=== PATIENT | male | born 1955 | race Two or more races ===

== ENCOUNTER → 2020-08-04 08:26 | Outpatient (BNVA) | payer MEDICARE, SELFPAY | PROVIDERS: PCP Internal Medicine; Referring Provider Internal Medicine; Visit Provider Internal Medicine Endocrinology, Diabetes & Metabolism | DX: E11.42 Type 2 diabetes mellitus with diabetic polyneuropathy (principal); E11.21 Type 2 diabetes mellitus with diabetic nephropathy; Z79.4 Long term (current) use of insulin; I10 Essential (primary) hypertension; E78.5 Hyperlipidemia, unspecified; E66.9 Obesity, unspecified | CPT/HCPCS: 82947; 99212 ==

== ENCOUNTER 2020-09-10 08:38 | Outpatient (REF) | payer MEDICARE, SELFPAY ==
[2020-09-10 08:59] LABS: MANUAL DIFF FLAG NO
[2020-09-10 09:00] LABS: Basophils Absolute Auto 0.1 X10*3/uL (0.0-0.2); Basophils Percent Auto 0.7 % (0-2); Eosinophils Absolute Auto 0.3 X10*3/uL (0.0-0.4); Eosinophils Percent Auto 2.8 % (0-4); Hematocrit 44.7 % (42-52); Hemoglobin 15.1 g/dl (14.0-18.0); Imm Gran Abs Auto 0.01 X10*3/uL (0.00-0.03); Imm Gran Pct Auto 0.1 % (0.0-0.4); Lymphocytes Absolute Auto 3.6 X10*3/uL (1.2-4.9); Lymphocytes Percent Auto 39.4 % (20-40); Mean Corpuscular HGB Conc 33.8 g/dl (31.0-36.0); Mean Corpuscular Hemoglobin 29.8 pg (27.0-33.0); Mean Corpuscular Volume 88.2 fL (80-98); Mean Platelet Volume 9.9 fL (9.4-12.4); Monocytes Absolute Auto 0.8 X10*3/uL (0.1-1.2); Monocytes Percent Auto 8.2 % (2-11); Neutrophils Absolute Auto 4.5 X10*3/uL (2.0-8.3); Neutrophils Percent Auto 48.8 % (45-73); Platelet Count 227 X10*3/uL (160-400); Red Blood Count 5.07 X10*6/uL (4.60-5.80); Red Cell Distribution Width 13.5 % (11.0-16.0); White Blood Count 9.2 X10*3/uL (4.8-10.8)
[2020-09-10 09:24] LABS: Estimated Average Glucose 192 mg/dL; Hemoglobin A1c % 8.3 %
[2020-09-10 09:30] LABS: Alanine Aminotransferase 23 U/L (0-40); Albumin Level 4.1 g/dL (3.5-5.0); Alkaline Phosphatase 65 U/L (39-117); Anion Gap 14 (12-20); Aspartate Amino Transferase 13 U/L (5-37); Bilirubin Total 0.7 mg/dL (0.0-1.0); Blood Urea Nitrogen 18 mg/dL (9-16); Calcium 9.1 mg/dL (8.4-10.2); Carbon Dioxide 26 mmol/L (22-29); Chloride 104 mmol/L (96-108); Cholesterol 113 mg/dL; Estimated Glomerular Filt Rate > 60; Glucose Fasting 170 mg/dL (60-99); HDL Cholesterol 33 mg/dL; LDL Cholesterol Calculated 62 mg/dl; Potassium 4.6 mmol/l (3.3-5.1); Sodium 139 mmol/L (135-145); Total Protein 6.4 g/dL (6.5-8.0); Triglycerides 94 mg/dL
[2020-09-10 09:38] LABS: Creatinine Urine 120.66 mg/dL; Microalbum/Creatinine Ratio Ur 31.4 ug/mg cr
== END 2020-09-10 08:39 | disposition home or self-care (01) ==
LOC: HO.LAB 08:38
PROVIDERS: PCP Internal Medicine; Visit Provider Internal Medicine
DX: E11.9 Type 2 diabetes mellitus without complications (principal)
CPT/HCPCS: 36415; 80053; 80061; 82043; 83036; 85025

== ENCOUNTER → 2021-02-16 08:22 | Outpatient (BNVA) | payer MEDICARE, SELFPAY | PROVIDERS: PCP Internal Medicine; Visit Provider Internal Medicine Endocrinology, Diabetes & Metabolism | DX: E11.65 Type 2 diabetes mellitus with hyperglycemia (principal); E11.42 Type 2 diabetes mellitus with diabetic polyneuropathy; E11.21 Type 2 diabetes mellitus with diabetic nephropathy; E78.5 Hyperlipidemia, unspecified; E66.9 Obesity, unspecified; I10 Essential (primary) hypertension; Z79.4 Long term (current) use of insulin | CPT/HCPCS: 82947; 99212 ==

== ENCOUNTER 2021-03-07 06:07 | Outpatient (REF) | payer MEDICARE, SELFPAY ==
[2021-03-07 07:33] LABS: Cholesterol 109 mg/dL; HDL Cholesterol 34 mg/dL; LDL Cholesterol Calculated 54 mg/dl; Triglycerides 105 mg/dL
[2021-03-07 07:41] LABS: Estimated Average Glucose 206 mg/dL; Hemoglobin A1c % 8.8 %
== END 2021-03-07 06:08 | disposition home or self-care (01) ==
LOC: HO.LAB 06:07
PROVIDERS: Visit Provider Internal Medicine
DX: E11.9 Type 2 diabetes mellitus without complications (principal)
CPT/HCPCS: 36415; 80061; 83036

== ENCOUNTER → 2021-05-18 07:30 | Outpatient (BNVA) | payer MEDICARE, SELFPAY | PROVIDERS: PCP Internal Medicine; Visit Provider Nurse Practitioner Gerontology | DX: E11.65 Type 2 diabetes mellitus with hyperglycemia (principal); E11.42 Type 2 diabetes mellitus with diabetic polyneuropathy; E11.21 Type 2 diabetes mellitus with diabetic nephropathy; E78.5 Hyperlipidemia, unspecified; E66.9 Obesity, unspecified; I10 Essential (primary) hypertension; Z79.4 Long term (current) use of insulin | CPT/HCPCS: 82947; 99212 ==

== ENCOUNTER → 2021-06-01 07:24 | Outpatient (BNVA) | payer MEDICARE, SELFPAY | PROVIDERS: PCP Internal Medicine; Visit Provider Nurse Practitioner Gerontology | DX: E11.65 Type 2 diabetes mellitus with hyperglycemia (principal); E11.42 Type 2 diabetes mellitus with diabetic polyneuropathy; E11.21 Type 2 diabetes mellitus with diabetic nephropathy; E78.5 Hyperlipidemia, unspecified; E66.9 Obesity, unspecified; I10 Essential (primary) hypertension; Z79.4 Long term (current) use of insulin | CPT/HCPCS: 82947; Q3014 ==

== ENCOUNTER 2021-06-05 07:18 | Outpatient (REF) | payer MEDICARE, SELFPAY ==
[2021-06-05 07:54] LABS: Estimated Average Glucose 189 mg/dL; Hemoglobin A1c % 8.2 %
[2021-06-05 08:05] LABS: Cholesterol 172 mg/dL; HDL Cholesterol 34 mg/dL; LDL Cholesterol Calculated 108 mg/dl; Triglycerides 153 mg/dL
== END 2021-06-05 07:19 | disposition home or self-care (01) ==
LOC: HO.LAB 07:18
PROVIDERS: PCP Internal Medicine; Visit Provider Internal Medicine
DX: E11.9 Type 2 diabetes mellitus without complications (principal)
CPT/HCPCS: 36415; 80061; 83036

== ENCOUNTER 2021-11-20 16:16 | Outpatient (REF) | payer MEDICARE, SELFPAY ==
[2021-11-20 17:04] LABS: Blood Urea Nitrogen 21 mg/dL (9-16); Estimated Glomerular Filt Rate > 60
== END 2021-11-20 16:17 | disposition home or self-care (01) ==
LOC: HO.LAB 16:16
PROVIDERS: PCP Internal Medicine; Visit Provider Surgery Vascular Surgery
DX: I73.89 Other specified peripheral vascular diseases (principal)
CPT/HCPCS: 36415; 82565; 84520

== ENCOUNTER 2022-03-10 08:35 | Outpatient (REF) | payer MEDICARE, SELFPAY ==
[2022-03-10 08:42] LABS: MANUAL DIFF FLAG NO
[2022-03-10 10:32] LABS: Basophils Absolute Auto 0.1 X10*3/uL (0.0-0.2); Basophils Percent Auto 0.6 % (0-2); Eosinophils Absolute Auto 0.2 X10*3/uL (0.0-0.4); Eosinophils Percent Auto 2.9 % (0-4); Hematocrit 44.4 % (42.0-52.0); Hemoglobin 14.9 g/dl (14.0-18.0); Imm Gran Abs Auto 0.02 X10*3/uL (0.00-0.03); Imm Gran Pct Auto 0.3 % (0.0-0.4); Lymphocytes Absolute Auto 3.4 X10*3/uL (1.2-4.9); Lymphocytes Percent Auto 42.9 % (20-40); Mean Corpuscular HGB Conc 33.6 g/dl (31.0-36.0); Mean Corpuscular Volume 89.3 fL (80.0-98.0); Monocytes Absolute Auto 0.7 X10*3/uL (0.1-1.2); Monocytes Percent Auto 8.3 % (2-11); Neutrophils Absolute Auto 3.6 x10*3/uL (2.0-8.3); Platelet Count 262 X10*3/uL (160-400); Red Blood Count 4.97 X10*6/uL (4.60-5.80); Red Cell Distribution Width 13.5 % (11.0-16.0)
[2022-03-10 10:41] LABS: Estimated Average Glucose 209 mg/dL; Hemoglobin A1c % 8.9 %
[2022-03-10 10:54] LABS: Alanine Aminotransferase 22 U/L (0-40); Albumin Level 4.3 g/dL (3.5-5.0); Alkaline Phosphatase 67 U/L (39-117); Anion Gap 12 (12-20); Aspartate Amino Transferase 17 U/L (5-37); Bilirubin Total 0.9 mg/dL (0.0-1.0); Blood Urea Nitrogen 16 mg/dL (9-16); Calcium 9.2 mg/dL (8.4-10.2); Carbon Dioxide 29 mmol/L (22-29); Chloride 103 mmol/L (96-108); Cholesterol 137 mg/dL; Estimated Glomerular Filt Rate > 60; Glucose Fasting 208 mg/dL (60-99); HDL Cholesterol 40 mg/dL; LDL Cholesterol Calculated 71 mg/dl; Potassium 5.1 mmol/L (3.3-5.1); Sodium 139 mmol/L (135-145); Total Protein 6.7 g/dL (6.5-8.0); Triglycerides 134 mg/dL
== END 2022-03-10 08:36 | disposition home or self-care (01) ==
LOC: HO.LAB 08:35
PROVIDERS: Absent Provider Internal Medicine; PCP Internal Medicine; Visit Provider Nurse Practitioner Gerontology
DX: Z00.00 Encounter for general adult medical examination without abnormal findings (principal); E11.9 Type 2 diabetes mellitus without complications
CPT/HCPCS: 36415; 80053; 80061; 83036; 85025

== ENCOUNTER → 2022-07-11 07:47 | Outpatient (BNVA) | payer MEDICARE, SELFPAY | PROVIDERS: PCP Internal Medicine; Visit Provider Internal Medicine Endocrinology, Diabetes & Metabolism | DX: E11.65 Type 2 diabetes mellitus with hyperglycemia (principal) | CPT/HCPCS: 82947; 83036; 99212 ==

== ENCOUNTER 2022-07-18 06:17 | Outpatient (REF) | payer MEDICARE, SELFPAY ==
--- NOTE | ~2022-07-18 | XR_ITS ---
EXAMINATION: XR SHOULDER, LEFT CLINICAL INFORMATION: Pain. COMPARISON: None TECHNIQUE: AP external rotation, Grashey, scapular Y, and axillary views of the left shoulder. FINDINGS: There is elevation of the distal clavicle relative to the acromion. This would be consistent with an element of AC joint separation. This could be chronic. There is degeneration and bony densities in the area. There is calcification in the region of the insertion of the superior rotator cuff consistent with calcific tendinosis. There is no convincing evidence for an acute fracture or dislocation here. XR/XR shoulder LT min 2V IMPRESSION: Degenerative changes and findings which may suggest chronic AC joint disruption/separation. If further evaluation is warranted recommend MR.
== END 2022-07-18 06:18 | disposition home or self-care (01) ==
LOC: HO.HOSX 06:17
PROVIDERS: Visit Provider Physician Assistant
DX: M19.012 Primary osteoarthritis, left shoulder (principal); M75.82 Other shoulder lesions, left shoulder
CPT/HCPCS: 20610; 73030; 99202; J1020

== ENCOUNTER 2022-07-18 08:05 | Outpatient (REF) | payer MEDICARE, SELFPAY ==
[2022-07-18 11:11] LABS: Cholesterol 122 mg/dL; HDL Cholesterol 34 mg/dL; LDL Cholesterol Calculated 63 mg/dl; Triglycerides 129 mg/dL
[2022-07-18 11:20] LABS: Creatinine Urine 123.79 mg/dL; Microalbum/Creatinine Ratio Ur 48.4 ug/mg cr
== END 2022-07-18 08:06 | disposition home or self-care (01) ==
LOC: HO.10HDL 08:05
PROVIDERS: Visit Provider Internal Medicine Endocrinology, Diabetes & Metabolism
DX: E11.9 Type 2 diabetes mellitus without complications (principal)
CPT/HCPCS: 36415; 80061; 82043

== ENCOUNTER → 2022-08-08 07:55 | Outpatient (BNVA) | payer MEDICARE, SELFPAY | PROVIDERS: PCP Internal Medicine; Visit Provider Registered Nurse Diabetes Educator | DX: E11.65 Type 2 diabetes mellitus with hyperglycemia (principal) | CPT/HCPCS: 99211 ==

== ENCOUNTER → 2022-08-31 10:16 | Outpatient (BNVA) | payer MEDICARE, SELFPAY | PROVIDERS: PCP Internal Medicine; Visit Provider Registered Nurse Diabetes Educator | DX: E11.65 Type 2 diabetes mellitus with hyperglycemia (principal); Z79.84 Long term (current) use of oral hypoglycemic drugs; Z79.4 Long term (current) use of insulin | CPT/HCPCS: 99211 ==

== ENCOUNTER 2022-10-08 13:35 | Outpatient (REF) | payer MEDICARE, SELFPAY ==
[2022-10-08 14:08] LABS: Estimated Average Glucose 169 mg/dL; Hemoglobin A1c % 7.5 %
== END 2022-10-08 13:36 | disposition home or self-care (01) ==
LOC: HO.LAB 13:35
PROVIDERS: PCP Internal Medicine; Visit Provider Internal Medicine
DX: R73.9 Hyperglycemia, unspecified (principal)
CPT/HCPCS: 36415; 83036

== ENCOUNTER → 2022-10-11 08:12 | Outpatient (BNVA) | payer MEDICARE, SELFPAY | PROVIDERS: PCP Internal Medicine; Visit Provider Internal Medicine Endocrinology, Diabetes & Metabolism | DX: E11.65 Type 2 diabetes mellitus with hyperglycemia (principal); Z79.84 Long term (current) use of oral hypoglycemic drugs | CPT/HCPCS: 82947; 99212 ==

== ENCOUNTER 2023-02-23 09:31 | Outpatient (REF) | payer MEDICARE, SELFPAY ==
[2023-02-23 10:51] LABS: Alanine Aminotransferase 18 U/L (0-40); Alkaline Phosphatase 63 U/L (39-117); Anion Gap 15 (12-20); Aspartate Amino Transferase 16 U/L (5-37); Bilirubin Total 1.3 mg/dL (0.0-1.0); Blood Urea Nitrogen 15 mg/dL (9-16); Calcium 9.6 mg/dL (8.4-10.2); Carbon Dioxide 25 mmol/L (22-29); Chloride 106 mmol/L (96-108); Cholesterol 114 mg/dL; Estimated Glomerular Filt Rate > 60; Glucose Fasting 114 mg/dL (60-99); HDL Cholesterol 35 mg/dL; LDL Cholesterol Calculated 57 mg/dl; Potassium 4.4 mmol/L (3.3-5.1); Sodium 142 mmol/L (135-145); Total Protein 6.6 g/dL (6.5-8.0); Triglycerides 113 mg/dL
[2023-02-23 11:00] LABS: Thyroid Stimulating Hormone 1.61 uIU/mL (0.32-4.0)
== END 2023-02-23 09:32 | disposition home or self-care (01) ==
LOC: HO.LAB 09:31
PROVIDERS: PCP Internal Medicine; Visit Provider Internal Medicine
DX: Z00.00 Encounter for general adult medical examination without abnormal findings (principal); E03.9 Hypothyroidism, unspecified; N28.9 Disorder of kidney and ureter, unspecified; D64.9 Anemia, unspecified; E78.5 Hyperlipidemia, unspecified; E11.9 Type 2 diabetes mellitus without complications; Z12.5 Encounter for screening for malignant neoplasm of prostate
CPT/HCPCS: 36415; 80053; 80061; 83036; 84153; 84443; 85025

== ENCOUNTER 2023-03-05 12:36 | Outpatient (REF) | payer MEDICARE, SELFPAY ==
[2023-03-05 15:15] LABS: Creatinine Urine 64.18 mg/dL; Microalbum/Creatinine Ratio Ur 98.1 ug/mg cr
== END 2023-03-05 12:37 | disposition home or self-care (01) ==
LOC: HO.LAB 12:36
PROVIDERS: PCP Internal Medicine; Visit Provider Internal Medicine
DX: E11.69 Type 2 diabetes mellitus with other specified complication (principal); E11.65 Type 2 diabetes mellitus with hyperglycemia; E66.01 Morbid (severe) obesity due to excess calories; E78.5 Hyperlipidemia, unspecified
CPT/HCPCS: 82043

== ENCOUNTER 2023-04-11 07:50 | Outpatient (AMB) | payer MEDICARE, SELFPAY ==
[2023-04-11 07:56] VITALS: BP 122/68; PULSE 51; BMI 35.0
--- NOTE | 2023-04-11 07:56 | MHC.OFFVIS ---
Intake Vital Signs 04/11/23 07:56 Height 5 ft 7 in Weight 223 lb 5.252 oz BMI 35.0 BP 122/68 Position Sitting Pulse 51 Pulse Source Pulse Oximeter Intake Visit Reasons: DM2 Intake Note: Patient present today to follow up on Type 2 Diabetes Mellitus. Patient receives DME supplies through: [facility] Last Diabetic Eye exam: 05/2022 Last Podiatry Visit: 01/2023 Random Glucose: 151 mg/dl HgA1C: 6.8% 02/23/2023 Vice President Industrial Relations Required: No Vice President Industrial Relations Name: Information Interpreted: non-clinical & clinical Accompanied by: Spouse Allergies lisinopril Allergy (Unknown, Verified 04/11/23 08:01) cough Medication List - Last Reconciled 04/11/23 by Jean Hidalgo MD amlodipine 10 mg PO DAILY 90 days aspirin 81 mg PO DAILY atorvastatin 20 mg PO DAILY blood sugar diagnostic (FreeStyle Lite Strips) 1 strip miscellaneous TID 30 days clopidogrel 75 mg PO DAILY colestipol 2 grams (2 x 1 gram) PO DAILY dulaglutide (Trulicity) 1.5 mg (0.5 mL) subcut QWEEK hydrochlorothiazide 25 mg PO DAILY insulin NPH and regular human 100 unit/mL (70-30) (Humulin 70/30 U-100 Insulin) 17 units with breakfast and 9 units with dinner subcutaneously 2 times a day. 30 days insulin syringe-needle U-100 (BD Insulin Syringe Ultra-Fine) twice a day losartan 50 mg PO DAILY metformin 1,000 mg PO BID 90 days metoprolol succinate ER 50 mg PO DAILY nitroglycerin 0.4 mg sublingual Q5M PRN pen needle, diabetic (BD Araceli 2nd Gen Pen Needle) twice a day HPI HPI Comments History of Present Illness Details Patient is a 66-year-old male with type 2 diabetes diagnosed in 2002 . Presents with . Past medical history includes : DM2, HTN, HLD, PVD Micro and macrovascular complications: Diabetes medications: Humulin 70/30 17 units before breakfast and 9 units before dinner., metformin 1000 mg twice a day, Trulicity 1.5 mg Qwkly Hypoglycemia: denies Hyperglycemia: + pollyuria Unfortunately, patient did not bring glucometer or log book to follow-up visit saw optho in 05/2022 Laboratory Tests 09/10/20 09/10/20 03/07/21 08:46 08:46 06:20 Creatinine 0.99 Estimated GFR > 60 Triglycerides 105 Cholesterol 109 LDL Cholesterol, C alc 54 HDL Cholesterol 34 Microalb/Creat Rat io 31.4 PFSH Medical History CAD (coronary artery disease) Diabetes mellitus with coincident hypertension Diabetes type 2, controlled Diabetes type 2, uncontrolled Diabetic nephropathy associated with type 2 diabetes mellitus Diabetic polyneuropathy associated with type 2 diabetes mellitus Dyslipidemia Hypertension [facility] (current) use of insulin Obesity (BMI 30-39.9) PVD (peripheral vascular disease) Surgical History History of appendectomy History of left-sided carotid endarterectomy History of surgery Hx of angioplasty Family History Father Myocardial infarction Mother Diabetes Hypertension Sister No problems noted. Son No problems noted. Son No problems noted. Social History Housing: Apartment Alcohol intake: never Patient Tobacco Use Status: Never used Tobacco e-Cigarette/Vaping Use: Never Used Second Hand Smoke Exposure: No service: No Current occupational status: unemployed Cognitive needs: No Hearing needs: No Vision needs: No Physical Exam Vital Signs: BMI result Body Mass Index 35.0 Absence of Cushingoid features. Absence of acromegalic features. Neck exam reveals nl size thyroid about 15 gms. No thyroid nodules palpable. No carotid bruits present. Lungs CTA. Heart S1 S2, Reg R/R. No M/R/ G. Skin exam reveals absence of vitiligo or acanthosis nigricans. Abdominal exam reveals Soft NT/ND with NA BS. No organomegaly present. Neck Other: . Extrem Other: Visual exam of foot performed. No ulcerations or open lesions. No onchomycosis, no callouses.Pulses 2 + distally Sensation intact to monofilament exam. Vibratory sensation sensed is intact with 128 Hz tuning fork Assessment & Plan Assessment & Plan (1) Diabetes type 2, uncontrolled: Code(s): E11.65 - Type 2 diabetes mellitus with hyperglycemia Qualifiers: Glycemic state: with hyperglycemia Qualified Code(s): E11.65 - Type 2 diabetes mellitus with hyperglycemia Plan: This 66-year-old white male with a history of type 2 diabetes being treated with metformin, Trulicity and premixed insulin with improving excellent glycemic control and known microvascular and macrovascular complications namely neuropathy, CKD and coronary artery disease Plan is to continue the current regimen. We talked extensively about the use of personal sensor like Thomas but the patient cannot afford the co-pay for. . At this point, patient returned to the care of his primary care provider and return back to endocrinology if his HbA1c deteriorate Coding Level of Care Code Est Pt Level 4 (86637) Diagnoses Diabetes type 2, uncontrolled E11.65 Glycemic state: with hyperglycemia
[2023-04-11 08:13] LABS: Glucose, Whole Blood 151 mg/dL (60-115)
== END 2023-04-11 08:45 | disposition home or self-care (01) ==
PROVIDERS: PCP Internal Medicine; Visit Provider Internal Medicine Endocrinology, Diabetes & Metabolism
DX: E11.65 Type 2 diabetes mellitus with hyperglycemia (principal)
CPT/HCPCS: 99214

== ENCOUNTER → 2023-04-11 07:50 | Outpatient (BNVA) | payer MEDICARE, SELFPAY | PROVIDERS: Visit Provider Internal Medicine Endocrinology, Diabetes & Metabolism | DX: E11.65 Type 2 diabetes mellitus with hyperglycemia (principal) | CPT/HCPCS: 82947; 99212 ==

== ENCOUNTER 2023-07-08 08:29 | Outpatient (REF) | payer MEDICARE, SELFPAY ==
[2023-07-08 09:17] LABS: Estimated Average Glucose 151 mg/dL; Hemoglobin A1c % 6.9 % (<6.0)
[2023-07-08 09:52] LABS: Cholesterol 114 mg/dL (<200); Glucose Fasting 138 mg/dL (60-99); HDL Cholesterol 37 mg/dL (>40); LDL Cholesterol Calculated 60 mg/dL (<100); Triglycerides 89 mg/dL (<150)
== END 2023-07-08 08:30 | disposition home or self-care (01) ==
LOC: HO.LAB 08:29
PROVIDERS: PCP Internal Medicine; Visit Provider Internal Medicine
DX: R73.9 Hyperglycemia, unspecified (principal); E78.5 Hyperlipidemia, unspecified
CPT/HCPCS: 36415; 80061; 82947; 83036

== ENCOUNTER 2023-07-11 10:35 | Outpatient (AMB) | payer MEDICARE, SELFPAY ==
--- NOTE | 2023-07-11 10:38 | A.OFFPC_ITS ---
Vital Signs 07/11/23 10:39 Height 5 ft 7 in Weight 224 lb BMI 35.1 BP 130/50 L Blood Pressure Location Lt brachial Position Sitting Pulse 55 Pulse Source Pulse Oximeter Pulse Oximetry (%) 97 Oxygen Delivery Method Room Air Intake Visit Reasons: 6mth f/u Bulk Picker Required: No Tooth Cutter Contact Wheel: Not Required per policy Accompanied by: Self / Same As Patient Allergies lisinopril Allergy (Unknown, Verified 07/11/23 10:39) cough Medication List - Last Reconciled 07/11/23 by Chace Berg MD amlodipine 10 mg PO DAILY 90 days aspirin 81 mg PO DAILY atorvastatin 20 mg PO DAILY blood sugar diagnostic (FreeStyle Lite Strips) 1 strip miscellaneous TID 30 days clopidogrel 75 mg PO DAILY colestipol 2 grams (2 x 1 gram) PO DAILY dulaglutide (Trulicity) 1.5 mg (0.5 mL) subcut QWEEK hydrochlorothiazide 25 mg PO DAILY insulin NPH and regular human 100 unit/mL (70-30) (Humulin 70/30 U-100 Insulin) 17 units with breakfast and 9 units with dinner subcutaneously 2 times a day. 30 days insulin syringe-needle U-100 (BD Insulin Syringe Ultra-Fine) twice a day losartan 50 mg PO DAILY metformin 1,000 mg PO BID metoprolol succinate ER 50 mg PO DAILY nitroglycerin 0.4 mg sublingual Q5M PRN pen needle, diabetic (BD Araceli 2nd Gen Pen Needle) twice a day Tobacco use date assessed: 09/26/22 Fall risk assessment: No Falls in past year Last assessed Fall Risk: 07/11/23 Dental Screening Dental Screen Date: 07/11/23 Did you have a dental visit in the last 12 months?: No Did you have a dental problem in the last 6 months where you did not have access to dental care?: No Was dental information given to patient?: Patient has dentist HPI 6mth f/u HPI Details HTN hyperlipidemia and DM; doing well; compliant [facility] Medical History Diabetes mellitus with coincident hypertension Diabetes type 2, uncontrolled PVD (peripheral vascular disease) CAD (coronary artery disease) Obesity (BMI 30-39.9) Dyslipidemia Hypertension Diabetic nephropathy associated with type 2 diabetes mellitus Diabetic polyneuropathy associated with type 2 diabetes mellitus penitentiary (current) use of insulin Diabetes type 2, controlled Surgical History Hx of angioplasty History of surgery History of left-sided carotid endarterectomy History of appendectomy Family History Father Myocardial infarction Mother Diabetes Hypertension Sister No problems noted. Son No problems noted. Son No problems noted. Social History Housing: Apartment Alcohol intake: never Patient Tobacco Use Status: Never used Tobacco e-Cigarette/Vaping Use: Never Used Second Hand Smoke Exposure: No service: No Current occupational status: unemployed Cognitive needs: No Hearing needs: No Vision needs: Yes Questionnaire PHQ-9 Over the last 2 weeks, how often have you been bothered by any of the following problems? 1. Little interest or pleasure in doing things: not at all 2. Feeling down, depressed, or hopeless: not at all 3. Trouble falling or staying asleep, or sleeping too much: not at all 4. Feeling tired or having little energy: not at all 5. Poor appetite or overeating: not at all 6. Feeling bad about yourself - or that you are a failure or have let yourself or your family down: not at all 7. Trouble concentrating on things, such as reading the newspaper or watching television: not at all 8. Moving or speaking so slowly that other people could have noticed. Or the opposite - being so fidgety or restless that you have been moving around a lot more than usual: not at all 9. Thoughts that you would be better off or of hurting yourself in some way: not at all Total score: 0 Depression Screening Interpretation: Negative Depression Screening Done: Yes 90038 - PHQ-9 Billing: Yes Source: Developed by Drs. Jean Cordon, Carol Engel, Zac Navarro and colleagues, with an educational gerda from [employer]. Thrive Questionnaire Date Thrive assessed: 09/26/22 AUDIT C Alcohol Use Questionnaire (AUDIT-C) 1. How often do you have a drink containing alcohol?: Never Total Score: 0 Score Reviewed/Action Taken: Yes PATRICIO-7 AMB Questionnaire PATRICIO-7 Date PATRICIO - 7 assessed: 09/26/22 Source: Developed by Drs. Jean Cordon, Carol Engel, Zac Navarro and colleagues, with an educational gerda from [employer]. Review of Systems Const Denies chills, Denies headache(s) and Denies weight loss ENT Denies headache(s) Card Denies chest pain, Denies syncope, Denies irregular heart rhythm and Denies dyspnea Resp Denies chest congestion, Denies cough and Denies dyspnea GI Denies abdominal pain, Denies change in stool character, Denies nausea and Denies vomiting Musc Denies deformity and Denies joint swelling Neuro Denies syncope and Denies headache(s) Physical exam (Primary Care) Vital Signs: Last Vital Signs Pulse 55 07/11/23 10:39 BP 130/50 L 07/11/23 10:39 Pulse Ox 97 07/11/23 10:39 Oxygen Delivery Method Room Air 07/11/23 10:39 BMI result Body Mass Index 35.1 Tobacco/Smoking Status: Tobacco use Status Tobacco use date assessed 09/26/22 07/11/23 10:39 Patient Tobacco Use Status Never used Tobacco 07/11/23 10:39 e-Cigarette/Vaping Use Never Used 07/11/23 10:39 PHQ-9: PHQ-9 Score PHQ-9: Total score 0 07/11/23 10:39 Depression Screening Interpretation: Negative Thrive Assessment: Date of Thrive Assessment Date Thrive assessed 09/26/22 07/11/23 10:39 Const General: cooperative, comfortable, no acute distress and alert Neck Neck: Yes no lymphadenopathy Thyroid: Thyroid normal Resp Effort & Inspection: normal respiratory effort Auscultation: clear to auscultation bilaterally Percussion: percussion normal Cardio Jugular venous distension: no JVD Palpation: normal PMI Rate: regular rate Rhythm: regular rhythm Heart sounds: S1 normal heart sound present and S2 normal heart sound present GI Inspection: Yes normal to inspection Palpation (GI): No hepatosplenomegaly present Skin General skin exam: no rashes or lesions noted Extrem General: Yes no clubbing, cyanosis or edema Assessment and Plan Assessment & Plan (1) Diabetes mellitus with coincident hypertension: Code(s): E11.9 - Type 2 diabetes mellitus without complications; I10 - Essential (prima ry) hypertension Plan: stable; same rx (2) Hypertension: Code(s): I10 - Essential (primary) hypertension Qualifiers: Hypertension type: essential hypertension Qualified Code(s): I10 - Essential (primary) hypertension Plan: stable; same rx (3) Dyslipidemia: Code(s): E78.5 - Hyperlipidemia, unspecified Plan: stable; same rx Coding Level of Care Code Est Pt Level 4 (09133) Diagnoses Diabetes mellitus with coincident hypertension E11.9; I10 Essential hypertension I10 Hypertension type: essential hypertension Dyslipidemia E78.5
[2023-07-11 10:39] VITALS: BP 130/50; PULSE 55; O2SAT 97; BMI 35.1
== END 2023-07-11 11:02 | disposition home or self-care (01) ==
PROVIDERS: PCP Internal Medicine; Visit Provider Internal Medicine
DX: E11.69 Type 2 diabetes mellitus with other specified complication (principal); I10 Essential (primary) hypertension; E78.5 Hyperlipidemia, unspecified
CPT/HCPCS: 99214

== ENCOUNTER 2023-11-08 08:21 | Outpatient (REF) | payer MEDICARE, SELFPAY ==
[2023-11-08 10:05] LABS: Cholesterol 101 mg/dL (<200); Glucose Fasting 156 mg/dL (60-99); HDL Cholesterol 35 mg/dL (>40); LDL Cholesterol Calculated 47 mg/dL (<100); Triglycerides 97 mg/dL (<150)
== END 2023-11-08 08:22 | disposition home or self-care (01) ==
LOC: HO.LAB 08:21
PROVIDERS: PCP Internal Medicine; Visit Provider Internal Medicine
DX: R73.9 Hyperglycemia, unspecified (principal); R78.5 Finding of other psychotropic drug in blood
CPT/HCPCS: 36415; 80061; 82947

== ENCOUNTER 2023-11-11 08:18 | Outpatient (AMB) | payer MEDICARE, SELFPAY ==
[2023-11-11 08:33] VITALS: BP 140/60; PULSE 70; O2SAT 96; BMI 35.2
--- NOTE | 2023-11-11 08:33 | MHC.PC.OV ---
Vital Signs 11/11/23 08:33 Height 5 ft 7 in Weight 225 lb BMI 35.2 BP 140/60 H Blood Pressure Location Lt brachial Position Sitting Pulse 70 Pulse Source Pulse Oximeter Pulse Oximetry (%) 96 Oxygen Delivery Method Room Air Intake Visit Reasons: 4mth f/u Box Spring Maker Required: No Feller Hand: Present Accompanied by: Spouse Allergies lisinopril Allergy (Unknown, Verified 11/11/23 08:33) cough Medication List - Last Reconciled 11/11/23 by Chace Berg MD amlodipine 10 mg PO DAILY 90 days aspirin 81 mg PO DAILY atorvastatin 20 mg PO DAILY blood sugar diagnostic (FreeStyle Lite Strips) 1 strip miscellaneous TID 30 days clopidogrel 75 mg PO DAILY colestipol 2 grams (2 x 1 gram) PO DAILY dulaglutide (Trulicity) 1.5 mg (0.5 mL) subcut QWEEK hydrochlorothiazide 25 mg PO DAILY insulin lispro protamin-lispro 100 unit/mL (75-25) (Humalog Mix 75-25(U-100)Insuln) 17 units (0.17 mL) subcut DAILY insulin NPH and regular human 100 unit/mL (70-30) (Humulin 70/30 U-100 Insulin) 17 units with breakfast and 9 units with dinner subcutaneously 2 times a day. 30 days insulin syringe-needle U-100 (BD Insulin Syringe Ultra-Fine) twice a day losartan 50 mg PO DAILY metformin 1,000 mg PO BID metoprolol succinate ER 50 mg PO DAILY nitroglycerin 0.4 mg sublingual Q5M PRN pen needle, diabetic (BD Araceli 2nd Gen Pen Needle) twice a day Tobacco use date assessed: 11/11/23 Fall risk assessment: No Falls in past year Last assessed Fall Risk: 11/11/23 Dental Screening Dental Screen Date: 11/11/23 Did you have a dental visit in the last 12 months?: No Did you have a dental problem in the last 6 months where you did not have access to dental care?: No Was dental information given to patient?: Patient has dentist HPI 4mth f/u HPI Details DM HTN and hyperlip; doing well; compliant; dietary indiscretion PFSH Medical History Diabetes mellitus with coincident hypertension Diabetes type 2, uncontrolled PVD (peripheral vascular disease) CAD (coronary artery disease) Obesity (BMI 30-39.9) Dyslipidemia Hypertension Diabetic nephropathy associated with type 2 diabetes mellitus Diabetic polyneuropathy associated with type 2 diabetes mellitus longterm (current) use of insulin Diabetes type 2, controlled Surgical History Hx of angioplasty History of surgery History of left-sided carotid endarterectomy History of appendectomy Family History Father Myocardial infarction Mother Diabetes Hypertension Sister No problems noted. Son No problems noted. Son No problems noted. Social History Housing: Apartment Alcohol intake: never Patient Tobacco Use Status: Never used Tobacco e-Cigarette/Vaping Use: Never Used Second Hand Smoke Exposure: No service: No Current occupational status: unemployed Cognitive needs: No Hearing needs: No Vision needs: Yes (glasses) Questionnaire PHQ-9 Over the last 2 weeks, how often have you been bothered by any of the following problems? 1. Little interest or pleasure in doing things: not at all 2. Feeling down, depressed, or hopeless: not at all 3. Trouble falling or staying asleep, or sleeping too much: not at all 4. Feeling tired or having little energy: not at all 5. Poor appetite or overeating: not at all 6. Feeling bad about yourself - or that you are a failure or have let yourself or your family down: not at all 7. Trouble concentrating on things, such as reading the newspaper or watching television: not at all 8. Moving or speaking so slowly that other people could have noticed. Or the opposite - being so fidgety or restless that you have been moving around a lot more than usual: not at all 9. Thoughts that you would be better off or of hurting yourself in some way: not at all Total score: 0 Depression Screening Interpretation: Negative Depression Screening Done: Yes 07606 - PHQ-9 Billing: Yes Source: Developed by Drs. Jean Cordon, Carol Engel, Zac Navarro and colleagues, with an educational gerda from [employer]. Thrive Questionnaire Date Thrive assessed: 11/11/23 I am a: Patient What is your living situation today?: I have a steady place to live Within the past 12 months, did the food you bought not last and you didn't have the money to get more?: Never true Within the past 12 months, did you worry whether your food would run out before you got money to buy more?: Never true Do you have trouble paying for medicines?: No Do you have trouble getting transportation to medical appointments?: No Do you have trouble paying your heating and electricity bill?: No Do you have trouble taking care of your child, family member or friend?: No Do you have trouble with day-to-day activities such as bathing, preparing meals, shopping, managing finances, etc.?: No Are you currently unemployed and looking for a job?: No Are you interested in more education?: No Please select the resources that you would like help with: None THRIVE Score: 0 AUDIT C Alcohol Use Questionnaire (AUDIT-C) 1. How often do you have a drink containing alcohol?: Never Total Score: 0 Score Reviewed/Action Taken: Yes PATRICIO-7 AMB Questionnaire PATRICIO-7 Date PATRICIO - 7 assessed: 11/11/23 Feeling nervous, anxious, or on edge: 0 = Not at all Not being able to stop or control worryin = Not at all Worrying too much about different things: 0 = Not at all Trouble relaxin = Not at all Being so restless that it is hard to sit still: 0 = Not at all Becoming easily annoyed or irritable: 0 = Not at all Feeling afraid as if something awful might happen: 0 = Not at all Total PATRICIO-7 score (0-4 normal; 5-9 mild; 10-14 moderate; 15-21 severe): 0 Source: Developed by Drs. Jean Cordon, Carol Engel, Zac Navarro and colleagues, with an educational gerda from [employer]. PATRICIO-7 Assessment Billing PATRICIO-7 Assessment Tool: PATRICIO-7 Assessment 87488 Review of Systems Const Denies chills, Denies headache(s) and Denies weight loss ENT Denies headache(s) Card Denies chest pain, Denies syncope, Denies irregular heart rhythm and Denies dyspnea Resp Denies chest congestion, Denies cough and Denies dyspnea GI Denies abdominal pain, Denies change in stool character, Denies nausea and Denies vomiting Musc Denies deformity and Denies joint swelling Neuro Denies syncope and Denies headache(s) Physical exam (Primary Care) Vital Signs: Last Vital Signs Pulse 70 11/11/23 08:33 BP 140/60 H 11/11/23 08:33 Pulse Ox 96 11/11/23 08:33 Oxygen Delivery Method Room Air 11/11/23 08:33 BMI result Body Mass Index 35.2 Tobacco/Smoking Status: Tobacco use Status Tobacco use date assessed 11/11/23 11/11/23 08:35 Patient Tobacco Use Status Never used Tobacco 11/11/23 08:35 e-Cigarette/Vaping Use Never Used 11/11/23 08:35 PHQ-9: PHQ-9 Score PHQ-9: Total score 0 11/11/23 08:43 Depression Screening Interpretation: Negative Thrive Assessment: Date of Thrive Assessment Date Thrive assessed 11/11/23 11/11/23 08:35 Const General: cooperative, comfortable, no acute distress and alert Neck Neck: Yes no lymphadenopathy Thyroid: Thyroid normal Resp Effort & Inspection: normal respiratory effort Auscultation: clear to auscultation bilaterally Percussion: percussion normal Cardio Jugular venous distension: no JVD Palpation: normal PMI Rate: regular rate Rhythm: regular rhythm Heart sounds: S1 normal heart sound present and S2 normal heart sound present GI Inspection: Yes normal to inspection Palpation (GI): No hepatosplenomegaly present Skin General skin exam: no rashes or lesions noted Extrem General: Yes no clubbing, cyanosis or edema Results AMB Hemoglobin A1c AMB Hemoglobin A1c 7.6 % Last Edit by KRAIG Holbrook on 11/11/23 08:44 Results Reviewed Results Reviewed: Laboratory Last Values Hgb A1c (Clinic) 7.6 % (4.0-6.0) H 11/11/23 08:35 Assessment and Plan Assessment & Plan (1) Diabetes mellitus with coincident hypertension: Code(s): E11.9 - Type 2 diabetes mellitus without complications; I10 - Essential (primary) hypertension Plan: stable; improve diet (2) Dyslipidemia: Code(s): E78.5 - Hyperlipidemia, unspecified Plan: stable; same rx (3) Hypertension: Code(s): I10 - Essential (primary) hypertension Qualifiers: Hypertension type: essential hypertension Qualified Code(s): I10 - Essential (primary) hypertension Plan: stable Orders: Orders AMB Hemoglobin A1c Today E11.65 - Type 2 diabetes mellitus with hyperglycemia Comprehensive [place]. Panel Fast Today N28.9 - Disorder of kidney and ureter, unspecified Complete Blood Count Auto Diff Today D64.9 - Anemia, unspecified Hemoglobin A1c Today R73.9 - Hyperglycemia, unspecified Microalbumin, Random (w Creat) Today E11.69 - Type 2 diabetes mellitus with other specified complication, E66.01 - Morbid (severe) obesity due to excess calories Prostate Specific Antigen Scr Today Z00.00 - Encounter for general adult medical examination without abnormal findings Coding Level of Care Code Est Pt Level 4 (43770) Diagnoses Diabetes mellitus with coincident hypertension E11.9; I10 Dyslipidemia E78.5 Essential hypertension I10 Hypertension type: essential hypertension Additional Codes PATRICIO-7 Assessment Billing - PATRICIO-7 Assessment Tool: PATRICIO-7 Assessment 31241 ([id number])
== END 2023-11-11 08:58 | disposition home or self-care (01) ==
PROVIDERS: PCP Internal Medicine; Visit Provider Internal Medicine
DX: E11.9 Type 2 diabetes mellitus without complications (principal); I10 Essential (primary) hypertension; E78.5 Hyperlipidemia, unspecified; E11.65 Type 2 diabetes mellitus with hyperglycemia
CPT/HCPCS: 83036; 99214

== ENCOUNTER 2024-03-06 09:12 | Outpatient (REF) | payer MEDICARE, SELFPAY ==
[2024-03-06 09:24] LABS: MANUAL DIFF FLAG NO
[2024-03-06 09:53] LABS: Basophils Absolute Auto 0.1 X10*3/uL (0.0-0.2); Basophils Percent Auto 0.8 % (0-2); Eosinophils Absolute Auto 0.3 X10*3/uL (0.0-0.4); Eosinophils Percent Auto 3.3 % (0-4); Hematocrit 41.7 % (42.0-52.0); Hemoglobin 14.2 g/dl (14.0-18.0); Imm Gran Abs Auto 0.01 X10*3/uL (0.00-0.03); Imm Gran Pct Auto 0.1 % (0.0-0.4); Lymphocytes Percent Auto 39.3 % (20-40); Mean Corpuscular HGB Conc 34.1 g/dl (31.0-36.0); Mean Platelet Volume 9.3 fL (9.4-12.4); Monocytes Absolute Auto 0.7 X10*3/uL (0.1-1.2); Monocytes Percent Auto 9.7 % (2-11); Neutrophils Absolute Auto 3.5 x10*3/uL (2.0-8.3); Neutrophils Percent Auto 46.8 % (45-73); Platelet Count 228 X10*3/uL (160-400); Red Blood Count 4.74 X10*6/uL (4.60-5.80); Red Cell Distribution Width 13.5 % (11.0-16.0); White Blood Count 7.5 X10*3/uL (4.8-10.8)
[2024-03-06 10:00] LABS: Estimated Average Glucose 151 mg/dL; Hemoglobin A1c % 6.9 % (<6.0)
[2024-03-06 10:22] LABS: Alanine Aminotransferase 17 U/L (0-40); Alkaline Phosphatase 55 U/L (39-117); Anion Gap 13 (12-20); Aspartate Amino Transferase 13 U/L (5-37); Bilirubin Total 0.7 mg/dL (0.0-1.0); Blood Urea Nitrogen 18 mg/dL (9-16); Calcium 9.1 mg/dL (8.4-10.2); Carbon Dioxide 24 mmol/L (22-29); Chloride 105 mmol/L (96-108); Estimated Glomerular Filt Rate > 60; Glucose Fasting 138 mg/dL (60-99); Potassium 4.1 mmol/L (3.3-5.1); Sodium 138 mmol/L (135-145); Total Protein 6.4 g/dL (6.5-8.0)
[2024-03-06 10:45] LABS: Prostate Specific Antigen Scr 1.19 ng/mL (<0.05-4.0)
== END 2024-03-06 09:13 | disposition home or self-care (01) ==
LOC: HO.LAB 09:12
PROVIDERS: PCP Internal Medicine; Visit Provider Internal Medicine
DX: Z00.00 Encounter for general adult medical examination without abnormal findings (principal); D64.9 Anemia, unspecified; N28.9 Disorder of kidney and ureter, unspecified; E11.69 Type 2 diabetes mellitus with other specified complication; E11.65 Type 2 diabetes mellitus with hyperglycemia; E66.01 Morbid (severe) obesity due to excess calories; Z12.5 Encounter for screening for malignant neoplasm of prostate
CPT/HCPCS: 36415; 80053; 83036; 84153; 85025

== ENCOUNTER 2024-03-16 08:17 | Outpatient (AMB) | payer MEDICARE, SELFPAY ==
--- NOTE | 2024-03-16 08:21 | MHC.PC.OV ---
Vital Signs 03/16/24 08:23 Height 5 ft 7 in Weight 220 lb 4 oz BMI 34.5 BP 140/60 H Blood Pressure Location Lt brachial Position Sitting Pulse 54 Pulse Source Pulse Oximeter Pulse Oximetry (%) 95 Oxygen Delivery Method Room Air Intake Visit Reasons: 4mth f/u Intake Note: Patient is here to follow up on DM, CAD, HTN. Director Athletic Required: No Bond Writer: Not Required per policy Accompanied by: Self / Same As Patient Allergies lisinopril Allergy (Unknown, Verified 03/16/24 08:23) cough Medication List - Last Reconciled 03/16/24 by Chace Berg MD amlodipine 10 mg PO DAILY 90 days aspirin 81 mg PO DAILY atorvastatin 20 mg PO DAILY blood sugar diagnostic (FreeStyle Lite Strips) 1 strip miscellaneous TID 30 days clopidogrel 75 mg PO DAILY colestipol 2 grams (2 x 1 gram) PO DAILY dulaglutide (Trulicity) 1.5 mg (0.5 mL) subcut QWEEK hydrochlorothiazide 25 mg PO DAILY insulin lispro protamin-lispro 100 unit/mL (75-25) (Humalog Mix 75-25(U-100)Insuln) 17 units (0.17 mL) subcut DAILY insulin NPH and regular human 100 unit/mL (70-30) (Humulin 70/30 U-100 Insulin) 17 units with breakfast and 9 units with dinner subcutaneously 2 times a day. 30 days insulin syringe-needle U-100 (BD Insulin Syringe Ultra-Fine) twice a day losartan 50 mg PO DAILY metformin 1,000 mg PO BID metoprolol succinate ER 50 mg PO DAILY nitroglycerin 0.4 mg sublingual Q5M PRN pen needle, diabetic (BD Araceli 2nd Gen Pen Needle) twice a day Tobacco use date assessed: 03/16/24 Fall risk assessment: No Falls in past year Last assessed Fall Risk: 03/16/24 Dental Screening Dental Screen Date: 11/11/23 HPI 4mth f/u HPI Details stable; doing well DM with A1C 6.9 PFSH Medical History Diabetes mellitus with coincident hypertension Diabetes type 2, uncontrolled PVD (peripheral vascular disease) CAD (coronary artery disease) Obesity (BMI 30-39.9) Dyslipidemia Hypertension Diabetic nephropathy associated with type 2 diabetes mellitus Diabetic polyneuropathy associated with type 2 diabetes mellitus [facility] (current) use of insulin Diabetes type 2, controlled Surgical History Hx of angioplasty History of surgery History of left-sided carotid endarterectomy History of appendectomy Family History Father Myocardial infarction Mother Diabetes Hypertension Sister No problems noted. Son No problems noted. Son No problems noted. Social History Housing: Apartment Alcohol intake: never Patient Tobacco Use Status: Never used Tobacco e-Cigarette/Vaping Use: Never Used Second Hand Smoke Exposure: No service: No Current occupational status: unemployed Cognitive needs: No Hearing needs: No Vision needs: Yes (glasses) Questionnaire Thrive Questionnaire Date Thrive assessed: 11/11/23 PATRICIO-7 AMB Questionnaire PATRICIO-7 Date PATRICIO - 7 assessed: 11/11/23 Source: Developed by Drs. Jean Cordon, Carol Engel, Zac Navarro and colleagues, with an educational gerda from [employer]. Review of Systems Const Denies chills, Denies headache(s) and Denies weight loss ENT Denies headache(s) Card Denies chest pain, Denies syncope, Denies irregular heart rhythm and Denies dyspnea Resp Denies chest congestion, Denies cough and Denies dyspnea GI Denies abdominal pain, Denies change in stool character, Denies nausea and Denies vomiting Musc Denies deformity and Denies joint swelling Neuro Denies syncope and Denies headache(s) Physical exam (Primary Care) Vital Signs: Last Vital Signs Pulse 54 03/16/24 08:23 BP 140/60 H 03/16/24 08:23 Pulse Ox 95 03/16/24 08:23 Oxygen Delivery Method Room Air 03/16/24 08:23 BMI result Body Mass Index 34.5 Tobacco/Smoking Status: Tobacco use Status Tobacco use date assessed 03/16/24 03/16/24 08:27 Patient Tobacco Use Status Never used Tobacco 03/16/24 08:27 e-Cigarette/Vaping Use Never Used 03/16/24 08:27 Thrive Assessment: Date of Thrive Assessment Date Thrive assessed 11/11/23 03/16/24 08:27 Const General: cooperative, comfortable, no acute distress and alert Neck Neck: Yes no lymphadenopathy Thyroid: Thyroid normal Resp Effort & Inspection: normal respiratory effort Auscultation: clear to auscultation bilaterally Percussion: percussion normal Cardio Jugular venous distension: no JVD Palpation: normal PMI Rate: regular rate Rhythm: regular rhythm Heart sounds: S1 normal heart sound present and S2 normal heart sound present GI Inspection: Yes normal to inspection Palpation (GI): No hepatosplenomegaly present Skin General skin exam: no rashes or lesions noted Extrem General: Yes no clubbing, cyanosis or edema Assessment and Plan Assessment & Plan (1) Diabetes mellitus with coincident hypertension: Code(s): E11.9 - Type 2 diabetes mellitus without complications; I10 - Essential (primary) hypertension Plan: stable; same rx Orders: Orders Lipid Panel Today Z13.220 - Encounter for screening for lipoid disorders Hemoglobin A1c Today R73.9 - Hyperglycemia, unspecified Glucose Fasting Today R73.9 - Hyperglycemia, unspecified Coding Level of Care Code Est Pt Level 3 (68572) Diagnoses Diabetes mellitus with coincident hypertension E11.9; I10
[2024-03-16 08:23] VITALS: BP 140/60; PULSE 54; O2SAT 95; BMI 34.5
== END 2024-03-16 08:43 | disposition home or self-care (01) ==
PROVIDERS: PCP Internal Medicine; Visit Provider Internal Medicine
DX: E11.9 Type 2 diabetes mellitus without complications (principal); I10 Essential (primary) hypertension
CPT/HCPCS: 99213

== ENCOUNTER 2024-03-29 17:56 | Inpatient (IN) | payer MEDICARE, SELFPAY ==
[2024-03-29] VITALS (18 sets, daily range): BP systolic 153–222; BP diastolic 56–83; PULSE 84–109; RESP 18–40; TEMP 37–38.4; O2SAT 84–99; BMI 35.5
--- NOTE | ~2024-03-29 | CT_ITS ---
EXAMINATION: CT CHEST WITH CONTRAST CLINICAL INFORMATION: Empyema COMPARISON: 07/01/2019 TECHNIQUE: Multidetector volumetric CT imaging of the chest was obtained after the administration of 65 mL of Omnipaque 350 intravenous contrast without immediate adverse reactions. Axial MIP volume rendering provided. Sagittal and coronal reformatted images were obtained. This CT examination was performed using dose optimization techniques as appropriate, variously including the following: *Automated exposure control *Adjustment of mA and/or kV according to patient size (this includes techniques or standardized protocols for targeted exams where dose is matched to indication/reason for exam; i.e. extremities or head) *Use of iterative reconstruction technique DLP: 350 mGy-cm FINDINGS: LUNGS: Limited detailed evaluation in some regions due to respiratory motion artifact. There are multifocal regions of consolidation is most prominently in the right upper lobe and to a lesser extent in the right lower lobe and left upper lobe. Appearance is suspicious for multifocal pneumonia. Interlobular septal thickening is also noted, favored to reflect superimposed interstitial edema. MEDIASTINUM: The visualized thyroid gland is unremarkable. Enlarged prevascular, right paratracheal, and subcarinal lymph nodes are favored to be reactive in this setting. There is cardiomegaly without pericardial effusion. There is atherosclerotic calcification along the aorta. Coronary patient appears to be status post CABG. PLEURA: Small right pleural effusion is present, without definite surrounding pleural enhancement to specifically indicate empyema. Trace left pleural effusion with associated pleural thickening is favored to be chronic, as this was also present on 07/01/2019. No pneumothorax.. AXILLA: No axillary lymphadenopathy is present. UPPER ABDOMEN: There is a mildly hyperattenuating region measuring approximately 3.3 x 1.1 cm in the right hepatic lobe on image 54/66. OSSEOUS STRUCTURES: Status post sternotomy. Multilevel degenerative changes in the spine. CT/CT chest w IV con IMPRESSION: 1. Multifocal regions of consolidation, most prominently in the right upper lobe, suspicious for multifocal pneumonia. Follow-up imaging is recommended to assess for resolution and exclude underlying mass. 2. Small right pleural effusion without definite findings of empyema. 3. Trace left pleural effusion with associated pleural thickening, favored to be chronic. 4. Superimposed interstitial edema. 5. Mediastinal lymphadenopathy, favored to be reactive in this setting. 6. Cardiomegaly. 7. Mildly hyperattenuating region in the right hepatic lobe measuring approximately 3.3 x 1.1 cm, which could represent transient perfusion abnormality though an underlying lesion cannot be excluded. If not already performed, further workup with dynamic liver MRI is recommended.
--- NOTE | ~2024-03-29 | XR_ITS ---
EXAMINATION: PORTABLE CHEST 1 VIEW CLINICAL INFORMATION: Pneumonia. COMPARISON: 07/07/2013. TECHNIQUE: Portable frontal view of the chest was obtained. FINDINGS: Lungs well expanded. There is patchy bilateral airspace disease more so in the right upper lobe and to lesser extent left upper lobe lingular region. There is associated bronchial wall thickening in the right hilar region. Infectious etiology would be suspected in the acute setting. Asymmetric edema considered less likely. No pneumothorax. Cardiac silhouette is enlarged. Patient is status post sternotomy. Degenerative changes in the spine. XR/XR chest 1V IMPRESSION: Patchy bilateral airspace disease more so in the right upper lobe and lingula. Infectious etiology would be suspected in the acute setting. Asymmetric edema would be considered less likely.
--- NOTE | 2024-03-29 18:25 | ECG_ITS ---
Test Reason : SOB Blood Pressure : / mmHG Vent. Rate : 094 BPM Atrial Rate : 094 BPM P-R Int : 134 ms QRS Dur : 112 ms QT Int : 368 ms P-R-T Axes : 041 070 035 degrees QTc Int : 460 ms Normal sinus rhythm Possible Left atrial enlargement ST depression, consider subendocardial injury Abnormal ECG When compared with ECG of 20-OCT-2015 13:13, Vent. rate has increased BY 35 BPM Incomplete right bundle branch block is no longer Present Referred By: Roberto Fabian Electronically Signed By:LESLEY WILCOX MD
--- NOTE | 2024-03-29 18:26 | ED.GENADULT ---
HPI - General Adult General Chief complaint: General Medical Stated complaint: chills and stomach problem Time Seen by Provider: 03/29/24 18:50 Related Data Home Medications ?Medication ?Instructions ?Recorded ?Confirmed aspirin 81 mg tablet,delayed 81 mg PO DAILY 08/04/20 03/16/24 release atorvastatin 20 mg tablet 20 mg PO DAILY 08/04/20 03/16/24 clopidogrel 75 mg tablet 75 mg PO DAILY 08/04/20 03/16/24 losartan 25 mg tablet 50 mg PO DAILY 08/04/20 03/16/24 metoprolol succinate 50 mg 50 mg PO DAILY 08/04/20 03/16/24 tablet,extended release 24 hr Previous Rx's ?Medication ?Instructions ?Recorded insulin syringe-needle U-100 0.5 #100 ea 03/02/21 mL 31 gauge x 5/16 (BD Insulin Syringe Ultra-Fine) pen needle, diabetic 32 gauge x #100 ea 03/02/21 5/32 (BD Araceli 2nd Gen Pen Needle) nitroglycerin 0.4 mg sublingual 0.4 mg sublingual Q5M PRN chest 06/20/22 tablet pain #60 tabs hydrochlorothiazide 25 mg tablet 25 mg PO DAILY #90 tabs 04/12/23 colestipol 1 gram tablet 2 g (2 x 1 gram) PO DAILY #180 tabs 06/19/23 metformin 1,000 mg tablet 1,000 mg PO BID #180 tabs 09/13/23 insulin lispro protamine-lispro 17 unit (0.17 mL) subcut DAILY #10 10/18/23 100 unit/mL (75-25) subcutaneous mL susp (Humalog Mix 75-25(U-100)Insuln) dulaglutide 1.5 mg/0.5 mL 1.5 mg (0.5 mL) subcut QWEEK #2 mL 11/06/23 [facility] amlodipine 10 mg tablet 10 mg PO DAILY 90 days #90 tabs 12/07/23 blood sugar diagnostic (FreeStyle 1 strip miscellaneous TID for 12/07/23 Lite Strips) diabetes mellitus 30 days #100 strips insulin human U-100 NPH-regulr See Rx Instructions subcut BID 30 03/16/24 70-30 mix 100 unit/mL subcutaneous days #3 mL susp (Humulin 70/30 U-100 Insulin) Allergies Allergy/AdvReac Type Severity Reaction Status Date / Time lisinopril Allergy Unknown cough Verified 03/29/24 18:25 [facility] Past Medical History Medical History Diabetes mellitus with coincident hypertension Diabetes type 2, uncontrolled PVD (peripheral vascular disease) CAD (coronary artery disease) Obesity (BMI 30-39.9) Dyslipidemia Hypertension Diabetic nephropathy associated with type 2 diabetes mellitus Diabetic polyneuropathy associated with type 2 diabetes mellitus [employer] (current) use of insulin Diabetes type 2, controlled Surgical History Hx of angioplasty History of surgery History of left-sided carotid endarterectomy History of appendectomy Family History Family History Father Myocardial infarction Mother Diabetes Hypertension Sister No problems noted. Son No problems noted. Son No problems noted. Social History Social History Housing: Apartment Alcohol intake: never Patient Tobacco Use Status: Never used Tobacco Smoked in Last 30 Days: No e-Cigarette/Vaping Use: Never Used Second Hand Smoke Exposure: No Use of substances other than those prescribed or required for medical reasons: No Advance Directives: Yes Advance Directives Information Provided: No Advance Directives on File: No Do you have a plan to hurt others: No Plan Nutrition Risks: No Nutritional Risk service: No Current occupational status: unemployed Cognitive needs: No Hearing needs: No Vision needs: Yes (glasses) Physical Exam ED Vital Signs: Vital Signs - 24 hr 03/29/24 18:16 03/29/24 19:23 03/29/24 19:39 Temperature 98.6 F 101.1 F H Pulse Rate 84 107 H 107 H Respiratory Rate 18 18 40 H Blood Pressure 206/68 H 222/83 H Pulse Oximetry 84 L 96 Oxygen Delivery Method Room Air High Flow Nasal Cannula Oxygen Flow Rate 100 03/29/24 19:42 03/29/24 19:59 03/29/24 20:05 Temperature 99.7 F Pulse Rate 108 H 109 H Respiratory Rate 38 H 32 H 30 H Blood Pressure 195/79 H 166/67 H Pulse Oximetry 91 L 93 Oxygen Delivery Method High Flow Nasal Cannula High Flow Nasal Cannula Oxygen Flow Rate 03/29/24 20:45 03/29/24 20:49 03/29/24 20:50 Temperature 99.8 F 99.6 F Pulse Rate 102 H 103 H Respiratory Rate 28 H 24 H Blood Pressure 169/65 H 169/65 H 159/62 H Pulse Oximetry 93 Oxygen Delivery Method High Flow Nasal Cannula Venturi Mask Oxygen Flow Rate 03/29/24 20:51 03/29/24 21:06 03/29/24 21:21 Temperature 100.3 F Pulse Rate 102 H 103 H 95 Respiratory Rate 28 H 26 H Blood Pressure 159/62 H 172/61 H 153/56 H Pulse Oximetry 93 94 Oxygen Delivery Method High Flow Nasal Cannula High Flow Nasal Cannula Oxygen Flow Rate BMI result Body Mass Index 35.5 Course Course Course Narrative: RME: Done by ASHLEIGH White. Patient presents to ED for coughing, shortness of breath, and chills. Lower extremity negative for swelling, pitting edema, calf pain. Left lung positive for wheezing. O2 sat room air 80-84%. Patient is brought to the ED immediately. Medications Administered Generic Name Dose Route Start Last Admin Trade Name Freq PRN Reason Stop Dose Admin Enoxaparin Sodium 40 mg 03/29/24 22:00 03/29/24 22:20 Enoxaparin Sodium 40 Mg/0.4 Ml Syringe SUBCUT 40 mg Q24H WILMA Administration Piperacillin Sod/Tazobactam 100 mls @ 200 mls/hr 03/29/24 21:30 03/29/24 22:50 Sod 4.5 gm/ Sodium Chloride IV Infused Q6H WILMA Infusion Discontinued Medications Generic Name Dose Route Start Last Admin Trade Name Freq PRN Reason Stop Dose Admin Albuterol Sulfate 5 mg/ 7.5 mg 03/29/24 19:12 03/29/24 19:22 Albuterol Sulfate 2.5 mg INHALE 03/29/24 19:13 7.5 mg ONCE ONE Administration Albuterol/Ipratropium 3 ml 03/29/24 18:56 03/29/24 19:26 Albuterol/Iprat 2.5/0.5mg 3 Ml Ampul.Neb INHALE 03/29/24 18:57 3 ml ONCE ONE Administration Enoxaparin Sodium 40 mg 03/29/24 21:30 03/29/24 22:31 Enoxaparin Sodium 40 Mg/0.4 Ml Syringe SUBCUT Not Given Q12H WILMA Furosemide 40 mg 03/29/24 20:18 03/29/24 20:50 Furosemide 40 Mg/4 Ml Vial IVPUSH 03/29/24 20:19 40 mg ONCE ONE Administration Protocol Ceftriaxone Sodium 2 gm/ 50 mls @ 100 mls/hr 03/29/24 18:56 03/29/24 20:04 Sodium Chloride IV 03/29/24 19:25 Infused ONCE ONE Infusion Azithromycin 500 mg/ Sodium 250 mls @ 125 mls/hr 03/29/24 18:56 03/29/24 21:54 Chloride IV 03/29/24 20:55 Infused ONCE ONE Infusion Sodium Chloride 1,000 mls @ 999 mls/hr 03/29/24 19:00 03/29/24 20:22 Ns IV 03/29/24 20:00 Infused .Q1H1M WILMA Infusion Acetaminophen 1,000 mg in 100 mls @ 400 mls/hr 03/29/24 19:38 03/29/24 20:05 Ofirmev IV 03/29/24 19:52 Infused ONCE ONE Infusion Vancomycin HCl 2,000 mg in 500 mls @ 250 mls/hr 03/29/24 21:21 03/30/24 00:02 Vancomycin/Ns IV 03/29/24 23:20 Infused ONCE ONE Infusion Iohexol 100 ml 03/29/24 20:42 03/29/24 20:42 Iohexol 350 Mg/Ml 100 Ml Infus..Btl IV 03/29/24 20:43 65 ml ONCE ONE Administration Methylprednisolone Sodium Succinate 125 mg 03/29/24 19:12 03/29/24 19:20 Methylprednisolone Sod Succ 125 Mg/2 Ml Vial IVPUSH 03/29/24 19:13 125 mg ONCE ONE Administration Nitroglycerin 0.5 inch 03/29/24 20:29 03/29/24 20:51 Nitroglycerin 2 % Oint 1 Gm Packet TRANSDERMA 03/29/24 20:30 0.5 inch ONCE ONE Administration Medical Decision Making Lab Data 03/29/24 19:27 03/29/24 19:27 Labs: Lab Results 03/29/24 03/29/24 Range/Units 19:27 19:39 WBC 16.5 H (4.8-10.8) X10*3/uL RBC 5.12 (4.60-5.80) X10*6/uL Hgb 15.2 (14.0-18.0) g/dl Hct 44.6 (42.0-52.0) % MCV 87.1 (80.0-98.0) fL MCH 29.7 (27.0-33.0) pg MCHC 34.1 (31.0-36.0) g/dl RDW 13.9 (11.0-16.0) % Plt Count 221 (160-400) X10*3/uL MPV 9.4 (9.4-12.4) fL Immature Gran % (Auto) 0.6 H (0.0-0.4) % Neut % (Auto) 72.5 (45-73) % Lymph % (Auto) 19.1 L (20-40) % [place] % (Auto) 6.8 (2-11) % Eos % (Auto) 0.5 (0-4) % Baso % (Auto) 0.5 (0-2) % Lymph # (Auto) 3.2 (1.2-4.9) X10*3/uL [place] # (Auto) 1.1 (0.1-1.2) X10*3/uL Eos # (Auto) 0.1 (0.0-0.4) X10*3/uL Baso # (Auto) 0.1 (0.0-0.2) X10*3/uL Abs Immat Gran (auto) 0.10 H (0.00-0.03) X10*3/uL Absolute Neuts (auto) 11.9 H (2.0-8.3) x10*3/uL Absolute Nucleated RBC 0.000 (0.0-0.012) X10*3/uL Nucleated RBC % (auto) 0.0 (0.0-0.2) /100WBC PT 13.2 (11.1-13.3) SEC INR 1.1 (0.9-1.1) APTT 26.5 (26.0-36.8) SEC O2 Saturation 100.0 % ABG pH at Pt Temp 7.43 (7.35-7.45) ABG pCO2 at Pt Temp 32 (32-45) mmHg ABG pO2 at Pt Temp 176 H (83-108) mmHg ABG HCO3 21 L (22-26) mmol/L ABG Base Excess (Actual) -1.5 mmol/L Sodium 138 (135-145) mmol/L Potassium 4.0 (3.3-5.1) mmol/L Chloride 106 (96-108) mmol/L Carbon Dioxide 21 L (22-29) mmol/L Anion Gap 15 (12-20) BUN 15 (9-16) mg/dL Creatinine 0.94 (0.5-1.4) mg/dL Estim Creat Clear Calc 87.1 Estimated GFR > 60 Random Glucose 199 H (60-115) mg/dL Lactic Acid 2.0 (0.5-2.0) mmol/L Calcium 9.4 (8.4-10.2) mg/dL Total Bilirubin 1.4 H (0.0-1.0) mg/dL AST 13 (5-37) U/L ALT 19 (0-40) U/L Alkaline Phosphatase 69 (39-117) U/L Troponin I High Sens 27.6 (<3.5-35.0) ng/L B-Natriuretic Peptide 793 H (<100) pg/mL Total Protein 7.1 (6.5-8.0) g/dL Albumin 4.3 (3.5-5.0) g/dL Lipase 9 (8-78) U/L Influenza Type A (PCR) NEGATIVE (Negative) Influenza Type B (PCR) NEGATIVE (Negative) RSV RNA Qual (PCR) NEGATIVE (Negative) SARS-CoV-2 RNA (RT-PCR) NEGATIVE (Negative) Discharge Plan Discharge Clinical Impression: Respiratory failure, Pneumonia Patient Disposition: Admitted As Inpatient Interventions: Admission Worksheet (ED) Last Done: 03/29/24 23:18 Discharge Date/Time: 03/29/24 23:19
--- NOTE | 2024-03-29 18:59 | ED.GENADULT ---
HPI - General Adult General Chief complaint: General Medical Stated complaint: chills and stomach problem Time Seen by Provider: 03/29/24 18:50 History of Present Illness HPI narrative: Patient is a 68-year-old male presents today with having coughing upper respiratory symptoms generalized malaise fever up to 37.6. Symptoms ongoing for the last few days. Continued to have chills continued to have generalized malaise. Patient is from home. Related Data Home Medications ?Medication ?Instructions ?Recorded ?Confirmed aspirin 81 mg tablet,delayed 81 mg PO DAILY 08/04/20 03/16/24 release atorvastatin 20 mg tablet 20 mg PO DAILY 08/04/20 03/16/24 clopidogrel 75 mg tablet 75 mg PO DAILY 08/04/20 03/16/24 losartan 25 mg tablet 50 mg PO DAILY 08/04/20 03/16/24 metoprolol succinate 50 mg 50 mg PO DAILY 08/04/20 03/16/24 tablet,extended release 24 hr Previous Rx's ?Medication ?Instructions ?Recorded insulin syringe-needle U-100 0.5 #100 ea 03/02/21 mL 31 gauge x 5/16 (BD Insulin Syringe Ultra-Fine) pen needle, diabetic 32 gauge x #100 ea 03/02/21 5/32 (BD Araceli 2nd Gen Pen Needle) nitroglycerin 0.4 mg sublingual 0.4 mg sublingual Q5M PRN chest 06/20/22 tablet pain #60 tabs hydrochlorothiazide 25 mg tablet 25 mg PO DAILY #90 tabs 04/12/23 colestipol 1 gram tablet 2 g (2 x 1 gram) PO DAILY #180 tabs 06/19/23 metformin 1,000 mg tablet 1,000 mg PO BID #180 tabs 09/13/23 insulin lispro protamine-lispro 17 unit (0.17 mL) subcut DAILY #10 10/18/23 100 unit/mL (75-25) subcutaneous mL susp (Humalog Mix 75-25(U-100)Insuln) dulaglutide 1.5 mg/0.5 mL 1.5 mg (0.5 mL) subcut QWEEK #2 mL 11/06/23 subcutaneous pen injector (Trulicity) amlodipine 10 mg tablet 10 mg PO DAILY 90 days #90 tabs 12/07/23 blood sugar diagnostic (FreeStyle 1 strip miscellaneous TID for 12/07/23 Lite Strips) diabetes mellitus 30 days #100 strips insulin human U-100 NPH-regulr See Rx Instructions subcut BID 30 03/16/24 70-30 mix 100 unit/mL subcutaneous days #3 mL susp (Humulin 70/30 U-100 Insulin) Allergies Allergy/AdvReac Type Severity Reaction Status Date / Time lisinopril Allergy Unknown cough Verified 03/29/24 18:25 [facility]LY [facility] Past Medical History Medical History Diabetes mellitus with coincident hypertension Diabetes type 2, uncontrolled PVD (peripheral vascular disease) CAD (coronary artery disease) Obesity (BMI 30-39.9) Dyslipidemia Hypertension Diabetic nephropathy associated with type 2 diabetes mellitus Diabetic polyneuropathy associated with type 2 diabetes mellitus intermediate (current) use of insulin Diabetes type 2, controlled Surgical History Hx of angioplasty History of surgery History of left-sided carotid endarterectomy History of appendectomy Family History Family History Father Myocardial infarction Mother Diabetes Hypertension Sister No problems noted. Son No problems noted. Son No problems noted. Social History Social History Housing: Apartment Alcohol intake: never Patient Tobacco Use Status: Never used Tobacco Smoked in Last 30 Days: No e-Cigarette/Vaping Use: Never Used Second Hand Smoke Exposure: No Use of substances other than those prescribed or required for medical reasons: No Advance Directives: Yes Advance Directives Information Provided: No Advance Directives on File: No Do you have a plan to hurt others: No Plan service: No Current occupational status: unemployed Cognitive needs: No Hearing needs: No Vision needs: Yes (glasses) Physical Exam ED Vital Signs: Vital Signs - 24 hr 03/29/24 18:16 03/29/24 19:23 03/29/24 19:39 Temperature 98.6 F 101.1 F H Pulse Rate 84 107 H 107 H Respiratory Rate 18 18 40 H Blood Pressure 206/68 H 222/83 H Pulse Oximetry 84 L 96 Oxygen Delivery Method Room Air High Flow Nasal Cannula Oxygen Flow Rate 100 03/29/24 19:42 08/04/24 19:59 03/29/24 20:05 Temperature 99.7 F Pulse Rate 108 H 109 H Respiratory Rate 38 H 32 H 30 H Blood Pressure 195/79 H 166/67 H Pulse Oximetry 91 L 93 Oxygen Delivery Method High Flow Nasal Cannula High Flow Nasal Cannula Oxygen Flow Rate 03/29/24 20:45 03/29/24 20:49 03/29/24 20:50 Temperature 99.8 F 99.6 F Pulse Rate 102 H 103 H Respiratory Rate 28 H 24 H Blood Pressure 169/65 H 169/65 H 159/62 H Pulse Oximetry 93 Oxygen Delivery Method High Flow Nasal Cannula Venturi Mask Oxygen Flow Rate 03/29/24 20:51 03/29/24 21:06 Temperature 100.3 F Pulse Rate 102 H 103 H Respiratory Rate 28 H Blood Pressure 159/62 H 172/61 H Pulse Oximetry 93 Oxygen Delivery Method High Flow Nasal Cannula Oxygen Flow Rate BMI result Body Mass Index 35.5 Medications Administered Discontinued Medications Generic Name Dose Route Start Last Admin Trade Name Freq PRN Reason Stop Dose Admin Albuterol Sulfate 5 mg/ 7.5 mg 03/29/24 19:12 03/29/24 19:22 Albuterol Sulfate 2.5 mg INHALE 03/29/24 19:13 7.5 mg ONCE ONE Administration Albuterol/Ipratropium 3 ml 03/29/24 18:56 03/29/24 19:26 Albuterol/Iprat 2.5/0.5mg 3 Ml Ampul.Neb INHALE 03/29/24 18:57 3 ml ONCE ONE Administration Furosemide 40 mg 03/29/24 20:18 03/29/24 20:50 Furosemide 40 Mg/4 Ml Vial IVPUSH 03/29/24 20:19 40 mg ONCE ONE Administration Protocol Ceftriaxone Sodium 2 gm/ 50 mls @ 100 mls/hr 03/29/24 18:56 03/29/24 20:04 Sodium Chloride IV 03/29/24 19:25 Infused ONCE ONE Infusion Azithromycin 500 mg/ Sodium 250 mls @ 125 mls/hr 03/29/24 18:56 03/29/24 19:54 Chloride IV 03/29/24 20:55 125 mls/hr ONCE ONE Administration Sodium Chloride 1,000 mls @ 999 mls/hr 03/29/24 19:00 03/29/24 20:22 Ns IV 03/29/24 20:00 Infused .Q1H1M WILMA Infusion Acetaminophen 1,000 mg in 100 mls @ 400 mls/hr 03/29/24 19:38 03/29/24 20:05 Ofirmev IV 03/29/24 19:52 Infused ONCE ONE Infusion Iohexol 100 ml 03/29/24 20:42 03/29/24 20:42 Iohexol 350 Mg/Ml 100 Ml Infus..Btl IV 03/29/24 20:43 65 ml ONCE ONE Administration Methylprednisolone Sodium Succinate 125 mg 03/29/24 19:12 03/29/24 19:20 Methylprednisolone Sod Succ 125 Mg/2 Ml Vial IVPUSH 03/29/24 19:13 125 mg ONCE ONE Administration Nitroglycerin 0.5 inch 03/29/24 20:29 03/29/24 20:51 Nitroglycerin 2 % Oint 1 Gm Packet TRANSDERMA 03/29/24 20:30 0.5 inch ONCE ONE Administration Medical Decision Making Medical Decision Making [facility] Narrative: Patient is 68 years old presents today with having fever coughing upper respiratory symptoms shortness of breath. Has hypoxia has increased work of breathing. Chest x-ray showed bilateral infiltrate. Cultures obtained. Lactate was 2.0. Cefepime was started. Patient's ABG showed a pH of 7.42 with a pCO2 of 32 PaO2 of 176. This was on 100% of O2 on high-flow. No significant CO2 retention. PH is normal. Patient got a small dose of Lasix because he had an elevated BNP in the significantly elevated blood pressure. Will get a CT scan of the chest to further delineate the infiltrate. The intensive care unit was contacted for further management. Patient given a small dose of Lasix. Additional dose of nitro. Monitored in the emergency department. Re-evaluated by the ICU team. Patient to be admitted. Differential Diagnosis Differential Diagnoses: The differential diagnosis associated with the presentation includes Pneumonia, pneumothorax, congestive heart failure, sepsis Admission/Observation Consideration of admission/observation: Escalation of care including admission/observation considered Consult Healthcare Provider Management of the patient was discussed with: Hydrometeorology Teacher (Bleacher Sulfite Pulp) Lab Data [facility] Lab Attestation statement: I reviewed the patient's lab results. 03/29/24 19:27 03/29/24 19:27 Labs: Lab Results 03/29/24 03/29/24 Range/Units 19:27 19:39 WBC 16.5 H (4.8-10.8) X10*3/uL RBC 5.12 (4.60-5.80) X10*6/uL Hgb 15.2 (14.0-18.0) g/dl Hct 44.6 (42.0-52.0) % MCV 87.1 (80.0-98.0) fL MCH 29.7 (27.0-33.0) pg MCHC 34.1 (31.0-36.0) g/dl RDW 13.9 (11.0-16.0) % Plt Count 221 (160-400) X10*3/uL MPV 9.4 (9.4-12.4) fL Immature Gran % (Auto) 0.6 H (0.0-0.4) % Neut % (Auto) 72.5 (45-73) % Lymph % (Auto) 19.1 L (20-40) % [place] % (Auto) 6.8 (2-11) % Eos % (Auto) 0.5 (0-4) % Baso % (Auto) 0.5 (0-2) % Lymph # (Auto) 3.2 (1.2-4.9) X10*3/uL [place] # (Auto) 1.1 (0.1-1.2) X10*3/uL Eos # (Auto) 0.1 (0.0-0.4) X10*3/uL Baso # (Auto) 0.1 (0.0-0.2) X10*3/uL Abs Immat Gran (auto) 0.10 H (0.00-0.03) X10*3/uL Absolute Neuts (auto) 11.9 H (2.0-8.3) x10*3/uL Absolute Nucleated RBC 0.000 (0.0-0.012) X10*3/uL Nucleated RBC % (auto) 0.0 (0.0-0.2) /100WBC PT 13.2 (11.1-13.3) SEC INR 1.1 (0.9-1.1) APTT 26.5 (26.0-36.8) SEC O2 Saturation 100.0 % ABG pH at Pt Temp 7.43 (7.35-7.45) ABG pCO2 at Pt Temp 32 (32-45) mmHg ABG pO2 at Pt Temp 176 H (83-108) mmHg ABG HCO3 21 L (22-26) mmol/L ABG Base Excess (Actual) -1.5 mmol/L Sodium 138 (135-145) mmol/L Potassium 4.0 (3.3-5.1) mmol/L Chloride 106 (96-108) mmol/L Carbon Dioxide 21 L (22-29) mmol/L Anion Gap 15 (12-20) BUN 15 (9-16) mg/dL Creatinine 0.94 (0.5-1.4) mg/dL Estim Creat Clear Calc 87.1 Estimated GFR > 60 Random Glucose 199 H (60-115) mg/dL Lactic Acid 2.0 (0.5-2.0) mmol/L Calcium 9.4 (8.4-10.2) mg/dL Total Bilirubin 1.4 H (0.0-1.0) mg/dL AST 13 (5-37) U/L ALT 19 (0-40) U/L Alkaline Phosphatase 69 (39-117) U/L Troponin I High Sens 27.6 (<3.5-35.0) ng/L B-Natriuretic Peptide 793 H (<100) pg/mL Total Protein 7.1 (6.5-8.0) g/dL Albumin 4.3 (3.5-5.0) g/dL Lipase 9 (8-78) U/L Influenza Type A (PCR) NEGATIVE (Negative) Influenza Type B (PCR) NEGATIVE (Negative) RSV RNA Qual (PCR) NEGATIVE (Negative) SARS-CoV-2 RNA (RT-PCR) NEGATIVE (Negative) Independent Interpretation I performed an independent interpretation of an: EKG (Sinus heart rate is 90 VA QRS QTC within normal limits there is a right bundle branch block), Plain X-Ray (Bilateral infiltrate) and CT Scan (Significant infiltrates bilaterally worse on the right side) Radiology Impression Discussion of test interpretation with radiology: I have reviewed the radiologist's reading. Independent Historian Clinical information obtained from an independent historian. History obtained from or confirmed by: Spouse External Record Review External record reviewed: Office record Chronic Conditions Patient?s care impacted by: Diabetes and Hypertension Critical Care Time Critical Care Time Critical Care Time: Yes Total Critical Care Time: 40 Attestation: I have personally provided 40 minutes of critical care time exclusive of time spent on separately billable procedures. ?Time includes review of lab data, radiology results, discussion with consultants, and monitoring for potential decompensation. ?Interventions were performed as documented above Discharge Plan Discharge Clinical Impression: Respiratory failure, Pneumonia Patient Disposition: Admitted As Inpatient Prescriptions: No Action (DME) insulin syringe-needle U-100 [BD Insulin Syringe Ultra-Fine] 0.5 mL 31 gauge x 5/16 syringe See Rx Instructions .ROUTE .MEDSUPPLY Qty: 100 5RF Rx Instructions: twice a day (DME) pen needle, diabetic [BD Araceli 2nd Gen Pen Needle] 32 gauge x 5/32 needle See Rx Instructions .ROUTE .MEDSUPPLY Qty: 100 4RF Rx Instructions: twice a day hydrochlorothiazide 25 mg tablet 25 mg PO DAILY Qty: 90 2RF colestipol 1 gram tablet 2 g PO DAILY Qty: 180 3RF metformin 1,000 mg tablet 1,000 mg PO BID Qty: 180 1RF Humalog Mix 75-25(U-100)Insuln 100 unit/mL (75-25) suspension 17 unit subcut DAILY Qty: 10 3RF Trulicity 1.5 mg/0.5 mL pen injector 1.5 mg subcut QWEEK Qty: 2 5RF amlodipine 10 mg tablet 10 mg PO DAILY 90 Days Qty: 90 1RF FreeStyle Lite Strips Strip 1 strip miscellaneous TID 30 Days Qty: 100 11RF Humulin 70/30 U-100 Insulin 100 unit/mL (70-30) suspension See Rx Instructions subcut BID 30 Days Qty: 3 2RF Rx Instructions: 17 units with breakfast and 9 units with dinner subcutaneously 2 times a day. nitroglycerin 0.4 mg tablet, sublingual 0.4 mg sublingual Q5M PRN (Reason: chest pain) Qty: 60 4RF Rx Instructions: do not exceed 3 doses per episode aspirin 81 mg tablet,delayed release (DR/EC) 81 mg PO DAILY metoprolol succinate 50 mg tablet extended release 24 hr 50 mg PO DAILY clopidogrel 75 mg tablet 75 mg PO DAILY losartan 25 mg tablet 50 mg PO DAILY atorvastatin 20 mg tablet 20 mg PO DAILY Print Language: Ukrainian
[2024-03-29] MEDS: methylPREDNISolone Sod Succ 125 MG/2 ML VIAL IVPUSH (19:20)
[2024-03-29] MEDS: 0.9 % Sodium Chloride 1,000 ML 999 ML IV (19:20)
[2024-03-29] MEDS: Albuterol Sulfate 5 MG, Albuterol Sulfate (0.083%) 2.5 MG 7.5 MG INHALE (19:22)
[2024-03-29] MEDS: Albuterol/Iprat 2.5/0.5MG 3 ML AMPUL.NEB INHALE (19:26)
[2024-03-29 19:31] LABS: MANUAL DIFF FLAG NO
[2024-03-29] MEDS: cefTRIAXone sodium 2 GM in 0.9 % Sodium Chloride 50 ML IV (19:34)
--- NOTE | 2024-03-29 19:34 | MHC.EDTECH ---
This tech took over care of patient at this time,second set of blood cultures,labs,and sars/flu/rsv obtained and sent to lab.Vitals taken BP is high 222/83,temp of 101.1,resp.rate at 40 on a 100% high flow.RN is aware and at bedside.
[2024-03-29 19:46] LABS: Alanine Aminotransferase 19 U/L (0-40); Albumin Level 4.3 g/dL (3.5-5.0); Alkaline Phosphatase 69 U/L (39-117); Anion Gap 15 (12-20); Aspartate Amino Transferase 13 U/L (5-37); Basophils Absolute Auto 0.1 X10*3/uL (0.0-0.2); Basophils Percent Auto 0.5 % (0-2); Bilirubin Total 1.4 mg/dL (0.0-1.0); Blood Urea Nitrogen 15 mg/dL (9-16); Calcium 9.4 mg/dL (8.4-10.2); Carbon Dioxide 21 mmol/L (22-29); Chloride 106 mmol/L (96-108); Creatinine Clr Calc Pharmacy 87.1; Eosinophils Absolute Auto 0.1 X10*3/uL (0.0-0.4); Eosinophils Percent Auto 0.5 % (0-4); Estimated Glomerular Filt Rate > 60; Glucose Random 199 mg/dL (60-115); Hematocrit 44.6 % (42.0-52.0); Hemoglobin 15.2 g/dl (14.0-18.0); Imm Gran Pct Auto 0.6 % (0.0-0.4); Lipase 9 U/L (8-78); Lymphocytes Absolute Auto 3.2 X10*3/uL (1.2-4.9); Lymphocytes Percent Auto 19.1 % (20-40); Mean Corpuscular HGB Conc 34.1 g/dl (31.0-36.0); Mean Corpuscular Hemoglobin 29.7 pg (27.0-33.0); Mean Corpuscular Volume 87.1 fL (80.0-98.0); Mean Platelet Volume 9.4 fL (9.4-12.4); Monocytes Absolute Auto 1.1 X10*3/uL (0.1-1.2); Monocytes Percent Auto 6.8 % (2-11); Neutrophils Absolute Auto 11.9 x10*3/uL (2.0-8.3); Neutrophils Percent Auto 72.5 % (45-73); Platelet Count 221 X10*3/uL (160-400); Red Blood Count 5.12 X10*6/uL (4.60-5.80); Red Cell Distribution Width 13.9 % (11.0-16.0); Sodium 138 mmol/L (135-145); Total Protein 7.1 g/dL (6.5-8.0); White Blood Count 16.5 X10*3/uL (4.8-10.8)
[2024-03-29] MEDS: Acetaminophen 1,000 MG/100 ML PIGGYBACK 400 MG IV (19:46)
[2024-03-29 19:50] LABS: ABG Base Excess -1.5 mmol/L; ABG HCO3 21 mmol/L (22-26); ABG pCO2 32 mmHg (32-45); ABG pH 7.43 (7.35-7.45); ABG pO2 176 mmHg (83-108)
[2024-03-29 19:52] LABS: B Type Natriuretic Peptide 793 pg/mL (<100)
[2024-03-29 19:53] LABS: Troponin-I High Sensitivity 27.6 ng/L (<3.5-35.0)
[2024-03-29] MEDS: Azithromycin 500 MG in 0.9 % Sodium Chloride 250 ML 125 MG IV (19:54)
[2024-03-29 20:12] LABS: INTERNATIONAL NORM RATIO 1.1 (0.9-1.1); Prothrombin Time 13.2 SEC (11.1-13.3)
[2024-03-29 20:14] LABS: Partial Thromboplastin Time 26.5 SEC (26.0-36.8)
[2024-03-29 20:15] LABS: Influenza A PCR NEGATIVE (Negative); Influenza B PCR NEGATIVE (Negative); Resp Syncy Virus RNA Qual PCR NEGATIVE (Negative); SARS COV2 PCR INHOUSE NEGATIVE (Negative)
[2024-03-29] MEDS: iohexoL 350 MG/ML 100 ML INFUS..BTL IV (20:42)
[2024-03-29] MEDS: Furosemide 40 MG/4 ML VIAL IVPUSH (20:50)
[2024-03-29] MEDS: Nitroglycerin 2 % Oint 1 GM Packet 0.5 INCH TRANSDERMA (20:51)
--- NOTE | 2024-03-29 21:11 | PC.NURSE ---
20 G IV line established in L forearm. Patient medicated per OCT. Repeat oral temp 99.6. Patient on high flow NC, tolerating well. O2 Sat 92-96%. Patient taken CT with IV contrast.
--- NOTE | 2024-03-29 21:33 | MHC.EDTECH ---
Patient urinated 250MLS of yellow urine in urinal
--- NOTE | 2024-03-29 21:41 | MHC.EDTECH ---
Belongings list completed,copy placed in chart, took home all belongings and shoes.
--- NOTE | 2024-03-29 21:42 | PM.CCHP ---
History of Present Illness Date of Service: 03/29/24 Attending physician on admission: Iam Adams Chief Complaint: Cough, chills The patient is a 68-year-old Grenadian-speaking male? with a past medical history of diabetes mellitus, hypertension, peripheral vascular disease, coronary artery disease, dyslipidemia and neuropathy who presented to the emergency department with upper respiratory? symptoms.? Patient reported nonproductive cough,? chills,? generalized malaise,? shortness of breath for the last few days,? and today temperature of 37.6 degrees ( 99.7).?? On arrival to the emergency department, ? patient with increased work of breathing,? hypoxic to 84%? room air,? blood pressure 200/68,? tachycardic, tachypneic, and febrile to 101.1.? He was placed on high-flow 50L/ 100% ?Laboratory data was significant for WBC? 16.5,? serum bicarb 21, BNP 793 ??IMAGING: ?Chest x-ray:? concerning for right? lobe pneumonia? and pulmonary edema ?Chest CT:? confirming the right lobe pneumonia and pulmonary edema ? ED course:? ?Patient received 1 L bolus, ceftriaxone 2 g, azithromycin 500 mg, Solu-Medrol 125 mg IV push, albuterol 7.5, Tylenol IV 1000 mg,? Lasix 40 mg IV push and nitro paste 0.5 in ?Patient will be admitted for hemodynamic monitoring of acute hypoxic respiratory failure from pneumonia and pulmonary edema Review of Systems Review of Systems: Yes all other systems are reviewed and are negative [facility] Past Medical History Medical History Diabetes mellitus with coincident hypertension Diabetes type 2, uncontrolled PVD (peripheral vascular disease) CAD (coronary artery disease) Obesity (BMI 30-39.9) Dyslipidemia Hypertension Diabetic nephropathy associated with type 2 diabetes mellitus Diabetic polyneuropathy associated with type 2 diabetes mellitus correction (current) use of insulin Diabetes type 2, controlled Family History Family History Father Myocardial infarction Mother Diabetes Hypertension Sister No problems noted. Son No problems noted. Son No problems noted. Surgical History Surgical History Hx of angioplasty History of surgery History of left-sided carotid endarterectomy History of appendectomy Social History Social History Housing: Apartment Alcohol intake: never Patient Tobacco Use Status: Never used Tobacco e-Cigarette/Vaping Use: Never Used Second Hand Smoke Exposure: No service: No Current occupational status: unemployed Cognitive needs: No Hearing needs: No Vision needs: Yes (glasses) Meds Allergies Allergy/AdvReac Type Severity Reaction Status Date / Time lisinopril Allergy Unknown cough Verified 03/29/24 18:25 Active Medications: Current Medications Enoxaparin Sodium (Enoxaparin Sodium 40 Mg/0.4 Ml Syringe) 40 mg SUBCUT Q12H WILMA Vancomycin HCl (Vancomycin/Ns) 2,000 mg in 500 mls @ 250 mls/hr IV ONCE ONE Stop: 03/29/24 23:20 Piperacillin Sod/Tazobactam (Sod 4.5 gm/ Sodium Chloride) 100 mls @ 200 mls/hr IV Q6H [facility] Pharmacy Consult (Consult Rx Vancomycin Dosing) 1 each MISCELLANE DAILY PRN PRN Reason: Consult order Home Medications ?Medication ?Instructions ?Recorded ?Confirmed ?Last Taken ?Type aspirin 81 mg tablet,delayed 81 mg PO DAILY 08/04/20 03/30/24 03/29/24 History release atorvastatin 20 mg tablet 20 mg PO DAILY 08/04/20 03/30/24 03/29/24 History clopidogrel 75 mg tablet 75 mg PO DAILY 08/04/20 03/30/24 03/29/24 History losartan 25 mg tablet 50 mg PO DAILY 08/04/20 03/30/24 03/29/24 History dulaglutide 1.5 mg/0.5 mL 1.5 mg subcut CUELLO 03/30/24 03/30/24 03/29/24 History subcutaneous pen injector (Trulicity) metoprolol tartrate 50 mg tablet 50 mg PO BID 03/30/24 03/30/24 Unknown History Physical Exam Vital Signs: Vital Signs: Last Vital Signs Temp 98.6 F 03/29/24 21:36 Pulse 91 03/29/24 21:36 Resp 30 H 03/29/24 21:36 BP 164/60 H 03/29/24 21:36 Pulse Ox 93 03/29/24 21:36 O2 Del Method High Flow Nasal C annula 03/29/24 21:36 O2 Flow Rate 100 03/29/24 19:39 BMI result Body Mass Index 35.5 ?General:? Alert oriented x3 mild resp distress.? Following all commands. ?HEENT:? Head is normocephalic, atraumatic, pupils equal round reactive to light accommodation bilaterally.? Extraocular movements appear intact.? Buccal mucosa is dry, Neck is supple ?Cardiac:? Sinus Tach, Clear S1-S2, no murmurs rubs or gallops. ?Pulmonary:? Coarse crackles, no wheezes. On High flow 50L/ 100% ?Abdomen:? ?Abdomen soft, non-tender, non-distended. Normal bowel sounds. No pulsatile mass. No hepatosplenomegaly. ?Musculoskeletal:? Moving all 4 extremities upon request a major joints, there is no crepitus or tenderness.? The strength is 5/5 bilaterally and throughout all 4 extremities.? Gait not assessed at this point. ?Neurologic:? cranial nerves 2-12 are grossly intact.? No focal deficits noted.Motor strength as above.?? ?Skin:? BLE trace edema. Intact, no lesions, erythema, clubbing or cyanosis.? No ulcers. Vascular:? 2+ pulses upper and lower extremities distally.? Results Labs 03/31/24 05:30 03/31/24 05:30 Labs: Laboratory Results - last 24 hr 03/29/24 03/29/24 19:27 19:39 MCV 87.1 MCH 29.7 MCHC 34.1 RDW 13.9 Plt Count 221 MPV 9.4 Immature Gran % (Auto) 0.6 H Neut % (Auto) 72.5 Lymph % (Auto) 19.1 L [place] % (Auto) 6.8 Eos % (Auto) 0.5 Baso % (Auto) 0.5 Lymph # (Auto) 3.2 [place] # (Auto) 1.1 Eos # (Auto) 0.1 Baso # (Auto) 0.1 Abs Immat Gran (auto) 0.10 H Absolute Neuts (auto) 11.9 H Absolute Nucleated RBC 0.000 Nucleated RBC % (auto) 0.0 PT 13.2 INR 1.1 APTT 26.5 O2 Saturation 100.0 ABG pH at Pt Temp 7.43 ABG pCO2 at Pt Temp 32 ABG pO2 at Pt Temp 176 H ABG HCO3 21 L ABG Base Excess (Actual) -1.5 Anion Gap 15 Estim Creat Clear Calc 87.1 Estimated GFR > 60 Random Glucose 199 H Lactic Acid 2.0 Calcium 9.4 Total Bilirubin 1.4 H AST 13 ALT 19 Alkaline Phosphatase 69 Troponin I High Sens 27.6 B-Natriuretic Peptide 793 H Total Protein 7.1 Albumin 4.3 Lipase 9 Influenza Type A (PCR) NEGATIVE Influenza Type B (PCR) NEGATIVE RSV RNA Qual (PCR) NEGATIVE SARS-CoV-2 RNA (RT-PCR) NEGATIVE Imaging Radiologist's Impressions: Impressions Chest X-Ray 03/29/24 18:40 IMPRESSION: Patchy bilateral airspace disease more so in the right upper lobe and lingula. Infectious etiology would be suspected in the acute setting. Asymmetric edema would be considered less likely. Assessment and Plan (1) Acute hypoxic respiratory failure: Status: Acute (2) Pneumonia: Status: Acute (3) Pulmonary edema: Status: Acute (4) Sepsis: Status: Acute (5) NSTEMI (non-ST elevated myocardial infarction): Status: Acute Plan 68-year-old [place]-speaking male? with a past medical history of diabetes mellitus, hypertension, peripheral vascular disease, coronary artery disease, dyslipidemia and neuropathy admitted to ICU for? hemodynamic monitoring of acute hypoxic respiratory failure from pneumonia and pulmonary edema Neuro:? No acute issues Cardiac:?? ?Pulmonary edema: ? BNP elevated to 793, chest x-ray / chest CT? consistent with pulmonary edema.? Patient? does not have a history of congestive heart failure, ? but finding consistent with congestive heart failure exacerbation.? Received Lasix in the ED.? continue monitoring for diuresing.? Will place formal echo in the morning NSTEMI: On arrival to ICU, patient reported mild chest pain. Troponin was repeated with a slight increase to 200, 3 hour repeat 1900, Patient denies chest pain at the time of repeat trop. Ekg with no significant changes from previous one, no significant ST elevations. Will give aspirin and start heparin drip. Cards consult and Echo in the morning ?Sepsis:? from right ? lobe pneumonia, ? see pulmonary and ID for plan Pulmonary:? ?Acute hypoxic respiratory failure from right lobe pneumonia- Chest CT? consistent with right lobe pneumonia.? No evidence of septic shock. On ? Treated with ceftriaxone and? azithromycin. Will broaden coverage with Zosyn and Vanco. ? Wean off supplemental oxygenation as tolerated Renal:?? ?No acute issues Endo:?? ?Underlying history of diabetes:? continue subQ lispro GI:? ?No acute issues ??ID:?? ?Right lobe pneumonia-? continue Zosyn and vanco? until cultures resulted.? Heme/Onc:? No acute issues. Psych:? No acute issues. Misc: ? no acute issues Diet:Cardiac? Prophylaxis:? Lovenox Code? status:? FULL CODE ? Critical care time: x 60 min of critical care time? ?Case discussed with attending Dr Adams?
[2024-03-29] MEDS: vancomycin/NS 2,000 MG/500 ML PLAST..BAG 250 MG IV (21:50)
[2024-03-29] MEDS: Piperacillin Sodium/Tazobactam 4.5 GM in 0.9 % Sodium Chloride 100 ML IV (22:20)
[2024-03-29] MEDS: Enoxaparin Sodium 40 MG/0.4 ML SYRINGE SUBCUT (22:20)
--- NOTE | 2024-03-29 22:23 | MHC.EDTECH ---
Addendum entered by Elil Clark 03/29/24 22:36: patient was incont.of a large amount of urine melvina-care given and linen changed ,patient was repositioned in bed Original Note: [place] Cath came off ,it drained 725MLS of yellow urine,
--- NOTE | 2024-03-29 22:41 | ECG_ITS ---
Test Reason : CP Blood Pressure : / mmHG Vent. Rate : 089 BPM Atrial Rate : 089 BPM P-R Int : 150 ms QRS Dur : 118 ms QT Int : 426 ms P-R-T Axes : 059 073 071 degrees QTc Int : 518 ms Normal sinus rhythm Possible Left atrial enlargement Incomplete right bundle branch block Marked ST abnormality, possible lateral subendocardial injury Prolonged QT Abnormal ECG When compared with ECG of 29-MAR-2024 18:44, Nonspecific T wave abnormality has replaced inverted T waves in Inferior leads QT has lengthened Referred By: Tito Emanuel Electronically Signed By:LESLEY WILCOX MD
--- NOTE | 2024-03-29 22:42 | MHC.EDTECH ---
Emptied 325MLS from urinal
--- NOTE | 2024-03-29 22:51 | MHC.EDTECH ---
EKG completed per order
--- NOTE | 2024-03-29 22:58 | PHA.PROG ---
Addendum entered by Payal Phillips RPh 03/30/24 07:27: changed maintenance dose to 1000mg before dose was given per declined renal function. Original Note: Admission Date/Time: March 29, 2024 21:23 Indication: RESPIRATORY Weight in k kg Adjusted body weight in Kg: [place] body weight in Kg: Obesity Dosing Indication % IBW: Serum Creatinine - Last 168 Hours 03/29/24 19:27 Creatinine 0.94 Estimated CrCl and GFR - Last 168 Hours 03/29/24 19:27 Estim Creat Clear Calc 87.1 Estimated GFR > 60 Vancomycin Loading Dose: 2000 MG Current Vancomycin Dosing Regimen: 1250 MG Q12H Vancomycin Monitoring using AUC goal of 400 - 600 range with trough as surrogate marker: ZBZ=[id number] TROUGH=19.2 Date and Time for next Vancomycin Level to be drawn: 03/31/2024 @0800 Pharmacist Comments on Vancomycin Plan: Vancomycin dosing will take advantage of [employer] as a clinical decision support tool that uses Bayesian modeling to calculate individual patient's pharmacokinetic parameters and forecast the patient's drug concentration time course with the target goal AUC 24 range of 400 - 600 mg/L/hr.
[2024-03-29 23:06] LABS: ABG Refer to POC result
[2024-03-30] VITALS (33 sets, daily range): BP systolic 118–171; BP diastolic 42–72; PULSE 74–91; RESP 16–25; TEMP 36.7–37.7; O2SAT 92–96; BMI 35.2; BMI 35.4
--- NOTE | 2024-03-30 | ECG_ITS ---
Test Reason : trop elevation Blood Pressure : / mmHG Vent. Rate : 083 BPM Atrial Rate : 083 BPM P-R Int : 142 ms QRS Dur : 114 ms QT Int : 416 ms P-R-T Axes : 064 051 093 degrees QTc Int : 488 ms Normal sinus rhythm Possible Left atrial enlargement Incomplete right bundle branch block ST depression, consider subendocardial injury Prolonged QT Abnormal ECG When compared with ECG of 30-MAR-2024 08:02, Premature ventricular complexes are no longer Present Referred By: Everardo Ritter Electronically Signed By:LESLEY WILCOX MD
--- NOTE | 2024-03-30 | ECG_ITS ---
Test Reason : nstemi Blood Pressure : / mmHG Vent. Rate : 082 BPM Atrial Rate : 082 BPM P-R Int : 148 ms QRS Dur : 114 ms QT Int : 426 ms P-R-T Axes : 055 052 089 degrees QTc Int : 497 ms Sinus rhythm with occasional Premature ventricular complexes Possible Left atrial enlargement Incomplete right bundle branch block Minimal voltage criteria for LVH, may be normal variant ( [employer] product ) Nonspecific ST abnormality Prolonged QT Abnormal ECG When compared with ECG of 30-MAR-2024 02:47, Premature ventricular complexes are now Present Referred By: Jana Cano Electronically Signed By:Jluis Bryan
[2024-03-30 00:13] LABS: Magnesium 1.7 mg/dL (1.6-2.6); Phosphorus 3.2 mg/dL (2.7-4.5)
--- NOTE | 2024-03-30 02:39 | ECG_ITS ---
Test Reason : Elevated trop Blood Pressure : / mmHG Vent. Rate : 088 BPM Atrial Rate : 088 BPM P-R Int : 148 ms QRS Dur : 114 ms QT Int : 420 ms P-R-T Axes : 052 058 085 degrees QTc Int : 508 ms Normal sinus rhythm Possible Left atrial enlargement Lateral ST depressions- consider ischemia Prolonged QT Abnormal ECG When compared to the previous EKG of ST depression less pronounced. Referred By: Tito Emanuel Electronically Signed By:Jluis Bryan
[2024-03-30 02:40] LABS: Troponin-I High Sensitivity 1911.7 ng/L (<3.5-35.0)
[2024-03-30] MEDS: Aspirin 325 MG TABLET PO ×2 (02:51→19:48)
--- NOTE | 2024-03-30 02:56 | CA_ITS ---
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 Normal LV ejection fraction 55-60% with underlying regional wall motion abnormality consistent with coronary artery disease with grade 2 diastolic dysfunction 2. Mild mitral regurgitation 3. Normal measured RV systolic pressure 4. No gross pericardial effusion Findings Procedure Information Contrast agent, definity, is being given per protocol without apparent complications. Left Ventricle Normal left ventricular size, thickness, and systolic function. The visually estimated ejection fraction is between 55-60%. Spectral Doppler is indicative of a pseudonormal filling pattern. E/E prime ratio is >15, consistent with elevated filling pressures. Evidence suggests grade II (moderate) diastolic dysfunction. Wall Motion Rest Echo Findings The basal inferior, mid inferior, basal anterolateral, mid inferoseptal, and basal inferolateral segments are hypokinetic. The basal inferoseptal segment is akinetic. All other scored wall segments showed normal motion. Right Ventricle Normal right ventricular cavity size. There is normal right ventricular systolic function. Atria The left atrium is mildly dilated. There is no evidence of interatrial shunt. The right atrium is likely dilated. Aortic Valve Normal aortic valve structure and function. There is no aortic valve stenosis. There is no aortic valve regurgitation. Mitral Valve There is mild anterior and posterior mitral leaflet thickening. There is mild mitral annular calcification. There is mild mitral valve regurgitation. There is no mitral valve stenosis. Pulmonic Valve The pulmonic valve is likely normal. Tricuspid Valve Normal tricuspid valve structure. There is trace tricuspid valve regurgitation. The right ventricular systolic pressure is normal. The right ventricular systolic pressure is 34 mmHg. Normal right atrial pressure. There is no evidence of pulmonary hypertension. Great Vessels The pulmonary artery was not well visualized. There is no dilatation of the ascending aorta measuring 3.00 cm. Small plaque is seen in the sino tubular ridge. Venous The inferior vena cava is normal in size and collapses greater than 50% with inspiration. Pericardium/Pleural There is no evidence of pericardial effusion. Prior Study Comparison No prior study available for comparison. Measurements 2D Linear Measurements IVSd: 1.14 0.6-0.9/0.6-1.0 cm LVIDd: 6.46 3.9-5.3/4.2-5.9 cm LVIDd Index: 3.05 2.4-3.2/2.2-3.1 cm/m2 LVIDs: 5.33 2.0-3.6 cm LVPWd: 0.69 0.7-1.1 cm LA Diam: 5.50 2.7-3.8/3.0-4.0 cm LAIDs Index: 2.59 1.5-2.3 cm/m2 LV Mass: 313.00 67-162/88-224 g LV Mass Index: 147.64 43-95/49-115 g/m2 LVOT Diam: 2.30 3.0+(-)1.3 cm 2D Systolic Function EF 4C: 59.00 >55% EF 2C: 51.80 >55% EF BiP: 56.10 >55% Mitral Valve MV Pk E: 1.00 MV PK A: 0.85 MV Decel Time: 161.00 E/A: 1.20 E'Medial: 3.60 E/E' Med: 27.70 PHT: 47.00 MVA PHT: 4.68 Decel Coke: 6.18 Aortic Valve AoV Pk Sesar: 1.34 AoV Pk Grad: 7.00 ORALIA: 3.56 LVOT LVOT Pk Sesar: 1.18 LVOT Mn Sesar: 0.83 LVOT VTI: 0.23 LVOT Pk Grad: 6.00 LVOT Mn Grad: 3.00 LVOT Diam: 2.30 LVOT Area: 4.15 Diastolic Function MV Pk E: 1.00 MV Pk A: 0.85 E/A: 1.20 E'Medial: 3.60 E/E' Med: 27.70 Right Ventricle TAPSE (mm): 17.50 TVS' Sesar: 9.02 Tricuspid Valve TR Pk Sesar: 2.55 TR Pk Grad: 26.00 RA Press: 8.00 RVSP: 34.00 Great Vessels Aorta Sinus of Valsalva: 3.20 2.0-3.5 cm Ao Asc: 3.00 2.1-3.4 cm Pulmonary Veins Pulm Vein S/D 0.90 Pulmonary Valve PV Pk Sesar: 1.03 Peak PV Grad: 4.00 Updated in Other Vendor System with Status of Final Yogesh Marino MD electronically signed on 03/30/2024 10:57:32 AM with status of Final
[2024-03-30] MEDS: Piperacillin Sodium/Tazobactam 4.5 GM in 0.9 % Sodium Chloride 100 ML IV ×4 (02:59→21:22)
[2024-03-30] MEDS: Heparin Sodium,Porcine/1/2NS 25,000 UNIT/250 ML IV.SOLN 14.39 UNIT IVCONT ×2 (03:22→19:21)
--- NOTE | 2024-03-30 04:59 | PC.NURSE ---
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
[2024-03-30 05:20] LABS: VBG Base Excess 0.1 mmol/L; VBG HCO3 21 mmol/L (22-26); VBG pCO2 27 mmHg; VBG pH 7.51 (7.32-7.43); VBG pO2 72 mmHg
[2024-03-30 05:31] LABS: Venous Blood Gas Refer to POC result
[2024-03-30 05:35] LABS: Basophils Percent Auto 0.2 % (0-2); Hematocrit 37.4 % (42.0-52.0); Hemoglobin 12.9 g/dl (14.0-18.0); Imm Gran Abs Auto 0.06 X10*3/uL (0.00-0.03); Imm Gran Pct Auto 0.5 % (0.0-0.4); Lymphocytes Absolute Auto 0.7 X10*3/uL (1.2-4.9); Lymphocytes Percent Auto 5.5 % (20-40); MANUAL DIFF FLAG SCAN; Mean Corpuscular HGB Conc 34.5 g/dl (31.0-36.0); Mean Corpuscular Hemoglobin 29.8 pg (27.0-33.0); Mean Corpuscular Volume 86.4 fL (80.0-98.0); Mean Platelet Volume 10.1 fL (9.4-12.4); Monocytes Absolute Auto 0.3 X10*3/uL (0.1-1.2); Monocytes Percent Auto 2.2 % (2-11); Neutrophils Absolute Auto 12.1 x10*3/uL (2.0-8.3); Neutrophils Percent Auto 91.6 % (45-73); Platelet Count 205 X10*3/uL (160-400); Red Blood Count 4.33 X10*6/uL (4.60-5.80); Red Cell Distribution Width 13.9 % (11.0-16.0); SCAN SMEAR FLAG 1; White Blood Count 13.2 X10*3/uL (4.8-10.8)
[2024-03-30 05:55] LABS: Alanine Aminotransferase 20 U/L (0-40); Albumin Level 3.6 g/dL (3.5-5.0); Alkaline Phosphatase 51 U/L (39-117); Anion Gap 14 (12-20); Aspartate Amino Transferase 50 U/L (5-37); B Type Natriuretic Peptide 1032 pg/mL (<100); Bilirubin Total 1.4 mg/dL (0.0-1.0); Blood Urea Nitrogen 16 mg/dL (9-16); Calcium 8.4 mg/dL (8.4-10.2); Carbon Dioxide 22 mmol/L (22-29); Chloride 103 mmol/L (96-108); Creatinine Clr Calc Pharmacy 69.1; Estimated Glomerular Filt Rate > 60; Glucose Random 394 mg/dL (60-115); Magnesium 1.7 mg/dL (1.6-2.6); Phosphorus 2.7 mg/dL (2.7-4.5); Potassium 3.9 mmol/L (3.3-5.1); Sodium 135 mmol/L (135-145); Total Protein 5.9 g/dL (6.5-8.0)
[2024-03-30 06:00] LABS: SLIDE REVIEW VERIFIED
[2024-03-30] MEDS: Insulin Lispro 100 UNIT/ML 3 ML VIAL SUBCUT ×5 (06:17→21:36)
--- NOTE | 2024-03-30 07:30 | P.PNCC_ITS ---
Subjective Subjective Date of Service: 03/30/24 Critical Care Time (minutes): 60 Physical Exam 2 Vital Signs: Vital Signs: Last Vital Signs Temp 98.6 F 03/30/24 07:00 Pulse 78 03/30/24 07:00 Resp 18 03/30/24 07:17 BP 118/43 L 03/30/24 07:00 Pulse Ox 93 03/30/24 07:00 O2 Del Method High Flow Nasal C annula 03/30/24 07:00 O2 Flow Rate 50 03/30/24 07:00 FiO2 50 03/30/24 07:00 BMI result Body Mass Index 35.2 Const: General: cooperative, healthy appearing, comfortable, no acute distress, well developed, alert, awake and Physically active O rientation/consciousness: patient oriented x3 HEENT: Head: Yes normal to inspection, Yes normocephalic and Yes atraumatic Eyes: General: appearance normal, both eyes and all related structures Neck: Neck: Yes normal visual inspection, Yes full ROM, Yes no meningeal signs, Yes trachea midline and Yes supple Chest: Chest palpation & inspection: normal inspection of the chest Resp: Other: some appreciable rales, rhonchi; no appreciable wheezing Effort & Inspection: normal respiratory effort Cardio: Rate: regular rate Rhythm: regular rhythm GI: Other: rotund abdomen Inspection: Yes normal to inspection, No Abdominal wall edema and No distended Palpation (GI): Soft to palpation, not firm, nontender, no guarding and not rigid Skin: General skin exam: no rashes or lesions noted Neuro: General: patient oriented x3, tone normal, moves all extremities, no meningeal signs and no focal motor deficits Extrem: Other: appreciable trace pitting edema bilateral lower and upper extremities General: Yes normal to inspection, Yes full ROM and Yes capillary refill normal Psych: Appearance: grossly normal Objective Data Labs 03/30/24 05:08 03/30/24 05:08 Labs: Laboratory Results - last 24 hr 03/29/24 03/29/24 03/29/24 19:27 19:39 23:00 WBC 16.5 H RBC 5.12 Hgb 15.2 Hct 44.6 MCV 87.1 MCH 29.7 MCHC 34.1 RDW 13.9 Plt Count 221 MPV 9.4 Immature Gran % (Auto) 0.6 H Neut % (Auto) 72.5 Lymph % (Auto) 19.1 L [place] % (Auto) 6.8 Eos % (Auto) 0.5 Baso % (Auto) 0.5 Lymph # (Auto) 3.2 [place] # (Auto) 1.1 Eos # (Auto) 0.1 Baso # (Auto) 0.1 Abs Immat Gran (auto) 0.10 H Absolute Neuts (auto) 11.9 H Absolute Nucleated RBC 0.000 Nucleated RBC % (auto) 0.0 Smear Tech's Comments PT 13.2 INR 1.1 APTT 26.5 O2 Saturation 100.0 ABG pH at Pt Temp 7.43 ABG pCO2 at Pt Temp 32 ABG pO2 at Pt Temp 176 H ABG HCO3 21 L ABG Base Excess (Actual) -1.5 VBG pH VBG pCO2 VBG pO2 VBG HCO3 VBG O2 Saturation VBG Base Excess Sodium 138 Potassium 4.0 Chloride 106 Carbon Dioxide 21 L Anion Gap 15 BUN 15 Creatinine 0.94 Estim Creat Clear Calc 87.1 Estimated GFR > 60 Random Glucose 199 H Lactic Acid 2.0 Calcium 9.4 Phosphorus 3.2 Magnesium 1.7 Total Bilirubin 1.4 H AST 13 ALT 19 Alkaline Phosphatase 69 Troponin I High Sens 27.6 204.0 H* D B-Natriuretic Peptide 793 H Total Protein 7.1 Albumin 4.3 Lipase 9 Influenza Type A (PCR) NEGATIVE Influenza Type B (PCR) NEGATIVE RSV RNA Qual (PCR) NEGATIVE SARS-CoV-2 RNA (RT-PCR) NEGATIVE 03/30/24 03/30/24 03/30/24 02:05 05:08 05:11 WBC 13.2 H RBC 4.33 L Hgb 12.9 L Hct 37.4 L MCV 86.4 MCH 29.8 MCHC 34.5 RDW 13.9 Plt Count 205 MPV 10.1 Immature Gran % (Auto) 0.5 H Neut % (Auto) 91.6 H Lymph % (Auto) 5.5 L [place] % (Auto) 2.2 Eos % (Auto) 0.0 Baso % (Auto) 0.2 Lymph # (Auto) 0.7 L [place] # (Auto) 0.3 Eos # (Auto) 0.0 Baso # (Auto) 0.0 Abs Immat Gran (auto) 0.06 H Absolute Neuts (auto) 12.1 H Absolute Nucleated RBC 0.000 Nucleated RBC % (auto) 0.0 Smear Tech's Comments VERIFIED PT INR APTT O2 Saturation ABG pH at Pt Temp ABG pCO2 at Pt Temp ABG pO2 at Pt Temp ABG HCO3 ABG Base Excess (Actual) VBG pH 7.51 H VBG pCO2 27 VBG pO2 72 VBG HCO3 21 L VBG O2 Saturation 95.0 VBG Base Excess 0.1 Sodium 135 Potassium 3.9 Chloride 103 Carbon Dioxide 22 Anion Gap 14 BUN 16 Creatinine 1.18 Estim Creat Clear Calc 69.1 Estimated GFR > 60 Random Glucose 394 H* Lactic Acid Calcium 8.4 D Phosphorus 2.7 Magnesium 1.7 Total Bilirubin 1.4 H AST 50 H ALT 20 Alkaline Phosphatase 51 Troponin I High Sens 1911.7 H* D B-Natriuretic Peptide 1032 H Total Protein 5.9 L Albumin 3.6 Lipase Influenza Type A (PCR) Influenza Type B (PCR) RSV RNA Qual (PCR) SARS-CoV-2 RNA (RT-PCR) Progress Note: A&P Assessment and plan (1) Acute hypoxic respiratory failure: Status: Acute (2) Pneumonia: Status: Acute (3) Pulmonary edema: Status: Acute (4) NSTEMI (non-ST elevated myocardial infarction): Status: Acute (5) Hypertension: Status: Acute (6) Dyslipidemia: Status: Acute (7) Diabetes mellitus: Status: Acute (8) CAD (coronary artery disease): Status: Acute Plan Patient is a 68 Y M with metabolic syndrome, hypertension, hyperlipidemia, diabetes mellitus, c/b coronary artery disease, ?presenting initially to ED on 03/29 w/ cough, dyspnea, found to be hypoxic, and found to have CT chest suggestive of pneumonia, pulmonary edema, admitted to ICU on HFNC N: no acute issues CV: troponinemia, on heparin gtt; appreciate cardiology recommendations; hypertension R: acute hypoxic respiratory failure, likely multifactorial d/t pneumonia, pulmonary edema; antibiotics, diuresis GI: cardiac diet as tolerated : pulmonary edema, diuresis as tolerated H: no acute issues ID: c/f pneumonia, empiric vancomycin/zosyn; E: diabetes mellitus; to monitor hypo-/hyper-glycemia P: no acute issues Quality Stroke Does the patient have a stroke diagnosis?: No VTE Prior VTE?: No VTE Risk Level:: Medical - moderate - high VTE Device Contraindication: N/A - Device Ordered VTE Drug Contraindication: N/A - Med Ordered
[2024-03-30 07:58] LABS: Glucose, Whole Blood 357 mg/dL (60-115)
[2024-03-30] MEDS: Furosemide 20 MG/2 ML VIAL 10 MG IVPUSH ×2 (08:14→16:59)
[2024-03-30] MEDS: Magnesium Sulfate/D5W 1 GM/100 ML PIGGYBACK IV (08:21)
[2024-03-30 08:55] LABS: PTT Heparin Drip 65.8 SEC (53-77.9)
--- NOTE | 2024-03-30 10:03 | P.CONCA_ITS ---
History of Present Illness History of Present Illness Date of Service: 03/30/24 Requesting physician: Jana Cano Consult reason: myocardial infarction and other (Hypoxic respiratory failure) Chief complaint: acute hypoxic respiratory failure Narrative: I was consulted to see Kaleb in cardiology consultation today for acute hypoxemic respiratory failure and myocardial infarction. He is a 68-year-old male with diffuse and significant vascular disease with history of coronary artery bypass grafting 2008, details unknown, patient had myocardial infarction and at that time had chest pain and pressure radiating to left arm. He subsequently underwent a cardiac catheterization this showed significant coronary disease requiring coronary artery bypass grafting. He sees director of events at [facility] Dr. Chacon, sees him on a yearly basis. Has not had any recent ischemic cardiovascular evaluation as per him. He has had multiple vascular surgeries including bilateral carotid endarterectomy diffuse peripheral vascular disease surgery interventions. He said prior to this episode he has been active and can walk few miles. He will be limited by his claudication but the new rest and then symptoms subsided and you could keep on walking. However over the last few days he has been having increasing symptoms of shortness of breath with upper respiratory symptoms with nonproductive cough and chills and generalized malaise. Patient was having low-grade temperature at home. Patient came to the hospital was noted to be significantly hypoxemic at room air with elevated blood pressure. He was complaining of some chest tightness, EKG consistent with diffuse ST depression mild. No ST elevation. Patient's 1st troponin was slightly elevated BNP at 793. He was noted to be febrile with findings suggestive of sepsis with temperature of 101.1 degrees, tachycardia requiring high levels of oxygen with high WBC count. Patient had chest x-ray findings consistent with right lobe pneumonia along with pulmonary edema. He has been admitted to ICU for further management. Continues to have shortness of breath. He was having burning chest discomfort which is currently subsided on current therapy. His subsequent troponin was elevated further consistent with NSTEMI. He was started on IV heparin drip and is on nitrate paste. Blood pressure remains elevated. Heart rate is stable. Denies any palpitations lightheadedness, syncope. Review of Systems 2 Constitutional: Constitutional: Reports body ache(s), Reports chills, Reports fever(s), Reports lethargy and Reports malaise Eyes: Eyes: Reports no additional eye complaints ENT: Reports odynophagia Cardiovascular: Cardiovascular: Reports chest pain at rest, Denies leg edema, Denies Loss of Consciousness, Denies palpitations and Reports dyspnea on exertion Respiratory: Respiratory: Reports cough, Reports dyspnea on exertion and Reports wheezing Gastrointestinal: Gastrointestinal: Reports no additional gastrointestinal complaints and Reports odynophagia Genitourinary: Genitourinary: Reports no additional male genitourinary complaints Musculoskeletal: Musculoskeletal: Reports no additional musculoskeletal complaints Neurologic: Reports system reviewed and no additional complaints, except as documented Psychiatric: Psychiatric: Reports no additional psychiatric complaints Endocrine: Endocrine: Denies palpitations Allergic/Immunologic: Allergic/Immunologic: Reports wheezing [facility] Past Medical History Medical History Diabetes mellitus with coincident hypertension Diabetes type 2, uncontrolled PVD (peripheral vascular disease) CAD (coronary artery disease) Obesity (BMI 30-39.9) Dyslipidemia Hypertension Diabetic nephropathy associated with type 2 diabetes mellitus Diabetic polyneuropathy associated with type 2 diabetes mellitus retirement (current) use of insulin Diabetes type 2, controlled Family History Family History Father Myocardial infarction Mother Diabetes Hypertension Sister No problems noted. Son No problems noted. Son No problems noted. Surgical History Surgical History Hx of angioplasty History of surgery History of left-sided carotid endarterectomy History of appendectomy Social History Social History Housing: Apartment Alcohol intake: never Patient Tobacco Use Status: Never used Tobacco Smoked in Last 30 Days: No e-Cigarette/Vaping Use: Never Used Second Hand Smoke Exposure: No Use of substances other than those prescribed or required for medical reasons: No Advance Directives: Yes Advance Directives Information Provided: No Advance Directives on File: No Do you have a plan to hurt others: No Plan Nutrition Risks: No Nutritional Risk service: No Current occupational status: unemployed Cognitive needs: No Hearing needs: No Vision needs: Yes (glasses) Meds Allergies Allergy/AdvReac Type Severity Reaction Status Date / Time lisinopril Allergy Unknown cough Verified 03/29/24 18:25 Active Medications: Current Medications Albuterol/Ipratropium (Albuterol/Iprat 2.5/0.5mg 3 Ml Ampul.Neb) 3 ml INHALE Q4H PRN PRN Reason: Wheezing Heparin Sodium (Porcine) (Heparin Sodium,Porcine 5,000 Unit/Ml Vial) 4,100 unit 40 unit/kg (4100 unit) IVPUSH PROTOCOL BOLUS PRN; Protocol PRN Reason: 40 unit/kg - Heparin Protocol Heparin Sodium (Porcine) (Heparin Sodium,Porcine 5,000 Unit/Ml Vial) 8,200 unit 80 unit/kg (8200 unit) IVPUSH PROTOCOL BOLUS PRN; Protocol PRN Reason: 80 unit/kg - Heparin Protocol Piperacillin Sod/Tazobactam (Sod 4.5 gm/ Sodium Chloride) 100 mls @ 200 mls/hr IV Q6H WILMA Last Infusion: 03/30/24 03:36 Dose: Infused Heparin Sodium/Sodium Chloride (Heparin Sodium,Porcine/1/2ns) 25,000 unit in 250 mls @ 0 mls/hr IVCONT .Q0M WILMA; Protocol Last Titration: 03/30/24 09:45 Dose: 14 units/kg/hr, 14.39 mls/hr Vancomycin HCl 1,000 mg/ (Sodium Chloride) 270 mls @ 270 mls/hr IV Q12H WILMA Fentanyl (Sublimaze/Ns) 1,000 mcg in 100 mls @ 0 mls/hr IVCONT .Q0M WILMA; Protocol Insulin Human Lispro (Insulin Lispro 100 Unit/Ml 3 Ml Vial) 0 unit SUBCUT QIDACHS [facility]; Protocol Last Admin: 03/30/24 08:14 Dose: 10 unit Naloxone HCl (Naloxone Hcl 0.4 Mg/Ml Vial) 0.2 mg IVPUSH Q2M PRN PRN Reason: Excessive sedation or RR < 8 Pharmacy Consult (Consult Rx Vancomycin Dosing) 1 each MISCELLANE DAILY PRN PRN Reason: Consult order Home Medications ?Medication ?Instructions ?Recorded ?Confirmed ?Last Taken ?Type aspirin 81 mg tablet,delayed 81 mg PO DAILY 08/04/20 03/16/24 Unknown History release atorvastatin 20 mg tablet 20 mg PO DAILY 08/04/20 03/16/24 Unknown History clopidogrel 75 mg tablet 75 mg PO DAILY 08/04/20 03/16/24 Unknown History losartan 25 mg tablet 50 mg PO DAILY 08/04/20 03/16/24 Unknown History metoprolol succinate 50 mg 50 mg PO DAILY 08/04/20 03/16/24 Unknown History tablet,extended release 24 hr Physical Exam 2 Vital Signs: Vital Signs: Last Vital Signs Temp 98.1 F 03/30/24 09:00 Pulse 84 03/30/24 09:00 Resp 24 H 03/30/24 09:00 BP 159/66 H 03/30/24 09:00 Pulse Ox 96 03/30/24 09:00 O2 Del Method High Flow Nasal C annula 03/30/24 09:00 O2 Flow Rate 50 03/30/24 09:00 FiO2 50 03/30/24 09:00 BMI result Body Mass Index 35.2 Const: General: cooperative, comfortable, well developed, alert, awake and in distress mild and respiratory Nutritional Appearance: well nourished and obese Orientation/consciousness: patient oriented x3 Limitations: no limitations HEENT: Head: Yes normocephalic and Yes atraumatic Neck: Neck: Yes trachea midline, Yes supple and No no JVD Carotids: bruit Resp: Effort & Inspection: normal respiratory effort Auscultation: wheezes and bronchovesicular breath sounds Cardio: Jugular venous distension: no JVD Palpation: normal PMI Rate: r egular rate Rhythm: regular rhythm Heart sounds: S1 normal heart sound present, S2 normal heart sound present, no click, no gallops, no murmurs and no rubs GI: Auscultation: normal bowel sounds Skin: General skin exam: no rashes or lesions noted Neuro: General: patient oriented x3 and no focal motor deficits Extrem: General: Yes no clubbing, cyanosis or edema Psych: Appearance: grossly normal Objective Labs and Meds 03/30/24 05:08 03/30/24 05:08 Lab results: Laboratory Results - last 24 hr 03/29/24 03/29/24 03/29/24 19:27 19:39 23:00 WBC 16.5 H RBC 5.12 Hgb 15.2 Hct 44.6 MCV 87.1 MCH 29.7 MCHC 34.1 RDW 13.9 Plt Count 221 MPV 9.4 Immature Gran % (Auto) 0.6 H Neut % (Auto) 72.5 Lymph % (Auto) 19.1 L [place] % (Auto) 6.8 Eos % (Auto) 0.5 Baso % (Auto) 0.5 Lymph # (Auto) 3.2 [place] # (Auto) 1.1 Eos # (Auto) 0.1 Baso # (Auto) 0.1 Abs Immat Gran (auto) 0.10 H Absolute Neuts (auto) 11.9 H Absolute Nucleated RBC 0.000 Nucleated RBC % (auto) 0.0 Smear Tech's Comments PT 13.2 INR 1.1 APTT 26.5 aPTT Heparin Protocol O2 Saturation 100.0 ABG pH at Pt Temp 7.43 ABG pCO2 at Pt Temp 32 ABG pO2 at Pt Temp 176 H ABG HCO3 21 L ABG Base Excess (Actual) -1.5 VBG pH VBG pCO2 VBG pO2 VBG HCO3 VBG O2 Saturation VBG Base Excess Sodium 138 Potassium 4.0 Chloride 106 Carbon Dioxide 21 L Anion Gap 15 BUN 15 Creatinine 0.94 Estim Creat Clear Calc 87.1 Estimated GFR > 60 POC Glucose Random Glucose 199 H Lactic Acid 2.0 Calcium 9.4 Phosphorus 3.2 Magnesium 1.7 Total Bilirubin 1.4 H AST 13 ALT 19 Alkaline Phosphatase 69 Troponin I High Sens 27.6 204.0 H* D B-Natriuretic Peptide 793 H Total Protein 7.1 Albumin 4.3 Lipase 9 Influenza Type A (PCR) NEGATIVE Influenza Type B (PCR) NEGATIVE RSV RNA Qual (PCR) NEGATIVE SARS-CoV-2 RNA (RT-PCR) NEGATIVE 03/30/24 03/30/24 03/30/24 02:05 05:08 05:11 WBC 13.2 H RBC 4.33 L Hgb 12.9 L Hct 37.4 L MCV 86.4 MCH 29.8 MCHC 34.5 RDW 13.9 Plt Count 205 MPV 10.1 Immature Gran % (Auto) 0.5 H Neut % (Auto) 91.6 H Lymph % (Auto) 5.5 L [place] % (Auto) 2.2 Eos % (Auto) 0.0 Baso % (Auto) 0.2 Lymph # (Auto) 0.7 L [place] # (Auto) 0.3 Eos # (Auto) 0.0 Baso # (Auto) 0.0 Abs Immat Gran (auto) 0.06 H Absolute Neuts (auto) 12.1 H Absolute Nucleated RBC 0.000 Nucleated RBC % (auto) 0.0 Smear Tech's Comments VERIFIED PT INR APTT aPTT Heparin Protocol O2 Saturation ABG pH at Pt Temp ABG pCO2 at Pt Temp ABG pO2 at Pt Temp ABG HCO3 ABG Base Excess (Actual) VBG pH 7.51 H VBG pCO2 27 VBG pO2 72 VBG HCO3 21 L VBG O2 Saturation 95.0 VBG Base Excess 0.1 Sodium 135 Potassium 3.9 Chloride 103 Carbon Dioxide 22 Anion Gap 14 BUN 16 Creatinine 1.18 Estim Creat Clear Calc 69.1 Estimated GFR > 60 POC Glucose Random Glucose 394 H* Lactic Acid Calcium 8.4 D Phosphorus 2.7 Magnesium 1.7 Total Bilirubin 1.4 H AST 50 H ALT 20 Alkaline Phosphatase 51 Troponin I High Sens 1911.7 H* D B-Natriuretic Peptide 1032 H Total Protein 5.9 L Albumin 3.6 Lipase Influenza Type A (PCR) Influenza Type B (PCR) RSV RNA Qual (PCR) SARS-CoV-2 RNA (RT-PCR) 03/30/24 03/30/24 07:55 08:32 WBC RBC Hgb Hct MCV MCH MCHC RDW Plt Count MPV Immature Gran % (Auto) Neut % (Auto) Lymph % (Auto) [place] % (Auto) Eos % (Auto) Baso % (Auto) Lymph # (Auto) [place] # (Auto) Eos # (Auto) Baso # (Auto) Abs Immat Gran (auto) Absolute Neuts (auto) Absolute Nucleated RBC Nucleated RBC % (auto) Smear Tech's Comments PT INR APTT aPTT Heparin Protocol 65.8 O2 Saturation ABG pH at Pt Temp ABG pCO2 at Pt Temp ABG pO2 at Pt Temp ABG HCO3 ABG Base Excess (Actual) VBG pH VBG pCO2 VBG pO2 VBG HCO3 VBG O2 Saturation VBG Base Excess Sodium Potassium Chloride Carbon Dioxide Anion Gap BUN Creatinine Estim Creat Clear Calc Estimated GFR POC Glucose 357 H* Random Glucose Lactic Acid Calcium Phosphorus Magnesium Total Bilirubin AST ALT Alkaline Phosphatase Troponin I High Sens 43874.6 H* D B-Natriuretic Peptide Total Protein Albumin Lipase Influenza Type A (PCR) Influenza Type B (PCR) RSV RNA Qual (PCR) SARS-CoV-2 RNA (RT-PCR) EKG shows normal sinus rhythm with diffuse ST depression Imaging Radiologist's impression: Impressions Chest X-Ray 03/29/24 18:40 IMPRESSION: Patchy bilateral airspace disease more so in the right upper lobe and lingula. Infectious etiology would be suspected in the acute setting. Asymmetric edema would be considered less likely. Chest CT 03/29/24 20:59 IMPRESSION: 1. Multifocal regions of consolidation, most prominently in the right upper lobe, suspicious for multifocal pneumonia. Follow-up imaging is recommended to assess for resolution and exclude underlying mass. 2. Small right pleural effusion without definite findings of empyema. 3. Trace left pleural effusion with associated pleural thickening, favored to be chronic. 4. Superimposed interstitial edema. 5. Mediastinal lymphadenopathy, favored to be reactive in this setting. 6. Cardiomegaly. 7. Mildly hyperattenuating region in the right hepatic lobe measuring approximately 3.3 x 1.1 cm, which could represent transient perfusion abnormality though an underlying lesion cannot be excluded. If not already performed, further workup with dynamic liver MRI is recommended. Assessment and Plan (1) NSTEMI (non-ST elevated myocardial infarction): Status: Acute Acute myocardial infarction this elderly gentleman with diffuse and severe vascular disease with remote coronary artery bypass grafting presents with acute respiratory failure secondary to pneumonia and has pulmonary edema with diffuse ST T wave changes elevated troponins consistent with myocardial infarction. No ST elevation. Patient's pulmonary edema could be due to acute ischemia as well. However currently he is having noncardiac issues with severe pneumonia with fever and respiratory issues which need to be addressed. I will continue with aspirin, IV heparin, high-intensity statin therapy. Maximize nitrate therapy. Will require cardiac catheterization once his pulmonary issues have resolved. Continue trend troponins until they are downtrending every 6-8 hours. Continue supportive care. Management was discussed with him in details. Care discussed with critical care team as well. Will continue to follow with you. Overall prognosis is guarded. Will review the echocardiogram once available for review. (2) Acute hypoxic respiratory failure: Status: Acute Patient with acute hypoxemic respiratory failure secondary to pneumonia pulmonary edema. Since pulmonary edema could be secondary to myocardial ischemia. Will review the echocardiogram. Continue nitrates for preload reduction as well as for treating myocardial ischemia. Continue treatment for pneumonia. Continue oxygen therapy and supportive therapy. Bronchodilators therapy. Patient currently in ICU level of care. Continue diuresis. Strict intake and output chart needs to be pursued. Can also start on low-dose valsartan 40 mg b.i.d. for afterload reduction as well treatment of heart failure as well as blood pressure. Continue aggressively manage blood pressure. Will continue to follow with you. Greater than 45 minutes was spent in managing his complex care Procedures Date of Service Date of Service: 03/30/24
[2024-03-30] MEDS: vancomycin HCL 1,000 MG in 0.9 % Sodium Chloride 250 ML 270 MG IV ×2 (11:07→21:22)
[2024-03-30 11:13] LABS: Glucose, Whole Blood 282 mg/dL (60-115)
--- NOTE | 2024-03-30 11:21 | PHA.MEDREC ---
Addendum entered by Becky Rolle [facility] 03/30/24 11:49: reviewed Original Note: Pharmacy Consult ? Medication Reconciliation Pharmacy has completed the medication reconciliation. Confirmed medications with patient at bedside and patient. Patient was able to confirm her husbands medications. Patient was able to confirm his Insulin dosings; he is taking Trulicity 1.5mg/0.5ml once weekly and the patient himself states he takes it on Sundays and he took it this past Saturday. He also confirmed his Humalin 70-30 mix 17 units in the morning and 11 units at bedtime.
--- NOTE | 2024-03-30 13:41 | MHC.CM.PN ---
Met w/pt to review d/c planning needs: Pt on high flow O2: SOB w/exertion and speech: information somewhat limited. Pt lives w/spouse, is independent w/care needs and has no services. Anticipate pt will return to home at baseline level of functioning. Son to transport. HCP declined. CM to follow.
[2024-03-30 17:07] LABS: Glucose, Whole Blood 281 mg/dL (60-115)
[2024-03-30] MEDS: Atorvastatin Calcium 80 MG TABLET PO (19:48)
[2024-03-30] MEDS: Nitroglycerin 2 % Oint 1 GM Packet 0.5 INCH TRANSDERMA (20:24)
[2024-03-30] MEDS: Metoprolol Tartrate 12.5 MG HALFTAB PO ×2 (20:33→20:35)
[2024-03-30] MEDS: Metoprolol Tartrate 25 MG TABLET PO (21:17)
[2024-03-30] MEDS: Clopidogrel Bisulfate 75 MG TABLET PO (21:17)
[2024-03-30 21:35] LABS: Glucose, Whole Blood 224 mg/dL (60-115)
[2024-03-30 21:39] LABS: PTT Heparin Drip 57.6 SEC (53-77.9)
--- NOTE | 2024-03-30 22:44 | PC.NURSE ---
CARE ASSUMED 7PM...AWAKE..ALERT..ORIENTED X3...RESPIRATIONS EASY ON HI-FRANDY CANNULA 45 L/M AND FIO2 40%...NSR HR 80'S....TROPONIN DRAWN 18:16= 22,837...ICU PA PRESENT AND AWARE...PATIENT ASYMPTOMATIC....HEPARIN DRIP INFUSING 14 UNITS/KG/HR...REPEAT PTT-HD PER PA REMAINS THERAPEUTIC...12-LEAD EKG DONE....LIPITOR 80MG PO AND ASA 325MG PO GIVEN...NTG PASTE 0.5 TOPICAL GIVEN...LOPRESSOR AND PLAVIX PO PER OCT...PATIENT STAUS REVIEWED BY PA WITH ACLS SPECIALIST/CARDIOLOGY AND [facility] CARDIOLOGY...PATIENT ACCEPTED BY [facility] PER ICU PA BUT NO BED CURRENTLY AVAILABLE... PRESENT AT AND PATIENT/ AWARE OF PENDING TRANSFER TO [facility]...CONTINUES TO DENY DISCOMFORT
--- NOTE | 2024-03-30 22:59 | PM.DS ---
DS: Providers Provider Date of Service: 03/30/24 <ASHLEIGH Ahn - Last Filed: 03/31/24 23:55> Date of admission: 03/29/24 21:23 <ASHLEIGH Ahn - Last Filed: 03/31/24 23:55> Primary care physician: Chace Berg MD <ASHLEIGH Ahn - Last Filed: 03/31/24 23:55> Admitting clinician: Tito Emanuel <ASHLEIGH Ahn - Last Filed: 03/31/24 23:55> Attending physician on admission: Iam Adams <ASHLEIGH Ahn - Last Filed: 03/31/24 23:55> Consults: 03/30/24 04:01 Consult to Cardiology Routine Consulting Provider: [facility] Reason for consultation: NSTEMI/ Pulm edema Has provider been notified: No <ASHLEIGH Ahn - Last Filed: 03/31/24 23:55> Attending physician on discharge: Everardo Ritter <ASHLEIGH Ahn - Last Filed: 03/31/24 23:55> Discharging clinician: Jana Cano <ASHLEIGH Ahn - Last Filed: 03/31/24 23:55> DS: Transfer Hospital Acceptance Reason for Transfer: N STEMI PULMONARY EDEMA SUSPECTED TO BE ISCHEMIC RELATED <ASHLEIGH Ahn - Last Filed: 03/31/24 23:55> Name of Facility: [facility] <ASHLEIGH Ahn - Last Filed: 03/31/24 23:55> Accepting Provider: DR. OTTO JAY <ASHLEIGH Ahn - Last Filed: 03/31/24 23:55> DS: Diagnosis Discharge Diagnosis (1) NSTEMI (non-ST elevated myocardial infarction): Status: Acute <ASHLEIGH Ahn - Last Filed: 03/31/24 23:55> (2) Acute hypoxic respiratory failure: Status: Acute <ASHLEIGH Ahn - Last Filed: 03/31/24 23:55> (3) Pneumonia: Status: Acute <ASHLEIGH Ahn - Last Filed: 03/31/24 23:55> DS: Summary Hospital Course Hospital Course: ADMISSION/DISCHARGE DIAGNOSIS: NON-STEMI SIRS / EARLY SEPSIS WITHOUT SHOCK ACUTE HYPOXIC RESPIRATORY FAILURE BILATERAL COMMUNITY-ACQUIRED PNEUMONI PULMONARY EDEMA CORONARY DISEASE POST QUADRUPLE BYPASS 2008 DIABETES MELLITUS TYPE 2 PERIPHERAL VASCULAR DISEASE CLAUDICATION HYPERTENSION HYPERLIPIDEMIA OBSTRUCTIVE SLEEP APNEA 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 Has underlying history of coronary disease post quadruple bypass in 2008, patient sees Dr. Chacon at [facility] on a yearly basis. For the past 2-3 days the patient had developed generalized malaise, dry cough, chills, upon coming to the ER he was noted to be hypertensive with blood pressure of 206/68, hypoxic satting 84% on room air but otherwise not tachycardic, not tachypneic and not febrile, however he did develop a fever for now 1.1 few hours later, became tachypneic and tachycardic.? His white count on admission was 16.5, H and H of 15 and 44 respectively, initial chemistry was unremarkable for electrolytes and renal function.? His BNP was 793 and initial troponin of 204. ?ABG was unremarkable with the exception of bicarb of 21. Patient's chest x-ray showed bilateral airspace disease more so in the right upper lobe.? A follow-up CT angiogram of the chest was done: CHEST CTA IMPRESSION: 1. Multifocal regions of consolidation, most prominently in the right upper lobe, suspicious for multifocal pneumonia. Follow-up imaging is recommended to assess for resolution and exclude underlying mass. 2. Small right pleural effusion without definite findings of empyema. 3. Trace left pleural effusion with associated pleural thickening, favored to be chronic. 4. Superimposed interstitial edema. 5. Mediastinal lymphadenopathy, favored to be reactive in this setting. 6. Cardiomegaly. 7. Mildly hyperattenuating region in the right hepatic lobe measuring approximately 3.3 x 1.1 cm, which could represent transient perfusion abnormality though an underlying lesion cannot be excluded. If not already performed, further workup with dynamic liver MRI is recommended. Patient was placed on high-flow oxygen, in the ER the patient received 1 L of IV fluids, Rocephin and Zithromax, Solu-Medrol albuterol, subsequently he also received Lasix and nitro paste.? He was admitted to the ICU.? He was then switched to vancomycin and Zosyn. The ICU, patient's laboratories would trend including a troponin which slowly started to go up as high as 22,000 on the night of 03/30/2024.? Patient did not complain of any chest pain.? Who reviewed the patient's EKG in comparison to EKG from 2016, does reveal ST depressions in the lateral leads, but otherwise no ST elevations. Patient was placed on heparin drip, cardiology consulted Dr. Siddiqi who was in agreement with heparin, advised on continue with aspirin, nitroglycerin, Lipitor which were started tonight. Furthermore the patient did have a formal echocardiogram: TT ECHO Conclusions: - 1. Normal LV ejection fraction 55-60% with underlying regional wall motion abnormality consistent with coronary artery disease with grade 2 diastolic dysfunction 2. Mild mitral regurgitation 3. Normal measured RV systolic pressure 4. No gross pericardial effusion In light of the patient's significant comorbidities, previous coronary disease and ongoing elevation of his troponin despite of heparin, my concern was that this patient may be having pulmonary edema in the setting of myocardial ischemia, this prompted me to discussed the case with based did Cardiology Dr. Jay; who agrees that this patient would benefit with further evaluation at their facility, however they do not have a bed at this point. I have restarted the patient's aspirin, Plavix, place him on nitroglycerin paste, max dose Lipitor and also added back a beta-patience dose. ?Patient's troponin would be repeated tonight and 1st thing in the morning. At this point, the case was discussed with my attending Dr. Cano who is aware of the above-mentioned approached in the pending transfer soon as a bed becomes available [facility]. ? Critical care time used for critical evaluation of this patient, diagnosis, treatment and coordination of care, review her records and documentation TOTAL CRITICAL CARE TIME?90? MIN . discussion and coordination with consultants, in addition to the above operation of this discharge summary. Patient's care was discussed in detail with Dr. Cano.? He is aware of all the above as well as the plan of care for this patient. <ASHLEIGH Ahn - Last Filed: 03/31/24 23:55> Time Attestation Total time managing care of this patient today: 90 mintues. <ASHLEIGH Ahn - Last Filed: 03/31/24 23:55> Discharge Coordination Time (in mins): 30 <Jana Cano MD - Last Filed: 03/31/24 16:39> Quality: Safe Use of Opioids Does Pt have an Active Cancer Diagnosis on the Problem List?: No <ASHLEIGH Ahn - Last Filed: 03/31/24 23:55> Quality: Stroke Does the patient have a stroke diagnosis?: No <ASHLEIGH hAn - Last Filed: 03/31/24 23:55> Physical Exam Vital Signs: Vital Signs: Last Vital Signs Temp 99.7 F 03/30/24 18:00 Pulse 74 03/30/24 22:00 Resp 20 03/30/24 22:00 BP 138/54 L 03/30/24 22:00 Pulse Ox 93 03/30/24 22:00 O2 Del Method High Flow Nasal C annula 03/30/24 22:00 O2 Flow Rate 45 03/30/24 22:00 FiO2 40 03/30/24 22:00 BMI result Body Mass Index 35.4 <ASHLEIGH Ahn - Last Filed: 03/31/24 23:55> Const: General: cooperative, healthy appearing, comfortable, no acute distress, well developed, alert, awake and Physically active <Jana Cano MD - Last Filed: 03/31/24 16:39> Orientation/consciousness: patient oriented x3 <Jana Cano MD - Last Filed: 03/31/24 16:39> HEENT: Head: Yes normal to inspection, Yes normocephalic and Yes atraumatic <Jana Cano MD - Last Filed: 03/31/24 16:39> Eyes: General: appearance normal, both eyes and all related structures <MD Feliciano Em Last Filed: 03/31/24 16:39> Neck: Neck: Yes normal visual inspection, Yes trachea midline and Yes supple <MD Feliciano Em Last Filed: 03/31/24 16:39> Chest: Chest palpation & inspection: normal inspection of the chest <MD Feliciano Em Last Filed: 03/31/24 16:39> Resp: Other: some appreciable rales, rhonchi; no appreciable wheezing <Jana Cano MD - Last Filed: 03/31/24 16:39> Effort & Inspection: normal respiratory effort <MD Feliciano Em Last Filed: 03/31/24 16:39> Cardio: Rate: regular rate <Jana Cano MD - Last Filed: 03/31/24 16:39> Rhythm: regular rhythm <MD Feliciano Em Last Filed: 03/31/24 16:39> GI: Inspection: Yes normal to inspection, No Abdominal wall edema and No distended <MD Feliciano Em Last Filed: 03/31/24 16:39> Palpation (GI): Soft to palpation, not firm, nontender, no guarding and not rigid <Jana Cano MD - Last Filed: 03/31/24 16:39> Skin: General skin exam: no rashes or lesions noted <MD Feliciano Em Last Filed: 03/31/24 16:39> Neuro: General: patient oriented x3, tone normal, moves all extremities and no focal motor deficits <MD Feliciano Em Last Filed: 03/31/24 16:39> Extrem: General: Yes normal to inspection, Yes full ROM, Yes capillary refill normal and Yes no clubbing, cyanosis or edema <Jana Cano MD - Last Filed: 03/31/24 16:39> Psych: Appearance: grossly normal <Jana Cano MD - Last Filed: 03/31/24 16:39> DS: Data Data Completed and Pending Labs on day of discharge: Laboratory Results - last 24 hr 03/29/24 03/30/24 03/30/24 23:00 02:05 05:08 WBC 13.2 H RBC 4.33 L Hgb 12.9 L Hct 37.4 L MCV 86.4 MCH 29.8 MCHC 34.5 RDW 13.9 Plt Count 205 MPV 10.1 Immature Gran % (Auto) 0.5 H Neut % (Auto) 91.6 H Lymph % (Auto) 5.5 L [place] % (Auto) 2.2 Eos % (Auto) 0.0 Baso % (Auto) 0.2 Lymph # (Auto) 0.7 L [place] # (Auto) 0.3 Eos # (Auto) 0.0 Baso # (Auto) 0.0 Abs Immat Gran (auto) 0.06 H Absolute Neuts (auto) 12.1 H Absolute Nucleated RBC 0.000 Nucleated RBC % (auto) 0.0 Smear Tech's Comments VERIFIED aPTT Heparin Protocol VBG pH VBG pCO2 VBG pO2 VBG HCO3 VBG O2 Saturation VBG Base Excess Sodium 135 Potassium 3.9 Chloride 103 Carbon Dioxide 22 Anion Gap 14 BUN 16 Creatinine 1.18 Estim Creat Clear Calc 69.1 Estimated GFR > 60 POC Glucose Random Glucose 394 H* Calcium 8.4 D Phosphorus 3.2 2.7 Magnesium 1.7 1.7 Total Bilirubin 1.4 H AST 50 H ALT 20 Alkaline Phosphatase 51 Troponin I High Sens 204.0 H* D 1911.7 H* D B-Natriuretic Peptide 1032 H Total Protein 5.9 L Albumin 3.6 03/30/24 03/30/24 03/30/24 05:11 07:55 08:32 WBC RBC Hgb Hct MCV MCH MCHC RDW Plt Count MPV Immature Gran % (Auto) Neut % (Auto) Lymph % (Auto) [place] % (Auto) Eos % (Auto) Baso % (Auto) Lymph # (Auto) [place] # (Auto) Eos # (Auto) Baso # (Auto) Abs Immat Gran (auto) Absolute Neuts (auto) Absolute Nucleated RBC Nucleated RBC % (auto) Smear Tech's Comments aPTT Heparin Protocol 65.8 VBG pH 7.51 H VBG pCO2 27 VBG pO2 72 VBG HCO3 21 L VBG O2 Saturation 95.0 VBG Base Excess 0.1 Sodium Potassium Chloride Carbon Dioxide Anion Gap BUN Creatinine Estim Creat Clear Calc Estimated GFR POC Glucose 357 H* Random Glucose Calcium Phosphorus Magnesium Total Bilirubin AST ALT Alkaline Phosphatase Troponin I High Sens 15381.6 H* D B-Natriuretic Peptide Total Protein Albumin 03/30/24 03/30/24 03/30/24 10:23 11:07 15:52 WBC RBC Hgb Hct MCV MCH MCHC RDW Plt Count MPV Immature Gran % (Auto) Neut % (Auto) Lymph % (Auto) [place] % (Auto) Eos % (Auto) Baso % (Auto) Lymph # (Auto) [place] # (Auto) Eos # (Auto) Baso # (Auto) Abs Immat Gran (auto) Absolute Neuts (auto) Absolute Nucleated RBC Nucleated RBC % (auto) Smear Tech's Comments aPTT Heparin Protocol 61.0 VBG pH VBG pCO2 VBG pO2 VBG HCO3 VBG O2 Saturation VBG Base Excess Sodium Potassium Chloride Carbon Dioxide Anion Gap BUN Creatinine Estim Creat Clear Calc Estimated GFR POC Glucose 282 H Random Glucose Calcium Phosphorus Magnesium Total Bilirubin AST ALT Alkaline Phosphatase Troponin I High Sens 99430.8 H* B-Natriuretic Peptide Total Protein Albumin 03/30/24 03/30/24 03/30/24 16:59 18:16 19:58 WBC RBC Hgb Hct MCV MCH MCHC RDW Plt Count MPV Immature Gran % (Auto) Neut % (Auto) Lymph % (Auto) [place] % (Auto) Eos % (Auto) Baso % (Auto) Lymph # (Auto) [place] # (Auto) Eos # (Auto) Baso # (Auto) Abs Immat Gran (auto) Absolute Neuts (auto) Absolute Nucleated RBC Nucleated RBC % (auto) Smear Tech's Comments aPTT Heparin Protocol 57.6 VBG pH VBG pCO2 VBG pO2 VBG HCO3 VBG O2 Saturation VBG Base Excess Sodium Potassium Chloride Carbon Dioxide Anion Gap BUN Creatinine Estim Creat Clear Calc Estimated GFR POC Glucose 281 H Random Glucose Calcium Phosphorus Magnesium Total Bilirubin AST ALT Alkaline Phosphatase Troponin I High Sens 22318.9 H* B-Natriuretic Peptide Total Protein Albumin 03/30/24 21:32 WBC RBC Hgb Hct MCV MCH MCHC RDW Plt Count MPV Immature Gran % (Auto) Neut % (Auto) Lymph % (Auto) [place] % (Auto) Eos % (Auto) Baso % (Auto) Lymph # (Auto) [place] # (Auto) Eos # (Auto) Baso # (Auto) Abs Immat Gran (auto) Absolute Neuts (auto) Absolute Nucleated RBC Nucleated RBC % (auto) Smear Tech's Comments aPTT Heparin Protocol VBG pH VBG pCO2 VBG pO2 VBG HCO3 VBG O2 Saturation VBG Base Excess Sodium Potassium Chloride Carbon Dioxide Anion Gap BUN Creatinine Estim Creat Clear Calc Estimated GFR POC Glucose 224 H Random Glucose Calcium Phosphorus Magnesium Total Bilirubin AST ALT Alkaline Phosphatase Troponin I High Sens B-Natriuretic Peptide Total Protein Albumin Preliminary micro results at discharge 03/29/24 19:27 Blood Culture - Preliminary Blood - Venous No growth after 24 hours. 03/29/24 18:48 Blood Culture - Preliminary Blood - Venous No growth after 24 hours. <ASHLEIGH Ahn - Last Filed: 03/31/24 23:55> Imaging CT scan - chest: Attestation: I personally reviewed and interpreted this imaging study as follows: <ASHLEIGH Ahn - Last Filed: 03/31/24 23:55> Radiologist's impression: ITS Impressions Chest X-Ray 03/29/24 18:40 IMPRESSION: Patchy bilateral airspace disease more so in the right upper lobe and lingula. Infectious etiology would be suspected in the acute setting. Asymmetric edema would be considered less likely. Chest CT 03/29/24 20:59 IMPRESSION: 1. Multifocal regions of consolidation, most prominently in the right upper lobe, suspicious for multifocal pneumonia. Follow-up imaging is recommended to assess for resolution and exclude underlying mass. 2. Small right pleural effusion without definite findings of empyema. 3. Trace left pleural effusion with associated pleural thickening, favored to be chronic. 4. Superimposed interstitial edema. 5. Mediastinal lymphadenopathy, favored to be reactive in this setting. 6. Cardiomegaly. 7. Mildly hyperattenuating region in the right hepatic lobe measuring approximately 3.3 x 1.1 cm, which could represent transient perfusion abnormality though an underlying lesion cannot be excluded. If not already performed, further workup with dynamic liver MRI is recommended. <ASHLEIGH Ahn - Last Filed: 03/31/24 23:55> Discharge Plan Discharge Anticipated Discharge Date/Time: 03/31/24 16:36 <ASHLEIGH Ahn - Last Filed: 03/31/24 23:55> Patient Disposition: [facility] <ASHLEIGH Ahn - Last Filed: 03/31/24 23:55> Discharge Diagnosis: NON STEMI <ASHLEIGH Ahn - Last Filed: 03/31/24 23:55> NON STEMI <Jana Cano MD - Last Filed: 03/31/24 16:39> Referrals: Chace Berg MD [Primary Care Provider] - 1 Week <ASHLEIGH Ahn - Last Filed: 03/31/24 23:55> Discharge Medications: Continued (DME) insulin syringe-needle U-100 [BD Insulin Syringe Ultra-Fine] 0.5 mL 31 gauge x 5/16 syringe See Rx Instructions .ROUTE .MEDSUPPLY Qty: 100 5RF Rx Instructions: twice a day (DME) pen needle, diabetic [BD Araceli 2nd Gen Pen Needle] 32 gauge x 5/32 needle See Rx Instructions .ROUTE .MEDSUPPLY Qty: 100 4RF Rx Instructions: twice a day hydrochlorothiazide 25 mg tablet 25 mg PO DAILY Qty: 90 2RF colestipol 1 gram tablet 2 g PO DAILY Qty: 180 3RF metformin 1,000 mg tablet 1,000 mg PO BID Qty: 180 1RF amlodipine 10 mg tablet 10 mg PO DAILY 90 Days Qty: 90 1RF Humulin 70/30 U-100 Insulin 100 unit/mL (70-30) suspension See Rx Instructions subcut BID 30 Days Qty: 3 2RF Rx Instructions: 17 units with breakfast and 11 units with dinner subcutaneously 2 times a day. metoprolol tartrate 50 mg tablet 50 mg PO BID Trulicity 1.5 mg/0.5 mL pen injector 1.5 mg subcut CUELLO nitroglycerin 0.4 mg tablet, sublingual 0.4 mg sublingual Q5M PRN (Reason: chest pain) Qty: 60 4RF Rx Instructions: do not exceed 3 doses per episode aspirin 81 mg tablet,delayed release (DR/EC) 81 mg PO DAILY clopidogrel 75 mg tablet 75 mg PO DAILY losartan 25 mg tablet 50 mg PO DAILY atorvastatin 20 mg tablet 20 mg PO DAILY <ASHLEIGH Ahn - Last Filed: 03/31/24 23:55> Discharge Orders: Discharge Order (Routine); Ordered 03/31/24 Ordered By: Jana Cano <ASHLEIGH Ahn - Last Filed: 03/31/24 23:55> Activity on Discharge: As tolerated <ASHLEIGH Ahn - Last Filed: 03/31/24 23:55> As tolerated <Jana Cano MD - Last Filed: 03/31/24 16:39> Stand Alone Forms: Patient Portal Discharge page <ASHLEIGH Ahn - Last Filed: 03/31/24 23:55> Print Language: Montenegrin <ASHLEIGH Ahn - Last Filed: 03/31/24 23:55> Care Plan Goals: per [facility] <ASHLEIGH Ahn - Last Filed: 03/31/24 23:55> Health Concerns: CAD <ASHLEIGH Ahn - Last Filed: 03/31/24 23:55> Plan of Treatment: FURTHER EVALUATION AT [facility] <ASHLEIGH Ahn - Last Filed: 03/31/24 23:55> Assessment: PER [facility] <ASHLEIGH Ahn - Last Filed: 03/31/24 23:55> Patient Instructions: Coronary Artery Disease (GEN), Pneumonia (DC) <ASHLEIGH Ahn - Last Filed: 03/31/24 23:55> Discharge Date/Time: 03/31/24 18:15 <ASHLEIGH Ahn - Last Filed: 03/31/24 23:55>
[2024-03-31] VITALS (26 sets, daily range): BP systolic 110–195; BP diastolic 43–79; PULSE 65–85; RESP 15–25; TEMP 36.8–37.4; O2SAT 91–97; BMI 35.8; BMI 35.7
[2024-03-31] MEDS: Nitroglycerin 2 % Oint 1 GM Packet 0.5 INCH TRANSDERMA ×3 (03:29→15:51)
[2024-03-31] MEDS: Piperacillin Sodium/Tazobactam 4.5 GM in 0.9 % Sodium Chloride 100 ML IV ×3 (03:29→15:44)
--- NOTE | 2024-03-31 06:00 | ECG_ITS ---
Test Reason : Troponinemia Blood Pressure : / mmHG Vent. Rate : 069 BPM Atrial Rate : 069 BPM P-R Int : 146 ms QRS Dur : 114 ms QT Int : 468 ms P-R-T Axes : 060 050 093 degrees QTc Int : 501 ms Normal sinus rhythm Possible Left atrial enlargement Nonspecific ST abnormality Prolonged QT Abnormal ECG When compared with ECG of 30-MAR-2024 20:30, Incomplete right bundle branch block is no longer Present Referred By: Jana Cano Electronically Signed By:LESLEY WILCOX MD
[2024-03-31 06:11] LABS: MANUAL DIFF FLAG NO
[2024-03-31 06:15] LABS: Basophils Percent Auto 0.3 % (0-2); Eosinophils Absolute Auto 0.1 X10*3/uL (0.0-0.4); Eosinophils Percent Auto 0.4 % (0-4); Hemoglobin 12.1 g/dl (14.0-18.0); Imm Gran Abs Auto 0.06 X10*3/uL (0.00-0.03); Imm Gran Pct Auto 0.4 % (0.0-0.4); Lymphocytes Absolute Auto 1.3 X10*3/uL (1.2-4.9); Lymphocytes Percent Auto 9.2 % (20-40); Mean Corpuscular HGB Conc 33.6 g/dl (31.0-36.0); Mean Corpuscular Hemoglobin 29.7 pg (27.0-33.0); Mean Corpuscular Volume 88.5 fL (80.0-98.0); Mean Platelet Volume 10.1 fL (9.4-12.4); Monocytes Absolute Auto 0.9 X10*3/uL (0.1-1.2); Monocytes Percent Auto 6.1 % (2-11); Neutrophils Absolute Auto 11.7 x10*3/uL (2.0-8.3); Neutrophils Percent Auto 83.6 % (45-73); Platelet Count 207 X10*3/uL (160-400); Red Blood Count 4.07 X10*6/uL (4.60-5.80); Red Cell Distribution Width 14.4 % (11.0-16.0); White Blood Count 14.1 X10*3/uL (4.8-10.8)
[2024-03-31] MEDS: Furosemide 20 MG/2 ML VIAL 10 MG IVPUSH (06:24)
[2024-03-31 06:35] LABS: Anion Gap 12 (12-20); Blood Urea Nitrogen 22 mg/dL (9-16); Calcium 8.5 mg/dL (8.4-10.2); Carbon Dioxide 24 mmol/L (22-29); Chloride 105 mmol/L (96-108); Creatinine Clr Calc Pharmacy 84.7; Estimated Glomerular Filt Rate > 60; Glucose Random 172 mg/dL (60-115); Magnesium 2.1 mg/dL (1.6-2.6); Phosphorus 2.7 mg/dL (2.7-4.5); Potassium 3.9 mmol/L (3.3-5.1); Sodium 137 mmol/L (135-145)
[2024-03-31 06:39] LABS: PTT Heparin Drip 63.6 SEC (53-77.9)
[2024-03-31 07:22] LABS: VBG Base Excess 2.6 mmol/L; VBG HCO3 24 mmol/L (22-26); VBG pCO2 30 mmHg; VBG pH 7.52 (7.32-7.43); VBG pO2 76 mmHg
[2024-03-31 07:22] LABS: Glucose, Whole Blood 186 mg/dL (60-115)
--- NOTE | 2024-03-31 07:34 | PM.CCPN ---
Subjective Subjective Date of Service: 03/31/24 Interval History: no significant overnight events; case discussed with patient's order entry administrator, transfer pending Critical Care Time (minutes): 60 Physical Exam Vital Signs: Vital Signs: Last Vital Signs Temp 98.9 F 03/31/24 03:00 Pulse 80 03/31/24 06:52 Resp 22 H 03/31/24 07:23 BP 114/49 L 03/31/24 06:52 Pulse Ox 92 03/31/24 06:52 O2 Del Method High Flow Nasal C annula 03/31/24 06:52 O2 Flow Rate 50 03/31/24 06:52 FiO2 50 03/31/24 06:52 BMI result Body Mass Index 35.8 Const: General: cooperative, healthy appearing, comfortable, no acute distress, well developed, alert, awake and Physically active Orientation/consciousness: patient oriented x3 HEENT: Head: Yes normal to inspection, Yes normocephalic and Yes atraumatic Eyes: General: appearance normal, both eyes and all related structures Neck: Neck: Yes normal visual inspection, Yes full ROM, Yes no meningeal signs, Yes trachea midline and Yes supple Chest: Chest palpation & inspection: normal inspection of the chest Resp: Other: some appreciable rales, wheezing; no appreciable rhonchi Effort & Inspection: normal respiratory effort Cardio: Rate: regular rate Rhythm: regular rhythm GI: Other: rotund abdomen, though soft, compressible Inspection: Yes normal to inspection, No Abdominal wall edema and No distended Palpation (GI): Soft to palpation, not firm, nontender, no guarding and not rigid Skin: General skin exam: no rashes or lesions noted Neuro: General: patient oriented x3, tone normal, moves all extremities, no meningeal signs and no focal motor deficits Extrem: General: Yes normal to inspection, Yes full ROM, Yes capillary refill normal and Yes no clubbing, cyanosis or edema Psych: Appearance: grossly normal Objective Data Labs 03/31/24 05:30 03/31/24 05:30 Labs: Laboratory Results - last 24 hr 03/30/24 03/30/24 03/30/24 07:55 08:32 10:23 WBC RBC Hgb Hct MCV MCH MCHC RDW Plt Count MPV Immature Gran % (Auto) Neut % (Auto) Lymph % (Auto) [place] % (Auto) Eos % (Auto) Baso % (Auto) Lymph # (Auto) [place] # (Auto) Eos # (Auto) Baso # (Auto) Abs Immat Gran (auto) Absolute Neuts (auto) Absolute Nucleated RBC Nucleated RBC % (auto) aPTT Heparin Protocol 65.8 VBG pH VBG pCO2 VBG pO2 VBG HCO3 VBG O2 Saturation VBG Base Excess Sodium Potassium Chloride Carbon Dioxide Anion Gap BUN Creatinine Estim Creat Clear Calc Estimated GFR POC Glucose 357 H* Random Glucose Calcium Phosphorus Magnesium Troponin I High Sens 30325.6 H* D 29280.8 H* 03/30/24 03/30/24 03/30/24 11:07 15:52 16:59 WBC RBC Hgb Hct MCV MCH MCHC RDW Plt Count MPV Immature Gran % (Auto) Neut % (Auto) Lymph % (Auto) [place] % (Auto) Eos % (Auto) Baso % (Auto) Lymph # (Auto) [place] # (Auto) Eos # (Auto) Baso # (Auto) Abs Immat Gran (auto) Absolute Neuts (auto) Absolute Nucleated RBC Nucleated RBC % (auto) aPTT Heparin Protocol 61.0 VBG pH VBG pCO2 VBG pO2 VBG HCO3 VBG O2 Saturation VBG Base Excess Sodium Potassium Chloride Carbon Dioxide Anion Gap BUN Creatinine Estim Creat Clear Calc Estimated GFR POC Glucose 282 H 281 H Random Glucose Calcium Phosphorus Magnesium Troponin I High Sens 03/30/24 03/30/24 03/30/24 18:16 19:58 21:32 WBC RBC Hgb Hct MCV MCH MCHC RDW Plt Count MPV Immature Gran % (Auto) Neut % (Auto) Lymph % (Auto) [place] % (Auto) Eos % (Auto) Baso % (Auto) Lymph # (Auto) [place] # (Auto) Eos # (Auto) Baso # (Auto) Abs Immat Gran (auto) Absolute Neuts (auto) Absolute Nucleated RBC Nucleated RBC % (auto) aPTT Heparin Protocol 57.6 VBG pH VBG pCO2 VBG pO2 VBG HCO3 VBG O2 Saturation VBG Base Excess Sodium Potassium Chloride Carbon Dioxide Anion Gap BUN Creatinine Estim Creat Clear Calc Estimated GFR POC Glucose 224 H Random Glucose Calcium Phosphorus Magnesium Troponin I High Sens 82841.9 H* 03/30/24 03/31/24 03/31/24 23:40 05:30 07:13 WBC 14.1 H RBC 4.07 L Hgb 12.1 L Hct 36.0 L MCV 88.5 MCH 29.7 MCHC 33.6 RDW 14.4 Plt Count 207 MPV 10.1 Immature Gran % (Auto) 0.4 Neut % (Auto) 83.6 H Lymph % (Auto) 9.2 L [place] % (Auto) 6.1 Eos % (Auto) 0.4 Baso % (Auto) 0.3 Lymph # (Auto) 1.3 [place] # (Auto) 0.9 Eos # (Auto) 0.1 Baso # (Auto) 0.0 Abs Immat Gran (auto) 0.06 H Absolute Neuts (auto) 11.7 H Absolute Nucleated RBC 0.000 Nucleated RBC % (auto) 0.0 aPTT Heparin Protocol 63.6 VBG pH 7.52 H VBG pCO2 30 VBG pO2 76 VBG HCO3 24 VBG O2 Saturation 95.0 VBG Base Excess 2.6 Sodium 137 Potassium 3.9 Chloride 105 Carbon Dioxide 24 Anion Gap 12 BUN 22 H Creatinine 0.97 Estim Creat Clear Calc 84.7 Estimated GFR > 60 POC Glucose Random Glucose 172 H Calcium 8.5 Phosphorus 2.7 Magnesium 2.1 Troponin I High Sens 04294.5 H* 39613.5 H* 03/31/24 07:15 WBC RBC Hgb Hct MCV MCH MCHC RDW Plt Count MPV Immature Gran % (Auto) Neut % (Auto) Lymph % (Auto) [place] % (Auto) Eos % (Auto) Baso % (Auto) Lymph # (Auto) [place] # (Auto) Eos # (Auto) Baso # (Auto) Abs Immat Gran (auto) Absolute Neuts (auto) Absolute Nucleated RBC Nucleated RBC % (auto) aPTT Heparin Protocol VBG pH VBG pCO2 VBG pO2 VBG HCO3 VBG O2 Saturation VBG Base Excess Sodium Potassium Chloride Carbon Dioxide Anion Gap BUN Creatinine Estim Creat Clear Calc Estimated GFR POC Glucose 186 H Random Glucose Calcium Phosphorus Magnesium Troponin I High Sens Microbiology Microbiology Results: Microbiology 03/29/24 19:27 Blood - Venous Blood Culture - Preliminary No growth after 24 hours. 03/29/24 18:48 Blood - Venous Blood Culture - Preliminary No growth after 24 hours. Progress Note: A&P Assessment and plan (1) Acute hypoxic respiratory failure: Status: Acute (2) Pneumonia: Status: Acute (3) Pulmonary edema: Status: Acute (4) Elevated troponin: Status: Acute (5) CAD (coronary artery disease): Status: Acute (6) Hypertension: Status: Acute (7) Dyslipidemia: Status: Acute (8) Diabetes mellitus: Status: Acute Plan Patient is a 68 Y M with metabolic syndrome, hypertension, hyperlipidemia, diabetes mellitus, c/b coronary artery disease, ?presenting initially to ED on 03/29 w/ cough, dyspnea, found to be hypoxic, and found to have CT chest suggestive of pneumonia, pulmonary edema, admitted to ICU on HFNC N: no acute issues CV: troponinemia, plateaued, on heparin gtt; appreciate cardiology recommendations; hypertension R: acute hypoxic respiratory failure, likely multifactorial d/t pneumonia, pulmonary edema; antibiotics, diuresis GI: cardiac diet as tolerated : pulmonary edema, diuresis as tolerated H: no acute issues ID: c/f pneumonia, empiric vancomycin/zosyn E: diabetes mellitus; to monitor hypo-/hyper-glycemia P: no acute issues Quality Stroke Does the patient have a stroke diagnosis?: No VTE Prior VTE?: No VTE Risk Level:: Medical - moderate - high VTE Device Contraindication: N/A - Device Ordered VTE Drug Contraindication: N/A - Med Ordered
[2024-03-31] MEDS: Furosemide 20 MG/2 ML VIAL IVPUSH (08:13)
--- NOTE | 2024-03-31 08:37 | HE.PHANOTE ---
RE: vanco Trough on 03/31 came back at 11.0mg/L; increased dose to 1250mg Q12H with predicted AUC of 459 mg/L, trough of 14.2 mg/L. Renal function unstable, getting another level after two doses 04/01 @0800
--- NOTE | 2024-03-31 08:43 | MHC.CM.PN ---
Pt seen by cardiology: will transfer to [facility] for continued cardiac interventions/care.
[2024-03-31] MEDS: Insulin Lispro 100 UNIT/ML 3 ML VIAL SUBCUT ×2 (08:49→11:58)
[2024-03-31] MEDS: Metoprolol Tartrate 25 MG TABLET PO ×2 (08:49→15:43)
[2024-03-31] MEDS: Clopidogrel Bisulfate 75 MG TABLET PO (08:49)
[2024-03-31] MEDS: Aspirin 325 MG TABLET PO (08:49)
[2024-03-31 09:10] LABS: Venous Blood Gas Refer to POC result
--- NOTE | 2024-03-31 09:59 | P.PNCA_ITS ---
Subjective Subjective Date of Service: 03/31/24 Principal diagnosis: Acute DC, hypoxic respiratory failure. Interval history: Patient high flow oxygen. Overall overnight diuresis does not seem adequate with positive balance. Urine output seems to be adequate although it appears that he is having a lot of intake. Blood pressure is better but again is elevated today. His peak troponin elevated over 20,000 in his downtrending. He continues to have difficulty taking deep breath in his having shortness of breath. Denies any chest pain. Also says he has congested cough. Review of Systems Constitutional: Reports no additional constitutional complaints Cardiovascular: Denies chest pain, Denies lightheadedness, Denies Loss of Consciousness, Denies palpitations and Reports dyspnea Respiratory: Reports chest congestion, Reports cough and Reports dyspnea Gastrointestinal: Reports no additional gastrointestinal complaints Musculoskeletal: Reports no additional musculoskeletal complaints Skin/Breast: Reports system reviewed and no additional complaints, except as docu Reports system reviewed and no additional complaints, except as documented Endocrine: Reports no additional endocrine complaints and Denies palpitations Physical Exam Vital Signs: Last Vital Signs Temp 99.4 F 03/31/24 07:57 Pulse 85 03/31/24 08:51 Resp 20 03/31/24 08:51 BP 172/51 H 03/31/24 08:51 Pulse Ox 94 03/31/24 08:51 O2 Del Method High Flow Nasal Cannula 03/31/24 08:51 O2 Flow Rate 50 03/31/24 08:51 FiO2 50 03/31/24 08:51 BMI result Body Mass Index 35.7 Const General: cooperative, well developed, alert, awake and in distress mild and respiratory Nutritional Appearance: well nourished Orientation/consciousness: patient oriented x3 Neck Neck: Yes trachea midline, Yes supple and Yes no JVD Resp Effort & Inspection: normal respiratory effort Auscultation: crackles bilateral and wheezes Cardio Rate: regular rate Rhythm: regular rhythm Heart sounds: S1 normal heart sound present, S2 normal heart sound present, no click, no gallops and no murmurs GI Auscultation: normal bowel sounds Skin General skin exam: no rashes or lesions noted Neuro General: patient oriented x3 and no focal motor deficits Extrem General: No clubbing, No cyanosis and No edema Objective Labs and Meds 03/31/24 05:30 03/31/24 05:30 Lab results: Laboratory Results - last 24 hr 03/30/24 03/30/24 03/30/24 10:23 11:07 15:52 WBC RBC Hgb Hct MCV MCH MCHC RDW Plt Count MPV Immature Gran % (Auto) Neut % (Auto) Lymph % (Auto) [place] % (Auto) Eos % (Auto) Baso % (Auto) Lymph # (Auto) [place] # (Auto) Eos # (Auto) Baso # (Auto) Abs Immat Gran (auto) Absolute Neuts (auto) Absolute Nucleated RBC Nucleated RBC % (auto) aPTT Heparin Protocol 61.0 VBG pH VBG pCO2 VBG pO2 VBG HCO3 VBG O2 Saturation VBG Base Excess Sodium Potassium Chloride Carbon Dioxide Anion Gap BUN Creatinine Estim Creat Clear Calc Estimated GFR POC Glucose 282 H Random Glucose Calcium Phosphorus Magnesium Troponin I High Sens 28936.8 H* Random Vancomycin 03/30/24 03/30/24 03/30/24 16:59 18:16 19:58 WBC RBC Hgb Hct MCV MCH MCHC RDW Plt Count MPV Immature Gran % (Auto) Neut % (Auto) Lymph % (Auto) [place] % (Auto) Eos % (Auto) Baso % (Auto) Lymph # (Auto) [place] # (Auto) Eos # (Auto) Baso # (Auto) Abs Immat Gran (auto) Absolute Neuts (auto) Absolute Nucleated RBC Nucleated RBC % (auto) aPTT Heparin Protocol 57.6 VBG pH VBG pCO2 VBG pO2 VBG HCO3 VBG O2 Saturation VBG Base Excess Sodium Potassium Chloride Carbon Dioxide Anion Gap BUN Creatinine Estim Creat Clear Calc Estimated GFR POC Glucose 281 H Random Glucose Calcium Phosphorus Magnesium Troponin I High Sens 27423.9 H* Random Vancomycin 03/30/24 03/30/24 03/31/24 21:32 23:40 05:30 WBC 14.1 H RBC 4.07 L Hgb 12.1 L Hct 36.0 L MCV 88.5 MCH 29.7 MCHC 33.6 RDW 14.4 Plt Count 207 MPV 10.1 Immature Gran % (Auto) 0.4 Neut % (Auto) 83.6 H Lymph % (Auto) 9.2 L [place] % (Auto) 6.1 Eos % (Auto) 0.4 Baso % (Auto) 0.3 Lymph # (Auto) 1.3 [place] # (Auto) 0.9 Eos # (Auto) 0.1 Baso # (Auto) 0.0 Abs Immat Gran (auto) 0.06 H Absolute Neuts (auto) 11.7 H Absolute Nucleated RBC 0.000 Nucleated RBC % (auto) 0.0 aPTT Heparin Protocol 63.6 VBG pH VBG pCO2 VBG pO2 VBG HCO3 VBG O2 Saturation VBG Base Excess Sodium 137 Potassium 3.9 Chloride 105 Carbon Dioxide 24 Anion Gap 12 BUN 22 H Creatinine 0.97 Estim Creat Clear Calc 84.7 Estimated GFR > 60 POC Glucose 224 H Random Glucose 172 H Calcium 8.5 Phosphorus 2.7 Magnesium 2.1 Troponin I High Sens 22606.5 H* 25819.5 H* Random Vancomycin 03/31/24 03/31/24 07:13 07:15 WBC RBC Hgb Hct MCV MCH MCHC RDW Plt Count MPV Immature Gran % (Auto) Neut % (Auto) Lymph % (Auto) [place] % (Auto) Eos % (Auto) Baso % (Auto) Lymph # (Auto) [place] # (Auto) Eos # (Auto) Baso # (Auto) Abs Immat Gran (auto) Absolute Neuts (auto) Absolute Nucleated RBC Nucleated RBC % (auto) aPTT Heparin Protocol VBG pH 7.52 H VBG pCO2 30 VBG pO2 76 VBG HCO3 24 VBG O2 Saturation 95.0 VBG Base Excess 2.6 Sodium Potassium Chloride Carbon Dioxide Anion Gap BUN Creatinine Estim Creat Clear Calc Estimated GFR POC Glucose 186 H Random Glucose Calcium Phosphorus Magnesium Troponin I High Sens Random Vancomycin 11.0 L Progress Note: A&P Assessment and plan (1) NSTEMI (non-ST elevated myocardial infarction): Status: Acute Assessment and Plan: Patient with acute myocardial infarction with congestive heart failure, with wall motion abnormality on the echocardiogram 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 He will require cardiac catheterization once his pulmonary condition improves. His heart failure seems to be undertreated at this point time. Blood pressure is still elevated. Agree with aspirin and IV heparin. Continue high-intensity statin therapy. Agree with nitrates and metoprolol. Plan has been made for patient to be transferred to [facility]. (2) Acute hypoxic respiratory failure: Status: Acute Assessment and Plan: Acute hypoxemic respiratory related to pulmonary edema which could be ischemic in addition to underlying pneumonia. Continue treat aggressively, supportive care. In adequate diuresis. Would start on Lasix drip at 5 mg an hour. Continue nitrates. Continue bronchodilators and antibiotics. Will sign of the case. Time Spent With Patient Time: Total time managing care of this patient today ____ minutes. Progress Note: Quality Stroke Does the patient have a stroke diagnosis?: No Procedures Date of Service Date of Service: 03/31/24
[2024-03-31 11:39] LABS: Glucose, Whole Blood 230 mg/dL (60-115)
[2024-03-31] MEDS: Furosemide 200 MG in 0.9 % Sodium Chloride 80 ML IVCONT (11:49)
[2024-03-31] MEDS: Heparin Sodium,Porcine/1/2NS 25,000 UNIT/250 ML IV.SOLN 14.39 UNIT IVCONT (12:14)
[2024-03-31] MEDS: Benzonatate 100 MG CAPSULE PO (15:43)
--- NOTE | 2024-03-31 15:43 | P.CDIM_ITS ---
PROVIDER RESPONSE TEXT: To clarify, the appropriate diagnosis supported by the clinical indicators: Acute QUERY TEXT: PHYSICIAN'S DOCUMENTATION REQUEST Date of Query: 03/31/2024 12:26 PM EDT Patient Name: Kaleb Yeager Admit Date: 03/30/2024 Dear Jana Cano MD, A review of the medical record indicates additional documentation may be needed. Please review below and update the documentation accordingly. Clinical Indicators: as per Critical care progress note 03/31/24: Pulmonary edema, diuresis as tolerated Clarify which of the following accurately represents the acuity of the Pulmonary edema. Possible options might include: Acute Acute on chronic Compensated Chronic stable condition Remission Other (explain) Clinically unable to determine (explain) Thank you, Brook Meehan RN Use of terms such as suspected, likely, concern for, or probable (associated with a specific diagnosi s that is being evaluated, monitored, or treated as if it exists) are acceptable and can be coded in the inpatient se tting, when documented at the time of discharge. Please use your independent medical judgment in providing your response. THIS QUERY IS PART OF THE PERMANENT MEDICAL RECORD
[2024-03-31 17:06] LABS: Glucose, Whole Blood 245 mg/dL (60-115)
--- NOTE | 2024-03-31 18:20 | PC.NURSE ---
Patient A+Ox4, no complaint of paior chest pain, no acute distress, behavior appropriate, verbelized understanding of need to transfer to [facility]. Patient transferred via EMS. At time of discharge/transfer patient was on OXYMASK@6L, Heparin Drip 14u/kg/hr, and lasix at 2mg/hr.
== END 2024-03-31 18:15 | disposition short-term general hospital (02) | DRG 871 ==
LOC: HO.ED 19:18 → HO.EDOVER 21:34 → HO.ICU 22:07
PROVIDERS: Internal Medicine Critical Care Medicine; Physician Assistant; Physician Assistant Medical; Admitting Provider Registered Nurse Community Health; Emergency Provider Emergency Medicine Emergency Medical Services; PCP Internal Medicine; Visit Provider Internal Medicine Pulmonary Disease
DX: A41.9 Sepsis, unspecified organism (principal); I21.4 Non-ST elevation (NSTEMI) myocardial infarction; J18.9 Pneumonia, unspecified organism; J81.0 Acute pulmonary edema; J96.01 Acute respiratory failure with hypoxia; E11.42 Type 2 diabetes mellitus with diabetic polyneuropathy; I25.10 Atherosclerotic heart disease of native coronary artery without angina pectoris; I10 Essential (primary) hypertension; E11.51 Type 2 diabetes mellitus with diabetic peripheral angiopathy without gangrene; G47.33 Obstructive sleep apnea (adult) (pediatric); E66.01 Morbid (severe) obesity due to excess calories; Z68.35 Body mass index [BMI] 35.0-35.9, adult; I70.219 Atherosclerosis of native arteries of extremities with intermittent claudication, unspecified extremity; E78.5 Hyperlipidemia, unspecified; Z20.822 Contact with and (suspected) exposure to COVID-19; Z95.1 Presence of aortocoronary bypass graft; Z79.4 Long term (current) use of insulin; Z79.02 Long term (current) use of antithrombotics/antiplatelets; Z79.84 Long term (current) use of oral hypoglycemic drugs; Z79.899 Other long term (current) drug therapy
CPT/HCPCS: 0241U; 36415; 71045; 71260; 80048; 80053; 80202; 82803; 82947; 83605; 83690; 83735; 83880; 84100; 84484; 85025; 85610; 85730; 87040; 93005; 93306; 94640; 99285; C1758; J0131; J0456; J0696; J1644; J1650; J1940; J2543; J2919; J3370; J3475; Q9967

== ENCOUNTER 2024-03-29 21:23 | Outpatient (BNV) | payer MEDICARE, SELFPAY | END 2024-03-31 06:00 | PROVIDERS: Admitting Provider Registered Nurse Community Health; Emergency Provider Emergency Medicine Emergency Medical Services; PCP Internal Medicine; Visit Provider Internal Medicine Cardiovascular Disease | DX: R94.31 Abnormal electrocardiogram [ECG] [EKG] (principal) | CPT/HCPCS: 93010 ==

== ENCOUNTER 2024-03-29 21:23 | Outpatient (BNV) | payer MEDICARE, SELFPAY | END 2024-03-30 02:39 | PROVIDERS: Admitting Provider Registered Nurse Community Health; Emergency Provider Emergency Medicine Emergency Medical Services; PCP Internal Medicine; Visit Provider Internal Medicine Cardiovascular Disease | DX: I34.0 Nonrheumatic mitral (valve) insufficiency (principal); I51.89 Other ill-defined heart diseases; R94.31 Abnormal electrocardiogram [ECG] [EKG] | CPT/HCPCS: 93010; 93306 ==

== ENCOUNTER → 2024-03-29 21:23 | Outpatient (BNV) | payer MEDICARE, SELFPAY | PROVIDERS: Admitting Provider Registered Nurse Community Health; Emergency Provider Emergency Medicine Emergency Medical Services; PCP Internal Medicine; Visit Provider Internal Medicine Cardiovascular Disease | DX: I21.4 Non-ST elevation (NSTEMI) myocardial infarction (principal); J96.01 Acute respiratory failure with hypoxia | CPT/HCPCS: 93010; 99223; 99233 ==

== ENCOUNTER → 2024-03-29 21:23 | Outpatient (BNV) | payer MEDICARE, SELFPAY | PROVIDERS: Admitting Provider Registered Nurse Community Health; Emergency Provider Emergency Medicine Emergency Medical Services; PCP Internal Medicine; Visit Provider Internal Medicine Critical Care Medicine | DX: J96.01 Acute respiratory failure with hypoxia (principal); A41.9 Sepsis, unspecified organism; J18.9 Pneumonia, unspecified organism; J81.1 Chronic pulmonary edema; I21.4 Non-ST elevation (NSTEMI) myocardial infarction | CPT/HCPCS: 99239; 99291 ==

== ENCOUNTER 2024-04-17 08:14 | Outpatient (AMB) | payer MEDICARE, SELFPAY ==
[2024-04-17 08:20] VITALS: BP 142/58; PULSE 74; O2SAT 98; BMI 34.1
--- NOTE | 2024-04-17 08:20 | A.OFFPC_ITS ---
Vital Signs 04/17/24 08:20 Height 5 ft 7 in Weight 218 lb BMI 34.1 BP 142/58 H Blood Pressure Location Lt brachial Position Sitting Pulse 74 Pulse Source Pulse Oximeter Pulse Oximetry (%) 98 Oxygen Delivery Method Room Air Intake Visit Reasons: HDF [facility] 04/03 pneumonia Allergies lisinopril Allergy (Unknown, Verified 04/17/24 08:20) cough Tobacco use date assessed: 03/16/24 Fall risk assessment: No Falls in past year Last assessed Fall Risk: 04/17/24 Dental Screening Dental Screen Date: 11/11/23 HPI HPI Comments History of Present Illness Details 68 y/o male [place] patient who presents to the clinic for HDF. Pt was admitted at [facility] on 03/31/24 and Discharged home on 04/03/24. He was found to have NSTEMI and Pneumonia. He follows with his guide domestic tour ( Dr. Chacon) and has Upcoming appointment with him in Apr 2024. There are no changes to his medications. Today patient reports feeling much better. He is accompanied by his and helps with Translation. Patient c/o Insomnia and snoring at night. wondering if he should get Sleep study done to r/o ESTELA. 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 Son No problems noted. Son No problems noted. Social History Housing: Apartment Alcohol intake: never Patient Tobacco Use Status: Never used Tobacco Tobacco use type: Cigarette e-Cigarette/Vaping Use: Never Used Second Hand Smoke Exposure: No service: No Current occupational status: unemployed Cognitive needs: No Hearing needs: No Vision needs: Yes (glasses) Questionnaire Thrive Questionnaire Date Thrive assessed: 03/30/24 AUDIT C Alcohol Use Questionnaire (AUDIT-C) 1. How often do you have a drink containing alcohol?: Never Total Score: 0 Score Reviewed/Action Taken: Yes PATRICIO-7 AMB Questionnaire PATRICIO-7 Date PATRICIO - 7 assessed: 11/11/23 Source: Developed by Drs. Jean Cordon, Carol Engel, Zac Navarro and colleagues, with an educational gerda from [employer]. Review of Systems Const All systems reviewed & are unremarkable except as noted in HPI and below Physical exam (Primary Care) Vital Signs: Last Vital Signs Pulse 74 04/17/24 08:20 BP 142/58 H 04/17/24 08:20 Pulse Ox 98 04/17/24 08:20 Oxygen Delivery Method Room Air 04/17/24 08:20 BMI result Body Mass Index 34.1 Tobacco/Smoking Status: Tobacco use Status Tobacco use date assessed 03/16/24 04/17/24 08:25 Patient Tobacco Use Status Never used Tobacco 04/17/24 08:25 Tobacco use type Cigarette 04/17/24 08:25 e-Cigarette/Vaping Use Never Used 04/17/24 08:25 Thrive Assessment: Date of Thrive Assessment Date Thrive assessed 03/30/24 04/17/24 08:25 Const General: cooperative, comfortable and no acute distress Nutritional Appearance: obese Orientation/consciousness: patient oriented x3 Resp Effort & Inspection: normal respiratory effort, able to speak in complete sentences, no audible wheezes and no cough Auscultation: clear to auscultation bilaterally, no crackles, no rales, no rhonchi and no wheezes Cardio Rate: regular rate Rhythm: abnormal rhythm Neuro General: patient oriented x3, gait normal and moves all extremities Psych Speech and movement: Normal speech and movement present Vital Signs: Last Vital Signs Pulse 74 04/17/24 08:20 BP 142/58 H 04/17/24 08:20 Pulse Ox 98 04/17/24 08:20 Oxygen Delivery Method Room Air 04/17/24 08:20 BMI result Body Mass Index 34.1 Const General: cooperative, comfortable and no acute distress Nutritional Appearance: obese Orientation/consciousness: patient oriented x3 Resp Effort & Inspection: normal respiratory effort, able to speak in complete sentences, no audible wheezes and no cough Auscultation: clear to auscultation bilaterally, no crackles, no rales, no rhonchi and no wheezes Cardio Rate: regular rate Rhythm: abnormal rhythm Neuro General: patient oriented x3, gait normal and moves all extremities Psych Speech and movement: Normal speech and movement present Assessment and Plan Assessment & Plan (1) NSTEMI (non-ST elevated myocardial infarction): Code(s): I21.4 - Non-ST elevation (NSTEMI) myocardial infarction Plan: Continue on current regiment Continue f/u with Cardiology as scheduded. (2) Pneumonia: Code(s): J18.9 - Pneumonia, unspecified organism Qualifiers: Pneumonia type: due to unspecified organism Laterality: right Lung location: upper lobe of lung Qualified Code(s): J18.9 - Pneumonia, unspecified organism Plan: He completed his Abx Resolved at this time. Coding Level of Care Code Est Pt Level 4 (09418) Diagnoses NSTEMI (non-ST elevated myocardial infarction) I21.4 Pneumonia of right upper lobe due to infectious organism J18.9 Pneumonia type: due to unspecified organism Laterality: right Lung location: upper lobe of lung Time Spent (min) 20 Comment Spent on reviewing hospital notes and patient education.
== END 2024-04-17 08:40 | disposition home or self-care (01) ==
PROVIDERS: PCP Internal Medicine; Visit Provider Nurse Practitioner Family
DX: I25.2 Old myocardial infarction (principal); J18.9 Pneumonia, unspecified organism
CPT/HCPCS: 99214

== ENCOUNTER 2024-06-17 07:34 | Outpatient (REF) | payer MEDICARE, SELFPAY ==
[2024-06-17 08:46] LABS: Estimated Average Glucose 148 mg/dL; Hemoglobin A1C 174.3327 umol/L; Hemoglobin A1c % 6.8 % (<6.0); Total Hemoglobin (HGBA1C) 3397.4304 umol/L
[2024-06-17 09:01] LABS: Cholesterol 110 mg/dL (<200); Glucose Fasting 139 mg/dL (60-99); HDL Cholesterol 39 mg/dL (>40); LDL Cholesterol Calculated 55 mg/dL (<100); Triglycerides 81 mg/dL (<150)
[2024-06-17 09:47] LABS: Creatinine Urine 165.63 mg/dL; Microalbum/Creatinine Ratio Ur 287.9 ug/mg cr (<30)
== END 2024-06-17 07:35 | disposition home or self-care (01) ==
LOC: HO.LAB 07:34
PROVIDERS: PCP Internal Medicine; Visit Provider Internal Medicine
DX: Z13.220 Encounter for screening for lipoid disorders (principal); E11.69 Type 2 diabetes mellitus with other specified complication; E66.01 Morbid (severe) obesity due to excess calories; E11.65 Type 2 diabetes mellitus with hyperglycemia
CPT/HCPCS: 36415; 80061; 82043; 82570; 82947; 83036

== ENCOUNTER 2024-06-19 08:24 | Outpatient (AMB) | payer MEDICARE, SELFPAY ==
[2024-06-19 08:33] VITALS: BP 144/62; PULSE 51; O2SAT 90; BMI 34.8
--- NOTE | 2024-06-19 08:33 | A.OFFPC_ITS ---
Vital Signs 06/19/24 08:33 Height 5 ft 7 in Weight 222 lb BMI 34.8 BP 144/62 H Blood Pressure Location Lt brachial Position Sitting Pulse 51 Pulse Source Pulse Oximeter Pulse Oximetry (%) 90 L Oxygen Delivery Method Room Air Intake Visit Reasons: 3mth f/u College [employer] Assistant Required: No Accompanied by: Spouse Allergies lisinopril Allergy (Unknown, Verified 06/19/24 08:34) cough Medication List - Last Reconciled 06/19/24 by Chace Berg MD amlodipine 10 mg PO DAILY 90 days aspirin 81 mg PO DAILY atorvastatin 20 mg PO DAILY clopidogrel 75 mg PO DAILY colestipol 2 grams (2 x 1 gram) PO DAILY dulaglutide (Trulicity) 1.5 mg subcut CUELLO hydrochlorothiazide 25 mg PO DAILY insulin NPH and regular human 100 unit/mL (70-30) (Humulin 70/30 U-100 Insulin) 17 units with breakfast and 11 units with dinner subcutaneously 2 times a day. 30 days insulin syringe-needle U-100 (BD Insulin Syringe Ultra-Fine) twice a day losartan 50 mg PO DAILY metformin 1,000 mg PO BID metoprolol tartrate 50 mg PO BID nitroglycerin 0.4 mg sublingual Q5M PRN pen needle, diabetic (BD Araceli 2nd Gen Pen Needle) twice a day Tobacco use date assessed: 03/16/24 Fall risk assessment: No Falls in past year Last assessed Fall Risk: 06/19/24 Dental Screening Dental Screen Date: 11/11/23 HPI 3mth f/u HPI Details admitted with pneumonia and nonSTEMI. doing well and has seen cardiology; incidental hepatic abnormalities seen on chest CT at [facility] [place]; will order [facility] Medical History (Updated 04/17/24 @ 08:54 by Sharonda Cabrera NP) Pneumonia Diabetes mellitus with coincident hypertension Diabetes type 2, uncontrolled PVD (peripheral vascular disease) CAD (coronary artery disease) Obesity (BMI 30-39.9) Dyslipidemia Hypertension Diabetic nephropathy associated with type 2 diabetes mellitus Diabetic polyneuropathy associated with type 2 diabetes mellitus MCC (current) use of insulin Diabetes type 2, controlled Surgical History Hx of angioplasty History of surgery History of left-sided carotid endarterectomy History of appendectomy Family History Father Myocardial infarction Mother Diabetes Hypertension Sister No problems noted. Son No problems noted. Son No problems noted. Social History Housing: Apartment Alcohol intake: never Patient Tobacco Use Status: Never used Tobacco Tobacco use type: Cigarette e-Cigarette/Vaping Use: Never Used Second Hand Smoke Exposure: No service: No Current occupational status: unemployed Cognitive needs: No Hearing needs: No Vision needs: Yes (glasses) Questionnaire PHQ-9 Over the last 2 weeks, how often have you been bothered by any of the following problems? 1. Little interest or pleasure in doing things: not at all 2. Feeling down, depressed, or hopeless: not at all 3. Trouble falling or staying asleep, or sleeping too much: not at all 4. Feeling tired or having little energy: not at all 5. Poor appetite or overeating: not at all 6. Feeling bad about yourself - or that you are a failure or have let yourself or your family down: not at all 7. Trouble concentrating on things, such as reading the newspaper or watching television: not at all 8. Moving or speaking so slowly that other people could have noticed. Or the opposite - being so fidgety or restless that you have been moving around a lot more than usual: not at all 9. Thoughts that you would be better off or of hurting yourself in some way: not at all Total score: 0 Depression Screening Interpretation: Negative Depression Screening Done: Yes 29062 - PHQ-9 Billing: Yes Source: Developed by Drs. Jean Cordon, Zac Metzger and colleagues, with an educational gerda from [employer]. Thrive Questionnaire Date Thrive assessed: 03/30/24 AUDIT C Alcohol Use Questionnaire (AUDIT-C) 1. How often do you have a drink containing alcohol?: Never Total Score: 0 Score Reviewed/Action Taken: Yes PATRICIO-7 AMB Questionnaire PATRICIO-7 Date PATRICIO - 7 assessed: 11/11/23 Source: Developed by Drs. Jean Cordon, Zac Metzger and colleagues, with an educational gerda from [employer]. Review of Systems Const Denies chills, Denies headache(s) and Denies weight loss ENT Denies headache(s) Card Denies chest pain, Denies syncope, Denies irregular heart rhythm and Denies dyspnea Resp Denies chest congestion, Denies cough and Denies dyspnea GI Denies abdominal pain, Denies change in stool character, Denies nausea and Denies vomiting Musc Denies deformity and Denies joint swelling Neuro Denies syncope and Denies headache(s) Physical exam (Primary Care) Vital Signs: Last Vital Signs Pulse 51 06/19/24 08:33 BP 144/62 H 06/19/24 08:33 Pulse Ox 90 L 06/19/24 08:33 Oxygen Delivery Method Room Air 06/19/24 08:33 BMI result Body Mass Index 34.8 Tobacco/Smoking Status: Tobacco use Status Tobacco use date assessed 03/16/24 06/19/24 08:34 Patient Tobacco Use Status Never used Tobacco 06/19/24 08:34 Tobacco use type Cigarette 06/19/24 08:34 e-Cigarette/Vaping Use Never Used 06/19/24 08:34 PHQ-9: PHQ-9 Score PHQ-9: Total score 0 06/19/24 08:38 Depression Screening Interpretation: Negative Thrive Assessment: Date of Thrive Assessment Date Thrive assessed 03/30/24 06/19/24 08:34 Const General: cooperative, comfortable, no acute distress and alert Neck Neck: Yes no lymphadenopathy Thyroid: Thyroid normal Resp Effort & Inspection: normal respiratory effort Auscultation: clear to auscultation bilaterally Percussion: percussion normal Cardio Jugular venous distension: no JVD Palpation: normal PMI Rate: regular rate Rhythm: regular rhythm Heart sounds: S1 normal heart sound present and S2 normal heart sound present GI Inspection: Yes normal to inspection Palpation (GI): No hepatosplenomegaly present Skin General skin exam: no rashes or lesions noted Extrem General: Yes no clubbing, cyanosis or edema Coding Level of Care Code Est Pt Level 3 (51170) Diagnoses NSTEMI (non-ST elevated myocardial infarction) I21.4 Assessment & Plan Assessment & Plan (1) NSTEMI (non-ST elevated myocardial infarction): Code(s): I21.4 - Non-ST elevation (NSTEMI) myocardial infarction Category: Medical Plan: stable; as per cardiology Orders: Orders US abdomen complete Today R94.5 - Abnormal results of liver function studies Lipid Panel Today Z13.220 - Encounter for screening for lipoid disorders Glucose Fasting Today R73.9 - Hyperglycemia, unspecified Hemoglobin A1c Today R73.9 - Hyperglycemia, unspecified
== END 2024-06-19 09:04 | disposition home or self-care (01) ==
PROVIDERS: PCP Internal Medicine; Visit Provider Internal Medicine
DX: I21.4 Non-ST elevation (NSTEMI) myocardial infarction (principal)

== ENCOUNTER → 2024-06-19 08:24 | Outpatient (BNVA) | payer MEDICARE, SELFPAY | PROVIDERS: PCP Internal Medicine; Visit Provider Internal Medicine | DX: I21.4 Non-ST elevation (NSTEMI) myocardial infarction (principal) | CPT/HCPCS: 96127; 99212 ==

== ENCOUNTER 2024-06-25 07:55 | Outpatient (REF) | payer MEDICARE, SELFPAY ==
--- NOTE | ~2024-06-25 | US_ITS ---
EXAMINATION: US ABDOMEN COMPLETE CLINICAL INFORMATION: Abnormal liver function. COMPARISON: None available. TECHNIQUE: Real-time imaging of the abdominal viscera. FINDINGS: PANCREAS: Limited. The visualized pancreatic head and body are normal in appearance. The remainder of the pancreas is obscured from visualization by the overlying bowel gas. ABDOMINAL AORTA: The proximal, mid, and distal segments are normal in caliber. There are atherosclerotic calcifications. INFERIOR VENA CAVA: Visualized portions are normal. LIVER: Within the right hepatic lobe superiorly, a 1.3 x 1.9 x 1.4 cm heterogeneously hypoechoic, circumscribed mass is seen, possibly a benign hemangioma. The liver is normal in size. The liver contour is normal. Parenchymal echogenicity is coarse. No focal hepatic lesion. There is no intrahepatic biliary duct dilatation seen. GALLBLADDER: There is mild biliary sludge. The gallbladder is physiologically distended without evidence of stones, sludge, polyps, wall thickening or pericholecystic fluid. COMMON BILE DUCT: Normal in caliber measuring 0.3 cm in diameter. RIGHT KIDNEY: There are multiple benign, simple cysts, the largest at the lower pole measuring 2.1 cm these require no imaging follow-up. No hydronephrosis. No renal calculi or focal parenchymal lesions. The kidney measures 11.2 cm in maximum dimension. LEFT KIDNEY: Normal. No hydronephrosis. No renal calculi or focal parenchymal lesions. The kidney measures 11.0 cm in maximum dimension. SPLEEN: Normal. The spleen measures 10.8 cm in maximum dimension. FREE FLUID: None. US/US abdomen complete IMPRESSION: 1. There is coarse hepatic echotexture, consistent with fatty infiltration or hepatocellular disease. Please correlate clinically. No biliary dilatation is seen. 2. Within the right hepatic lobe superiorly, a 1.9 cm hypoechoic, circumscribed mass is seen, possibly a benign hemangioma. Given the abnormal liver function tests, consider further characterization with MRI (hemangioma protocol). 3. Technically limited ultrasound examination of the pancreas. Electronically signed by: Kiran Blevins MD 06/25/2024 05:12 PM EDT
== END 2024-06-25 07:56 | disposition home or self-care (01) ==
LOC: HO.US 07:55
PROVIDERS: PCP Internal Medicine; Visit Provider Internal Medicine
DX: R94.5 Abnormal results of liver function studies (principal)
CPT/HCPCS: 76700

== ENCOUNTER 2024-09-22 06:14 | Outpatient (REF) | payer MEDICARE, SELFPAY ==
--- OUTSIDE RECORDS SUMMARY | 2024-09-22 06:17 | XMS_ITS | Patient Health Record ---
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 42), Preulcerative Skin Lesion(s)(L85.1) Wear Daily for 365 days 11/27/2023 Active Fish Oil 1000 MG 1 capsule Orally Onc e a day Active Cyclobenzaprine HCl 10 MG 1 tablet Orall y Three times a day Active Lotrisone 1-0.05 % 1 application to affected area Externally Twice a day Active metFORMIN HCl 1000 MG 1 tablet with meal s Orally Twice a day Active HumuLIN N Active Metoprolol Tartrate 50 MG 1 tablet with food Orally Twice a day Active amLODIPine Besylate 10 MG 1 tablet Orall y Once a day Active Lantus 100 UNIT/ML Subcutaneous Not-Taking hydroCHLOROthiazide 25 MG 1 tablet Orall y Once a day Active Loratadine 10 MG 1 tablet on the tongue and allow to dissolve Orally Once a day Active LORazepam 1 MG 1 tablet at bedtime as needed Orally Once a day Active Losartan Potassium 50 MG 1 tablet Orally Once a day Active Atorvastatin Calcium 20 MG 1 tablet Oral ly Once a day Active Immunizations Vaccine Route Administration Date Status Comme nts Influenza Unknown 06/05/2016 Administered Influenza Unknown 10/03/2017 Refused Social History Tobacco Use: Social History Observation Description Date Details (start date - stop date) Former Smoker NA - NA Tobacco Use/Smoking Question Answer Notes Are you a: former smoker When did you stop smoking? 2015 Additional Findings: Tobacco Non-User Current no n-smoker Tobacco use other than smoking: Question Answer Notes Are you an other tobacco user? No Problems Problem Type SNOMED Code ICD Code Onset Dates Problem Status W/U Status Risk Notes Problem Acquired hammer toe of right foot (348011416498775 5) Other hammer toe(s) (acquired), right foot (M20.41) Active confirmed Problem Acquired hammer toe of left foot (941568555972509 3) Other hammer toe(s) (acquired), left foot (M20.42) Active confirmed Problem Peripheral circulatory disorder associated with type 1 diabetes mellitus (112358910) Type 1 diabetes mellitus with diabetic peripheral angiopathy without gangrene (E10.51) Active confirmed Vital Signs Height 5ft 7in in 11/27/2023 Weight 221 lbs 11/27/2023 BMI 34.61 kg/m2 11/27/2023 Procedures Procedure Date Ordered Date Performed Result Body Sit e 33300-JHSBPXG NAIL, 6 OR MORE 11/27/2023 N/A 72464-GAMS SKIN LESIONS, OVER 4 11/27/2023 N/A Encounters Encounter Location Date Provider Diagnosis [facility] [address] [address] 11/27/2023 Jv Garrett Type 1 diabetes mellitus with diabetic peripheral angiopathy without gangrene E10.51 ; Tinea unguium B35.1 ; Pain in right toe(s) M79.674 ; Pain in left toe(s) M79.675 ; Other hammer toe(s) (acquired), left foot M20.42 and Other hammer toe(s) (acquired), right foot M20.41 Assessments Encounter Date Diagnosis (ICD Code) Assessment Notes Treatment Notes Treatment Clinical Notes Section Notes 11/27/2023 Type 1 diabetes mellitus with diabetic peripheral angiopathy without gangrene (ICD-10 - E10.51) 11/27/2023 Tinea unguium (ICD-10 - B35.1) 11/27/2023 Pain in right toe(s) (ICD-10 - M79.674) 11/27/2023 Pain in left toe(s) (ICD-10 - M79.675) 11/27/2023 Other hammer toe(s) (acquired), left foot (ICD-10 - M20.42) 11/27/2023 Other hammer toe(s) (acquired), right foot (ICD-10 - M20.41) Patient Educated with: DIABETIC FOOT CARE INSTRUCTIONS.p df (DIABETIC FOOT CARE INSTRUCTIONS.p df) Plan Of Treatment Pending Test Test Name Order Date 03932-MFCLCSY NAIL, 6 OR MORE 02/24/2016 86066-JBSTMYO NAIL, 6 OR MORE 07/09/2016 86813-AUCZALA NAIL, 6 OR MORE 10/11/2016 80373-UXELDUB NAIL, 6 OR MORE 10/03/2017 72573-GKDLKKV NAIL, 6 OR MORE 10/09/2018 82620-XMVZULV NAIL, 6 OR MORE 05/12/2020 04850-BRJGBQL NAIL, 6 OR MORE 06/22/2021 39028-PPZZEWX NAIL, 6 OR MORE 06/27/2022 15419-IMQBCCS NAIL, 6 OR MORE 11/28/2022 39575-WLNJTPN NAIL, 6 OR MORE 11/27/2023 47085-PGDJ SKIN LESIONS, OVER 4 11/27/19 24 28831-NEMN SKIN LESIONS, OVER 4 11/29/19 23 11436-YJBL SKIN LESIONS, OVER 4 06/27/20 22 03596-VQJG SKIN LESIONS, OVER 4 06/22/20 21 23567-OMQD SKIN LESIONS, OVER 4 05/12/20 20 95021-EHIN SKIN LESIONS, OVER 4 10/09/19 19 06023-ZHEN SKIN LESIONS, 2 TO 4 10/11/19 17 97496-MJDD SKIN LESIONS, 2 TO 4 10/03/19 18 23398-UCBQ SKIN LESIONS, 2 TO 4 07/09/20 16 35435-FIMH SKIN LESIONS, 2 TO 4 02/24/20 16 Next Appt Details Provider Name:Jv Garrett , 11/25/2024 08:30:00 AM, [address], [address], [place], [address], Insurance Providers Payer Name Payer Address Payer Phone Subscriber Number Group Number Insured Name Patient Relationship to Insured Coverage Start Date Coverage End Date [employer] [address] [place] [address] [id number] Kaleb Sr Self - patient is the insured Medical (General) History Medical History History ICD Code Diabetes mellitus Hypertension hyperlipidemia Peripheral vascular disease Coronary artery disease Carotid artery stenosis Myocardial infarction Hypercholesterolemia Back,Hip,and Knee pain Cholesterol Headaches Poor circulation Vascular phlebitis (clots) Neuropathy Surgical History Surgery Date(Month/Year) appendectomy femoropopliteal bypass graft carotid endarterectomy with shunt Hospitalization History Reason Date(Month/Year) angioplasty 08/2015
--- OUTSIDE RECORDS SUMMARY | 2024-09-22 06:17 | XMS_ITS ---
[facility] Address [address] [place] [address] Care Team Providers Care Department Chairperson Name Role Phone Chace Berg MD Primary Care Provider Jv Ventura Unavailable [phone] Allergies No Known Allergies REASON FOR VISIT At Risk Footcare, Painful Nail(s) aggrevated by shoes and causing difficulty standing/walking, Toe Irritation Medications Medication SIG (Take, Route, Frequency, Duration) Notes Start Date End Date Status Trulicity 0.75 MG/0.5ML 0.5 ml Subcutaneous Not-Taking Extra Depth Orthopedic Shoes, (1) Pair With (3) Pair Custom Heat Molded Multidensity Innersoles Dx: NIDDM/PVD(E11.51), Hammertoe Foot Deformity(M20.41,M20. 42), Preulcerative Skin Lesion(s)(L85.1) Wear Daily for 365 days 11/27/2023 Active metFORMIN HCl 1000 MG 1 tablet with meal s Orally Twice a day Active Metoprolol Tartrate 50 MG 1 tablet with food Orally Twice a day Active Lantus 100 UNIT/ML Subcutaneous Not-Taking Lotrisone 1-0.05 % 1 application to affected area Externally Twice a day Active hydroCHLOROthiazide 25 MG 1 tablet Orall y Once a day Active Loratadine 10 MG 1 tablet on the tongue and allow to dissolve Orally Once a day Active LORazepam 1 MG 1 tablet at bedtime as needed Orally Once a day Active Losartan Potassium 50 MG 1 tablet Orally Once a day Active Fish Oil 1000 MG 1 capsule Orally Onc e a day Active Cyclobenzaprine HCl 10 MG 1 tablet Orall y Three times a day Active Atorvastatin Calcium 20 MG 1 tablet Oral ly Once a day Active HumuLIN N Active amLODIPine Besylate 10 MG 1 tablet Orall y Once a day Active Social History Tobacco Use: Social History Observation Description Date Details (start date - stop date) Former Smoker NA - NA Tobacco Use/Smoking Question Answer Notes Are you a: former smoker When did you stop smoking? 2015 Additional Findings: Tobacco Non-User Current no n-smoker Tobacco use other than smoking: Question Answer Notes Are you an other tobacco user? No Vital Signs Height 5ft 7in in 11/27/2023 Weight 221 lbs 11/27/2023 BMI 34.61 kg/m2 11/27/2023 Procedures Procedure Date Ordered Date Performed Result Body Sit e 61018-HLEFQYR NAIL, 6 OR MORE 11/27/2023 N/A 95259-FTLF SKIN LESIONS, OVER 4 11/27/2023 N/A Encounters Encounter Location Date Provider Diagnosis [facility] [address] [address] 11/27/2023 Jv Garrett Type 1 diabetes mellitus [...] FOOT CARE INSTRUCTIONS.p df) Plan Of Treatment Medication Medication Name Sig Start Date Stop Date Notes Extra Depth Orthopedic Shoes , (1) Pair With (3) Pair Custom Heat Molded Multidensity Innersoles Dx: NIDDM/PVD(E11.51), Hammertoe Foot Deformity(M20.41,M20.42), Preulcerative Skin Lesion(s)(L85.1) Wear Daily for 365 days 11/27/2023 Treatment Notes Assessment Notes Other hammer toe(s) (acquired), right fo ot Patient Educated with: DIABETIC FOOT CARE INSTRUCTIONS.pdf (DIABETIC FOOT CARE INSTRUCTIONS.pdf) Pending Test Test Name Order Date 03546-YBYYOIX NAIL, 6 OR MORE 11/27/2023 16310-TFUM SKIN LESIONS, OVER 4 11/27/19 24 Next Appt Details Follow Up: 1 Year, Reason: Provider Name:Jv Garrett , 11/25/2024 08:30:00 AM, [address] [facility], [address], [place], [address], Procedure Notes * Category Sub-Category Detail Notes Debride Nail 6-10 Nail debridement Nail debridem ent performed extensively to reduce/remove overall nail length, girth, thickness, subungual debris, and necrotic tissue, by manual and electrical means through the use of a nail nipper and/or dremel, to more viable healthy nail plate or bed tissue 1-5. Silver nitrate used for any petechial bleeding as necessary. Patient chooses, no pharmaceutical tx (17273) Keratoma Treatment Parring or Cutting o f Benign Hyperkeratotic Lesion(s) 25056 ( More than 4 Lesions ) - The Benign hyperkeratotic lesions, as described above were pared, and/or cut utilizing a sterile 15 blade, tissue nippers, and/or dremel , Q8 Progress Notes * Kaleb CABELLO RDOB: [birth year] (68 yo M)Acc No.[id number]:11/27/2023 Progress Note Patient:?Kaleb CABELLO Provider:?Jv Garrett DPM :1955???Age:68 Y???Sex:Male Doug e:11/27/2023 Address: [place], [place], [id number] Pcp:Chace Berg MD Subjective: * Chief Complaints: * ???At Risk FootcarePainful N ail(s) aggrevated by shoes and causing difficulty standing/walkingToe Irritation * HPI: ???At Risk footcare:?Pt States Last PCP Visit:?Date?10/31/2023 ???Toe pain:?Location:?B/L feet.?Duration:?several years.?Course:?worse.?Aggravated by:?shoes, any pressure.?Treatments:?change in shoes.? * ROS:?General/Constitutional:?Nausea?denies.?Vomiting?denies.?Hunger Thirst?denies.?Loss appetite?denies.?Chills?denies.?Fatigue?admits.?Fever?denies.?Night Sweats?denies.?Unexplained weight loss?denies.?Ophthalmologic:?Blurred vision?denies.?Red eye?denies.?HEENTM:?Dentures?denies.?Dizziness?denies.?Glasses/contacts?admits.?Retinopathy?den ies.?Blurred/double vision?denies.?TMJ?denies.?Discharge/drainage?denies.?Implants?denies.?Hard of hearing denies.?Difficulty chewing/swallowing/speaking?denies.?Nose bleeds?denies.?Sore mouth?denies.?Swollen glands?denies.?Respiratory:?On O xygen?denies.?Pneumonia/pleurisy?denies.?Bronchitis?denies.?Emphysema?denies.?Co ughing?admits.?Cough blood?denies.?Shortness of breath?denies.?Wheezing?denies.?Cardiovascular:?Pacemaker?denies.?MVP?denies.?WPW?denies.?CHF?denies.?Heart attack?denies.?Septal defect?denies.?Rapid beat?denies.?Chest pain ?denies.?Atrial Fib.?denies.?Murmur/Palpitations?denies.?Gastrointestinal:?Hemorrhoids?denies.?Stomach/Abdominal pain?denies.?Dark blood stool?denies.?Irritable bowel ?denies.?Constipation?denies.?Diarrhea?denies.?Vomiting?denies.?Hematology:?Swelling?admits.?Bruising?denies.?Bleeding problem?denies.?Genitourinary:?Blood urine?denies.?Frequent/Painfu/urination/bladder control?denies.?Kidney stones?denies.?Infection (UTI)?denies.?Nephropathy?denies.?Musculoskeletal:?Hammertoes?admits.?Bunions?denies.?Scoliosis/kyphosis?denies.?Muscle cramps / walking?denies.?Generalized aches and pains?denies.?Weakness?denies.?Integ.:?[place]?denies.?Scars?denies.?Corns/calluses?admits.?Ingrown nails?admits.?Painful nails?admits.?Rashes?denies.?Neurologic:?Difficulty sleeping?admits.?Bipolar?denies.?Brain disorder?denies.?Balance t rouble?denies.?Confusion?denies.?Fainting/blackouts?denies.?Headache?denies.?Jacob mors?denies.? * Medical History:? * Surgical History:?appendecto my femoropopliteal bypass graft carotid endarterectomy with shunt 05/2006 * Hospitalization/Major Diagno stic Procedure:?angioplasty 08/2015 * Family History:?Mother: kasie rocha, diagnosed with Unspecified essential hypertension.?Father: alive, diagnosed with Unspecified heart disease.?Spouse: alive.?1 sister(s) . 2 son(s) . .? * Social History:?Tobacco Use:?Tobacco Use/Smoking?Are you a:?former smoker ?When did you stop smoking??2016 ?Additional Findings: Tobacco Non-User?Current non-smoker ?Tobacco use other than smoking?Are you an other tobacco user??No ???Drugs/Alcohol:?Drugs?Have you used drugs other than those for medical reasons in the past 12 months??No ?Alcohol Screen?Did you have a drink containing alcohol in the past year?: No, Points: 0, Interpretation: Negative.?Miscellaneous:?Caffeine: yes, frequency:, 1-2 cups per day. ?Children: yes. ?Exercise: yes. ?Marital status: . ?Occupation: Disabled. * Medications:?TakingHumuLIN N amLODIPine Besylate 10 MG Tablet 1 tablet Orally Once a day Atorvastatin Calcium 20 MG Tablet 1 tablet Orally Once a day Fish Oil 1000 MG Capsule 1 capsule Orally Once a day Cyclobenzaprine HCl 10 MG Tablet 1 tablet Orally Three times a day hydroCHLOROthiazide 25 MG Tablet 1 tablet Orally Once a day Loratadine 10 MG Tablet Dispersible 1 tablet on the tongue and allow to dissolve Orally Once a day LORazepam 1 MG Tablet 1 tablet at bedtime as needed Orally Once a day Losartan Potassium 50 MG Tablet 1 tablet Orally Once a day Lotrisone 1-0.05 % Cream 1 application to affected area Externally Twice a day metFORMIN HCl 1000 MG Tablet 1 tablet with meals Orally Twice a day Metoprolol Tartrate 50 MG Tablet 1 tablet with food Orally Twice a day Taking HumuLIN N Taking amLODIPine Besylate 10 MG Tablet 1 tablet Orally Once a day Taking Atorvastatin Calcium 20 MG Tablet 1 tablet Orally Once a day Taking Fish Oil 1000 MG Capsule 1 capsule Orally Once a day Taking Cyclobenzaprine HCl 10 MG Tablet 1 tablet Orally Three times a day Taking hydroCHLOROthiazide 25 MG Tablet 1 tablet Orally Once a day Taking Loratadine 10 MG Tablet Dispersible 1 tablet on the tongue and allow to dissolve Orally Once a day Taking LORazepam 1 MG Tablet 1 tablet at bedtime as needed Orally Once a day Taking Losartan Potassium 50 MG Tablet 1 tablet Orally Once a day Taking Lotrisone 1- 0.05 % Cream 1 application to affected area Externally Twice a day Taking metFORMIN HCl 1000 MG Tablet 1 tablet with meals Orally Twice a day Taking Metoprolol Tartrate 50 MG Tablet 1 tablet with food Orally Twice a day Not-Taking/PRNLantus 100 UNIT/ML Solution Subcutaneous Trulicity 0.75 MG/0.5ML Solution Pen-injector 0.5 ml Subcutaneous Medication List reviewed and reconciled with the patientNot- Taking/PRN Lantus 100 UNIT/ML Solution Subcutaneous Not-Taking/PRN Trulicity 0.75 MG/0.5ML Solution Pen-injector 0.5 ml Subcutaneous Medication List reviewed and reconciled with the patient * Allergies:?N.K.D.A.yes[Aller gies Verified] Objective: * Vitals:?Ht: 5ft 7in, Wt:221, BMI:34.61, Shoe size: 9W, BS: 118, Ht-cm: 170.18 cm, Wt-k.24 kg. * Examination: ???Vascular: ?DP PULSES (B):? 0/4, B/L.?PT PULSES (B):? 0/4, B/L.?CAPILLARY FILL TIME:? delayed, all digits, B/L.?TROPHIC CONDITION-TEXTURE/ELASTICITY/TURGOR/HAIR GROWTH (B):? decreased, B/L.?TEMPERTURE GRADIENT (C):? decreased, cool to cool, proximal to distal, B/L.?PIGMENTATION:? mottled, B/L.?EDEMA (C):? 1/4, non-pitting, without aching pain, B/L, Leg(s).?CLAUDICATION (C):?denies, B/L.?REST PAIN:?denies, B/L.?Nails: ?NAILS are:?Elongated, overgrown, dystrophic, lytic, greater than 3mm thick, discolored and friable with crumbly malodorous subungual debris, with pain on palpation, 1-5 B/L.?Dermatologic: ?SKIN FINDINGS:?Skin exam reveals Keratotic lesion(s) located at,Medial,IPJ,TA,Medial,IPJ,T5, SUB MTH (s),1,B/L, SUB MTH (s), 5, B/L , Heel(s),B/L.?Orthopedic: ?MUSCLE STRENGTH:?5/5 all groups in a symmetrical fashion , B/L.?FOOT MORPHOLOGY:? No Charcot collapse/destruction noted at MTJ.?DIGITAL DEFORMITIES:?Digital contracture, PIPJ, 2-5 B/L, incompl-reducible to push-up test, no over, nor underlapping,?with evidence of shoe producing skin irritation.?FOOTWEAR:?worn, OT were inspected and noted to be severely worn , in poor condition not giving proper support at the present time , shoe gear properties exacerbate patient's foot/toe deformity.?Neurological: ?SENSORY:?Neurological exam reveals intact sensorium, pain sensation normal, vibration sensation intact, pinprick sensation is normal in the lower extremities, Right, Neurological exam demonstrates, reduced light touch sensation, reduced sharp/dull discrimination , 5.07 monofilament test performed at plantar aspects of 5 varied sites per foot shows sensation, reduced, Left, Pt relates, paresthesia, Left.?Ophthalmology Referral: ?DIABETES EYE EXAM?General Examination: ?GENERAL APPEARANCE:?Reveals a pleasant, alert, well nourished, well- developed, well hydrated individual, who demonstrates proper attention to hygiene/body habitus, and is in no acute distress, Pt serves as own historian for office visit today.?ORIENTED:?person, place, and time.?FOOT EXAM:?Footwear Evaluation? Assessment: * Assessment: 1.?Type 1 diabetes mellitus with diabetic peripheral angiopathy without gangrene - E10.51???2.?Tinea unguium - B35.1???3.?Pain in right toe(s) - M79.674???4.?Pain in left toe(s) - M79.675???5.?Other hammer toe(s) (acquired), left foot - M20.42???Specify :Chronic problem, Worse (4),Rx Management (4)???6.?Other hammer toe(s) (acquired), right foot - M20.41 (Primary)???Specify :Chronic problem, Worse (4),Rx Management (4)??? Plan: * Treatment: 2.?Type 1 diabetes mellitus with diabetic peripheral angiopathy without gangrene?Procedure: 10561-UTBU SKIN LESIONS, OVER 4 3.?Tinea unguium?Procedure: 34048-PVAIPPY NAIL, 6 OR MORE * Procedures:?Debride Nail 6-10:?Nail debridement?Nail debridement performed extensively to reduce/remove overall nail length, girth, thickness, subungual debris, and necrotic tissue, by manual and electrical means through the use of a nail nipper and/or dremel, to more viable healthy nail plate or bed tissue 1-5. Silver nitrate used for any petechial bleeding as necessary. Patient chooses, no pharmaceutical tx (68101).?Keratoma Treatment:?Parring or Cutting of Benign Hyperkeratotic Lesion(s)?65287 ( More than 4 Lesions ) - The Benign hyperkeratotic lesions, as described above were pared, and/or cut utilizing a sterile 15 blade, tissue nippers, and/or dremel , Q8.? * Procedure Codes:?58037 DEBRI DE NAIL, 6 OR MORE, Modifiers: XS 16529 TRIM SKIN LESIONS, OVER 4, Modifiers: XS , Q8 * Preventive Medicine:? ??Counseling:?Discussion:?-14: Office or other outpatient visit for the evaluation and management of an established patient, which required a medically appropriate history and/or examination and MODERATE level of DECISION MAKING for: 1 OR MORE CHRONIC PROBLEM(S) THATS WORSENING, 2 STABLE CHRONIC PROBLEMS, A NEWLY DIAGNOSED PROBLEM WITH UNCERTAIN PROGNOSIS, AN ACUTE COMPLICATED INJURY WITH MULTIPLE TREATMENT OPTIONS, OR AN ACUTE PROBLEM WITH ACCOMPANYING SYSTEMIC SYMPTOMS, THAT POSE(S) A MODERATE RISK OF MORBIDITY. THIS CONDITION MAY ALSO INCLUDE RX DRUG MANAGEMENT, OR A DECISON FOR MINOR SURGERY. The visit on the day of the encounter encompassed interpreting the data and educating the patient as to the nature of their condition, treatment options available according to their individual PMH, meds, allergies, and overall health/living conditions, as well as any potential risks or complications that may occur from a failure to adhere to, and participate in, the recommended course of therapy. The discussion included a complete verbal, and/or written explanation of the examination results, any x-rays taken, the proposed diagnosis, and outline of the treatment plan. A schedule for future care needs was also explained. The patient verbalized an understanding of the instructions at this time and agreed to be an active participant in their treatment. If the patient should think of any questions or concerns after the visit, I have encouraged the patient to call the office.?Digital Surgery:?Digital surgery was discussed with the patient, We elected to try conservative treatment at the present time, due to the patients medical history and increased asssociated post-operative risks.?Digital Treatment:?HT- I explained to the patient the possible etiologies of Hammertoes, including genetics/foot type/shoegear/activity level/exercise routine and the risks/benefits of all the different treatment options for their pain including: No treatment at all, Rest, Ice, New/supportive/wider/deeper Shoegear, Digital Padding/Strapping/Taping/Bracing/Gel protective sleeves, Foot/Ankle AFO Bracing, Stretching exercises, Deep Tissue Massage, Arch support/shoe inserts with splay metatarsal padding, and Custom orthoses. I insisted that any digital devices be removed daily and not worn overnight for safety. The patient is to carefully examine the toes daily for any skin irritation while using any splinting or padding device. The advantages and disadvantages of each option were discussed and the patients questions re: shoegear, padding, custom vs prefabricated inserts, activity level, and consistency in home treatment regimens for optimal success were answered to their verbally confirmed satisfaction.?Shoe Gear Counseling:?SHOE Rx - The patient was counseled in great detail on their muscoloskeletal foot and toe deformities which coincided with the dermatological presentations visualized on exam. We discussed how their deformities put the integrity of their feet at risk for potential pedal complications which makes the accomidative diabetic shoes and cutomizable inserts medically necessary. We discussed the different shoe and insert treatment types and options, as well as the important advantages for adhering to regularly wearing these accomidative devices daily. The patient was made aware of the fact that a failure to abide by these recommedations may be deleterious to their foot health as they are able to prevent many pedal complications such as skin irritation, skin ulceration, infection, and even loss of toe/foot/leg/or life. Time was also spent with the patient dispensing and discussing proper diabetic footcare techniques including daily skin moisturization, daily foot inspection for any interruption in skin integrity including open lesions, or sign of infection such as redness/malodor/drainage/swelling. Also discussed and recommended were procedures regarding daily shoe inspection for the presence of internal foreign bodies as well as any visualized irregular shoe or insert wear. Patient questions re: shoes, inserts, and self foot inspections were answered to their satisfaction as the patient verbally confirmed a full understanding of the above information. A Rx for Extra Depth Orthopedic Shoes with 3 pair of custom heat-molded inserts was dispensed.? ??Screening/Special Tests:?Fall Risk?Assessment:?Performed ?Plan of Care:?Documented ?Screening:?No falls in the past year ?FALLS: Screening for Future Fall Risk?Have you had any falls with injury in the past year??No * Follow Up:?1 Year * Images: * Sign off status: Completed true * Provider:?Jv Garrett DPM Date:?2023 Generated for Leda lindsay/Jaun/Karime on:?09/22/2024 06:17 AM EST History and Physical Notes * HPI (History of Present Illness) Category Sub-Category Detail Notes Category Not es Toe pain Location: B/L feet Duration: several years Course: worse Aggravated by: shoes, any pressure Treatments: change in shoes At Risk footcare Pt States Last PCP Visit: Date: 4 Examination Category Sub-Category Detail Notes Category Not es Neurological SENSORY: Neurological exa m reveals intact sensorium, pain sensation normal, vibration sensation intact, pinprick sensation is normal in the lower extremities, Right, Neurological exam demonstrates, reduced light touch sensation, reduced sharp/dull discrimination , 5.07 monofilament test performed at plantar aspects of 5 varied sites per foot shows sensation, reduced, Left, Pt relates, paresthesia, Left Dermatologic SKIN FINDINGS: Skin exam reveal s Keratotic lesion(s) located at,Medial,IPJ,TA,Medial,IPJ,T5, SUB MTH (s),1,B/L, SUB MTH (s), 5, B/L , Heel(s),B/L Orthopedic FOOT MORPHOLOGY: No Charcot aime apse/destruction noted at MTJ ANKLE PAIN LOCATED: FOOTWEAR: worn, OT were inspec evelyn and noted to be severely worn , in poor condition not giving proper support at the present time , shoe gear properties exacerbate patient's foot/toe deformity DIGITAL DEFORMITIES: Digital contracture , PIPJ, 2-5 B/L, incompl-reducible to push-up test, no over, nor underlapping, with evidence of shoe producing skin irritation MPJ PATHOLOGY: TENDONITIS: MUSCLE STRENGTH: 5/5 all groups in a symmetrical fashion , B/L General Examination GENERAL APPEARANCE: Reveals a pleasant, alert, well nourished, well-developed, well hydrated individual, who demonstrates proper attention to hygiene/body habitus, and is in no acute distress, Pt serves as own historian for office visit today FOOT EXAM: Lower Extremity Neurological Exa m performed:: Yes Visual exam of foot performed:: Yes Date: 11/27/2023 ORIENTED: person, place, and t dwayne Footwear Evaluation Footwear Evaluation performe d:: Yes Ophthalmology Referral DIABETES EYE EXAM Procedure Perform ed:: Yes ?Date of Exam Performed: 09/10/2023 Findings of Diabetic Eye Exam:: no retin opathy Vascular DP PULSES (B): 0/4, B/L PT PULSES (B): 0/4, B/L CAPILLARY FILL TIME: delayed, all digits , B/L TEMPERTURE GRADIENT (C): decreased, cool to cool, proximal to distal, B/L TROPHIC CONDITION-TEXTURE/ELASTICITY/TURGOR/HAIR GROWTH (B): decreased, B/L EDEMA (C): 1/4, non-pitting, wi thout aching pain, B/L, Leg(s) CLAUDICATION (C): denies, B/L REST PAIN: denies, B/L PIGMENTATION: mottled, B/L Nails NAILS are: Elongated, overg rown, dystrophic, lytic, greater than 3mm thick, discolored and friable with crumbly malodorous subungual debris, with pain on palpation, 1-5 B/L
[2024-09-22 07:45] LABS: Cholesterol 113 mg/dL (<200); Glucose Fasting 112 mg/dL (60-99); HDL Cholesterol 35 mg/dL (>40); LDL Cholesterol Calculated 54 mg/dL (<100); Triglycerides 122 mg/dL (<150)
[2024-09-22 07:53] LABS: Estimated Average Glucose 160 mg/dL; Hemoglobin A1c % 7.2 % (<6.0); Total Hemoglobin (HGBA1C) 3645.5969 umol/L
== END 2024-09-22 06:15 | disposition home or self-care (01) ==
LOC: HO.LAB 06:14
PROVIDERS: PCP Internal Medicine; Visit Provider Internal Medicine
DX: Z13.89 Encounter for screening for other disorder (principal)
CPT/HCPCS: 36415; 80061; 82947; 83036

== ENCOUNTER 2024-09-22 09:29 | Outpatient (AMB) | payer MEDICARE, SELFPAY ==
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
[2024-09-22 09:36] VITALS: BP 166/70; PULSE 64; TEMP 36.1; O2SAT 92; BMI 34.1
--- OUTSIDE RECORDS SUMMARY | 2024-09-22 10:00 | XMS_ITS ---
Author Organization [facility] Address [address] [facility] [place] [address] Care Team Providers Care Carnallite Plant Operator Name Role Phone Morena FLORES, Chace Primary Care Provider Unavaila Jv Enamorado Unavailable [phone] Encounters Encounter Location Date Provider Diagnosis [address] [address] 06/27/2023 Jv Garrett Plan Of Treatment Next Appt Details Provider Name:Jv Garrett , 11/25/2024 08:30:00 AM, [address] [place] [address], [phone], Progress Notes * Kaleb CABELLO RDOB: [birth year] (68 yo M)Acc No.[id number]:06/27/2023 Progress Note Patient:?EVETTEREAL Kaleb Robertson Provider:Alva Garrett DPM :1955???Age:67 Y???Sex:Male Doug e:06/27/2023 Address:[address], [place] Pcp:Chace Berg MD Subjective: * Chief Complaints: * ??? * Medical History:? Objective: * Vitals:? Assessment: Plan: * Treatment: * Images: * The named appointment provid er may or may not be the originator of this progress note, and it is not deemed complete until electronically signed by the appointment provider. Sign off status: Pending * Provider:?Jv Garrett DPM Date:?2022 Generated for Leda lindsay/Jaun/Karime on:?09/22/2024 10:00 AM EST
== END 2024-09-22 10:00 | disposition home or self-care (01) ==
PROVIDERS: PCP Internal Medicine; Visit Provider Internal Medicine
DX: E11.9 Type 2 diabetes mellitus without complications (principal)

== ENCOUNTER 2024-09-22 10:11 | Outpatient (REF) | payer MEDICARE, SELFPAY ==
--- NOTE | ~2024-09-22 | XR_ITS ---
CLINICAL HISTORY: M25.519 - Pain in unspecified shoulder 4 view right shoulder Comparison: None Findings: Normal congruency of the glenohumeral joint. AC joint arthrosis with mild undersurface spurs. No fractures or bony erosions. No greater tuberosity cysts. Normal bone mineralization and soft tissues. No radiopaque foreign body. Normal visualized right chest. Post median sternotomy. Impression: 1. No fracture, subluxations or dislocations right shoulder. AC joint arthrosis with undersurface spurring. This document has been electronically signed by: Jim Ibarra MD on 09/22/2024 12:09:29
--- NOTE | ~2024-09-22 | XR_ITS ---
CLINICAL HISTORY: M25.569 - Pain in unspecified knee AP and lateral views right knee Comparison: None Findings: No fractures, subluxations or dislocations. Multiple surgical clips medial thigh and posterior calf. Mild joint space narrowing medial knee compartment. No osteochondral lesions or loose bodies. Normal patellar alignment. No suprapatellar joint effusion.No prepatellar soft tissue swelling. Calcified atherosclerotic disease. No unusual radiopaque foreign body. Impression: 1. Mild joint space narrowing medial knee compartment. Extensive calcified atherosclerotic disease. Postsurgical clips in the thigh and calf. This document has been electronically signed by: Jim Ibarra MD on 09/22/2024 12:07:10
== END 2024-09-22 10:12 | disposition home or self-care (01) ==
LOC: HO.XRAY 10:11
PROVIDERS: PCP Internal Medicine; Visit Provider Internal Medicine
DX: E11.65 Type 2 diabetes mellitus with hyperglycemia (principal); M54.2 Cervicalgia; M25.511 Pain in right shoulder; M25.561 Pain in right knee
CPT/HCPCS: 36415; 73030; 73560; 80061; 82947; 83036; 96127; 99212

== ENCOUNTER → 2024-09-22 10:16 | Outpatient (BNV) | payer MEDICARE, SELFPAY | PROVIDERS: PCP Internal Medicine; Visit Provider Radiology Diagnostic Radiology | DX: M25.511 Pain in right shoulder (principal); I70.90 Unspecified atherosclerosis | CPT/HCPCS: 73030; 73560 ==

== ENCOUNTER 2024-12-25 08:49 | Outpatient (AMB) | payer MEDICARE, SELFPAY ==
[2024-12-25 08:52] VITALS: BP 126/54; PULSE 51; RESP 16; TEMP 37.2; O2SAT 96; BMI 33.2
--- NOTE | 2024-12-25 08:52 | MHC.PC.OV ---
Vital Signs 12/25/24 08:52 Height 5 ft 7 in Weight 211 lb 12.8 oz BMI 33.2 BP 126/54 L Blood Pressure Location Lt brachial Position Sitting Respiration 16 Pulse 51 Pulse Source Pulse Oximeter Temp 98.9 F Temp Source Oral Pulse Oximetry (%) 96 Oxygen Delivery Method Room Air Intake Visit Reasons: MELODY from [facility] 3 month f/u - see comments Cutter Head Sharpener Required: No Accompanied by: Spouse Allergies lisinopril Allergy (Unknown, Verified 12/25/24 09:23) cough Medication List - Last Reconciled 12/25/24 by SHAWN Anthony amlodipine 10 mg PO DAILY 90 days aspirin 81 mg PO DAILY atorvastatin 20 mg PO DAILY clopidogrel 75 mg PO DAILY colestipol 2 grams (2 x 1 gram) PO DAILY dulaglutide (Trulicity) 1.5 mg (0.5 mL) subcut QWEEK hydrochlorothiazide 25 mg PO DAILY insulin NPH and regular human 100 unit/mL (70-30) (Humulin 70/30 U-100 Insulin) 17 units with breakfast and 11 units with dinner subcutaneously 2 times a day. 30 days insulin syringe-needle U-100 (BD Insulin Syringe Ultra-Fine) twice a day losartan 50 mg PO DAILY metformin 1,000 mg PO BID metoprolol tartrate 50 mg PO BID nitroglycerin 0.4 mg sublingual Q5M PRN pen needle, diabetic (BD Araceli 2nd Gen Pen Needle) twice a day Tobacco use date assessed: 12/25/24 Fall risk assessment: No Falls in past year Last assessed Fall Risk: 12/25/24 Dental Screening Dental Screen Date: 12/25/24 Did you have a dental visit in the last 12 months?: Yes Did you have a dental problem in the last 6 months where you did not have access to dental care?: No Was dental information given to patient?: Patient has dentist HPI MELODY from [facility] 3 month f/u - see comments HPI Details The patient is a 69-year-old male presenting with concerns primarily associated with chronic disease management. He has type 2 diabetes with an A1c of 7.4%, which has been slightly elevated post-procedure for carotid artery stenosis treated with stenting (left transcarotid artery revascularization performed by Fred Garcia at [facility] on 12/18/24). His home blood glucose measurements have been around 120-145 mg/dL. Management of hyperlipidemia is ongoing, with an LDL level at 54 mg/dL, but with low HDL at 35 mg/dL. He also suffers from hypertension with low normal blood pressure and osteoarthritis of the right knee causing pain during stair use. An x-ray of the knee shows mild joint space narrowing. The patient successfully managed a previous shoulder issue with an injection. The patient wants to try physical therapy first before being sent to orthopedics; reports that he is not fond of the injections. The patient report that he would like to follow up in 6 months, will have him return in 3 months then decide after. [facility] Medical History Pneumonia Diabetes mellitus with coincident hypertension Diabetes type 2, uncontrolled PVD (peripheral vascular disease) CAD (coronary artery disease) Obesity (BMI 30-39.9) Dyslipidemia Hypertension Diabetic nephropathy associated with type 2 diabetes mellitus Diabetic polyneuropathy associated with type 2 diabetes mellitus skilled nursing (current) use of insulin Diabetes type 2, controlled Surgical History Hx of angioplasty History of surgery History of left-sided carotid endarterectomy History of appendectomy Family History Father Myocardial infarction Mother Diabetes Hypertension Sister No problems noted. Son No problems noted. Son No problems noted. Social History Housing: Apartment Alcohol intake: never Patient Tobacco Use Status: Never used Tobacco Tobacco use type: Cigarette e-Cigarette/Vaping Use: Never Used Second Hand Smoke Exposure: No service: No Current occupational status: unemployed Cognitive needs: No Hearing needs: No Vision needs: Yes (glasses) Questionnaire PHQ-9 Over the last 2 weeks, how often have you been bothered by any of the following problems? 1. Little interest or pleasure in doing things: nearly every day 2. Feeling down, depressed, or hopeless: not at all 3. Trouble falling or staying asleep, or sleeping too much: not at all 4. Feeling tired or having little energy: not at all 5. Poor appetite or overeating: not at all 6. Feeling bad about yourself - or that you are a failure or have let yourself or your family down: not at all 7. Trouble concentrating on things, such as reading the newspaper or watching television: not at all 8. Moving or speaking so slowly that other people could have noticed. Or the opposite - being so fidgety or restless that you have been moving around a lot more than usual: not at all 9. Thoughts that you would be better off or of hurting yourself in some way: not at all Total score: 3 Depression Screening Interpretation: Negative Depression Screening Done: Yes Source: Developed by Drs. Jean Cordon, Carol Engel, Zac Navarro and colleagues, with an educational gerda from [employer]. Thrive Questionnaire Date Thrive assessed: 12/25/24 I am a: Patient What is your living situation today?: I have a steady place to live Within the past 12 months, did the food you bought not last and you didn't have the money to get more?: Never true Within the past 12 months, did you worry whether your food would run out before you got money to buy more?: Often true Do you have trouble paying for medicines?: I choose not to answer this question Do you have trouble getting transportation to medical appointments?: No Do you have trouble paying your heating and electricity bill?: No Do you have trouble taking care of your child, family member or friend?: No Do you have trouble with day-to-day activities such as bathing, preparing meals, shopping, managing finances, etc.?: No Are you currently unemployed and looking for a job?: No Are you interested in more education?: No Please select the resources that you would like help with: None Currently or been in a relationship where the following occur: No concerns reported THRIVE Score: 1 AUDIT C Alcohol Use Questionnaire (AUDIT-C) 1. How often do you have a drink containing alcohol?: Never Total Score: 0 PATRICIO-7 AMB Questionnaire PATRICIO-7 Date PATRICIO - 7 assessed: 12/25/24 Feeling nervous, anxious, or on edge: 0 = Not at all Not being able to stop or control worryin = Not at all Worrying too much about different things: 0 = Not at all Trouble relaxin = Not at all Being so restless that it is hard to sit still: 0 = Not at all Becoming easily annoyed or irritable: 0 = Not at all Feeling afraid as if something awful might happen: 0 = Not at all Total PATRICIO-7 score (0-4 normal; 5-9 mild; 10-14 moderate; 15-21 severe): 0 Source: Developed by Drs. Jean Cordon, Carol Engel, Zac Navarro and colleagues, with an educational gerda from [employer]. Review of Systems Const Denies headache(s) Eyes Denies loss of vision ENT Denies vertigo, Denies dizziness, Denies headache(s) and Denies sore throat Card Denies chest pain, Denies leg edema and Denies lightheadedness Resp Denies cough, Denies hemoptysis and Denies wheezing GI Denies abdominal pain, Denies melena, Denies constipation, Denies diarrhea and Denies vomiting Denies dysuria, Denies urinary frequency and Denies urinary urgency Musc Reports arthralgias (right knee), Denies joint swelling, Denies numbness and Denies tingling Neuro Denies Abnormal speech present, Denies behavioral changes, Denies vertigo, Denies dizziness, Denies headache(s), Denies loss of vision, Denies memory loss, Denies numbness and Denies tingling Psych Denies anxiety, Denies behavioral changes, Denies depression, Denies memory loss and Denies panic attacks Almas/Lymph Denies easy bleeding and Denies easy bruising Aller/Immun Denies wheezing Physical exam (Primary Care) Vital Signs: Last Vital Signs Temp 98.9 F 12/25/24 08:52 Pulse 51 12/25/24 08:52 Resp 16 12/25/24 08:52 BP 126/54 L 12/25/24 08:52 Pulse Ox 96 12/25/24 08:52 Oxygen Delivery Method Room Air 12/25/24 08:52 BMI result Body Mass Index 33.2 Tobacco/Smoking Status: Tobacco use Status Tobacco use date assessed 12/25/24 12/25/24 09:04 Patient Tobacco Use Status Never used Tobacco 12/25/24 08:52 Tobacco use type Cigarette 12/25/24 08:52 e-Cigarette/Vaping Use Never Used 12/25/24 08:52 PHQ-9: PHQ-9 Score PHQ-9: Total score 3 05/04/25 22:02 Depression Screening Interpretation: Negative Thrive Assessment: Date of Thrive Assessment Date Thrive assessed 12/25/24 12/25/24 09:04 Currently or been in a relationship where the following occur: No concerns reported Const General: healthy appearing, no acute distress, alert and awake Nutritional Appearance: well nourished Orientation/consciousness: oriented to person, oriented to place and oriented to time HENMT Ears: TM's normal bilaterally General nose exam: Normal nasal mucous membranes and turbinates present Eyes Conjunctivae: conjunctivae normal Sclerae: sclerae normal Pupils: Equal, round and reactive pupils present Neck Neck: Yes no lymphadenopathy and Yes no JVD Thyroid: Thyroid normal Carotids: no bruits Resp Effort & Inspection: normal respiratory effort and not tachypneic Auscultation: no crackles, no rales, no rhonchi and no wheezes Cardio Rate: regular rate Rhythm: regular rhythm Heart sounds: no murmurs and normal S1 and S2 GI Palpation (GI): Soft to palpation, nontender, no hepatomegaly and no splenomegaly Auscultation: normal bowel sounds General: Yes no CVA tenderness Back/Spine/Pelvis Back: no CVA tenderness Skin General skin exam: no rashes or lesions noted and dry skin Neuro General: oriented to person, oriented to place and oriented to time Cranial nerves: Yes Equal, round and reactive pupils present Speech: No Abnormal speech present Gait exam (Neuro): Normal gait present Motor exam (neuro): no tremor noted Extrem Right upper extremity: full ROM Left upper extremity: full ROM Right lower extremity: full ROM and knee Details: tenderness Location: of the pre-patellar area; no edema Left lower extremity: full ROM; no edema Psych Mental Status: mental status grossly normal Speech and movement: Normal speech and movement present Affect: normal affect Attitude: cooperative Thought process: Normal thought process present Results AMB Hemoglobin A1c AMB Hemoglobin A1c 7.4 % Last Edit by Magalie Vinson CMA on 12/25/24 09:06 Results Reviewed Results Reviewed: Laboratory Last Values Hgb A1c (Clinic) 7.4 % (4.0-6.0) H 12/25/24 09:05 Coding Level of Care Code Est Pt Level 4 (25757) Diagnoses Type 2 diabetes mellitus with diabetic neuropathic arthropathy, with long-term current use of insulin E11.610; Z79.4 Diabetes mellitus type: type 2 Diabetes mellitus termite inspector insulin use: with mcc use Diabetes mellitus complication status: with diabetic arthropathy Diabetes mellitus complication detail: with neuropathic arthropathy termite exterminator helper (current) use of insulin Z79.4 Essential hypertension I10 Hypertension type: essential hypertension Obesity (BMI 30-39.9) E66.9 PVD (peripheral vascular disease) I73.9 Carotid stenosis, left I65.22 Time Spent (min) 39 Assessment & Plan Assessment & Plan (1) Diabetes mellitus: Code(s): E11.9 - Type 2 diabetes mellitus without complications Category: Medical Qualifiers: Diabetes mellitus type: type 2 Diabetes mellitus mcc insulin use: with mcc use Diabetes mellitus complication status: with diabetic arthropathy Diabetes mellitus complication detail: with neuropathic arthropathy Qualified Code(s): E11.610 - Type 2 diabetes mellitus with diabetic neuropathic arthropathy; Z79.4 - skilled nursing (current) use of insulin (2) skilled nursing (current) use of insulin: Code(s): Z79.4 - skilled nursing (current) use of insulin Category: Medical (3) Hypertension: Code(s): I10 - Essential (primary) hypertension Category: Medical Qualifiers: Hypertension type: essential hypertension Qualified Code(s): I10 - Essential (primary) hypertension (4) Obesity (BMI 30-39.9): Code(s): E66.9 - Obesity, unspecified Category: Medical (5) PVD (peripheral vascular disease): Code(s): I73.9 - Peripheral vascular disease, unspecified Category: Medical (6) Carotid stenosis, left: Code(s): I65.22 - Occlusion and stenosis of left carotid artery Category: Medical Plan I recommend maintaining current diabetes management while acknowledging temporary post-procedural glucose elevation. [place]-3 supplements are advised to improve HDL levels. No changes appear necessary in the antihypertensive regimen. Physical therapy is proposed for knee osteoarthritis, with a deferral of orthopedic referral contingent upon PT outcomes. Medication refills can be coordinated with the pharmacist, and a new blood glucose monitor will be ordered. Labs are to be completed before the next visit. s/p left carotid transcoratid artery revascularization done 12/18/24 at [facility] without complication. Reinforced low-salt/cholesterol/sugar/carbohydrate diet and activity as tolerated. Continue aspirin 81 mg, atorvastatin 20 mg, clopidogrel 75 mg. Continue current treatments for blood pressure and diabetes. Patient was informed and verbally consented to the use of an ambient scribe for clinic note documentation during this visit. Orders: Orders Lipid Panel 3 Months E11.9 - Type 2 diabetes mellitus without complications, I10 - Essential (primary) hypertension, I21.4 - Non-ST elevation (NSTEMI) myocardial infarction, I25.10 - Atherosclerotic heart disease of [place] coronary artery without angina pectoris, I73.9 - Peripheral vascular disease, unspecified, J81.1 - Chronic pulmonary edema UA CC w/rflx Micro + Cult 3 Months E11.9 - Type 2 diabetes mellitus without complications, I10 - Essential (primary) hypertension, I21.4 - Non-ST elevation (NSTEMI) myocardial infarction, I25.10 - Atherosclerotic heart disease of [place] coronary artery without angina pectoris, I73.9 - Peripheral vascular disease, unspecified, J81.1 - Chronic pulmonary edema Hemoglobin A1c 3 Months E11.9 - Type 2 diabetes mellitus without complications, I10 - Essential (primary) hypertension, I21.4 - Non-ST elevation (NSTEMI) myocardial infarction, I25.10 - Atherosclerotic heart disease of [place] coronary artery without angina pectoris, I73.9 - Peripheral vascular disease, unspecified, J81.1 - Chronic pulmonary edema Vitamin D 25-OH Total 3 Months E11.9 - Type 2 diabetes mellitus without complications, I10 - Essential (primary) hypertension, I21.4 - Non-ST elevation (NSTEMI) myocardial infarction, I25.10 - Atherosclerotic heart disease of [place] coronary artery without angina pectoris, I73.9 - Peripheral vascular disease, unspecified, J81.1 - Chronic pulmonary edema AMB Hemoglobin A1c 12/25/24 E11.9 - Type 2 diabetes mellitus without complications Complete Blood Count Auto Diff 3 Months E11.9 - Type 2 diabetes mellitus without complications, I10 - Essential (primary) hypertension, I21.4 - Non-ST elevation (NSTEMI) myocardial infarction, I25.10 - Atherosclerotic heart disease of [place] coronary artery without angina pectoris, I73.9 - Peripheral vascular disease, unspecified, J81.1 - Chronic pulmonary edema Comprehensive [place]. Panel Fast 3 Months E11.9 - Type 2 diabetes mellitus without complications, I10 - Essential (primary) hypertension, I21.4 - Non-ST elevation (NSTEMI) myocardial infarction, I25.10 - Atherosclerotic heart disease of [place] coronary artery without angina pectoris, I73.9 - Peripheral vascular disease, unspecified, J81.1 - Chronic pulmonary edema TSH reflex Free T4 3 Months E11.9 - Type 2 diabetes mellitus without complications, I10 - Essential (primary) hypertension, I21.4 - Non-ST elevation (NSTEMI) myocardial infarction, I25.10 - Atherosclerotic heart disease of [place] coronary artery without angina pectoris, I73.9 - Peripheral vascular disease, unspecified, J81.1 - Chronic pulmonary edema Glucose Fasting 3 Months E11.9 - Type 2 diabetes mellitus without complications, I10 - Essential (primary) hypertension, I21.4 - Non-ST elevation (NSTEMI) myocardial infarction, I25.10 - Atherosclerotic heart disease of [place] coronary artery without angina pectoris, I73.9 - Peripheral vascular disease, unspecified, J81.1 - Chronic pulmonary edema Medications: New lancets (FreeStyle Lancets) As directed Check blood sugar t.i.d. 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 100 ea 3RF E11.9 - Type 2 diabetes mellitus without complications, Z79.4 - termite exterminator helper (current) use of insulin blood-glucose meter (FreeStyle Lite Meter kit) As directed Check blood sugar t.i.d. 1 ea 0RF E11.9 - Type 2 diabetes mellitus without complications, Z79.4 - termite exterminator helper (current) use of insulin
--- OUTSIDE RECORDS SUMMARY | 2024-12-25 09:17 | XMS_ITS ---
Author Organization [facility] Address [address] [facility] [address] Care Team Providers Care Plant Maintenance Technician Name Role Phone Chace Berg MD Primary Care Provider Unavaila Jv Enamorado [phone] REASON FOR VISIT Reschedule Encounters Encounter Location Date Provider Diagnosis [facility] [address] [place] [address] 11/24/2024 Jv Garrett Plan Of Treatment Next Appt Details Provider Name:Jv Garrett , 12/13/2025 09:00:00 AM, [address], [phone], Progress Notes * Kaleb CABELLO RDOB: [birth year] (69 yo M)Acc No.[id number]:11/24/2024 Patient:?Kaleb CABELLO :1955???Age:69 Y???Sex:Male Address:[address] [place], [address] * true * Date:? Generated for Printi ng/Faxing/eTransmitting on:?12/25/2024 09:11 AM EDT
--- OUTSIDE RECORDS SUMMARY | 2024-12-25 09:17 | XMS_ITS | Clinical Summary ---
Author Organization [facility] Address [address] [place] [address] Care Team Providers Care Adolescent Psychiatrist Name Role Phone Unavailable Primary Care Provider Unavailabl e Social History Tobacco Use Types Packs/Day Years Used Date Smoking Tobacco: Never Assessed Sex and Gender Information Value Date Recorded Sex Assigned at Not on file Legal Sex Male 6:15 PM EDT Gender Identity Not on file Sexual Orientation Not on file Plan of Treatment Health Maintenance Due Date Last Done Comments Hepatitis C Screening 1955 DTaP/Tdap/Td (1 - Tdap) 1974 Pneumococcal 50+ years (1 of 1 - PCV) 2006 Zoster (Shingrix) (1 of 2) 2006 COVID-19 Vaccine ( - 2023-2 5 season) 2024 Influenza (Season Ended) 2025 RSV (1 - 1-dose 75+ series) 2031 Abdominal Aorta Imaging Discontinued HPV Vaccine Aged Out No longer eligi ble based on patient's age to complete this topic Hep A Aged Out No longer eligi ble based on patient's age to complete this topic Hep B Aged Out No longer eligi ble based on patient's age to complete this topic Hib Aged Out No longer eligi ble based on patient's age to complete this topic Meningococcal ACWY Aged Out No longer eligible based on patient's age to complete this topic Zoster (Zostavax) Discontinued
--- OUTSIDE RECORDS SUMMARY | 2024-12-25 09:17 | XMS_ITS ---
Author Organization [facility] Address [address] [facility] [place] [address] Care Team Providers Care Detective Captain Name Role Phone Morena FLORES, Chace Primary Care Provider Unavaila Jv Enamorado Unavailable [phone] Encounters Encounter Location Date Provider Diagnosis [address] [address] 11/25/2024 Jv Garrett Plan Of Treatment Next Appt Details Provider Name:Jv Garrett , 12/13/2025 09:00:00 AM, [address] [place] [address], [phone], Progress Notes * Kaleb CABELLO RDOB: [birth year] (69 yo M)Acc No.[id number]:11/25/2024 Progress Note Patient:?EVETTEKaleb NOBLE Provider:Alva Garrett DPM :1955???Age:69 Y???Sex:Male Doug e:11/25/2024 Address:[address], [place] Pcp:Chace Berg [...] off status: Pending * Provider:?Jv Garrett DPM Date:?2024 Generated for Leda lindsay/Jaun/Karime on:?12/25/2024 09:11 AM EDT
--- OUTSIDE RECORDS SUMMARY | 2024-12-25 09:17 | XMS_ITS | Patient Health Record ---
Author Organization [facility] Address [address] [facility] [place] [address] Care Team Providers Care Admission Liaison Name Role Phone Chace Berg MD Primary Care Provider Jv Vetnura Unavailable [phone] Allergies No Known Allergies Results Component Value Reference Range Notes HEMOGLOBIN A1C (GLYCOHEMOGLO BIN) Reviewed date:10/09/2024 09:24:37 AM Interpretation: Performing Lab: Notes/Report: HEMOGLOBIN A1C % (HH) 7.2 HEMOGLOBIN A1C (GLYCOHEMOGLO BIN) Reviewed date:12/14/2024 11:18:15 AM Interpretation: Performing Lab: Notes/Report: HEMOGLOBIN A1C % (HH) 7.2 Reason For Referral No Information Medications Medication SIG (Take, Route, Frequency, Duration) Notes Start Date End Date Status Extra Depth Orthopedic Shoes, (1) Pair With (3) Pair Custom Heat Molded Multidensity Innersoles Dx: NIDDM/PVD(E11.51), Hammertoe Foot Deformity(M20.41,M20. 42), Preulcerative Skin Lesion(s)(L85.1) Wear Daily for 365 days Active Metoprolol Tartrate 50 MG 1 tablet with food Orally Twice a day Active amLODIPine Besylate 10 MG 1 tablet Orall y Once a day Active LORazepam 1 MG 1 tablet at bedtime as needed Orally Once a day Not-Taking HumuLIN N Active Loratadine 10 MG 1 tablet on the tongue and allow to dissolve Orally Once a day Not-Taking Cyclobenzaprine HCl 10 MG 1 tablet Orall y Three times a day Not-Taking Fish Oil 1000 MG 1 capsule Orally Onc e a day Not-Taking metFORMIN HCl 1000 MG 1 tablet with meal s Orally Twice a day Active Losartan Potassium 50 MG 1 tablet Orally Once a day Active Trulicity 0.75 MG/0.5ML 0.5 ml Subcutaneous Not-Taking hydroCHLOROthiazide 25 MG 1 tablet Orall y Once a day Active Lantus 100 UNIT/ML Subcutaneous Not-Taking Atorvastatin Calcium 20 MG 1 tablet Oral ly Once a day Active Lotrisone 1-0.05 % 1 application to affected area Externally Twice a day Not-Taking Cephalexin 500 MG 1 capsule Orally Three times a day for 10 days Not-Taking Immunizations Vaccine Route Administration Date Status Comme nts Influenza Unknown 06/05/2016 Administered Influenza Unknown 10/03/2017 Refused Social History Tobacco Use: Social History Observation Description Date Details (start date - stop date) Never Smoker NA - NA Tobacco use other than smoking: Question Answer Notes Are you an other tobacco user? No Tobacco Control (Standard) Question Answer Notes Tobacco use: Nonsmoker Additional Findings: Tobacco non-user Current no nsmoker Problems Problem Type SNOMED Code ICD Code Onset Dates Problem Status W/U Status Risk Notes Problem Acquired hammer toe of right foot (788275227944329 5) Other hammer toe(s) (acquired), right foot (M20.41) Active confirmed Problem Acquired hammer toe of left foot (121128933364944 3) Other hammer toe(s) (acquired), left foot (M20.42) Active confirmed Problem Peripheral circulatory disorder associated with type 1 diabetes mellitus (328677400) Type 1 diabetes mellitus with diabetic peripheral angiopathy without gangrene (E10.51) Active confirmed Vital Signs Blood pressure diastolic 70 mm Hg 10/09/2024 Height 5ft 7in in 12/14/2024 Blood pressure systolic 130 mm Hg 10/09/2024 Weight 216 lbs 12/14/2024 BMI 33.83 kg/m2 12/14/2024 Procedures Procedure Date Ordered Date Performed Result Body Sit e 78930-Farawoan Plate 10/09/2024 N/A 25480-XBPHVHD NAIL, 6 OR MORE 12/14/2024 N/A 01095-CAIG SKIN LESIONS, OVER 4 12/14/2024 N/A Encounters Encounter Location Date Provider Diagnosis [facility] [address] [place] [address] 10/09/2024 vJ Garrett Ingrown nail L60.0 ; Cellulitis of toe of left foot L03.032 and Type 1 diabetes mellitus with diabetic peripheral angiopathy without gangrene E10.51 [facility] [address] [address] 12/14/2024 Jv Garrett Type 1 diabetes mellitus with diabetic peripheral angiopathy without gangrene E10.51 ; Tinea unguium B35.1 ; Pain in right toe(s) M79.674 ; Pain in left toe(s) M79.675 ; Other hammer toe(s) (acquired), left foot M20.42 and Other hammer toe(s) (acquired), right foot M20.41 [facility] [address] [place] [address] 11/24/2024 Jv Garrett Assessments Encounter Date Diagnosis (ICD Code) Assessment Notes Treatment Notes Treatment Clinical Notes Section Notes 10/09/2024 Ingrown nail (ICD-10 - L60.0) 10/09/2024 Cellulitis of toe of left foot (ICD-10 - L03.032) 12/14/2024 Type 1 diabetes mellitus with diabetic peripheral angiopathy without gangrene (ICD-10 - E10.51) 12/14/2024 Tinea unguium (ICD-10 - B35.1) 10/09/2024 Type 1 diabetes mellitus with diabetic peripheral angiopathy without gangrene (ICD-10 - E10.51) 12/14/2024 Pain in right toe(s) (ICD-10 - M79.674) 12/14/2024 Pain in left toe(s) (ICD-10 - M79.675) 12/14/2024 Other hammer toe(s) (acquired), left foot (ICD-10 - M20.42) 12/14/2024 Other hammer toe(s) (acquired), right foot (ICD-10 - M20.41) Patient Educated with: DIABETIC FOOT CARE INSTRUCTIONS.p df (DIABETIC FOOT CARE INSTRUCTIONS.p df) Plan Of Treatment Pending Test Test Name Order Date 16680-MWIKLEG NAIL, 6 OR MORE 02/24/2016 28727-EUWWYQA NAIL, 6 OR MORE 07/09/2016 67714-AMBRBCC NAIL, 6 OR MORE 10/11/2016 96036-DXRFDXH NAIL, 6 OR MORE 10/03/2017 74109-SUVXRTU NAIL, 6 OR MORE 10/09/2018 95812-XBDTBHN NAIL, 6 OR MORE 05/12/2020 03939-LMIFDNN NAIL, 6 OR MORE 06/22/2021 62479-KGNYDGY NAIL, 6 OR MORE 06/27/2022 45235-ZZJZQXE NAIL, 6 OR MORE 11/28/2022 85125-LTFHWXK NAIL, 6 OR MORE 11/27/2023 74560-OJGOQMK NAIL, 6 OR MORE 12/14/2024 12492-Tudnfdfw Plate 10/09/2024 22017-WSON SKIN LESIONS, OVER 4 12/15/19 25 38409-YCYL SKIN LESIONS, OVER 4 11/27/19 24 02768-FYFE SKIN LESIONS, OVER 4 11/29/19 23 94716-GLZU SKIN LESIONS, OVER 4 06/27/20 22 24982-SSVY SKIN LESIONS, OVER 4 06/22/20 21 75033-JRHI SKIN LESIONS, OVER 4 05/12/20 20 43642-TVEV SKIN LESIONS, OVER 4 10/09/19 19 89288-UUCW SKIN LESIONS, 2 TO 4 10/11/19 17 51900-DRLD SKIN LESIONS, 2 TO 4 10/03/19 18 37969-KMEO SKIN LESIONS, 2 TO 4 07/09/20 16 66294-MBOF SKIN LESIONS, 2 TO 4 02/24/20 16 Next Appt Details Provider Name:Jv Garrett , 12/13/2025 09:00:00 AM, [address] [facility], [address], [place], [address], Insurance Providers Payer Name Payer Address Payer Phone Subscriber Number Group Number Insured Name Patient Relationship to Insured Coverage Start Date Coverage End Date [employer] [address] [place] [address] [id number] Kaleb Sr Self - patient is the insured Medical (General) History Medical History History ICD Code Diabetes mellitus Hypertension hyperlipidemia Peripheral vascular disease Coronary artery disease Carotid artery stenosis Myocardial infarction Hypercholesterolemia Back,Hip,and Knee pain Cholesterol Headaches Poor circulation Vascular phlebitis (clots) Neuropathy Surgical History Surgery Date(Month/Year) appendectomy femoropopliteal bypass graft carotid endarterectomy with shunt 6 Hospitalization History Reason Date(Month/Year) angioplasty 08/2015
--- OUTSIDE RECORDS SUMMARY | 2024-12-25 09:17 | XMS_ITS ---
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 Name Role Phone Chace Berg MD Primary Care Provider Jv Ventura Unavailable [phone] Allergies No Known Allergies REASON FOR VISIT At Risk Footcare, Painful Nail(s) aggrevated by shoes and causing difficulty standing/walking, Toe Irritation Medications Medication SIG (Take, Route, Frequency, Duration) Notes Start Date End Date Status amLODIPine Besylate 10 MG 1 tablet Orall y Once a day Active metFORMIN HCl 1000 MG 1 tablet with meal s Orally Twice a day Active Losartan Potassium 50 MG 1 tablet Orally Once a day Active hydroCHLOROthiazide 25 MG 1 tablet Orall y Once a day Active Atorvastatin Calcium 20 MG 1 tablet Oral ly Once a day Active LORazepam 1 MG 1 tablet at bedtime as needed Orally Once a day Not-Taking HumuLIN N Active Trulicity 0.75 MG/0.5ML 0.5 ml Subcutaneous Not-Taking Lantus 100 UNIT/ML Subcutaneous Not-Taking Lotrisone 1-0.05 % 1 application to affected area Externally Twice a day Not-Taking Loratadine 10 MG 1 tablet on the tongue and allow to dissolve Orally Once a day Not-Taking Cyclobenzaprine HCl 10 MG 1 tablet Orall y Three times a day Not-Taking Fish Oil 1000 MG 1 capsule Orally Onc e a day Not-Taking Extra Depth Orthopedic Shoes, (1) Pair With (3) Pair Custom Heat Molded Multidensity Innersoles Dx: NIDDM/PVD(E11.51), Hammertoe Foot Deformity(M20.41,M20. 42), Preulcerative Skin Lesion(s)(L85.1) Wear Daily for 365 days Active Cephalexin 500 MG 1 capsule Orally Three times a day for 10 days Not-Taking Metoprolol Tartrate 50 MG 1 tablet with food Orally Twice a day Active Social History Tobacco Use: Social History Observation Description Date Details (start date - stop date) Never Smoker NA - NA Tobacco use other than smoking: Question Answer Notes Are you an other tobacco user? No Tobacco Control (Standard) Question Answer Notes Tobacco use: Nonsmoker Additional Findings: Tobacco non-user Current no nsmoker AUDIT-C (Standard) Question Answer Notes Did you have a drink containing alcohol in the p ast year? No Points 0 Interpretation Negative Vital Signs Height 5ft 7in in 12/14/2024 Weight 216 lbs 12/14/2024 BMI 33.83 kg/m2 12/14/2024 Procedures Procedure Date Ordered Date Performed Result Body Sit e 88365-BIMSYJA NAIL, 6 OR MORE 12/14/2024 N/A 64672-SPQR SKIN LESIONS, OVER 4 12/14/2024 N/A Encounters Encounter Location Date Provider Diagnosis [facility] [address] [address] 12/14/2024 Jv Garrett Type 1 diabetes mellitus with diabetic peripheral angiopathy without gangrene E10.51 ; Tinea unguium B35.1 ; Pain in right toe(s) M79.674 ; Pain in left toe(s) M79.675 ; Other hammer toe(s) (acquired), left foot M20.42 and Other hammer toe(s) (acquired), right foot M20.41 Assessments Encounter Date Diagnosis (ICD Code) Assessment Notes Treatment Notes Treatment Clinical Notes Section Notes 12/14/2024 Type 1 diabetes mellitus with diabetic peripheral angiopathy without gangrene (ICD-10 - E10.51) 12/14/2024 Tinea unguium (ICD-10 - B35.1) 12/14/2024 Pain in right toe(s) (ICD-10 - [...] Skin Lesion(s)(L85.1) Wear Daily for 365 days Treatment Notes Assessment Notes Other hammer toe(s) (acquired), right fo ot Patient Educated with: DIABETIC FOOT CARE INSTRUCTIONS.pdf (DIABETIC FOOT CARE INSTRUCTIONS.pdf) Pending Test Test Name Order Date 03885-XFSMVCC NAIL, 6 OR MORE 12/14/2024 66811-PWYK SKIN LESIONS, OVER 4 12/15/19 25 Next Appt Details Follow Up: 1 Year, Reason: Provider Name:Jv Garrett , 12/13/2025 09:00:00 AM, [address], [place], [address], Procedure Notes * Category Sub-Category Detail Notes Debride Nail 6-10 Nail debridement Due to the cl inical pathology outlined in the exam findings, performance of this nail treatment is medically necessary as its management by an unskilled/untrained nonprofessional would put this patients foot and overall health at risk. Therefore, debridement to affected nail(s), as described in exam ( TA, T1, T2, T3, T4, T5, T6, T7, T8, T9 ), was performed exclusively by the physician of record to reduce/remove overall nail length, girth, thickness, subungual debris, and necrotic tissue, by manual and/or electrical means through the use of a nail nipper and/or dremel-type card grinder helper, to a more viable healthy nail plate or bed tissue 6-10 nails in total. Silver nitrate was used for any petechial bleeding as necessary. Definitive antifungal treatment options, both pharmaceutical and surgical, have been reviewed and discussed with the patient. The patient solely prefers the use of intermittent/as needed professional debridement services for their nail condition and understands the need for additional periodic treatments to maintain effectiveness in symptomatic relief - 16656 Keratoma Treatment Parring or Cutting o f Benign Hyperkeratotic Lesion(s) (-57) More than 4 Lesions - Due to the at risk nature of the patients medical condition as documented in the exam findings, performance of this keratoderma treatment is medically necessary as its management by an unskilled/untrained nonprofessional would put this patients foot and overall health at risk. Therefore, the benign hyperkeratotic lesions, (8) in total, locations as stated and described in the exam ( Medial,IPJ,TA,Medial,IPJ,T5, SUB MTH (s),1,B/L, SUB MTH (s), 5, B/L , Plantar, Heel(s),B/L ), were pared, and/or cut utilizing a sterile 15 blade, tissue nippers, and/or power dremel instrumentation by the physician of record - 91810, Q8 Progress Notes * Kaleb CABELLO RDOB: [birth year] (69 yo M)Acc No.[id number]:12/14/2024 Progress Note Patient:?Kaleb CABELLO R Provider:?Jv Garrett DPM :1955???Age:69 Y???Sex:Male Doug e:12/14/2024 Address:[address] [place] [address] [id number] Pcp:Chace Berg MD Subjective: * Chief Complaints: * ???At Risk FootcarePainful N ail(s) aggrevated by shoes and causing difficulty standing/walkingToe Irritation * HPI: ???At Risk footcare:?Pt States Last PCP Visit:?Date?11/02/2024 ???Toe pain:?Location:?B/L feet.?Duration:?several years.?Course:?worse.?Aggravated by:?shoes, any pressure.?Treatments:?change [...] son(s) . .? * Social History:?Tobacco Use:?Tobacco use other than smoking?Are you an other tobacco user??No ?Tobacco Control (Standard)?Tobacco use:?Nonsmoker ?Additional Findings: Tobacco non-user?Current nonsmoker ???Drugs/Alcohol:?Drugs?Have you used drugs other than those for medical reasons in the past 12 months??No ???Miscellaneous:?Caffeine: yes, frequency:, 1-2 cups per day. ?Children: yes. ?Exercise: yes. ?Marital status: . ?Occupation: Disabled. ???Drug/Alcohol:?AUDIT-C (Standard)?Did you have a drink containing alcohol in the past year??No ?Points?0 ?Interpretation?Negative * Medications:?TakingHumuLIN N amLODIPine Besylate 10 MG Tablet 1 tablet Orally Once a day Atorvastatin Calcium 20 MG Tablet 1 tablet Orally Once a day hydroCHLOROthiazide 25 MG Tablet 1 tablet Orally Once a day Losartan Potassium 50 MG Tablet 1 tablet Orally Once a day metFORMIN HCl 1000 MG Tablet 1 tablet with meals Orally Twice a day Metoprolol Tartrate 50 MG Tablet 1 tablet with food Orally Twice a day Extra Depth Orthopedic Shoes, (1) Pair With (3) Pair Custom Heat Molded Multidensity Innersoles . Dx: NIDDM/PVD(E11.51), Hammertoe Foot Deformity(M20.41,M20.42), Preulcerative Skin Lesion(s)(L85.1) Wear Daily Taking HumuLIN N Taking amLODIPine Besylate 10 MG Tablet 1 tablet Orally Once a day Taking Atorvastatin Calcium 20 MG Tablet 1 tablet Orally Once a day Taking hydroCHLOROthiazide 25 MG Tablet 1 tablet Orally Once a day Taking Losartan Potassium 50 MG Tablet 1 tablet Orally Once a day Taking metFORMIN HCl 1000 MG Tablet 1 tablet with meals Orally Twice a day Taking Metoprolol Tartrate 50 MG Tablet 1 tablet with food Orally Twice a day Taking Extra Depth Orthopedic Shoes, (1) Pair With (3) Pair Custom Heat Molded Multidensity Innersoles . Dx: NIDDM/PVD(E11.51), Hammertoe Foot Deformity(M20.41,M20.42), Preulcerative Skin Lesion(s)(L85.1) Wear Daily Not-Taking/PRNCephalexin 500 MG Capsule 1 capsule Orally Three times a day Fish Oil 1000 MG Capsule 1 capsule Orally Once a day Cyclobenzaprine HCl 10 MG Tablet 1 tablet Orally Three times a day Loratadine 10 MG Tablet Dispersible 1 tablet on the tongue and allow to dissolve Orally Once a day LORazepam 1 MG Tablet 1 tablet at bedtime as needed Orally Once a day Lotrisone 1-0.05 % Cream 1 application to affected area Externally Twice a day Lantus 100 UNIT/ML Solution Subcutaneous Trulicity 0.75 MG/0.5ML Solution Pen-injector 0.5 ml Subcutaneous Medication List reviewed and reconciled with the patientNot- Taking/PRN Cephalexin 500 MG Capsule 1 capsule Orally Three times a day Not-Taking/PRN Fish Oil 1000 MG Capsule 1 capsule Orally Once a day Not-Taking/PRN Cyclobenzaprine HCl 10 MG Tablet 1 tablet Orally Three times a day Not-Taking/PRN Loratadine 10 MG Tablet Dispersible 1 tablet on the tongue and allow to dissolve Orally Once a day Not-Taking/PRN LORazepam 1 MG Tablet 1 tablet at bedtime as needed Orally Once a day Not-Taking/PRN Lotrisone 1-0.05 % Cream 1 application to affected area Externally Twice a day Not-Taking/PRN Lantus 100 UNIT/ML Solution Subcutaneous Not- Taking/PRN Trulicity 0.75 MG/0.5ML Solution Pen-injector 0.5 ml Subcutaneous Medication List reviewed and reconciled with the patient * Allergies:?N.K.D.A.yes[Oliverio fisher Verified] Objective: * Vitals:?Ht: 5ft 7in, Wt:216, BMI:33.83, Shoe size: 9W, BS: 127, Ht-cm: 170.18 cm, Wt-k.98 kg. * ???Past Orders: ???Lab:HEMOGLOBIN A1C (GLYCO HEMOGLOBIN) (Order Date - 08/29/2024) (Collection Date & Time - 08/30/2024 11:17 AM) ? Value Reference Range ?HEMOGLOBIN A1C % (HH) 7.2 * Examination: ???Ophthalmology Referral: ?DIABETES EYE EXAM?Procedure Performed:?Yes ?Date of Exam Performed?09/11/2024 ?Diabetic Retinopathy Screening:?Yes ?Retinal Screening Performed:?Yes ?Findings of Diabetic Eye Exam:?no retinopathy?Vascular: ?DP PULSES (B):? 0/4, B/L.?PT PULSES (B):? [...] crumbly malodorous subungual debris, with pain on palpation , TA, T1, T2, T3, T4, T5, T6, T7, T8, T9.?Dermatologic: ?SKIN FINDINGS:?Skin exam reveals Keratotic lesion(s) located at,Medial,IPJ,TA,Medial,IPJ,T5, SUB MTH (s),1,B/L, SUB MTH (s), 5, B/L , Plantar, Heel(s),B/L.?Orthopedic: ?MUSCLE STRENGTH:?5/5 all groups in a symmetrical fashion , B/L.?FOOT MORPHOLOGY:? No Charcot collapse/destruction noted at MTJ.?DIGITAL DEFORMITIES:?Digital contracture, PIPJ, 2-5 B/L, incompl-reducible to push-up test, no over, nor underlapping,?with evidence of shoe producing skin irritation.?FOOTWEAR EVALUATION:?worn, OT were inspected and noted to be [...] shows sensation, reduced, Left, Pt relates, paresthesia, Left.?General Examination: ?GENERAL APPEARANCE:?Reveals a pleasant, alert, well nourished, well- developed, well hydrated individual, who demonstrates proper attention to hygiene/body habitus, and is in no acute distress, Pt serves as own historian for office visit today.?ORIENTED:?person, place, and time.?FOOT EXAM:?Lower Extremity Neurological Exam performed:?Yes ?Visual exam of foot performed:?Yes ?Date?12/14/2024 ?Footwear Evaluation?Footwear Evaluation performed:?Yes??? Assessment: * Assessment: 1.?Type 1 diabetes mellitus with diabetic peripheral angiopathy without gangrene - E10.51???Specify :Q8???2.?Tinea unguium - B35.1???3.?Pain in right toe(s) - M79.674???4.?Pain in left toe(s) - M79.675???5.?Other hammer toe(s) (acquired), left foot - M20.42???Specify :Chronic problem, Worse (4),Rx Management (4)???6.?Other hammer toe(s) (acquired), right foot - M20.41 (Primary)???Specify :Chronic problem, Worse (4),Rx Management (4)??? Plan: * Treatment: 2.?Type 1 diabetes mellitus with diabetic peripheral angiopathy without gangrene?Procedure: 22556-VKZO SKIN LESIONS, OVER 4 3.?Tinea unguium?Procedure: 07734-EQIBEJN NAIL, 6 OR MORE * Procedures:?Debride Nail 6-10:?Nail debridement?Due to the clinical pathology outlined in the exam findings, performance of this nail treatment is medically necessary as its management by an unskilled/untrained nonprofessional would put this patients foot and overall health at risk. Therefore, debridement to affected nail(s), as described in exam ( TA, T1, T2, T3, T4, T5, T6, T7, T8, T9 ), was performed exclusively by the physician of record to reduce/remove overall nail length, girth, thickness, subungual debris, and necrotic tissue, by manual and/or electrical means through the use of a nail nipper and/or dremel-type card grinder helper, to a more viable healthy nail plate or bed tissue 6- 10 nails in total. Silver nitrate was used for any petechial bleeding as necessary. Definitive antifungal treatment options, both pharmaceutical and surgical, have been reviewed and discussed with the patient. The patient solely prefers the use of intermittent/as needed professional debridement services for their nail condition and understands the need for additional periodic treatments to maintain effectiveness in symptomatic relief - 52147.?Keratoma Treatment:?Parring or Cutting of Benign Hyperkeratotic Lesion(s)?(-57) More than 4 Lesions - Due to the at risk nature of the patients medical condition as documented in the exam findings, performance of this keratoderma treatment is medically necessary as its management by an unskilled/untrained nonprofessional would put this patients foot and overall health at risk. Therefore, the benign hyperkeratotic lesions, (8) in total, locations as stated and described in the exam ( Medial,IPJ,TA,Medial,IPJ,T5, SUB MTH (s),1,B/L, SUB MTH (s),5,B/L,Plantar,Heel(s),B/L), were pared, and/or cut utilizing a sterile 15 blade, tissue nippers, and/or power dremel instrumentation by the physician of record - 81429, Q8.? * Procedure Codes:?96014 DEBRI DE NAIL, 6 OR MORE, Modifiers: XS 79416 TRIM SKIN LESIONS, OVER 4, Modifiers: XS [...] have encouraged the patient to call the office.?Diabetic Footcare:?The patient was advised against future self nail/callus care due to inherent risks for infection, loss of limb/life given diabetes, peripheral vascular disease.?Digital Surgery:?Digital surgery was discussed with the patient, [...] custom heat-molded inserts was dispensed.? ??Screening/Special Tests:?Fall Risk?Screening:?No falls in the past year ?FALLS: Screening for Future Fall Risk?Have you had any falls with injury in the past year??No * Follow Up:?1 Year * Images: * Sign off status: Completed true * Provider:?Jv Garrett DPM Date:?2024 Generated for Leda lindsay/Jaun/Karime on:?12/25/2024 09:11 AM EDT History and Physical Notes * HPI (History of Present Illness) Category Sub-Category Detail Notes Category Not es Toe pain Location: B/L feet Duration: several years Course: worse Aggravated by: shoes, any pressure Treatments: change in shoes At Risk footcare Pt States Last PCP Visit: Date: 5 Examination Category Sub-Category Detail Notes Category Not [...] (s),1,B/L, SUB MTH (s), 5, B/L , Plantar, Heel(s),B/L Orthopedic FOOT MORPHOLOGY: No Charcot aime apse/destruction noted at MTJ ANKLE PAIN LOCATED: FOOTWEAR EVALUATION: worn, OT were inspe cted and noted to be severely worn , [...] Visual exam of foot performed:: Yes Date: 12/14/2024 ORIENTED: person, place, and t dwayne Footwear Evaluation Footwear Evaluation performe d:: Yes Ophthalmology Referral DIABETES EYE EXAM Procedure Perform ed:: Yes ?Date of Exam Performed: 09/11/2024 Diabetic Retinopathy Screening:: Yes Retinal Screening Performed:: Yes Findings of Diabetic Eye Exam:: no retin [...] crumbly malodorous subungual debris, with pain on palpation , TA, T1, T2, T3, T4, T5, T6, T7, T8, T9
== END 2024-12-25 09:45 | disposition home or self-care (01) ==
LOC: HO.HMCH 08:51
DX: E11.9 Type 2 diabetes mellitus without complications (principal)

== ENCOUNTER → 2024-12-25 08:49 | Outpatient (BNVA) | payer MEDICARE, SELFPAY | DX: E11.610 Type 2 diabetes mellitus with diabetic neuropathic arthropathy (principal); E11.51 Type 2 diabetes mellitus with diabetic peripheral angiopathy without gangrene; I10 Essential (primary) hypertension; M17.11 Unilateral primary osteoarthritis, right knee; E66.9 Obesity, unspecified; I65.22 Occlusion and stenosis of left carotid artery; I21.4 Non-ST elevation (NSTEMI) myocardial infarction; I25.10 Atherosclerotic heart disease of native coronary artery without angina pectoris; J81.1 Chronic pulmonary edema; Z79.4 Long term (current) use of insulin; Z68.33 Body mass index [BMI] 33.0-33.9, adult | CPT/HCPCS: 83036; 96127; 99212 ==

== ENCOUNTER 2025-03-29 07:06 | Outpatient (REF) | payer MEDICARE, SELFPAY ==
[2025-03-29 07:21] LABS: MANUAL DIFF FLAG NO
[2025-03-29 07:48] LABS: Hematocrit 41.4 % (42.0-52.0); Hemoglobin 13.9 g/dl (14.0-18.0); Imm Gran Abs Auto 0.01 X10*3/uL (0.00-0.03); Imm Gran Pct Auto 0.1 % (0.0-0.4); Lymphocytes Absolute Auto 2.6 X10*3/uL (1.2-4.9); Mean Corpuscular HGB Conc 33.6 g/dl (31.0-36.0); Mean Corpuscular Hemoglobin 29.0 pg (27.0-33.0); Mean Corpuscular Volume 86.3 fL (80.0-98.0); NRBC Abs Auto 0.000 X10*3/uL (0.0-0.012); NRBC Pct Auto 0.0 /100WBC (0.0-0.2); Platelet Count 247 X10*3/uL (160-400); Red Blood Count 4.80 X10*6/uL (4.60-5.80); White Blood Count 7.6 X10*3/uL (4.8-10.8)
[2025-03-29 08:12] LABS: Hemoglobin A1C 228.4318 umol/L; Total Hemoglobin (HGBA1C) 3712.9741 umol/L
[2025-03-29 08:22] LABS: Alanine Aminotransferase 43 U/L (0-40); Albumin Level 4.3 g/dL (3.5-5.0); Alkaline Phosphatase 73 U/L (39-117); Anion Gap 13 (12-20); Aspartate Amino Transferase 22 U/L (5-37); Blood Urea Nitrogen 20 mg/dL (9-16); Calcium 9.4 mg/dL (8.4-10.2); Carbon Dioxide 24 mmol/L (22-29); Chloride 107 mmol/L (96-108); Cholesterol 120 mg/dL (<200); Estimated Glomerular Filt Rate > 60; HDL Cholesterol 37 mg/dL (>40); Potassium 4.1 mmol/L (3.3-5.1); Sodium 140 mmol/L (135-145); Total Protein 6.8 g/dL (6.5-8.0); Triglycerides 95 mg/dL (<150)
[2025-03-29 08:25] LABS: Appearance Urine Clear; Glucose Urine UA Negative (Negative); PH 5.5 (5.0-9.0); Specific Gravity - Urine 1.015 (1.005-1.025); UMIC TRIGGER UACC YES
== END 2025-03-29 07:07 | disposition home or self-care (01) ==
LOC: HO.LAB 07:06
DX: I25.10 Atherosclerotic heart disease of native coronary artery without angina pectoris (principal); I21.4 Non-ST elevation (NSTEMI) myocardial infarction; E11.9 Type 2 diabetes mellitus without complications; I10 Essential (primary) hypertension; J81.1 Chronic pulmonary edema
CPT/HCPCS: 36415; 80053; 80061; 81001; 82306; 83036; 84443; 85025

== ENCOUNTER 2025-03-31 15:23 | Outpatient (AMB) | payer MEDICARE, SELFPAY ==
--- OUTSIDE RECORDS SUMMARY | 2024-11-25 04:30 | XMS_ITS ---
Author Organization [facility] Address [address] [facility] [place] [address] Care Team Providers Care Wharf Labourer Name Role Phone Morena FLORES, Chace Primary Care Provider UnavailJv Noel [phone] Encounters Encounter Location Date Provider Diagnosis [address] [address] 11/25/2024 Jv Garrett Plan Of Treatment Next Appt Details Provider Name:Jv Garrett , 12/13/2025 09:00:00 AM, [address] [place] [address], [phone], Progress Notes * EVETTESOWMYANETTIETyreseKaleb RDOB: [birth year] (69 yo M)Acc No.[id number]:11/25/2024 Progress Note Patient: Mando CASEYl Marcelo Provider: [...] 0 11/25/2024 Generated for Leda lindsay/Jaun/Karime on: 0 03/31/2025 03:54 PM EDT
[2025-03-31 15:39] VITALS: RESP 18
[2025-03-31 15:40] VITALS: BP 150/50; PULSE 55; RESP 18; O2SAT 94; BMI 34.2
--- NOTE | 2025-03-31 15:46 | A.OFFVIS_ITS ---
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 blood-glucose meter (FreeStyle Lite Meter kit) As directed Check blood sugar t.i.d. clopidogrel 75 mg PO DAILY colestipol 2 grams (2 x 1 gram) PO DAILY dulaglutide (Trulicity) 1.5 mg (0.5 mL) subcut QWEEK hydrochlorothiazide 25 mg PO DAILY insulin NPH and regular human 100 unit/mL (70-30) (Humulin 70/30 U-100 Insulin) 17 units with breakfast and 11 units with dinner subcutaneously 2 times a day. 30 days insulin syringe-needle U-100 (BD Insulin Syringe Ultra-Fine) twice a day lancets (FreeStyle Lancets) As directed Check blood sugar t.i.d. losartan 50 mg PO DAILY metformin 1,000 mg PO BID metoprolol tartrate 50 mg PO BID nitroglycerin 0.4 mg sublingual Q5M PRN pen needle, diabetic (BD Araceli 2nd Gen Pen Needle) twice a day HPI AWV/DM/HTN/CAD/PAD- see comments HPI Details The patient is a 69-year-old male presenting with a Medicare wellness check and management of chronic conditions including knee osteoarthritis, hypertension, diabetes mellitus, and hyperlipidemia. The patient reports knee pain, which was previously evaluated by Dr. Berg, who ordered an X-ray showing narrowing indicative of osteoarthritis. The patient has not had any knee surgeries, and there is no history of joint surgeries. He has received a shoulder injection in the past, but no injections in the knee. The patient's blood pressure was noted to be elevated during the visit, which may have been influenced by recent coffee consumption. The patient monitors blood pressure at home and reports occasional elevations. The patient has a history of diabetes mellitus with an A1c that is trending upwards, currently at 7.8%. He is on insulin therapy, taking 17 units in the morning and 11 units at night, along with Trulicity and Metformin. Recent adjustments to insulin dosing were made due to previous good control, but the A1c has since increased. The patient has hyperlipidemia with low HDL cholesterol and is advised to take fish oil supplements to improve levels. His LDL cholesterol is at a desirable level. The patient underwent a recent procedure on the left carotid artery with a vascular surgeon. Patient status post left TCAR by Dr. Koo on 01/12/2025 for recurrent a critical left ICA stenosis. Patient also has a history of undergoing a left carotid endarterectomy with bovine patch on 04/23/2014 and a right carotid endarterectomy with bovine patch angioplasty on 01/22/2013. The patient has a history of PVD and is undergone prior lower extremity revascularization. He has a femoral bypass with a femoral popliteal bypass on the right previously. [place] of care reviewed with the patient. Reports filling out the form for healthcare proxy in the past; however, this is not on file. Encouraged the patient to bring this in on his next visit so it could be scanned in his chart. HPI Comments History of Present Illness Details Reviewed past medical history-yes reviewed surgical/hospitalization history-yes reviewed current medications-yes Home Safety throw rugs?yes grab bars? yees raised toilet seat?no working smoke detectors? yes Activities of daily living difficult bathing or showering?no difficulty dressing?no difficulty using the toilet?no difficult to get in and out of bed?no difficulty walking?no Received help from other person's with any of the above task?no Instrumental activities of daily living Uses telephone-yes Gets to place out of walking distance-yes go shopping for groceries-yes prepares own meals-yes does own laundry-yes does own housework-yes manages own money-yes currently takes medication-yes End of life planning discussed advanced directives-yes advanced directives on file? no discussed wishes expressed in advanced directives. 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 Son No problems noted. Son No problems noted. Social History Housing: Apartment Alcohol intake: never Patient Tobacco Use Status: Never used Tobacco Tobacco use type: Cigarette e-Cigarette/Vaping Use: Never Used Second Hand Smoke Exposure: No service: No Current occupational status: unemployed Cognitive needs: No Hearing needs: No Vision needs: Yes (glasses) Questionnaire Medicare Wellness Checkup What [age] 65-70 What gender do you identify with?: male During the past 4 weeks, how much have you been bothered by emotional problems such as feeling anxious, depressed, irritable, sad or downhearted, and blue?: not at all During the past 4 weeks, has your physical & emotional health limited your social activities with family, friends, neighbors, or groups?: not at all During the past 4 weeks, how much bodily pain have you generally had?: mild pain During the past 4 weeks, was someone available to help you if you needed & wanted help?: no, not at all During the past 4 weeks, what was the hardest physical activity you could do for at least 2 minutes?: moderate Can you get to places out of walking distance without help? (For eg., can you travel alone on buses, taxis or drive your car?): Yes Can you go shopping for groceries or clothes without someone's help?: Yes Can you prepare your own meals?: Yes Can you do your housework without help?: Yes Because of any health problems, do you need the help of another person with your personal care needs such as eating, bathing, dressing or getting around the house?: No Can you handle your own money without help?: Yes During the past 4 weeks, how would you rate your health in general?: good During the past 4 weeks how have things been going for you?: pretty well Are you having difficulties driving your car?: no Do you always fasten your seat belt when you are in a car?: yes, usually During past 4 weeks, have you been bothered by the following: never: Falling or dizzy when standing up, Sexual problems?, Trouble eating well?, Teeth or denture problems?, Problems using the telephone? and Tiredness or fatigue? Have you fallen 2 or more times in the past year?: No Are you afraid of falling?: No Are you a smoker?: no During the past 4 weeks, how many drinks of wine, beer, or other alcoholic beverages did you have?: no alcohol at all Do you exercise for about 20 minutes 3 or more times a week?: yes, most of the time Have you been given information to help with the following?: no: Hazards in your house that might hurt you? and no: Keeping track of your medications? How often do you have trouble taking medicines the way you have been told to take them?: I always take medicine as prescribed How confident are you that you can control & manage most of your health problems?: very confident What is your race?: White Mini Mental State Exam (MMSE) Orientation What is the (year) (season) (date) (day) (month)?: year, season, date, day and month Where are we (state) (county) (town or city) (hospital) (floor)?: state, county, town or city, hospital/clinic and floor Score Score: 10 Activity of Daily Living Bathing - sponge bath, tub bath or shower: receives no assistance (gets in/out by self, if usual bathing means Dressing - getting clothes from closets & drawers, including inner/outer garments & fasteners.: gets clothes & gets completely dressed without help Toileting - going to the 'toilet room' for urine/bowel elimination & cleaning self/arranging clothes: goes to toilet room, cleans self, arranges clothes without help Transfer: moves in & out of bed and chair without help (may use support object) Continence: controls urination/bowel movements completely by self Feeding: feeds self without help Total Score: 0 Information obtained from: patient Using telephone: independent Traveling: independent Shopping: independent Preparing meals: independent Housework: independent Taking medicine: independent Managing money: independent PHQ-9 Over the last 2 weeks, how often have you been bothered by any of the following problems? 1. Little interest or pleasure in doing things: not at all 2. Feeling down, depressed, or hopeless: not at all 3. Trouble falling or staying asleep, or sleeping too much: not at all 4. Feeling tired or having little energy: not at all 5. Poor appetite or overeating: not at all 6. Feeling bad about yourself - or that you are a failure or have let yourself or your family down: not at all 7. Trouble concentrating on things, such as reading the newspaper or watching television: not at all 8. Moving or speaking so slowly that other people could have noticed. Or the opposite - being so fidgety or restless that you have been moving around a lot more than usual: not at all 9. Thoughts that you would be better off or of hurting yourself in some way: not at all Total score: 0 Depression Screening Interpretation: Negative Depression Screening Done: Yes Source: Developed by Drs. Jean Cordon, Carol Engel, Zac Navarro and colleagues, with an educational gerda from [employer]. Review of Systems Const Denies headache(s) Eyes Denies loss of vision ENT Denies vertigo, Denies dizziness, Denies headache(s) and Denies sore throat Card Denies chest pain, Denies leg edema and Denies lightheadedness Resp Denies cough, Denies hemoptysis and Denies wheezing GI Denies abdominal pain, Denies melena, Denies constipation, Denies diarrhea and Denies vomiting Denies dysuria, Denies urinary frequency and Denies urinary urgency Musc Reports arthralgias (Right knee), Denies joint swelling, Denies numbness and Denies tingling Neuro Denies behavioral changes, Denies vertigo, Denies dizziness, Denies headache(s), Denies loss of vision, Denies memory loss, Denies numbness and Denies tingling Psych Denies anxiety, Denies behavioral changes, Denies depression, Denies memory loss and Denies panic attacks Almas/Lymph Denies easy bleeding and Denies easy bruising Aller/Immun Denies wheezing Physical Exam Vital Signs: Last Vital Signs Pulse 55 03/31/25 15:40 Resp 18 03/31/25 15:40 BP 138/86 03/31/25 16:30 Pulse Ox 94 03/31/25 15:40 Oxygen Delivery Method Room Air 03/31/25 15:40 BMI result Body Mass Index 34.2 Const Other: IPPE/AWV: Balance [place] Yes . Tandem walk unable to due to pain in right knee Walk and Turn Yes . Rise from sit to stand Yes . Vision Corrective lens No Vision screen pass Hearing Whisper test pass . Urinary incont. no. EKG Not clinically necessary. Results Reviewed Results Reviewed: Laboratory Tests 03/29/25 03/29/25 07:13 07:19 WBC 7.6 RBC 4.80 Hgb 13.9 L Hct 41.4 L MCV 86.3 MCH 29.0 MCHC 33.6 RDW 14.0 Plt Count 247 MPV 9.6 Sodium 140 Potassium 4.1 Chloride 107 Carbon Dioxide 24 Anion Gap 13 BUN 20 H Creatinine 0.89 Estim Creat Clear Calc Not Reportable Estimated GFR > 60 Fasting Glucose 150 H Estimat Average Glucose 177 Hemoglobin A1c % 7.8 H Calcium 9.4 D Total Bilirubin 0.8 AST 22 ALT 43 H Alkaline Phosphatase 73 Total Protein 6.8 Albumin 4.3 Triglycerides 95 Cholesterol 120 LDL Cholesterol, Calc 64 HDL Cholesterol 37 L 25-OH Vitamin D Total 45.0 TSH 2.57 Urine Color Yellow Urine Appearance Clear Urine pH 5.5 Ur Specific [place] 1.015 Urine Protein 30 (1+) H Urine Glucose (UA) Negative Urine Ketones Negative Urine Blood Negative Urine Nitrite Negative Ur Leukocyte Esterase Negative Urine RBC 0-2 Urine WBC 0-5 Ur Squamous Epith Cells 0-2 Urine Bacteria None Seen Hyaline Casts 0-2 Assessment & Plan Assessment & Plan (1) Encounter for Medicare annual examination with abnormal findings: Code(s): Z00.01 - Encounter for general adult medical examination with abnormal findings Plan: Preventative guidelines and recent labs reviewed with the patient. Colonoscopy done at [facility] on 03/15/2021 due to be repeated in 2025. (2) Hypertension: Code(s): I10 - Essential (primary) hypertension Qualifiers: Hypertension type: essential hypertension Qualified Code(s): I10 - Essential (primary) hypertension Plan: Initial blood pressure was 150/50, rechecked was 138/86 with a heart rate of 55 Reinforced low-salt diet Continue amlodipine 10 mg daily, hydrochlorothiazide 25 mg daily, losartan 50 mg daily, metoprolol tartrate 50 mg b.i.d. (3) CAD (coronary artery disease): Code(s): I25.10 - Atherosclerotic heart disease of [place] coronary artery without angina pectoris Qualifiers: Coronary Disease-Associated Artery/Lesion type: unspecified vessel or lesion type [place] vs. transplanted heart: [place] heart Associated angina: without angina Qualified Code(s): I25.10 - Atherosclerotic heart disease of [place] coronary artery without angina pectoris Plan: Denies chest pain. Continue aspirin 81 mg daily, atorvastatin 20 mg daily, clopidogrel 75 mg daily (4) PVD (peripheral vascular disease): Code(s): I73.9 - Peripheral vascular disease, unspecified Plan: The patient has a history of PVD and is undergone prior lower extremity revascularization. He has a femoral bypass with a femoral popliteal bypass on the right previously. (5) Carotid stenosis, left: Code(s): I65.22 - Occlusion and stenosis of left carotid artery Plan: Patient status post left TCAR by Dr. Koo on 01/12/2025 for recurrent a critical left ICA stenosis. Patient also has a history of undergoing a left carotid endarterectomy with bovine patch on 04/23/2014 and a right carotid endarterectomy with bovine patch angioplasty on 01/22/2013. (6) Dyslipidemia: Code(s): E78.5 - Hyperlipidemia, unspecified Plan: Triglycerides 95, total cholesterol 120, LDL 64, HDL 37 Discussed lifestyle modifications including dietary changes and physical activity Continue atorvastatin 20 mg daily We will repeat lipid panel in 3 months (7) Diabetes type 2, controlled: Code(s): E11.9 - Type 2 diabetes mellitus without complications Plan: The patient A1c increased from 7.4 3 months ago to 7.8% Reinforced low sugar/carbohydrate diet and activity as tolerated Continue Trulicity 1.5 mg subQ q.week, NPH 70-30 17 units with breakfast and 11 units with dinner, metformin a 1000 mg b.i.d. 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 For hypertension, the patient is advised to monitor blood pressure at home and avoid caffeine before appointments to prevent elevated readings. Regarding diabetes management, the patient is instructed to revert to the previous insulin dosing of 11 units at night and continue with Trulicity and Metformin. Dietary modifications are recommended to reduce carbohydrate intake and improve glycemic control. For hyperlipidemia, the patient is advised to take fish oil supplements to increase HDL cholesterol levels. The patient's LDL cholesterol is at a desirable level, so no changes are needed in that regard. The patient will follow up in three months to reassess blood pressure, A1c, and overall management of chronic conditions. Patient was informed and verbally consented to the use of an ambient scribe for clinic note documentation during this visit. 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 Panel Fast 3 Months I25.10 - Atherosclerotic heart disease of [place] coronary artery without angina pectoris, I21.4 - Non-ST elevation (NSTEMI) myocardial infarction, R79.89 - Other specified abnormal findings of blood chemistry, I73.9 - Peripheral vascular disease, unspecified, I65.22 - Occlusion and stenosis of left carotid artery, E78.5 - Hyperlipidemia, unspecified, E11.9 - Type 2 diabetes mellitus without complications, Z79.4 - senior living (current) use of insulin, E11.65 - Type 2 diabetes mellitus with hyperglycemia, E66.9 - Obesity, unspecified, E11.610 - Type 2 diabetes mellitus with diabetic neuropathic arthropathy, A41.9 - Sepsis, unspecified organism Lipid Panel 3 Months I25.10 - Atherosclerotic heart disease of [place] coronary artery without angina pectoris, I21.4 - Non-ST elevation (NSTEMI) myocardial infarction, R79.89 - Other specified abnormal findings of blood chemistry, I73.9 - Peripheral vascular disease, unspecified, I65.22 - Occlusion and stenosis of left carotid artery, E78.5 - Hyperlipidemia, unspecified, E11.9 - Type 2 diabetes mellitus without complications, Z79.4 - senior living (current) use of insulin, E11.65 - Type 2 diabetes mellitus with hyperglycemia, E66.9 - Obesity, unspecified, E11.610 - Type 2 diabetes mellitus with diabetic neuropathic arthropathy, A41.9 - Sepsis, unspecified organism Hemoglobin A1c 3 Months I25.10 - Atherosclerotic heart disease of [place] coronary artery without angina pectoris, I21.4 - Non-ST elevation (NSTEMI) myocardial infarction, R79.89 - Other specified abnormal findings of blood chemistry, I73.9 - Peripheral vascular disease, unspecified, I65.22 - Occlusion and stenosis of left carotid artery, E78.5 - Hyperlipidemia, unspecified, E11.9 - Type 2 diabetes mellitus without complications, Z79.4 - senior living (current) use of insulin, E11.65 - Type 2 diabetes mellitus with hyperglycemia, E66.9 - Obesity, unspecified, E11.610 - Type 2 diabetes mellitus with diabetic neuropathic arthropathy, A41.9 - Sepsis, unspecified organism TSH reflex Free T4 3 Months I25.10 - Atherosclerotic heart disease of [place] coronary artery without angina pectoris, I21.4 - Non-ST elevation (NSTEMI) myocardial infarction, R79.89 - Other specified abnormal findings of blood chemistry, I73.9 - Peripheral vascular disease, unspecified, I65.22 - Occlusion and stenosis of left carotid artery, E78.5 - Hyperlipidemia, unspecified, E11.9 - Type 2 diabetes mellitus without complications, Z79.4 - senior living (current) use of insulin, E11.65 - Type 2 diabetes mellitus with hyperglycemia, E66.9 - Obesity, unspecified, E11.610 - Type 2 diabetes mellitus with diabetic neuropathic arthropathy, A41.9 - Sepsis, unspecified organism UA CC w/rflx Micro + Cult 3 Months I25.10 - Atherosclerotic heart disease of [place] coronary artery without angina pectoris, I21.4 - Non-ST elevation (NSTEMI) myocardial infarction, R79.89 - Other specified abnormal findings of blood chemistry, I73.9 - Peripheral vascular disease, unspecified, I65.22 - Occlusion and stenosis of left carotid artery, E78.5 - Hyperlipidemia, unsp ecified, E11.9 - Type 2 diabetes mellitus without complications, Z79.4 - senior living (current) use of insulin, E11.65 - Type 2 diabetes mellitus with hyperglycemia, E66.9 - Obesity, unspecified, E11.610 - Type 2 diabetes mellitus with diabetic neuropathic arthropathy, A41.9 - Sepsis, unspecified organism Microalbumin, Random (w Creat) 3 Months I25.10 - Atherosclerotic heart disease of [place] coronary artery without angina pectoris, I21.4 - Non-ST elevation (NSTEMI) myocardial infarction, R79.89 - Other specified abnormal findings of blood chemistry, I73.9 - Peripheral vascular disease, unspecified, I65.22 - Occlusion and stenosis of left carotid artery, E78.5 - Hyperlipidemia, unspecified, E11.9 - Type 2 diabetes mellitus without complications, 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, E11.65 - Type 2 diabetes mellitus with hyperglycemia, E66.9 - Obesity, unspecified, E11.610 - Type 2 diabetes mellitus with diabetic neuropathic arthropathy, A41.9 - Sepsis, unspecified organism Vitamin D 25-OH Total 3 Months I25.10 - Atherosclerotic heart disease of [place] coronary artery without angina pectoris, I21.4 - Non-ST elevation (NSTEMI) myocardial infarction, R79.89 - Other specified abnormal findings of blood chemistry, I73.9 - Peripheral vascular disease, unspecified, I65.22 - Occlusion and stenosis of left carotid artery, E78.5 - Hyperlipidemia, unspecified, E11.9 - Type 2 diabetes mellitus without complications, 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, E11.65 - Type 2 diabetes mellitus with hyperglycemia, E66.9 - Obesity, unspecified, E11.610 - Type 2 diabetes mellitus with diabetic neuropathic arthropathy, A41.9 - Sepsis, unspecified organism Quality Reporting (2019) Depression/Bipolar (159/160/161/177) PHQ-9: Total score: 0 Coding Level of Care Code Medicare Subsequent (G0439) Diagnoses Encounter for Medicare annual examination with abnormal findings Z00.01 Essential hypertension I10 Hypertension type: essential hypertension Coronary artery disease involving [place] heart without angina pectoris, unspecified vessel or lesion type I25.10 Coronary Disease-Associated Artery/Lesion type: unspecified vessel or lesion type [place] vs. transplanted heart: [place] heart Associated angina: without angina PVD (peripheral vascular disease) I73.9 Carotid stenosis, left I65.22 Dyslipidemia E78.5 Diabetes type 2, controlled E11.9 senior living (current) use of insulin Z79.4 Obesity (BMI 30-39.9) E66.9 Chronic pain of right knee M25.561; G89.29 Chronicity: chronic CPT Codes Advance Care Planning - Advance Care Planning discussion: On file, no changes ([id number]) Time Spent (min) 39 Advance Care Planning Advance Care Planning discussion: On file, no changes Who was present: Reports that this was completed already. Encouraged patient to bringing a copy for his file
--- OUTSIDE RECORDS SUMMARY | 2025-03-31 15:54 | XMS_ITS | Clinical Summary ---
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
--- OUTSIDE RECORDS SUMMARY | 2025-03-31 15:54 | XMS_ITS | Patient Health Record ---
Author Organization [facility] Address [address] [place] [address] Care Team Providers Care Cashier Credit Name Role Phone Chace Berg MD Primary Care Provider Jean Smiley Unavailable [phone] Reason For Referral No Information Medications Medication SIG (Take, Route, Frequency, Duration) Notes Start Date End Date Status Fish Oil Active Aspirin 81 MG 1 tablet Orally Once a day Active Colyte w Flavor Packs 240 GM as directed Orally as directed for 1 day(s) 08/12/2015 Active Metoprolol Tartrate 50 MG 1 tablet Orall y Twice a day Active Lisinopril-hydroCHLOROthia zide 20-25 MG 1 tablet Orally Once a day Active amLODIPine Besylate 10 MG 1 tablet Orally Once a day Active Clopidogrel Bisulfate 75 MG 1 tablet Orally Once a day A ctive Simvastatin 20 MG 1 tablet in the even ing Orally Once a day Active metFORMIN HCl 1000 MG 1 tablet with meal s Orally Twice a day Active Lantus 100 UNIT/ML 50 units Subcutaneou s at HS Active Problems Problem Type SNOMED Code ICD Code Onset Dates Problem Status W/U Status Risk Notes Problem 299489708 Encounter for screening for malignant neoplasm of colon (Z12.11) Active confirmed Problem Encounter for screening for malignant neoplasm of rectum (Z12.12) Active confirmed Problem 43246880 Preprocedural examination (Z01.818) Active confirmed Problem 923518792 Long-term use of aspirin therapy (Z79.82) Active confirmed Plan Of Treatment Future Test Test Name Order Date COLONOSCOPY 08/11/2015 Insurance Providers Payer Name Payer Address Payer Phone Subscriber Number Group Number Insured Name Patient Relationship to Insured Coverage Start Date Coverage End Date [facility] [address] [facility] [place] [phone] [id number] JORGE CABELLO Self - patient is the insured Medical (General) History Medical History History ICD Code IDDM MO in approx 1989 in [facility]--[place] since t he CABG Hypertension Hyperlipidemia Denies CVA,Lung disease,renal disease Peripheral vascular disease with surgeri es as below His describes sleep apnea and snori ng, but not officially diagnosed Surgical History Surgery Date(Month/Year) Vascular disease--Right carotid, left ca rotid x 2, bilateral LE's CABG 2008 Multiple surgeries for peria nal and perirectal disease--in the [facility] and with Dr. [place]--last time approx. 2005 Appy
[2025-03-31 16:30] VITALS: BP 138/86
== END 2025-03-31 16:56 | disposition home or self-care (01) ==
LOC: HO.HMCH 15:24
DX: Z00.00 Encounter for general adult medical examination without abnormal findings (principal); I10 Essential (primary) hypertension; E11.69 Type 2 diabetes mellitus with other specified complication; Z79.4 Long term (current) use of insulin; E78.5 Hyperlipidemia, unspecified; I25.10 Atherosclerotic heart disease of native coronary artery without angina pectoris; I73.9 Peripheral vascular disease, unspecified; I65.22 Occlusion and stenosis of left carotid artery; E66.9 Obesity, unspecified; M25.561 Pain in right knee; G89.29 Other chronic pain

== ENCOUNTER 2025-05-26 13:50 | Emergency (ER) | payer MEDICARE, SELFPAY ==
--- NOTE | ~2025-05-26 | XR_ITS ---
EXAMINATION: XR CHEST 2 VIEWS HISTORY: SOB COMPARISON: Comparison is made with the prior examination dated 03/29/2024. FINDINGS: PA and lateral views of the chest are submitted. The lungs are expanded and clear. There is no pleural effusion, pneumothorax, or pulmonary vascular congestion. The heart is enlarged. The patient is status post median sternotomy. There is degenerative disc disease of the spine. XR/XR chest 2V IMPRESSION: Cardiomegaly. No acute cardiopulmonary abnormality. Electronically signed by: Jean Santillan MD 05/26/2025 03:16 PM EDT
[2025-05-26 14:53] VITALS: BP 164/72; PULSE 54; RESP 18; TEMP 36.2; O2SAT 92; BMI 35.1
--- NOTE | 2025-05-26 14:55 | ED.GENADULT ---
HPI - General Adult General Chief complaint: Dyspnea Stated complaint: sob, high BP Time Seen by Provider: 05/26/25 18:37 Source: patient Mode of arrival: ambulatory Limitations: language barrier History of Present Illness ED Provider: Dr. Sanchez HPI narrative: This is a 69-year-old male history of CAD status post CABG, diabetes, NSTEMI, obesity, neuropathy, hypertension presented hospital today for evaluation of increased shortness of breath and fatigue. Patient stated that he has been having exertional shortness of breath when he ambulates. He denies any symptoms of orthopnea. Feels as his abdomen is distended and pushing up into his lungs. He is not currently on any diuretics. stated that patient was admitted to the hospital previously for respiratory failure secondary to NSTEMI. He was transferred to [facility]. He has been compliant with his medications. Denies any coughing denies any sore throat or nasal congestion denies any fever. Related Data Home Medications ?Medication ?Instructions ?Recorded ?Confirmed aspirin 81 mg tablet,delayed 81 mg PO DAILY 08/04/20 03/31/25 release atorvastatin 20 mg tablet 20 mg PO DAILY 08/04/20 03/31/25 clopidogrel 75 mg tablet 75 mg PO DAILY 08/04/20 03/31/25 losartan 25 mg tablet 50 mg PO DAILY 08/04/20 03/31/25 metoprolol tartrate 50 mg tablet 50 mg PO BID 03/30/24 03/31/25 Previous Rx's ?Medication ?Instructions ?Recorded insulin syringe-needle U-100 0.5 #100 ea 03/02/21 mL 31 gauge x 5/16 (BD Insulin Syringe Ultra-Fine) pen needle, diabetic 32 gauge x #100 ea 03/02/21 5/32 (BD Araceli 2nd Gen Pen Needle) nitroglycerin 0.4 mg sublingual 0.4 mg sublingual Q5M PRN chest 06/20/22 tablet pain #60 tabs colestipol 1 gram tablet 2 g (2 x 1 gram) PO DAILY #180 tabs 07/27/24 amlodipine 10 mg tablet 10 mg PO DAILY 90 days #90 tabs 10/17/24 dulaglutide 1.5 mg/0.5 mL 1.5 mg (0.5 mL) subcut QWEEK #2 mL 12/14/24 subcutaneous [facility] blood sugar diagnostic (FreeStyle #100 ea 12/27/24 Lite Strips) blood-glucose meter (FreeStyle #1 ea 12/27/24 Lite Meter kit) lancets 28 gauge (FreeStyle #100 ea 12/27/24 Lancets) hydrochlorothiazide 25 mg tablet 25 mg PO DAILY #90 tabs 01/19/25 insulin human U-100 NPH-regulr See Rx Instructions subcut BID 30 03/04/25 70-30 mix 100 unit/mL subcutaneous days #15 mL susp (Humulin 70/30 U-100 Insulin) metformin 1,000 mg tablet 1,000 mg PO BID #180 tabs 03/15/25 furosemide 20 mg tablet (Lasix) 20 mg PO DAILY 7 days #7 tabs 05/26/25 Allergies Allergy/AdvReac Type Severity Reaction Status Date / Time lisinopril Allergy Unknown cough Verified 05/26/25 14:59 Review of Systems Review of Systems: Pertinent review of systems as mentioned in HPI. All other system otherwise negative. 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 Son No problems noted. Son No problems noted. Social History Social History Housing: Apartment Unable to assess alcohol history related to: Unknown Alcohol intake: never Patient Tobacco Use Status: Never used Tobacco Tobacco use type: Cigarette Smoked in Last 30 Days: No e-Cigarette/Vaping Use: Never Used Second Hand Smoke Exposure: No Use of substances other than those prescribed or required for medical reasons: No Advance Directives: No Advance Directives Information Provided: Yes Do you have a plan to hurt others: No Plan service: No Current occupational status: unemployed Cognitive needs: No Hearing needs: No Vision needs: Yes (glasses) Physical Exam ED Exam Exam: General: Pleasant, no distress, interacting appropriately Head: Normacephalic, atraumatic ENT: oral mucosa moist, neck supple, no tracheal deviation Cardiovascular: regular rate, regular rhythm, no murmurs, rubbing, gallops Respiratory: Bibasilar crackles on exam Gastrointestinal: Soft, non distended, non tender, non guarding Extremities: No limb pain or swelling, no calf tenderness Neurological: Awake and alert, no facial droop noted Skin: Warm and dry Psychiatric: Appropriate mood and thoughts Vital Signs: Vital Signs - 24 hr 05/26/25 14:53 05/26/25 19:15 05/26/25 19:26 Temperature 97.1 F 97.8 F Pulse Rate 54 57 57 Respiratory Rate 18 16 Blood Pressure 164/72 H 182/56 H 182/56 H Pulse Oximetry 92 94 Oxygen Delivery Method Room Air Room Air 05/26/25 19:36 Temperature Pulse Rate Respiratory Rate Blood Pressure 182/56 H Pulse Oximetry Oxygen Delivery Method BMI result Body Mass Index 35.1 Course Course Course Narrative: This is an RME: Additional HPI, ROS, PE not included below will be deferred to primary provider. RME assessment and note performed by: Jenny Hirsch PA-C This is a 69-year-old male, with a past medical history of diabetes, PVD, CAD, hypertension, NSTEMI, significant vascular disease with history of coronary artery bypass grafting 2008, who presents emergency department with complaints of low blood pressure, abdominal pressure, decreased appetite, and shortness of breath. Patient 91% on room air. Lungs with faint crackles heard in BL lung bases Plan: Labs, EKG, CXR, further ER eval needed Medications Administered Discontinued Medications Generic Name Dose Route Start Last Admin Trade Name Freq PRN Reason Stop Dose Admin Furosemide 20 mg 05/26/25 19:06 05/26/25 19:36 Furosemide 20 Mg/2 Ml Vial IVPUSH 05/26/25 19:07 20 mg ONCE ONE Administration Protocol Nitroglycerin 0.4 mg 05/26/25 19:06 05/26/25 19:26 Nitroglycerin 0.4 Mg Tab.Subl SUBLINGUAL 05/26/25 19:07 0.4 mg ONCE ONE Administration Medical Decision Making Medical Decision Making [facility] Narrative: This is a 69-year-old male presented hospital today for evaluation of increased shortness of breath and fatigue. Patient has history of CAD with CABG, NSTEMI. We will plan to give patient some IV Lasix here. We will plan to obtain a EKG. Troponin will be obtain BNP chemistry CBC will be obtained. Patient's chest x-ray shows cardiomegaly no other signs of finding. However patient does have some crackles on lung auscultation I suspect he has some pulmonary edema. We will plan to give patient a dose of nitroglycerin. He appears to be hypertensive currently. BNP is slightly elevated. We will diurese the patient and obtain a pulse ox ambulation trial. Patient did not show any signs of hypoxia or significant tachycardia during the ambulation trial. Patient's EKG did show some slight ST depression in the lateral leads. This is similar to his prior EKG. There was no signs of acute significant changes. Troponins negative. BNP is elevated at 1592. We will finding of crackles at his lungs I suspect he likely has pulmonary edema from CHF. We will plan to discharge patient with 7 days' worth of Lasix. Encouraged him to follow up with his primary care doctor. Patient and is in agreement with this plan. All questions were addressed patient will be discharged. Differential Diagnosis Differential Diagnoses: The differential diagnosis associated with the presentation includes CHF, pulmonary edema, hypertension, ACS Admission/Observation Consideration of admission/observation: Escalation of care including admission/observation considered Lab Data [facility] Lab Attestation statement: I reviewed the patient's lab results. 05/26/25 16:25 05/26/25 16:25 Labs: Lab Results 05/26/25 05/26/25 Range/Units 16:25 19:44 WBC 8.1 (4.8-10.8) X10*3/uL RBC 4.77 (4.60-5.80) X10*6/uL Hgb 14.1 (14.0-18.0) g/dl Hct 40.7 L (42.0-52.0) % MCV 85.3 (80.0-98.0) fL MCH 29.6 (27.0-33.0) pg MCHC 34.6 (31.0-36.0) g/dl RDW 14.4 (11.0-16.0) % Plt Count 208 (160-400) X10*3/uL MPV 9.8 (9.4-12.4) fL Immature Gran % (Auto) 0.1 (0.0-0.4) % Neut % (Auto) 61.3 (45-73) % Lymph % (Auto) 26.2 (20-40) % [place] % (Auto) 8.8 (2-11) % Eos % (Auto) 2.9 (0-4) % Baso % (Auto) 0.7 (0-2) % Lymph # (Auto) 2.1 (1.2-4.9) X10*3/uL [place] # (Auto) 0.7 (0.1-1.2) X10*3/uL Eos # (Auto) 0.2 (0.0-0.4) X10*3/uL Baso # (Auto) 0.1 (0.0-0.2) X10*3/uL Abs Immat Gran (auto) 0.01 (0.00-0.03) X10*3/uL Absolute Neuts (auto) 4.9 (2.0-8.3) x10*3/uL Absolute Nucleated RBC 0.000 (0.0-0.012) X10*3/uL Nucleated RBC % (auto) 0.0 (0.0-0.2) /100WBC D-Dimer High Sensitivty 223 NG/ML Sodium 139 (135-145) mmol/L Potassium 4.3 (3.3-5.1) mmol/L Chloride 107 (96-108) mmol/L Carbon Dioxide 26 (22-29) mmol/L Anion Gap 10 L (12-20) BUN 18 H (9-16) mg/dL Creatinine 0.97 (0.5-1.4) mg/dL Estim Creat Clear Calc 80.1 Estimated GFR > 60 Random Glucose 219 H (60-115) mg/dL Calcium 9.2 (8.4-10.2) mg/dL Magnesium 1.9 (1.6-2.6) mg/dL Total Bilirubin 1.3 H (0.0-1.0) mg/dL Direct Bilirubin 0.5 (0.0-0.5) mg/dL AST 20 (5-37) U/L ALT 39 (0-40) U/L Alkaline Phosphatase 78 (39-117) U/L Troponin I High Sens 11.7 D 12.2 (<3.5-35.0) ng/L NT-Pro-B Natriuret Pep 1596.0 H (<300) pg/mL Total Protein 6.7 (6.5-8.0) g/dL Albumin 4.2 (3.5-5.0) g/dL COVID-19 (MINOO) Negative (Negative) COVID-19 Clin Com See Note Influenza Type A (ANA) Negative (Negative) Influenza Type B (ANA) Negative (Negative) Influenza A & B Note See Note Independent Interpretation I performed an independent interpretation of an: EKG and Plain X-Ray Chronic Conditions CAD Discharge Plan Discharge Clinical Impression: Pulmonary edema Qualifiers: Chronicity: acute Qualified Code(s): J81.0 - Acute pulmonary edema Patient Disposition: Home, Self-Care Instructions: Pulmonary Edema (ED), Fluid Restriction (ED) Additional Instructions: Your labwork for BNP which shows test for distension for your heart was elevated. This is likely secondary to excess fluid in your heart. The medication I prescribe to you will help you urinate some of this excess fluid. Follow up with your PCP. You may need to get your potassium and magnesium checked. I have a feeling this will help with your symptoms. EKG did not show any significant changes. CXR looks fine. You have some crackling in your lungs that likely indicative of fluid. Prescriptions: New furosemide [Lasix] 20 mg tablet 20 mg PO DAILY 7 Days Qty: 7 0RF No Action (DME) insulin syringe-needle U-100 [BD Insulin Syringe Ultra-Fine] 0.5 mL 31 gauge x 5/16 syringe See Rx Instructions .ROUTE .MEDSUPPLY Qty: 100 5RF Rx Instructions: twice a day (DME) pen needle, diabetic [BD Araceli 2nd Gen Pen Needle] 32 gauge x 5/32 needle See Rx Instructions .ROUTE .MEDSUPPLY Qty: 100 4RF Rx Instructions: twice a day colestipol 1 gram tablet 2 g PO DAILY Qty: 180 3RF amlodipine 10 mg tablet 10 mg PO DAILY 90 Days Qty: 90 1RF Trulicity 1.5 mg/0.5 mL pen injector 1.5 mg subcut QWEEK Qty: 2 5RF hydrochlorothiazide 25 mg tablet 25 mg PO DAILY Qty: 90 2RF Humulin 70/30 U-100 Insulin 100 unit/mL (70-30) suspension See Rx Instructions subcut BID 30 Days Qty: 15 2RF Rx Instructions: 17 units with breakfast and 11 units with dinner subcutaneously 2 times a day. metformin 1,000 mg tablet 1,000 mg PO BID Qty: 180 1RF metoprolol tartrate 50 mg tablet 50 mg PO BID nitroglycerin 0.4 mg tablet, sublingual 0.4 mg sublingual Q5M PRN (Reason: chest pain) Qty: 60 4RF Rx Instructions: do not exceed 3 doses per episode aspirin 81 mg tablet,delayed release (DR/EC) 81 mg PO DAILY clopidogrel 75 mg tablet 75 mg PO DAILY losartan 25 mg tablet 50 mg PO DAILY atorvastatin 20 mg tablet 20 mg PO DAILY (DME) lancets [FreeStyle Lancets] 28 gauge misc See Rx Instructions .ROUTE .MEDSUPPLY Qty: 100 3RF Rx Instructions: As directed Check blood sugar t.i.d. (DME) FreeStyle Lite Strips Strip See Rx Instructions .ROUTE .MEDSUPPLY Qty: 100 3RF Rx Instructions: As directed Check blood sugar t.i.d. (DME) blood-glucose meter [FreeStyle Lite Meter] Kit See Rx Instructions .Route Qty: 1 0RF Rx Instructions: As directed Check blood sugar t.i.d. Print Language: Kuwaiti
[2025-05-26 16:32] LABS: MANUAL DIFF FLAG NO
[2025-05-26 16:33] LABS: Hematocrit 40.7 % (42.0-52.0); Hemoglobin 14.1 g/dl (14.0-18.0); Imm Gran Abs Auto 0.01 X10*3/uL (0.00-0.03); Imm Gran Pct Auto 0.1 % (0.0-0.4); Lymphocytes Absolute Auto 2.1 X10*3/uL (1.2-4.9); Mean Corpuscular HGB Conc 34.6 g/dl (31.0-36.0); Mean Corpuscular Hemoglobin 29.6 pg (27.0-33.0); Mean Corpuscular Volume 85.3 fL (80.0-98.0); NRBC Abs Auto 0.000 X10*3/uL (0.0-0.012); NRBC Pct Auto 0.0 /100WBC (0.0-0.2); Platelet Count 208 X10*3/uL (160-400); Red Blood Count 4.77 X10*6/uL (4.60-5.80); White Blood Count 8.1 X10*3/uL (4.8-10.8)
--- OUTSIDE RECORDS SUMMARY | 2025-05-26 16:41 | XMS_ITS | Clinical Summary ---
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
[2025-05-26 16:47] LABS: Alanine Aminotransferase 39 U/L (0-40); Albumin Level 4.2 g/dL (3.5-5.0); Alkaline Phosphatase 78 U/L (39-117); Anion Gap 10 (12-20); Aspartate Amino Transferase 20 U/L (5-37); Blood Urea Nitrogen 18 mg/dL (9-16); Calcium 9.2 mg/dL (8.4-10.2); Carbon Dioxide 26 mmol/L (22-29); Chloride 107 mmol/L (96-108); Creatinine Clr Calc Pharmacy 80.1; Estimated Glomerular Filt Rate > 60; Magnesium 1.9 mg/dL (1.6-2.6); Potassium 4.3 mmol/L (3.3-5.1); Sodium 139 mmol/L (135-145); Total Protein 6.7 g/dL (6.5-8.0)
[2025-05-26 16:50] LABS: COVID-19 Test Negative (Negative); IDNOW Serial# 08D9AD1C; IDNOW Serial# 6674DD1D; Influenza B2 Negative (Negative)
[2025-05-26 16:54] LABS: NT Pro B Type Natriuretic Pept 1596.0 pg/mL (<300); Troponin-I High Sensitivity 11.7 ng/L (<3.5-35.0)
--- NOTE | 2025-05-26 18:43 | ECG_ITS ---
Test Reason : SOB Blood Pressure : */* mmHG Vent. Rate : 58 BPM Atrial Rate : 58 BPM P-R Int : 146 ms QRS Dur : 116 ms QT Int : 482 ms P-R-T Axes : 36 57 56 degrees QTcB Int : 473 ms Sinus bradycardia with occasional Premature ventricular complexes Possible Left atrial enlargement Incomplete right bundle branch block Nonspecific ST abnormality Abnormal ECG When compared with ECG of 31-Mar-2024 16:09, Premature ventricular complexes are now Present Referred By: Darya Sanchez Electronically Signed By: SEBASTIEN BEST
[2025-05-26 19:15] VITALS: BP 182/56; PULSE 57; RESP 16; TEMP 36.6; O2SAT 94
[2025-05-26 19:26] VITALS: BP 182/56; PULSE 57
[2025-05-26 19:36] VITALS: BP 182/56
[2025-05-26] MEDS: Furosemide 20 MG/2 ML VIAL IVPUSH (19:36)
--- NOTE | 2025-05-26 19:47 | PC.NURSE ---
RN took over care of this pt at 1900; Upon entering room pt stated having sob- pt was medicated per mar orders. Pts O2 was stating in the 90s- RN put pt on 2L NC. Pt tolerated well. Stated sob improved- pt stating around 95%. Pt placed on lozenge maker. Will continue to monitor.. Pt able to make needs known.
[2025-05-26 20:06] LABS: D Dimer High Sensitivity 223 NG/ML
[2025-05-26 20:10] LABS: Troponin-I High Sensitivity 12.2 ng/L (<3.5-35.0)
--- NOTE | 2025-05-26 21:36 | MHC.EDTECH ---
PATIENT AMBULATED WITH STEADY GATE.PATIENTS O2 PRIOR WAS 95 PULSE RATE 64 RESPIRATIONS 18.AFTER AMBULATION PATIENTS O2 WAS 94 ,PULSE RATE 92 ,RESPIRATIONS 18.
[2025-05-26 23:59] VITALS: BP 146/85; PULSE 60; RESP 18; TEMP 36.9; O2SAT 95
== END 2025-05-27 | disposition home or self-care (01) ==
PROVIDERS: Physician Assistant Medical; Emergency Provider Student in an Organized Health Care Education/Training Program
DX: J81.0 Acute pulmonary edema (principal); R06.02 Shortness of breath; R53.83 Other fatigue; I25.2 Old myocardial infarction; E11.9 Type 2 diabetes mellitus without complications; I10 Essential (primary) hypertension; Z95.1 Presence of aortocoronary bypass graft; Z03.818 Encounter for observation for suspected exposure to other biological agents ruled out
CPT/HCPCS: 36415; 71046; 80048; 80076; 83735; 83880; 84484; 85025; 85379; 87502; 87635; 93005; 96374; 99284; J1938

== ENCOUNTER → 2025-05-26 14:59 | Outpatient (BNV) | payer MEDICARE, SELFPAY | PROVIDERS: Visit Provider Radiology Diagnostic Radiology | DX: I51.7 Cardiomegaly (principal) | CPT/HCPCS: 71046 ==

== ENCOUNTER → 2025-05-26 18:43 | Outpatient (BNV) | payer MEDICARE, SELFPAY | PROVIDERS: Emergency Provider Student in an Organized Health Care Education/Training Program; Visit Provider Internal Medicine | DX: R00.1 Bradycardia, unspecified (principal); I49.3 Ventricular premature depolarization; I45.10 Unspecified right bundle-branch block | CPT/HCPCS: 93010 ==

== ENCOUNTER 2025-05-28 09:06 | Outpatient (AMB) | payer MEDICARE, SELFPAY ==
--- OUTSIDE RECORDS SUMMARY | 2024-11-25 04:30 | XMS_ITS ---
Author Organization [facility] Address [address] [place] [address] Care Team Providers Care Fiber Picker Name Role Phone Morena FLORES, Chace Primary Care Provider UnavailJv Noel [phone] Encounters Encounter Location Date Provider Diagnosis [address] [address] 11/25/2024 Jv Garrett Plan Of Treatment Next Appt Details Provider Name:Jv Garrett , 12/13/2025 09:00:00 AM, [address] [place] [address], [phone], Progress Notes * EVETTESOWMYANETTIETyreseKaleb RDOB: [birth year] (69 yo M)Acc No.[id number]:11/25/2024 Progress Note Patient: Mando CASEYl Marcelo Provider: [...] 0 11/25/2024 Generated for Leda lindsay/Jaun/Karime on: 09:31 AM EDT
--- NOTE | 2025-05-28 09:08 | A.OFFPC_ITS ---
Vital Signs 05/28/25 09:09 Height 5 ft 6 in Weight 213 lb 8 oz BMI 34.5 BP 142/62 H Blood Pressure Location Lt brachial Position Sitting Pulse 59 Pulse Source Pulse Oximeter Temp 97.1 F Temp Source Temporal Artery Scan Pulse Oximetry (%) 95 Oxygen Delivery Method Room Air Int[place] [facility] [place] Accompanied by: Spouse Allergies lisinopril Allergy (Unknown, Verified 05/28/25 09:12) cough Medication List - Last Reconciled 05/28/25 by Sharonda Cabrera NP amlodipine 10 mg PO DAILY 90 days aspirin 81 mg PO DAILY atorvastatin 20 mg PO DAILY blood sugar diagnostic (FreeStyle Lite Strips) As directed Check blood sugar t.i.d. blood-glucose meter (FreeStyle Lite Meter kit) As directed Check blood sugar t.i.d. carvedilol 6.25 mg PO BID clopidogrel 75 mg PO DAILY colestipol 2 grams (2 x 1 gram) PO DAILY dapagliflozin propanediol (Farxiga) 10 mg PO QAM dulaglutide (Trulicity) 1.5 mg (0.5 mL) subcut QWEEK Held on 05/28/25. Instructions: Switching to Farxiga per Cardio recommendations. furosemide (Lasix) 20 mg PO DAILY 7 days hydrochlorothiazide 25 mg PO DAILY insulin NPH and regular human 100 unit/mL (70-30) (Humulin 70/30 U-100 Insulin) 17 units with breakfast and 11 units with dinner subcutaneously 2 times a day. 30 days insulin syringe-needle U-100 (BD Insulin Syringe Ultra-Fine) twice a day lancets (FreeStyle Lancets) As directed Check blood sugar t.i.d. losartan 50 mg PO DAILY metformin 1,000 mg PO BID nitroglycerin 0.4 mg sublingual Q5M PRN pen needle, diabetic (BD Araceli 2nd Gen Pen Needle) twice a day Tobacco use date assessed: 05/28/25 Fall risk assessment: No Falls in past year Last assessed Fall Risk: 05/28/25 Dental Screening Dental Screen Date: 05/28/25 Did you have a dental visit in the last 12 months?: Yes Did you have a dental problem in the last 6 months where you did not have access to dental care?: No Was dental information given to patient?: Patient has dentist HPI HPI Comments History of Present Illness Details 69 y/o Male patient who presents to the clinic today for EDF. PMHx significant for CAD status post CABG, diabetes, NSTEMI, obesity, neuropathy, and hypertension. He is Accompanied by who assist with Translation today. He was [place] [facility] [place] - 05/27/25 for an evaluation of increased shortness of breath, Abdominal Pressure, decrease appetite and fatigue. Chest x-ray showed Cardiomegaly. Patient was diagnosed and treated for pulmonary edema due to his chronic CHF. Patient was discharged home on Lasix 20 mg for 7 days. 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 He was advised to go to ED due to Severe SOB and Hypoxia. Pt is waiting for a F/U Appointment with Cardiology Post Hospital discharge. Per ; Finance Business Partner recommended Switching Trulicity to Farxiga. Finance Business Partner recommended Sleep Study to r/o ESTELA - they are to order the study according to the . reports that Patient has trouble Falling and staying Asleep due to Snoring at night. 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 Son No problems noted. Son No problems noted. Social History Housing: Apartment Alcohol intake: never Patient Tobacco Use Status: Never used Tobacco Tobacco use type: Cigarette e-Cigarette/Vaping Use: Never Used Second Hand Smoke Exposure: No service: No Current occupational status: unemployed Cognitive needs: No Hearing needs: No Vision needs: Yes (glasses) Questionnaire PHQ-9 Over the last 2 weeks, how often have you been bothered by any of the following problems? 1. Little interest or pleasure in doing things: not at all 2. Feeling down, depressed, or hopeless: not at all 3. Trouble falling or staying asleep, or sleeping too much: not at all 4. Feeling tired or having little energy: not at all 5. Poor appetite or overeating: not at all 6. Feeling bad about yourself - or that you are a failure or have let yourself or your family down: not at all 7. Trouble concentrating on things, such as reading the newspaper or watching television: not at all 8. Moving or speaking so slowly that other people could have noticed. Or the opposite - being so fidgety or restless that you have been moving around a lot more than usual: not at all 9. Thoughts that you would be better off or of hurting yourself in some way: not at all Total score: 0 Depression Screening Interpretation: Negative Depression Screening Done: Yes Source: Developed by Drs. Jean Cordon, Carol Engel, Zac Navarro and colleagues, with an educational gerda from [employer]. Thrive Questionnaire Date Thrive assessed: 12/25/24 I am a: Patient What is your living situation today?: I have a steady place to live Within the past 12 months, did the food you bought not last and you didn't have the money to get more?: Never true Within the past 12 months, did you worry whether your food would run out before you got money to buy more?: Often true Do you have trouble paying for medicines?: I choose not to answer this question Do you have trouble getting transportation to medical appointments?: No Do you have trouble paying your heating and electricity bill?: No Do you have trouble taking care of your child, family member or friend?: No Do you have trouble with day-to-day activities such as bathing, preparing meals, shopping, managing finances, etc.?: No Are you currently unemployed and looking for a job?: No Are you interested in more education?: No Please select the resources that you would like help with: None Currently or been in a relationship where the following occur: No concerns reported THRIVE Score: 1 AUDIT C Alcohol Use Questionnaire (AUDIT-C) 1. How often do you have a drink containing alcohol?: Never 3. How often do you have six or more drinks on one occasion?: Never Total Score: 0 PATRICIO-7 AMB Questionnaire PATRICIO-7 Date PATRICIO - 7 assessed: 12/25/24 Feeling nervous, anxious, or on edge: 0 = Not at all Not being able to stop or control worryin = Not at all Worrying too much about different things: 0 = Not at all Trouble relaxin = Not at all Being so restless that it is hard to sit still: 0 = Not at all Becoming easily annoyed or irritable: 0 = Not at all Feeling afraid as if something awful might happen: 0 = Not at all Total PATRICIO-7 score (0-4 normal; 5-9 mild; 10-14 moderate; 15-21 severe): 0 Source: Developed by Drs. Jean Cordon, Carol Engel, Zac Navarro and colleagues, with an educational gerda from [employer]. Review of Systems Const All systems reviewed & are unremarkable except as noted in HPI and below Physical exam (Primary Care) Vital Signs: Last Vital Signs Temp 97.1 F 05/28/25 09:09 Pulse 59 05/28/25 09:09 BP 142/62 H 05/28/25 09:09 Pulse Ox 95 05/28/25 09:09 Oxygen Delivery Method Room Air 05/28/25 09:09 BMI result Body Mass Index 34.5 Tobacco/Smoking Status: Tobacco use Status Tobacco use date assessed 05/28/25 05/28/25 09:14 Patient Tobacco Use Status Never used Tobacco 05/28/25 09:14 Tobacco use type Cigarette 05/28/25 09:14 e-Cigarette/Vaping Use Never Used 05/28/25 09:14 PHQ-9: PHQ-9 Score PHQ-9: Total score 0 05/28/25 09:21 Depression Screening Interpretation: Negative Thrive Assessment: Date of Thrive Assessment Date Thrive assessed 12/25/24 05/28/25 09:14 Currently or been in a relationship where the following occur: No concerns reported Const General: no acute distress Nutritional Appearance: obese Orientation/consciousness: patient oriented x3 Resp Effort & Inspection: normal respiratory effort, able to speak in complete sentences, no audible wheezes and no cough Auscultation: crackles bilateral in the lower lung grimes, no rales, no rhonchi and no wheezes Cardio Heart sounds: S1 normal heart sound present and S2 normal heart sound present Neuro General: patient oriented x3 and gait normal Psych Speech and movement: Normal speech and movement present Coding Level of Care Code Est Pt Level 4 (76155) Diagnoses Acute pulmonary edema J81.0 Chronicity: acute Time Spent (min) 20 Assessment & Plan Assessment & Plan (1) Pulmonary edema: Code(s): J81.1 - Chronic pulmonary edema Category: Medical Qualifiers: Chronicity: acute Qualified Code(s): J81.0 - Acute pulmonary edema Plan: Managed by [facility] [place] Cardiology. Advised to continue Taking Lasix as prescribed. Will Switch Trulicity to Farxiga as recommended by Cardiology. Will Hold Trulicity for now, Pending Insurance coverage for Farxiga. Per Cardiology, they are to ordered Sleep Study Medications: New dapagliflozin propanediol (Farxiga) 10 mg PO QAM 30 tabs 0RF J81.0 - Acute pulmonary edema On Hold dulaglutide (Trulicity) Hold Comment: Switching to Farxiga per Cardio recommendations. 1.5 mg (0.5 mL) subcut QWEEK 2 mL 5RF
[2025-05-28 09:09] VITALS: BP 142/62; PULSE 59; TEMP 36.2; O2SAT 95; BMI 34.5
--- OUTSIDE RECORDS SUMMARY | 2025-05-28 09:32 | XMS_ITS | Clinical Summary ---
Author Organization [facility] Address [address] [place] [address] Care Team Providers Care Erosion Control Coordinator Name Role Phone Unavailable Primary Care Provider [...]
--- OUTSIDE RECORDS SUMMARY | 2025-05-28 09:32 | XMS_ITS | Patient Health Record ---
[facility] Address [address] [facility] [place] [address] Care Team Providers Care Laborer Drying Department Name Role Phone Chace Berg MD Primary Care Provider Jv Ventura Unavailable [phone] Allergies No Known Allergies Results Component Value [...] Foot Deformity(M20.41,M20. 42), Preulcerative Skin Lesion(s)(L85.1) Wear Daily; Duration: 365 days Active Metoprolol Tartrate 50 MG [...] MG 1 capsule Orally Three times a day; Duration: 10 days Not-Taking Immunizations Vaccine Route Administration [...] Problem Acquired hammer toe of right foot (107129978207078 5) Other hammer toe(s) (acquired), right foot (M20.41) Active confirmed Problem Acquired hammer toe of left foot (070151505668309 3) Other hammer toe(s) (acquired), left foot (M20.42) Active confirmed Problem Peripheral circulatory disorder associated with type 1 diabetes mellitus (560594659) Type 1 diabetes mellitus with diabetic peripheral angiopathy without gangrene (E10.51) Active confirmed Vital Signs Blood pressure diastolic 70 mm Hg 10/09/2024 Height 5ft 7in in 12/14/2024 Blood pressure systolic 130 mm Hg 10/09/2024 Weight 216 lbs 12/14/2024 BMI 33.83 kg/m2 12/14/2024 Procedures Procedure Date Ordered Date Performed Result Body Sit e 09458-Ykiryusb Plate 10/09/2024 N/A 03194-QXPMAFC NAIL, 6 OR MORE 12/14/2024 N/A 37591-MAIX SKIN LESIONS, OVER 4 12/14/2024 N/A Encounters Encounter Location Date Provider Diagnosis [facility] [place] [address] [place] [address] 10/09/2024 Jv Garrett Ingrown nail L60.0 ; Cellulitis of toe of left foot L03.032 and Type 1 diabetes mellitus with diabetic peripheral angiopathy without gangrene E10.51 [facility] [address] [facility] [address] [place] [address] 12/14/2024 Jv Chingunier Type 1 diabetes mellitus with diabetic peripheral angiopathy without gangrene E10.51 ; Tinea unguium B35.1 ; Pain in right toe(s) M79.674 ; Pain in left toe(s) M79.675 ; Other hammer toe(s) (acquired), left foot M20.42 and Other hammer toe(s) (acquired), right foot M20.41 [facility] [address] [place] [address] 11/24/2024 Jv Garrett Assessments Encounter Date Diagnosis [...] Treatment Pending Test Test Name Order Date 87836-BYUMYJY NAIL, 6 OR MORE 02/24/2016 93234-INGTUWU NAIL, 6 OR MORE 07/09/2016 05721-GKCVPRR NAIL, 6 OR MORE 10/11/2016 98492-AQIYLOH NAIL, 6 OR MORE 10/03/2017 34504-WZWUEMP NAIL, 6 OR MORE 10/09/2018 77976-PCWDDSC NAIL, 6 OR MORE 05/12/2020 18967-QIVPSWX NAIL, 6 OR MORE 06/22/2021 54163-VBDGHLN NAIL, 6 OR MORE 06/27/2022 20080-RAUJHNI NAIL, 6 OR MORE 11/28/2022 40186-IIZSJCJ NAIL, 6 OR MORE 11/27/2023 38996-TJTGFRV NAIL, 6 OR MORE 12/14/2024 09628-Jcnagawo Plate 10/09/2024 80635-YHEF SKIN LESIONS, OVER 4 12/15/19 25 81335-IDCL SKIN LESIONS, OVER 4 11/27/19 24 72774-IMBH SKIN LESIONS, OVER 4 11/29/19 23 06809-HFTE SKIN LESIONS, OVER 4 06/27/20 22 33062-GCRA SKIN LESIONS, OVER 4 06/22/20 21 04317-VSJG SKIN LESIONS, OVER 4 05/12/20 20 89711-SQCE SKIN LESIONS, OVER 4 10/09/19 19 81730-EDSF SKIN LESIONS, 2 TO 4 10/11/19 17 99794-LSFR SKIN LESIONS, 2 TO 4 10/03/19 18 25992-DIGR SKIN LESIONS, 2 TO 4 07/09/20 16 84513-QOOR SKIN LESIONS, 2 TO 4 02/24/20 16 Next Appt Details Provider Name:Jv Garrett , 12/13/2025 09:00:00 AM, [address] [facility], [address], [place], [address], Insurance Providers Payer Name Payer Address Payer Phone Subscriber Number Group Number Insured Name Patient Relationship to Insured Coverage Start Date Coverage End Date [employer] [place] [employer] [address] [place] [address] [id number] Kaleb Sr Self - patient is the [...]
--- OUTSIDE RECORDS SUMMARY | 2025-05-28 09:32 | XMS_ITS | Patient Health Record ---
Author Organization [facility] Address [address] [place] [address] Care Team Providers Care Receiving Specialist Name Role Phone Chace Berg MD Primary Care Provider Jean Smiley Unavailable [phone] Reason For Referral No Information Medications Medication [...] Problem Status W/U Status Risk Notes Problem 479905903 Encounter for screening for malignant neoplasm of colon (Z12.11) Active confirmed Problem Screening for malignant neoplasm of rectum (719437007) Encounter for screening for malignant neoplasm of rectum (Z12.12) Active confirmed Problem 63871506 Preprocedural examination (Z01.818) Active confirmed Problem 043488592 Long-term use of aspirin therapy (Z79.82) Active confirmed Plan Of Treatment Future Test Test Name Order Date COLONOSCOPY 08/11/2015 Insurance Providers Payer Name Payer Address Payer Phone Subscriber Number Group Number Insured Name Patient Relationship to Insured Coverage Start Date Coverage End Date [facility] [address] [facility] [place], [place] [phone] [id number] JORGE CABELLO Self - patient is the insured Medical (General) History Medical History History ICD Code IDDM NM in approx 1989 in [facility] t he CABG Hypertension Hyperlipidemia Denies CVA,Lung disease,renal disease Peripheral vascular disease with surgeri es as below His describes sleep apnea and snori ng, but not officially diagnosed Surgical History Surgery Date(Month/Year) Vascular disease--Right carotid, left ca rotid x 2, bilateral LE's CABG 2008 Multiple surgeries for peria nal and perirectal disease--in the [facility] and with Dr. Colorado--last time approx. 2005 Appmary ann
== END 2025-05-28 09:43 | disposition home or self-care (01) ==
LOC: HO.HMCH 09:07
PROVIDERS: Visit Provider Nurse Practitioner Family
DX: J81.0 Acute pulmonary edema (principal)

== ENCOUNTER → 2025-05-28 09:06 | Outpatient (BNVA) | payer MEDICARE, SELFPAY | PROVIDERS: Visit Provider Nurse Practitioner Family | DX: J81.0 Acute pulmonary edema (principal); I25.10 Atherosclerotic heart disease of native coronary artery without angina pectoris; I25.2 Old myocardial infarction; I10 Essential (primary) hypertension; G62.9 Polyneuropathy, unspecified | CPT/HCPCS: 96127; 99212 ==

== ENCOUNTER 2025-06-03 16:55 | Outpatient (RCR) | payer MEDICARE, SELFPAY ==
--- NOTE | 2025-05-20 13:35 | MHC.PT.EP ---
[facility] [place] Office [place] Office [place] Office [address] Js Arriaga [address] [phone] F: [phone] F: [phone] F: [phone] F: [phone] Physical Therapy Plan of Care Date of Evaluation: 05/17/25 Date of Surgery: Diagnosis: LEFT KNEE PAIN (KP) Assessment: JORGE IS A PLEASANT 69 YO MALE WHO PRESENTS WITH KNEE PAIN, CHRONIC IN NATURE, PERHAPS A YEAR AND A HALF OR SO. NO LELIA. HE STATES THAT WHEN HE FIRST WAKES UP IN THE MORNING, THE KNEE CRACKS SEVERAL TIME. IT IMPROVES WITH STRETCHING ALTHOUGH A DULL, ACHY PAIN CONTINUES THROUGHOUT THE DAY. HE PERFORMS HIP FELXION STRETCHING AND HIP STRETCHING. PAIN IS INDICATED IN MEDIAL KNEE REGION. WEARS KNEE SLEEVE FOR ADDITIONAL SUPPORT. HE RESIDES IN [facility] WITH 3 FLOORS. PAIN IS SLIGHT AGGREVATED WITH STAIRS. UPON EXAM, IMPAIRMENTS INCLUDE DECREASED KNEE ROM, DECREASED STRENGTH OF LE, ALTERED GAIT PATTERN, INCREASED PAIN. HE DEMONSTRATES MUCULAR LENGTH AND STRENGTH IMBALANCES LEADING TO ALTERED GAIT PATTERNING AND INCREASING STRESS THROUGH KNEE JOINT. FUNCTIONAL LIMITATIONS INCLUDE DECREASED TOLERANCE TO LONG PERIOSD OF STATIC STANDING, WALKING AND STAIR NEGOTIATION. HE REPORTS DECREASED PARTICIPATION IN FITNESS AND RECREATIONAL ACTIVITIES. Frequency and Duration: The patient will be seen 2 X WEEK FOR 4 WEEKS Short Term Goals: INITIATE HEP AND PROMOTE SELF MANAGEMENT OF SYMPTOMS Program Planner Goals: KNEE Patient will perform functional activities (e.g., walking, stair climbing, lifting =20 lbs) independently without pain or compensatory movement. Patient will complete full LE range of motion without pain or substitution. Patient will improve LE strength to 4+/5 as measured by manual muscle testing to support LE during ADLs and work tasks. Patient will maintain pain =2/10 during work and recreational tasks for one week. Patient will return to pre-injury occupational and recreational activities without pain flare-up. Patient will verbalize and demonstrate proper body mechanics and independent home exercise program (HEP) compliance with =90% accuracy. Treatment Plan: Modalities to reduce pain, spasms and effusion. Manual therapy to restore motion and function. Therapeutic exercise to improve strength and flexibility. Neuromuscular re-education for posture and balance. Therapeutic activities to return to functional activities of daily living. Electronically signed by: BARTOLO HONG PT DPT Please sign and return to therapist. Thank you for your referral.
--- NOTE | 2025-06-16 10:29 | MHC.PT.DC ---
[facility] [place] Office [place] Office [place] Office [address] Js Arriaga [address] [phone] F: [phone] F: [phone] F: [phone] F: [phone] Physical Therapy Discharge Report Diagnosis: LEFT KNEE PAIN (KP) Date of Surgery: Date of Evaluation: 05/17/25 Date of Discharge: 06/16/25 Treatments to Date: 3 Cancellations to Date: 4 No Shows to Date: Discharge Status: Visit Non-compliance Discharge Summary: Pt CANCELLED 4 TOTAL VISITS INCLUDING LAST TWO SCHEDULED APPOINTMENTS. WE WILL DC HIM AT THIS TIME PER DEPARTMENT ATTENDANCE POLICY Electronically signed by: BARTOLO HONG PT DPT Please sign and return to therapist. Thank you for your referral.
== END 2025-06-16 10:27 | disposition home or self-care (01) ==
LOC: HO.PT 16:55
DX: M25.561 Pain in right knee (principal)
CPT/HCPCS: 97110; 97161; 97530; 97535

== ENCOUNTER 2025-07-19 06:09 | Outpatient (REF) | payer MEDICARE, SELFPAY ==
--- OUTSIDE RECORDS SUMMARY | 2024-11-25 03:30 | XMS_ITS ---
Author Organization [facility] Address [address] [facility] [place] [address] Care Team Providers Care Modeling And Simulation Analyst Name Role Phone Morena FLORES, Chace Primary Care Provider UnavailJv Noel [phone] Encounters Encounter Location Date Provider Diagnosis [address] [address] 11/25/2024 Jv Garrett Plan Of Treatment Next Appt Details Provider Name:Jv Garrett , 12/13/2025 09:00:00 AM, [address] [place] [address], [phone], Progress Notes * EVETTESOWMYANETTIETyreseKaleb RDOB: [birth year] (69 yo M)Acc No.[id number]:11/25/2024 Progress Note Patient: Mando CASEYl Marcelo Provider: Katy Garrett DPM :1955 A ge:69 Y S ex:Male Date:11/25/2024 Address:[address], [place] Pcp:Chace Berg MD Subjective: * Chief Complaints: * * Medical History: Objective: * Vitals: Assessment: Plan: * Treatment: * Images: * The named appointment provid er may or may not be the originator of this progress note, and it is not deemed complete until electronically signed by the appointment provider. Sign off status: Pending * Provider: Katy Garrett DPM Date: 0 11/25/2024 Generated for Leda lindsay/Jaun/Karime on: 09/18/2024 06:11 AM EST
--- OUTSIDE RECORDS SUMMARY | 2025-07-19 06:12 | XMS_ITS | Clinical Summary ---
Author Organization [facility] Address [address] [place] [address] Care Team Providers Care Silver Brazer Name Role Phone Unavailable Primary Care Provider [...] of 2) 2006 COVID-19 Vaccine ( - 2024-2 6 season) 2025 Influenza (#1) 2025 RSV (1 [...]
--- OUTSIDE RECORDS SUMMARY | 2025-07-19 06:12 | XMS_ITS | Patient Health Record ---
Author Organization [facility] Address [address] [place] [address] Care Team Providers Care Machine Repairman Name Role Phone Chace Berg MD Primary Care Provider Jean Smiley Unavailable [phone] Reason For Referral No Information Medications Medication SIG (Take, Route, Frequency, Duration) Notes Start Date End Date Status Fish Oil Active Aspirin 81 MG Tablet Delayed Release 1 tablet Orally Once a day Active Colyte w Flavor Packs 240 GM Solution Reconstituted as directed Orally as directed; Duration: 1 day(s) 08/12/2015 Active Metoprolol Tartrate 50 MG Tablet 1 tablet Orally Twice a day Active Lisinopril-hydroCHLOROthiaz krystal 20-25 MG Tablet 1 tablet Orally Once a day Active amLODIPine Besylate 10 MG Tablet 1 tablet Orally Once a day Active Clopidogrel Bisulfate 75 MG Tablet 1 tablet Orally Once a day Active Simvastatin 20 MG Tablet 1 tablet in the evening Orally Once a day Active metFORMIN HCl 1000 MG Tablet 1 tablet with meals Orally Twice a day Active Lantus 100 UNIT/ML Solution 50 units Sub cutaneous at HS Active Social History Social History Additional Details Category Social Info Options Details Miscellaneous: Marital status: Occupation: Disabled Section Notes: Nonsmoker since 2013; no sig alcohol Problems Problem Type SNOMED Code ICD Code Onset Dates Problem Status W/U Status Risk Notes Problem Screening for malignant neoplasm of colon (819712642) Encounter for screening for malignant neoplasm of colon (Z12.11) Active confirmed Problem Screening for malignant neoplasm of rectum (938764855) Encounter for screening for malignant neoplasm of rectum (Z12.12) Active confirmed Problem Preprocedural examination (283830650530870) Preprocedural examination (Z01.818) Active confirmed Problem Long-term current use of antiplatelet drug (363271044817706) Long-term use of aspirin therapy (Z79.82) Active confirmed Plan Of Treatment Future Test Test Name Order Date COLONOSCOPY 08/11/2015 Insurance Providers Payer Name Payer Address Payer Phone Subscriber Number Group Number Insured Name Patient Relationship to Insured Coverage Start Date Coverage End Date [facility] [address] [facility] [place] [phone] [id number] JORGE CABELLO Self - patient is the insured Medical (General) History Medical History History ICD Code IDDM PR in approx 1989 in [facility]G Hypertension Hyperlipidemia Denies CVA,Lung disease,renal disease Peripheral vascular disease with surgeri es as below His describes sleep apnea and snori ng, but not officially diagnosed Surgical History Surgery Date(Month/Year) Vascular disease--Right carotid, left ca rotid x 2, bilateral LE's CABG 2008 Multiple surgeries for peria nal and perirectal disease--in the [facility] and with Dr. [place]--last time approx. 2005 Appy
--- OUTSIDE RECORDS SUMMARY | 2025-07-19 06:12 | XMS_ITS | Patient Health Record ---
Author [facility] Address [address] [facility] [place] [address] Care Team Providers Care Sales Professional Name Role Phone Chace Berg MD Primary Care Provider Jv Ventura Unavailable [phone] Allergies No Known Allergies Results Component Value [...] Problem Acquired hammer toe of right foot (353271584003866 5) Other hammer toe(s) (acquired), right foot (M20.41) Active confirmed Problem Acquired hammer toe of left foot (763915215863691 3) Other hammer toe(s) (acquired), left foot (M20.42) Active confirmed Problem Peripheral circulatory disorder associated with type 1 diabetes mellitus (912091813) Type 1 diabetes mellitus with diabetic peripheral angiopathy without gangrene (E10.51) Active confirmed Vital Signs Blood pressure diastolic 70 mm Hg 10/09/2024 Height 5ft 7in in 12/14/2024 Blood pressure systolic 130 mm Hg 10/09/2024 Weight 216 lbs 12/14/2024 BMI 33.83 kg/m2 12/14/2024 Procedures Procedure Date Ordered Date Performed Result Body Sit e 29078-Tyuheawy Plate 10/09/2024 N/A 98033-VGUAXLR NAIL, 6 OR MORE 12/14/2024 N/A 46450-NGGM SKIN LESIONS, OVER 4 12/14/2024 N/A Encounters Encounter Location Date Provider Diagnosis [facility] [place] [address] [place] [address] 10/09/2024 Jv Garrett Ingrown nail L60.0 ; Cellulitis of toe of left foot L03.032 and Type 1 diabetes mellitus with diabetic peripheral angiopathy without gangrene E10.51 [facility] [address] [facility] [address] [place] [address] 12/14/2024 Jv Chingunier Type 1 diabetes mellitus with diabetic peripheral angiopathy without gangrene E10.51 ; Tinea unguium B35.1 ; Pain in right toe(s) M79.674 ; Pain in left toe(s) M79.675 ; Other hammer toe(s) (acquired), left foot M20.42 and Other hammer toe(s) (acquired), right foot M20.41 [facility] [address] [place] [address] 11/24/2024 Jv Garrett Assessments Encounter Date Diagnosis (ICD Code) Assessment Notes Treatment Notes Treatment Clinical Notes Section Notes 12/14/2024 Type 1 diabetes mellitus with diabetic peripheral angiopathy without gangrene (ICD-10 - E10.51) 10/09/2024 Ingrown nail (ICD-10 - L60.0) 10/09/2024 Cellulitis of toe of left foot (ICD-10 - L03.032) 10/09/2024 Type 1 diabetes mellitus with diabetic [...] Treatment Pending Test Test Name Order Date 48860-RMDSJXQ NAIL, 6 OR MORE 02/24/2016 71281-VXEEPKJ NAIL, 6 OR MORE 07/09/2016 90722-ZTYEBIE NAIL, 6 OR MORE 10/11/2016 57076-YMJMEJN NAIL, 6 OR MORE 10/03/2017 59892-IEAERFE NAIL, 6 OR MORE 10/09/2018 47674-IXMOFPW NAIL, 6 OR MORE 05/12/2020 81341-CBPLPHT NAIL, 6 OR MORE 06/22/2021 71448-KTAGLFI NAIL, 6 OR MORE 06/27/2022 90433-BASTTJP NAIL, 6 OR MORE 11/28/2022 89907-AIOPFXZ NAIL, 6 OR MORE 11/27/2023 33932-RTBZBGD NAIL, 6 OR MORE 12/14/2024 80214-Fujrntgx Plate 10/09/2024 89024-NPJD SKIN LESIONS, OVER 4 12/15/19 25 54970-LVEQ SKIN LESIONS, OVER 4 11/27/19 24 49400-BFCI SKIN LESIONS, OVER 4 11/29/19 23 57998-OXKP SKIN LESIONS, OVER 4 06/27/20 22 56990-HARA SKIN LESIONS, OVER 4 06/22/20 21 10125-GEIW SKIN LESIONS, OVER 4 05/12/20 20 99226-HRSO SKIN LESIONS, OVER 4 10/09/19 19 39922-HVGO SKIN LESIONS, 2 TO 4 10/11/19 17 47585-CRNC SKIN LESIONS, 2 TO 4 10/03/19 18 26849-LWVF SKIN LESIONS, 2 TO 4 07/09/20 16 69409-NRHA SKIN LESIONS, 2 TO 4 02/24/20 16 Next Appt Details Provider Name:Jv Garrett , 12/13/2025 09:00:00 AM, [address] [facility], [address], [place], [address], Insurance Providers Payer Name Payer Address Payer Phone Subscriber Number Group Number Insured Name Patient Relationship to Insured Coverage Start Date Coverage End Date [employer] [address] [place] [id number] Kaleb Sr Self - patient is the [...]
[2025-07-19 06:27] LABS: MANUAL DIFF FLAG NO
[2025-07-19 08:14] LABS: Hematocrit 46.6 % (42.0-52.0); Hemoglobin 15.4 g/dl (14.0-18.0); Imm Gran Abs Auto 0.02 X10*3/uL (0.00-0.03); Imm Gran Pct Auto 0.3 % (0.0-0.4); Lymphocytes Absolute Auto 2.6 X10*3/uL (1.2-4.9); Mean Corpuscular HGB Conc 33.0 g/dl (31.0-36.0); Mean Corpuscular Hemoglobin 29.1 pg (27.0-33.0); Mean Corpuscular Volume 87.9 fL (80.0-98.0); NRBC Abs Auto 0.000 X10*3/uL (0.0-0.012); NRBC Pct Auto 0.0 /100WBC (0.0-0.2); Platelet Count 236 X10*3/uL (160-400); Red Blood Count 5.30 X10*6/uL (4.60-5.80); White Blood Count 7.8 X10*3/uL (4.8-10.8)
[2025-07-19 08:44] LABS: Alanine Aminotransferase 25 U/L (0-40); Albumin Level 4.4 g/dL (3.5-5.0); Alkaline Phosphatase 64 U/L (39-117); Anion Gap 12 (12-20); Aspartate Amino Transferase 21 U/L (5-37); Blood Urea Nitrogen 26 mg/dL (9-16); Calcium 9.6 mg/dL (8.4-10.2); Carbon Dioxide 27 mmol/L (22-29); Chloride 106 mmol/L (96-108); Cholesterol 121 mg/dL (<200); Estimated Glomerular Filt Rate > 60; HDL Cholesterol 33 mg/dL (>40); Potassium 4.1 mmol/L (3.3-5.1); Sodium 141 mmol/L (135-145); Total Protein 6.8 g/dL (6.5-8.0); Triglycerides 113 mg/dL (<150)
[2025-07-19 08:51] LABS: Appearance Urine Clear; Glucose Urine UA >=1000 mg/dL (Negative); PH 5.0 (5.0-9.0); Specific Gravity - Urine 1.025 (1.005-1.025); UMIC TRIGGER UACC YES
[2025-07-19 08:59] LABS: PSA,Total (Free>4and<10) 1.69 ng/mL (0.00-4.00)
[2025-07-19 09:35] LABS: Microalbum/Creatinine Ratio Ur 94.0 ug/mg cr (<30)
== END 2025-07-19 06:10 | disposition home or self-care (01) ==
LOC: HO.LAB 06:09
DX: Z00.00 Encounter for general adult medical examination without abnormal findings (principal); Z12.5 Encounter for screening for malignant neoplasm of prostate; A41.9 Sepsis, unspecified organism; I21.4 Non-ST elevation (NSTEMI) myocardial infarction; I73.9 Peripheral vascular disease, unspecified; I25.10 Atherosclerotic heart disease of native coronary artery without angina pectoris; I65.22 Occlusion and stenosis of left carotid artery; I10 Essential (primary) hypertension; E78.5 Hyperlipidemia, unspecified; E11.65 Type 2 diabetes mellitus with hyperglycemia; E11.610 Type 2 diabetes mellitus with diabetic neuropathic arthropathy; E66.9 Obesity, unspecified; R79.89 Other specified abnormal findings of blood chemistry; Z79.4 Long term (current) use of insulin
CPT/HCPCS: 36415; 80053; 80061; 81001; 82043; 82306; 82570; 83036; 84153; 84443; 85025

== ENCOUNTER 2025-07-26 12:23 | Outpatient (AMB) | payer MEDICARE, SELFPAY ==
--- NOTE | 2025-07-26 12:36 | MHC.PC.OV ---
Vital Signs 07/26/25 12:37 Height 5 ft 6 in Weight 213 lb BMI 34.4 BP 132/60 Blood Pressure Location Lt brachial Position Sitting Pulse 47 L Pulse Source Pulse Oximeter Temp 96.9 F Temp Source Temporal Artery Scan Pulse Oximetry (%) 91 L Oxygen Delivery Method Room Air Intake Visit Reasons: dm/htn/hld Intake Note: Patient is here to follow up on DM, HTN, HLD. Technology Methodology Consultant Required: Yes Technology Methodology Consultant Language: Taiwanese Technology Methodology Consultant Name: Lisa (Spouse) Information Interpreted: non-clinical & clinical Integrated Marketing Specialist: Present Accompanied by: Spouse Allergies lisinopril Allergy (Unknown, Verified 07/26/25 12:46) cough Medication List - Last Reconciled 07/26/25 by Donna Carlton MD amlodipine 10 mg PO DAILY 90 days aspirin 81 mg PO DAILY atorvastatin 20 mg PO DAILY blood sugar diagnostic (FreeStyle Lite Strips) As directed Check blood sugar t.i.d. blood-glucose meter (FreeStyle Lite Meter kit) As directed Check blood sugar t.i.d. carvedilol 6.25 mg PO BID clopidogrel 75 mg PO DAILY colestipol 2 grams (2 x 1 gram) PO DAILY dapagliflozin propanediol (Farxiga) 10 mg PO QAM hydrochlorothiazide 25 mg PO DAILY insulin NPH and regular human 100 unit/mL (70-30) (Humulin 70/30 U-100 Insulin) 17 units with breakfast and 11 units with dinner subcutaneously 2 times a day. 30 days insulin syringe-needle U-100 (BD Insulin Syringe Ultra-Fine) twice a day lancets (FreeStyle Lancets) As directed Check blood sugar t.i.d. losartan 50 mg PO DAILY metformin 1,000 mg PO BID nitroglycerin 0.4 mg sublingual Q5M PRN pen needle, diabetic (BD Araceli 2nd Gen Pen Needle) twice a day Tobacco use date assessed: 07/26/25 Fall risk assessment: No Falls in past year Last assessed Fall Risk: 07/26/25 Dental Screening Dental Screen Date: 05/28/25 HPI HPI Comments History of Present Illness Details The patient is a 69 year old individual presenting for follow-up on his diabetes mellitus, hypertension and hyperlipidemia. The patient has a known allergy to lisinopril, which caused a cough. The patient's current medications include amlodipine 10 mg, baby aspirin, atorvastatin 20 mg, carvedilol, Plavix, Farxiga 10 mg, hydrochlorothiazide, losartan 50 mg, and metformin 1000 mg twice a day. The patient also takes Humalin 70/30, with a current dose of 17 units in the morning and 11 units at night. Regarding diabetes management, the patient's hemoglobin A1c is now 8%. The morning blood glucose was 160 mg/dL today. The patient was previously on Trulicity, which worked better for glycemic control, but was switched to Farxiga by cardiology for its cardiac benefits. Recent laboratory work also showed microalbuminuria, with a level of 114. This is an improvement from a level of 400 a year ago, likely due to treatment with losartan. Liver function tests, cholesterol, prostate, thyroid, and vitamin D levels were all normal. The patient sees a glass vial filler and a vascular surgeon at [facility] but does not have a surg tech. For preventative care, the last colonoscopy was in 2020, with the next one due in 2025. The last tetanus vaccine was in 2014, and the patient has not had a pneumonia vaccine. The patient denies any history of smoking or alcohol use. 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 Son No problems noted. Son No problems noted. Social History Housing: Apartment Alcohol intake: never Patient Tobacco Use Status: Never used Tobacco Tobacco use type: Cigarette e-Cigarette/Vaping Use: Never Used Second Hand Smoke Exposure: No service: No Current occupational status: unemployed Cognitive needs: No Hearing needs: No Vision needs: Yes (glasses) Questionnaire Thrive Questionnaire Date Thrive assessed: 12/25/24 I am a: Patient What is your living situation today?: I have a steady place to live Within the past 12 months, did the food you bought not last and you didn't have the money to get more?: Never true Within the past 12 months, did you worry whether your food would run out before you got money to buy more?: Often true Do you have trouble paying for medicines?: I choose not to answer this question Do you have trouble getting transportation to medical appointments?: No Do you have trouble paying your heating and electricity bill?: No Do you have trouble taking care of your child, family member or friend?: No Do you have trouble with day-to-day activities such as bathing, preparing meals, shopping, managing finances, etc.?: No Are you currently unemployed and looking for a job?: No Are you interested in more education?: No Please select the resources that you would like help with: None Currently or been in a relationship where the following occur: No concerns reported THRIVE Score: 1 PATRICIO-7 AMB Questionnaire PATRICIO-7 Date PATRICIO - 7 assessed: 12/25/24 Source: Developed by Drs. Jean Cordon, Carol Engel, Zac Navarro and colleagues, with an educational gerda from [employer]. Review of Systems Const All systems reviewed & are unremarkable except as noted in HPI and below Card Denies chest pain at rest, Denies chest pain with activity, Denies edema, Denies irregular heart rhythm, Denies claudication, Denies dyspnea, Denies dyspnea on exertion, Denies orthopnea, Denies paroxysmal nocturnal dyspnea and Denies slow heart rate Resp Denies cough, Denies dyspnea and Denies dyspnea on exertion Physical exam (Primary Care) Vital Signs: Last Vital Signs Temp 96.9 F 07/26/25 12:37 Pulse 47 L 07/26/25 12:37 BP 132/60 07/26/25 12:37 Pulse Ox 91 L 07/26/25 12:37 Oxygen Delivery Method Room Air 07/26/25 12:37 BMI result Body Mass Index 34.4 BMI Assessment/Plan discussion: High BMI High, discussed plan: lifestyle, weight reduction, dietary and physical activity Tobacco/Smoking Status: Tobacco use Status Tobacco use date assessed 07/26/25 07/26/25 12:44 Patient Tobacco Use Status Never used Tobacco 07/26/25 12:44 Tobacco use type Cigarette 07/26/25 12:44 e-Cigarette/Vaping Use Never Used 07/26/25 12:44 Thrive Assessment: Date of Thrive Assessment Date Thrive assessed 12/25/24 07/26/25 12:44 Currently or been in a relationship where the following occur: No concerns reported Resp Effort & Inspection: normal respiratory effort Auscultation: clear to auscultation bilaterally Cardio Jugular venous distension: no JVD Rate: regular rate Rhythm: regular rhythm Heart sounds: S1 normal heart sound present and S2 normal heart sound present Extrem General: Yes full ROM Immunizations pneumoc 20-fred conj-dip cr(PF) 0.5 mL IM syringe Performing Provider: Donna Carlton MD Performing Location: [facility] Administered by: Kristine Chaparro LPN on 07/26/25 13:21 Dose Route Admin Location Dispensed Lot Number Expiration Date [employer] 0.5 mL IM Right Deltoid 0.5 mL [id number] 05/25/26 1508-7058-47 [employer] Total Dispensed Waste 0.5 mL 0 % VIS Given Date VIS Provided VIS Publication Date 07/26/25 Single Vaccine 25 Eligibility Eligibility Date Funding Source Not VFC Eligible 07/26/25 Private Tenivac (PF) 5 Lf unit-2 Lf unit/0.5 mL intramuscular syringe Performing Provider: Donna Carlton MD Performing Location: [facility] Administered by: Kristine Chaparro LPN on 07/26/25 13:21 Dose Route Admin Location Dispensed Lot Number Expiration Date [employer] 0.5 mL IM Left Deltoid 0.5 mL [id number] 11/22/26 29803-155-98 [employer] Total Dispensed Waste 0.5 mL 0 % VIS Given Date VIS Provided VIS Publication Date 07/26/25 Single Vaccine 21 Eligibility Eligibility Date Funding Source Not VFC Eligible 07/26/25 Private Coding Level of Care Code Complex visit Add On G2211 Diagnoses Type 2 diabetes mellitus with diabetic neuropathic arthropathy, with long-term current use of insulin E11.610; Z79.4 Diabetes mellitus type: type 2 Diabetes mellitus intermediate frame tender insulin use: with senior living use Diabetes mellitus complication status: with diabetic arthropathy Diabetes mellitus complication detail: with neuropathic arthropathy Microalbuminuria R80.9 Essential hypertension I10 Dyslipidemia E78.5 Time Spent (min) 23 Assessment & Plan Assessment & Plan (1) Diabetes mellitus: Code(s): E11.9 - Type 2 diabetes mellitus without complications Category: Medical Qualifiers: Diabetes mellitus type: type 2 Diabetes mellitus intermediate frame tender insulin use: with senior living use Diabetes mellitus complication status: with diabetic arthropathy Diabetes mellitus complication detail: with neuropathic arthropathy Qualified Code(s): E11.610 - Type 2 diabetes mellitus with diabetic neuropathic arthropathy; Z79.4 - terminal gauger (current) use of insulin (2) Microalbuminuria: Code(s): R80.9 - Proteinuria, unspecified Category: Medical (3) Essential hypertension: Code(s): I10 - Essential (primary) hypertension Category: Medical (4) Dyslipidemia: Code(s): E78.5 - Hyperlipidemia, unspecified Category: Medical Plan Plan 1. Type 2 Diabetes Mellitus The patient's Hemoglobin A1c has increased to 8.0%, and a recent morning blood glucose was 160, indicating suboptimal glycemic control. The current medication regimen includes metformin 1000 mg twice daily and Farxiga 10 mg daily, which is the maximum dose. The patient was switched from Trulicity to Farxiga by cardiology for cardiac benefits, although Trulicity provided better glucose control. The plan is to increase the Humalin insulin dose from 17 units to 20 units with breakfast and from 11 units to 15 units at night. A new prescription will be sent to the pharmacy. Alternative medications such as Mounjaro or Ozempic were discussed but will not be pursued at this time due to approval difficulties; the focus will be on adjusting the insulin. 2. Hypertension The patient's blood pressure is good on the current regimen. Continue current medications, including amlodipine, carvedilol, losartan, and hydrochlorothiazide. 3. Hyperlipidemia Recent lab work shows excellent cholesterol levels. The plan is to discontinue colestipol. The patient will continue taking atorvastatin. 4. Microalbuminuria The patient has microalbuminuria, which indicates some kidney dysfunction likely related to diabetes, though it is not acute. The level has improved from 400 to 114 over the last year, likely due to losartan. Continue losartan. A referral to a surg tech for monitoring was suggested as a good idea for the future but is not needed urgently. 5. Health Maintenance The patient is due for a tetanus vaccine, with the last one administered in 2014. As the patient is over 65, a pneumonia vaccine is recommended. The patient agreed to and will receive the pneumonia vaccine during today's visit. Schedule a follow-up appointment in 4 months. Orders: Orders Lipid Panel 4 Months E78.5 - Hyperlipidemia, unspecified Comprehensive [place]. Panel Fast 4 Months I10 - Essential (primary) hypertension Td Immunization Today Z23 - Encounter for immunization Microalbumin, Random (w Creat) 4 Months R80.9 - Proteinuria, unspecified Pneumococcal 20 Immunization Today Z23 - Encounter for immunization Referrals Nephrology Referral R80.9 - Proteinuria, unspecified Medications: Changed From insulin NPH and regular human 100 unit/mL (70-30) (Humulin 70/30 U-100 Insulin) 17 units with breakfast and 11 units with dinner subcutaneously 2 times a day. 30 days 15 mL 2RF E11.65 - Type 2 diabetes mellitus with hyperglycemia To insulin NPH and regular human 100 unit/mL (70-30) (Humulin 70/30 U-100 Insulin) 20 units with breakfast and 15 units with dinner subcutaneously 2 times a day. 15 mL 2RF 30 days E11.65 - Type 2 diabetes mellitus with hyperglycemia From dapagliflozin propanediol (Farxiga) 10 mg PO QAM 30 tabs 0RF To dapagliflozin propanediol (Farxiga) 10 mg PO QAM 30 tabs 6RF 30 days Refilled hydrochlorothiazide 25 mg PO DAILY 90 tabs 2RF I10 - Essential (primary) hypertension Discontinued colestipol Discontinued Reason: Patient Completed Course 2 grams (2 x 1 gram) PO DAILY 180 tabs 3RF
[2025-07-26 12:37] VITALS: BP 132/60; PULSE 47; TEMP 36.1; O2SAT 91; BMI 34.4
--- OUTSIDE RECORDS SUMMARY | 2025-07-26 16:05 | XMS_ITS | Clinical Summary ---
Author Organization [facility] Address [address] [place] [address] Care Team Providers Care Clerical Order Filler Name Role Phone Unavailable Primary Care Provider [...]
== END 2025-07-26 13:23 | disposition home or self-care (01) ==
LOC: HO.HMCH 12:24
PROVIDERS: Visit Provider Internal Medicine
DX: E11.610 Type 2 diabetes mellitus with diabetic neuropathic arthropathy (principal); Z79.4 Long term (current) use of insulin; R80.9 Proteinuria, unspecified; I10 Essential (primary) hypertension; E78.5 Hyperlipidemia, unspecified; Z23 Encounter for immunization

== ENCOUNTER → 2025-07-26 12:23 | Outpatient (BNVA) | payer MEDICARE, SELFPAY | PROVIDERS: Visit Provider Internal Medicine | DX: I10 Essential (primary) hypertension (principal); E11.610 Type 2 diabetes mellitus with diabetic neuropathic arthropathy; E78.5 Hyperlipidemia, unspecified; R80.9 Proteinuria, unspecified; Z23 Encounter for immunization; Z79.4 Long term (current) use of insulin; Z79.899 Other long term (current) drug therapy | CPT/HCPCS: 90471; 90472; 90677; 90714; 99212 ==

== ENCOUNTER 2025-08-22 10:12 | Emergency (ER) | payer MEDICARE, SELFPAY ==
--- OUTSIDE RECORDS SUMMARY | 2024-11-25 03:30 | XMS_ITS ---
Author Organization [facility] Address [address] [place] [address] Care Team Providers Care Religious Education Director Name Role Phone Morena FLORES, Chace Primary Care Provider UnavailJv Noel [phone] Encounters Encounter Location Date Provider Diagnosis [address] [address] 11/25/2024 Jv Garrett Plan Of Treatment Next Appt Details Provider Name:Jv Garrett , 12/13/2025 09:00:00 AM, [address] [place] [address], [phone], Progress Notes * EVETTESOWMYANETTIETyreseKaleb RDOB: [birth year] (69 yo M)Acc No.[id number]:11/25/2024 Progress Note Patient: Kaleb CASEY Provider: Katy Garrett DPM :1955 A ge:69 [...] 0 11/25/2024 Generated for Leda lindsay/Jaun/Karime on: 2024 02:17 PM EST
--- OUTSIDE RECORDS SUMMARY | 2025-08-16 23:59 | XMS_ITS | Continuity of Care Document ---
Author Organization [facility] Address [address] [place] [address]- Care Team Providers Care Dungeon Master Name Role Phone Chace Berg MD [id number] Date(s): 08/09/25 - 08/16/25 [facility] [address] [place], [place] [address] Attending Physician: Danielle Patel NP Admitting Physician: Danielle Patel NP Referring Physician: Chace Berg MD Encounter Type: Office Visit Allergies, Adverse Reactions, Alerts Substance Criticality Severity Reaction Reaction Severity Status lisinopril DRY COUGH Active Functional Status Functional Status Assessment Assessment Assessment Component Result Effecti ve Date Disability status [CUBS] I'm Safe - I rarely have acute or chronic symptoms affecting housing, employment, social interactions, etc. 08/09/25 Because of a physica l, mental, or emotional condition, do you have difficulty doing errands alone such as visiting a physician's office or shopping Unknown 08/09/25 Do you need any juan tional assistance or accommodations during your visit Unknown 08/09/25 Do you have difficul ty dressing or bathing Unknown 08/09/25 Difficulty communica ting in usual language Unknown 08/09/25 Are you blind, or do you have serious difficulty seeing, even when wearing glasses Unknown 08/09/25 Are you deaf, or do you have serious difficulty hearing Unknown 08/09/25 Do you have serious difficulty walking or climbing stairs Unknown 08/09/25 Difficulty Reading O r Writing Unknown 08/09/25 Because of a physica l, mental, or emotional condition, do you have serious difficulty concentrating, remembering, or making decisions Unknown 08/09/25 Immunizations Given and Recorded Vaccine Date Status Refusal Reason pneumococcal 23-valent vaccine 01/23/13 Given Medications amLODIPine 10 mg oral tablet 10 mg, By Mouth, Daily in AM, Refills 0, Maintenance, 04/03/24 10:28:00 AM EDT, Partial fill upon patient request if the prescription is for a schedule II opioid drug. Start Date: 04/03/24 Status: Ordered Medication Dispense Status: Completed Total Allowed Fills: 1 Fills Dispensed: 0 aspirin 81 mg oral enteric coated tablet 1 tablet = 81 mg, By Mouth, Daily, 0 Refills, Maintenance, 08/03/11 10:46:40 AM EST Start Date: 08/03/11 Status: Ordered Medication Dispense Status: Completed Total Allowed Fills: 1 Fills Dispensed: 0 atorvastatin 20 mg oral tablet 1 tablet, By Mouth, Daily, # 90 tablet, 3 Refills, Maintenance, 08/16/25 6:03:00 PM EST, [facility]/pharmacy #[id number], 170, cm, 08/16/25 14:51:00 EST, Height, 97.7, kg, 12/18/24 6:03:00 EDT, Dry Weight Start Date: 08/16/25 Status: Ordered Medication Dispense Status: Completed Quantity: 90.0 Unit: tablet Total Allowed Fills: 4 Fills Dispensed: 0 clopidogrel 75 mg oral tablet 1, tablet, By Mouth, Daily, # 90 tablet, Refills 4, Maintenance, 10/20/24 9:08:00 AM EST, Route to Pharmacy Electronically, [id number], 170, cm, 05/13/24 14:09:00 EDT, Height, 99, kg, 04/02/24 17:21:00 EDT, Dry Weight Start Date: 10/20/24 Status: Ordered Medication Dispense Status: Completed Quantity: 90.0 Unit: tablet Total Allowed Fills: 1 Fills Dispensed: 0 Co Q-10 = 100 mg, By Mouth, Daily, 0 Refills, Maintenance, 08/16/25 2:46:00 PM EST, Partial fill upon patient request if the prescription is for a schedule II opioid drug. Start Date: 08/16/25 Status: Ordered Medication Dispense Status: Completed Total Allowed Fills: 1 Fills Dispensed: 0 colestipol 1 gm oral tablet 2 tablet = 2 Gm, By Mouth, Daily in AM, # 360 tablet, 0 Refills, Maintenance, 01/10/22 12:17:00 PM EDT, Tablet, Partial fill upon patient request if the prescription is for a schedule II opioid drug. Start Date: 01/10/22 Status: Ordered Medication Dispense Status: Completed Quantity: 360.0 Unit: tablet Total Allowed Fills: 1 Fills Dispensed: 0 Coreg 12.5 mg oral tablet 12.5 mg, 1, tablet, By Mouth, 2 times a day, # 60 tablet, Refills 6, Tot. Refills 6, Maintenance, 05/31/25 8:17:00 PM EDT, Route to Pharmacy Electronically, [facility]/pharmacy #[id number], Partial fill upon patient request if the prescription is for a schedule II opioid drug., 170, cm, 05/26/25 12:22:00 EDT, Height, 97.7, kg, 12/18/24 6:03:00 EDT, Dry Weight Start Date: 05/31/25 Status: Ordered Medication Dispense Status: Completed Quantity: 60.0 Unit: tablet Total Allowed Fills: 7 Fills Dispensed: 0 Farxiga 10 mg oral tablet 0 Refills, Maintenance, 08/16/25 2:45:00 PM EST, Partial fill upon patient request if the prescription is for a schedule II opioid drug. Start Date: 08/16/25 Status: Ordered Medication Dispense Status: Completed Total Allowed Fills: 1 Fills Dispensed: 0 Fish Oil By Mouth, 0 Refills, Maintenance, 08/16/25 2:46:00 PM EST, Partial fill upon patient request if theprescription is for a schedule II opioid drug. Start Date: 08/16/25 Status: Ordered Medication Dispense Status: Completed Total Allowed Fills: 1 Fills Dispensed: 0 Humulin 70/30 human recombinant subcutaneous injection = 17 units, Subcutaneous Infusion, Daily before breakfast, 0 Refills, Maintenance, 01/10/22 12:16:00PM EDT, Partial fill upon patient request if the prescription is for a schedule II opioid drug. Start Date: 01/10/22 Status: Ordered Medication Dispense Status: Completed Total Allowed Fills: 1 Fills Dispensed: 0 Humulin 70/30 human recombinant subcutaneous injection = 9 units, Subcutaneous Infusion, Daily at supper, 0 Refills, Maintenance, 01/10/22 12:16:00 PM EDT,Partial fill upon patient request if the prescription is for a schedule II opioid drug. Start Date: 01/10/22 Status: Ordered Medication Dispense Status: Completed Total Allowed Fills: 1 Fills Dispensed: 0 hydrochlorothiazide 25 mg oral tablet 25 mg, 1, tablet, By Mouth, Daily in AM, Refills 0, Maintenance, 12/16/24 1:46:00 PM EDT, Partial fill upon patient request if the prescription is for a schedule II opioid drug. Start Date: 12/16/24 Status: Ordered Medication Dispense Status: Completed Total Allowed Fills: 1 Fills Dispensed: 0 losartan 100 mg oral tablet See Instructions, TAKE 1 TABLET BY MOUTH EVERY DAY, # 90 tablet, 3 Refills, Maintenance, 08/25/24 7:40:00 AM EST, [facility] [id number], 170, cm, 05/13/24 14:09:00 EDT, Height, 99, kg, 04/02/24 17:21:00 EDT, Dry Weight Start Date: 08/25/24 Status: Ordered Medication Dispense Status: Completed Quantity: 90.0 Unit: tablet Total Allowed Fills: 1 Fills Dispensed: 0 metformin 500 mg oral tablet, extended release 1,000 mg, By Mouth, 2 times a day, # 30 tablet, 0 Refills, Maintenance, 07/07/09 1:14:18 PM EST Start Date: 07/07/09 Stop Date: 08/06/09 Status: Ordered Medication Dispense Status: Completed Quantity: 30.0 Unit: tablet Total Allowed Fills: 1 Fills Dispensed: 0 Trulicity Pen 0.75 mg/0.5 mL subcutaneous solution 0.5 mL = 0.75 mg, Subcutaneous Injection, Every week, rotate injection sites Takes on Sundays., # 2mL, 0 Refills, Maintenance, 10/10/22 2:46:00 PM EST, Solution, Partial fill upon patient request if the prescription is for a schedule II opioid drug. Start Date: 10/10/22 Status: Ordered Medication Dispense Status: Completed Quantity: 2.0 Unit: mL Total Allowed Fills: 1 Fills Dispensed: 0 Vitamin B Complex with Amino Acids oral capsule 1 capsule, By Mouth, Daily, 0 Refills, Maintenance, 08/16/25 2:46:00 PM EST, Partial fill upon patient request if the prescription is for a schedule II opioid drug. Start Date: 08/16/25 Status: Ordered Medication Dispense Status: Completed Total Allowed Fills: 1 Fills Dispensed: 0 Problem List Condition Confirmation Course Effective Dates Status H ealth Status Informant Atherosclerotic PVD with ulceration Confirmed Active CAD - Coronary artery disease Confirmed Active Carotid artery disease Confirmed Active Carotid artery narrowing Confirmed 01/22/13 Active Claudication Confirmed Active DM (diabetes mellitus), insulin Confirmed Active Hx of CABG Confirmed Active HLD (hyperlipidemia) Confirmed Active HTN (hypertension) Confirmed Active Myocardial infarction, old X2, initial in 1993 1 Confirmed Active Obese class I Confirmed Active PVD-peripheral vascular disease Confirmed Active Sleep apnea, untreated Confirmed Active Tubular adenoma of colon 2 Confirmed 03/17/21 Active 11 DC was silent 2repeat screening colonoscopy in 2025 Vital Signs Most recent to oldest [Reference Range]: 1 2 Height 170 cm (08/09/25 7:17 AM) 170 cm (08/09/25 7:12 AM) Weight 93.63 kg (08/09/25 7:12 AM) Oxygen Saturation [94-100 %] 96 % (08/09/25 7:12 AM) Pulse Rate [55-90 bpm] 60 bpm (08/09/25 7:12 AM) Body Mass Index [18.5-24.99 kg/m2] 32.4 kg/m2 *H* (08/09/25 7:12 AM) Blood Pressure [90-138/55-84 mm Hg] 138/ 50mm Hg (08/09/25 7:17 AM) 140/50mm Hg *H* (08/09/25 7:12 AM) Mode of Delivery (Oxygen) Room air (08/09/25 7:12 AM) Blood pressure sites Arm, right (08/09/25 7:17 AM) Arm, left (08/09/25 7:12 AM) Weight Obtained Via Patient/family state d (08/09/25 7:12 AM) Social History Social History Type Response Smoking Status Former smoker; Tobac co user in household: No; Other: pt states he quit smoking 2013; entered on: 11/03/15 Sex Sex Representation Male (finding) Note * Monica Reyna: PERFORM Event Display: Patient Education/Instruction Authored Date: [id number] Ambulatory Adult Visit Summary [facility] [address] [facility] [address] [address] Name: JORGE CABELLO : 1955?? Visit: 08/09/2025 07:04?? Ambulatory Visit Instructions ?? Your Care Team Primary Care Provider Chace Berg MD? This Visit Provider Jorge RODRIGUEZ , Danielle Cervantes Vitals Signs Pulse Rate: 60 bpm Height: 170 cm Systolic Blood Pressure: 138 mm Hg Weight: 93.63 kg Diastolic Blood Pressure:??50 mm Hg??Low Body Mass Index:??32.4 kg/m2??High Oxygen Saturation: 96 % Body surface area: 2.1 What to do next Scheduled Follow-Up Appointments Saturday 1:30 PM EST ?? Type: Fem-Fem BPG Where: [facility] [address] [place] [address]- Status: Pending Saturday 2:00 PM EST ?? Type: Arterial Bypass graft RT Where: [facility] [address] [place] [address]- Status: Pending Saturday 2:30 PM EST ?? Type: Ankle Brachial Indexex Where: [facility] [address] [place] [id number]- Status: Pending Saturday 8:30 AM EST ?? Type: Aorta Duplex Iliac Where: [facility] [address] [place] [address]- Status: Pending Saturday 2:40 PM EST ?? Type: Return With: Fred Koo MD Where: [facility] [address] [address]- Status: Pending Future Orders VL Ankle Brachial Indices, Routine, Reason for Exam: Claudication, Once, *Est. 08/09/25 due within 2 week(s) VL Aorta Iliac Duplex Scan Comp, Routine, Reason for Exam: Patency of Stent/Repair, Arteries to Examine: Abdominal/Pelvic, Once, *Est. 08/09/25 due within 2 week(s) VL Arterial Bypass Right Graft, Routine, Reason for Exam: Bypass Graft Patency, Bypass Graft: Fem to Pop Below Knee Graft, Once, *Est. 08/09/25 due within 2 week(s) VL Arterial Bypass Right Graft, Routine, Reason for Exam: Bypass Graft Patency, Bypass Graft: Femoral to Femoral Graft, Once, *Est. 08/09/25 due within 2 week(s) Medications The list below reflects the information in our records and provided by you today along with any changes made during this visit. Please continue your medications until treatment is completed or stopped by your provider. If this is different from the information you have or there are other questions,please contact the prescribing provider. What How Much When Instructions Unchanged Amlodipine (amLODIPine 10 mg oral tablet) 10 Milligram Oral Daily in the morning Ordering Physician: Alicia Dove NP Unchanged Aspirin (aspirin 81 mg oral enteric coated tablet) 1 tab(s) Oral Daily Unchanged Atorvastatin (atorvastatin 20 mg oral tablet) 1 tab(s) Oral Daily Ordering Physician: Alicia Dove NP Unchanged Carvedilol (Coreg 12.5 mg oral tablet) 1 tab(s) Oral Twice a day Ordering Physician: Edda Chacon MD Unchanged Clopidogrel (clopidogrel 75 mg oral tablet) 1 tab(s) Oral Daily Ordering Physician: Fred Koo MD Unchanged Colestipol (colestipol 1 gm oral tablet) 2 tab(s) Oral Daily in the morning Unchanged dulaglutide (Trulicity Pen 0.75 mg/ 0.5 mL subcutaneous solution) 0.5 Milliliter Subcutaneous Injection Every week Special Instructions: rotate injection sites Takes on Sundays. ?? Unchanged Hydrochlorothiazide (hydrochlorothiazide 25 mg oral tablet) 1 tab(s) Oral Daily in the morning Unchanged Insulin Isophane-Insulin Regular (Humulin 70/ 30 human recombinant subcutaneous injection) 17 unit(s) Subcutaneous Infusion Daily before breakfast Unchanged Insulin Isophane-Insulin Regular (Humulin 70/ 30 human recombinant subcutaneous injection) 9 unit(s) Subcutaneous Infusion Daily at supper Unchanged Losartan (losartan 100 mg oral tablet) See instructions Special Instructions: TAKE 1 TABLET BY MOUTH EVERY DAY Ordering Physician: Edda Chacon MD ?? Unchanged Metformin (metformin 500 mg oral tablet, extended release) 1,000 Milligram Oral Twice a day Medications and Immunizations Administered Medications Given During Visit No medications given during this visit.?? Allergies (NKA means No Known Allergies) lisinopril??DRY COUGH Common Emergency Awareness Tips IS IT A STROKE? Act FAST and Check for these signs: FACE Does the face look uneven? ARM Does one arm drift down? SPEECH Does their speech sound strange? TIME Call at any sign of stroke ?? Heart Attack Signs Chest discomfort: Most heart attacks involve discomfort in the center of the chest and lasts more than a few minutes, or goes away and comes back. It can feel like uncomfortable pressure, squeezing, fullness or pain. Discomfort in upper body: Symptoms can include pain or discomfort in one or both arms, back, neck, jaw or stomach. Shortness of breath: With or without discomfort. Other signs: Breaking out in a cold sweat, nausea, or lightheaded. Remember, MINUTES DO MATTER. If you experience any of these heart attack warning signs, call to get immediate medical attention! ?? Smoking can increase your chances of developing chronic health problems and can cause harmful effects to other family members in your house. If you smoke, you are strongly encouraged to quit. Please call [facility] at [phone] or [phone] [facility] ([phone]) or log in to [email or web address] for referrals to smoking cessation programs. ?? The National Suicide Prevention Hotline is available 18/03 if you or someone you know needs to find a reason to keep living. By calling 5-826-749-[employer] (9655) you'll be connected to a skilled, trained counselor at a crisis center in your area. [facility] [employer] Portal You can view and manage your care through the patient portal or by using a health care verito of your choosing. Rule. is a website that allows you to securely view your medical information including your hospital discharge summary, office visit summaries, medications and follow-up visits. You can also request appointments, renew medications, and request access to your medical information using a health care verito of your choosing, or just ask a question. You can enroll at [email or web address] or register during your next office visit. [facility], in keeping with [facility] guidance, no longer requires face masks for staff, patientsor visitors in most situations. Similiar to time spent indoors at other locations, there is the chance that you were exposed to repiratory viruses during your time with us (such as flu or COVID-19). If you develop symptoms concerning for a viral respiratory infection, please seek testing (and treatment if indicated) from your medical provider or home test kit. ?? Disclaimer: The information provided is of a general nature and is intended to be used in conjunction with the recommendations and advice of your health care practitioner. Every effort has been made to ensure that the information provided is accurate and complete at the time it is provided to you however, as your needs change, or, as new information becomes available, different or additional instructions may be required. ?? If you have questions, please consult with your primary care provider or pharmacist, as appropriate. This information is not intended to serve as substitution for assessment and evaluation by a qualified health care provider. If you do not have a primary care provider, you may find a [facility] provider by calling [facility] at [phone]. Patient Care team information Care Team Personnel Name: Keiko Mandujano RN Position: [facility] RN Member Role: Primary Care Nurse Name: Portia Mejia RN Position: [facility] RN Member Role: Primary Care Nurse Name: Chace Berg MD Position: Reference Physician Member Role: PCP Address: [address] [place] [phone]- Telecom: Name: Erik Cano RN Position: [facility] RN Member Role: Primary Care Nurse Name: Mercedes Vasquez NP Position: Reference Physician Member Role: Primary Care Nurse Address: [address] [place] [phone]- [place] Telecom: Name: Tita Pena RN Position: [facility] RN Member Role: Primary Care Nurse Name: Raymond Galvez Position: S Outreach Member Role: [employer] Consulting Physician Name: Joanie Sherwood RN Position: [facility] RN Supv Member Role: Primary Care Nurse Name: Pako Olvera RN Position: [facility] RN Member Role: Primary Care Nurse Care Team Related Persons Name: MARIETTA CABELLO Name: MUSA CABELLO Insurance Providers Guarantor name: [facility] Plan Information #: 1 Payer: [employer] Payer Identifier: NA Member Number: [id number] Group Number: [id number] Subscriber Identifier: [id number] Relationship to Subscriber: self Coverage Type: Medicare HMO Coverage Verification Date: NA Telecom: NA Address: NA
--- NOTE | ~2025-08-22 | XR_ITS ---
CLINICAL HISTORY: cough 2 view chest Comparison: None Findings: No consolidation or pneumothorax/pleural effusion. Mild peribronchial wall thickening. Cardiomediastinal silhouette is normal. Post median sternotomy. No evidence of heart failure. No mediastinal shift or tracheal deviation. Osseous structures intact. Impression: 1. Mild central bronchial wall thickening. 2. No airspace disease. This document has been electronically signed by: Jim Ibarra MD on 08/22/2025 12:08:34
[2025-08-22 10:53] VITALS: BP 152/67; PULSE 57; RESP 16; TEMP 37.5; O2SAT 94; BMI 34.6
[2025-08-22 12:38] LABS: MANUAL DIFF FLAG NO
[2025-08-22 12:40] LABS: Hematocrit 44.3 % (42.0-52.0); Hemoglobin 14.9 g/dl (14.0-18.0); Imm Gran Abs Auto 0.03 X10*3/uL (0.00-0.03); Imm Gran Pct Auto 0.4 % (0.0-0.4); Lymphocytes Absolute Auto 1.1 X10*3/uL (1.2-4.9); Mean Corpuscular HGB Conc 33.6 g/dl (31.0-36.0); Mean Corpuscular Hemoglobin 29.3 pg (27.0-33.0); Mean Corpuscular Volume 87.0 fL (80.0-98.0); NRBC Abs Auto 0.000 X10*3/uL (0.0-0.012); NRBC Pct Auto 0.0 /100WBC (0.0-0.2); Platelet Count 213 X10*3/uL (160-400); Red Blood Count 5.09 X10*6/uL (4.60-5.80); White Blood Count 7.7 X10*3/uL (4.8-10.8)
[2025-08-22 13:02] LABS: Alanine Aminotransferase 19 U/L (0-40); Albumin Level 4.2 g/dL (3.5-5.0); Alkaline Phosphatase 67 U/L (39-117); Anion Gap 12 (12-20); Aspartate Amino Transferase 21 U/L (5-37); Blood Urea Nitrogen 21 mg/dL (9-16); Calcium 8.9 mg/dL (8.4-10.2); Carbon Dioxide 23 mmol/L (22-29); Chloride 106 mmol/L (96-108); Creatinine Clr Calc Pharmacy 71.4; Estimated Glomerular Filt Rate > 60; Potassium 3.8 mmol/L (3.3-5.1); Sodium 137 mmol/L (135-145); Total Protein 6.7 g/dL (6.5-8.0)
[2025-08-22 13:16] LABS: Resp Syncy Virus RNA Qual PCR NEGATIVE (Negative); SARS COV2 PCR INHOUSE NEGATIVE (Negative)
--- NOTE | 2025-08-22 13:51 | ED_ITS ---
HPI - Male Genitourinary General Chief complaint: Urogenital-Male Stated complaint: cough penis redness itchy Time Seen by Provider: 08/22/25 13:51 Source: patient and family (patient's ) Mode of arrival: ambulatory Limitations: language barrier (patient requested to use his as an official court interpreter instead of an [facility] provided [place] official court interpreter) History of Present Illness ED Provider: Ewelina Barba PA-C HPI Narrative: Patient is a 69 year old male with a history of HTN, NSTEMI, DM, PVD, CAD, and plavix use presenting to the emergency department today with redness / itching / burning to his penis and a cough. Patient states that over the last 5 days he has had redness, itching, burning to his penis and he has been trying to use hydrocortisone cream and over the counter antibiotic cream that is not helping. Patient states that he also developed a dry cough as of yesterday. Patient denies any other complaints at this time. Note: Patient denied the use of an [facility] provided [place] official court interpreter and instead requested his interpret for him. Related Data Home Medications ?Medication ?Instructions ?Recorded ?Confirmed aspirin 81 mg tablet,delayed 81 mg PO DAILY 08/04/20 1 09/26/24 release atorvastatin 20 mg tablet 20 mg PO DAILY 08/04/2009/19 clopidogrel 75 mg tablet 75 mg PO DAILY 08/04/2009/19 losartan 25 mg tablet 50 mg PO DAILY 08/04/2009/19 carvedilol 6.25 mg tablet 6.25 mg PO BID 05/28/2509/19 Previous Rx's ?Medication ?Instructions ?Recorded insulin syringe-needle U-100 0.5 #100 ea 03/02/21 mL 31 gauge x 5/16 (BD Insulin Syringe Ultra-Fine) pen needle, diabetic 32 gauge x #100 ea 03/02/21 5/32 (BD Araceli 2nd Gen Pen Needle) nitroglycerin 0.4 mg sublingual 0.4 mg sublingual Q5M PRN chest 06/20/22 tablet pain #60 tabs amlodipine 10 mg tablet 10 mg PO DAILY 90 days #90 t abs 10/17/24 blood sugar diagnostic (FreeStyle #100 ea 12/27/24 Lite Strips) blood-glucose meter (FreeStyle #1 ea 12/27/24 Lite Meter kit) lancets 28 gauge (FreeStyle #100 ea 12/27/24 Lancets) metformin 1,000 mg tablet 1,000 mg PO BID #180 tabs dapagliflozin propanediol 10 mg 10 mg PO QAM 30 days # 30 tabs 07/26/25 tablet (Farxiga) hydrochlorothiazide 25 mg tablet 25 mg PO DAILY #90 ta bs 07/26/25 insulin human U-100 NPH-regulr See Rx Instructions sub cut BID 30 07/26/25 70-30 mix 100 unit/mL subcutaneous days #15 mL susp (Humulin 70/30 U-100 Insulin) clotrimazole 1 % topical cream 1 appl topical BID 2 we eks #30 08/22/25 grams Allergies Allergy/AdvReac Type Severity Reaction Status Date / Time lisinopril Allergy Unknown cough Verified 08/22/25 10:55 Review of Systems 2 Constitutional: Constitutional: Reports as per HPI Eyes: Eyes: Reports as per HPI ENT: Reports as per HPI Cardiovascular: Cardiovascular: Reports as per HPI Respiratory: Respiratory: Reports as per HPI Gastrointestinal: Gastrointestinal: Reports as per HPI Genitourinary: Genitourinary: Reports as per HPI Musculoskeletal: Musculoskeletal: Reports as per HPI Integumentary/Breasts: Skin/Breast: Reports as per HPI Neurologic: Reports as per HPI Psychiatric: Psychiatric: Reports as per HPI Endocrine: Endocrine: Reports as per HPI Hematologic/Lymphatic: Hematologic/Lymphatic: Reports as per HPI Allergic/Immunologic: Allergic/Immunologic: Reports as per HPI [facility] Past Medical History Attestation statement: The following information was validated with the patient. (all information validated with the patient's ) Source: old records reviewed, obtained from family (patient's provided additional history and confirmed the history provided by the patient.) and nursing notes reviewed Medical History Sepsis Pneumonia Diabetes mellitus with coincident hypertension Diabetes type 2, uncontrolled PVD (peripheral vascular disease) CAD (coronary artery disease) Obesity (BMI 30-39.9) Dyslipidemia Hypertension Diabetic nephropathy associated with type 2 diabetes mellitus Diabetic polyneuropathy associated with type 2 diabetes mellitus correction (current) use of insulin Diabetes type 2, controlled Surgical History Hx of angioplasty History of surgery History of left-sided carotid endarterectomy History of appendectomy Family History Family History Father Myocardial infarction Mother Diabetes Hypertension Sister No problems noted. Son No problems noted. Son No problems noted. Social History Social History Housing: Apartment Alcohol intake: never Patient Tobacco Use Status: Never used Tobacco Tobacco use type: Cigarette e-Cigarette/Vaping Use: Never Used Second Hand Smoke Exposure: No service: No Current occupational status: unemployed Cognitive needs: No Hearing needs: No Vision needs: Yes (glasses) Physical Exam 2 Vital Signs: Vital Signs: Last Vital Signs Temp 99.5 F 08/22/25 14:20 Pulse 57 08/22/25 14:20 Resp 16 08/22/25 14:20 BP 152/67 H 08/22/25 14:20 Pulse Ox 94 08/22/25 14:20 O2 Del Method Room Air 08/22/25 14:20 BMI result Body Mass Index 34.6 Const: General: cooperative, alert and awake Orientation/consciousness: p atient oriented x3 HEENT: Head: Yes normal to inspection and Yes atraumatic Ears: hearing grossly normal bilaterally and external ears normal General nose exam: Normal external nose present, no nasal discharge noted and no epistaxis Face and sinus: Yes normal facial exam, No abrasion and No laceration Mouth: Normal oral and palatal mucosa present, no drooling and no muffled voice Eyes: General: appearance normal, both eyes and all related structures P eriorbital: periorbital findings normal Eyelids: Yes eyelids normal C onjunctivae: conjunctivae normal Pupils: Equal, round and reactive pupils present EOM: EOMs intact bilaterally Resp: Effort & Inspection: normal respiratory effort and able to speak in complete sentences : Other: Penile exam performed with alee Pulliam. Patient's meatus was erythematous with some mild white-collin drainage, consistent with yeast. Penis: uncircumcised and erythematous Neuro: General: patient oriented x3, moves all extremities and CN's II-XI intact bilaterally Cranial nerves: Yes Equal, round and reactive pupils present Cognition (Neuro): normal cognition Extrem: General: Yes full ROM Psych: Appearance: grossly normal Mental Status: mental status grossly normal Attitude: cooperative Medical Decision Making Medical Decision Making [facility] Narrative: Patient is a 69 year old male with a history of HTN, NSTEMI, DM, PVD, CAD, and plavix use presenting to the emergency department today with redness / itching / burning to his penis and a cough. Patient's physical exam was as noted in the physical exam portion of this note. Patient's blood work was unremarkable. Patient's urine showed no acute process. Patient's chest x-ray showed no acute process. Patient's Influenza testing is positive. Patient's COVID-19 and RSV testing was negative. Patient's clinical presentation is most consistent with Influenza and penile yeast infection. Given patient plavix use, patient prescribed a topical rather than oral anti- fungal. I explained the importance to the patient and his that he STOP using all the other creams he was previously using (hydrocortisone + antibiotic). I explained my physical exam findings as well as all test results to the patient and the patient's . I answered all questions asked by the patient and the patient's . I stressed the importance of the patient taking his medication as directed (either prescribed or as the over the counter packaging recommends). I stressed the importance of the patient following up with his primary care provider. I stressed the importance of the patient returning to the emergency department immediately if his symptoms were to worsen or if he were to develop any dizziness, shortness of breath, difficulty breathing, chest pain, blurry vision, loss of vision, nausea, vomiting, abdominal pain, fever, chills, back pain, or any other complaints. Patient and the patient's verbalized agreement and understanding with this treatment plan and discharge. Differential Diagnosis Differential Diagnoses: The differential diagnosis associated with the presentation includes Influenza Viral illness Penile yeast Admission/Observation Consideration of admission/observation: Escalation of care including admission/observation considered Patient would have been admitted to the hospital had his work up had any findings where hospital admission was appropriate and his clinical presentation warranted hospital admission. Lab Data [facility] Lab Attestation statement: I reviewed the patient's lab results. My interpretation of these results are in the MDM Rationale portion of this note. 08/22/25 12:35 08/22/25 12:35 Labs: Lab Results 12/28/25 12/28/25 12/28/25 Range/Units 12:31 12:35 13:53 WBC 7.7 (4.8-10.8) X10*3/uL RBC 5.09 (4.60-5.80) X10*6/uL Hgb 14.9 (14.0-18.0) g/dl Hct 44.3 (42.0-52.0) % MCV 87.0 (80.0-98.0) fL MCH 29.3 (27.0-33.0) pg MCHC 33.6 (31.0-36.0) g/dl RDW 14.7 (11.0-16.0) % Plt Count 213 (160-400) X10*3/uL MPV 9.3 L (9.4-12.4) fL Immature Gran % (Auto) 0.4 (0.0-0.4) % Neut % (Auto) 73.5 H (45-73) % Lymph % (Auto) 14.1 L (20-40) % Bath % (Auto) 9.3 (2-11) % Eos % (Auto) 1.8 (0-4) % Baso % (Auto) 0.9 (0-2) % Lymph # (Auto) 1.1 L (1.2-4.9) X10*3/uL Bath # (Auto) 0.7 (0.1-1.2) X10*3/uL Eos # (Auto) 0.1 (0.0-0.4) X10*3/uL Baso # (Auto) 0.1 (0.0-0.2) X10*3/uL Abs Immat Gran (auto) 0.03 (0.00-0.03) X10*3/uL Absolute Neuts (auto) 5.6 (2.0-8.3) x10*3/uL Absolute Nucleated RBC 0.000 (0.0-0.012) X10*3/uL Nucleated RBC % (auto) 0.0 (0.0-0.2) /100WBC Sodium 137 (135-145) mmol/L Potassium 3.8 (3.3-5.1) mmol/L Chloride 106 (96-108) mmol/L Carbon Dioxide 23 (22-29) mmol/L Anion Gap 12 (12-20) BUN 21 H (9-16) mg/dL Creatinine 1.08 (0.5-1.4) mg/dL Estim Creat Clear Calc 71.4 Estimated GFR > 60 Random Glucose 129 H (60-115) mg/dL Calcium 8.9 D (8.4-10.2) mg/dL Total Bilirubin 1.0 (0.0-1.0) mg/dL AST 21 (5-37) U/L ALT 19 (0-40) U/L Alkaline Phosphatase 67 (39-117) U/L Total Protein 6.7 (6.5-8.0) g/dL Albumin 4.2 (3.5-5.0) g/dL Urine Color Dark Yellow Urine Appearance Clear Urine pH 5.5 (5.0-9.0) Ur Specific [place] >= 1.030 H (1.005-1.025) Urine Protein Trace (Neg-Trace) mg/dL Urine Glucose (UA) 500 H (Negative) mg/dL Urine Ketones Trace (Negative) mg/dL Urine Blood Negative (Negative) Urine Nitrite Negative (Negative) Ur Leukocyte Esterase Trace H (Negative) Urine RBC 0-2 (0-2) /HPF Urine WBC 0-5 (0-5) /HPF Ur Squamous Epith Cells 0-2 (0-2) /HPF Urine Bacteria None Seen (None Seen) Hyaline Casts 0-2 (0-2) /LPF Influenza Type A (PCR) POSITIVE A (Negative) Influenza Type B (PCR) NEGATIVE (Negative) RSV RNA Qual (PCR) NEGATIVE (Negative) SARS-CoV-2 RNA (RT-PCR) NEGATIVE (Negative) Independent Interpretation I performed an independent interpretation of an: Plain X-Ray Interpretation: My interpretation is in agreement with the radiologist's impression of this imaging study as written below. CLINICAL HISTORY: cough 2 view chest Comparison: None Findings: No consolidation or pneumothorax/pleural effusion. Mild peribronchial wall thickening. Cardiomediastinal silhouette is normal. Post median sternotomy. No evidence of heart failure. No mediastinal shift or tracheal deviation. Osseous structures intact. Impression: 1. Mild central bronchial wall thickening. 2. No airspace disease. This document has been electronically signed by: Jim Ibarra MD on 08/22/2025 12:08:34 Dictated By: Jim Ibarra MD Signed By: Electronically signed by Jim Ibarra MD 08/22/25 4551 Radiology Impression Discussion of test interpretation with radiology: I have reviewed the radiologist's reading. Independent Historian Clinical information obtained from an independent historian. History obtained from or confirmed by: Spouse (Patient's provided additional history and confirmed the history provided by the patient. ) Prescription Management I considered prescription management with: Antiviral (I considered prescribing the patient tamiflu however, the patient's current clinical condition did not warrant it at this time. ) and Other (patient prescribed an anti fungal cream for his penile yeast) Chronic Conditions Patient?s care impacted by: Diabetes and Hypertension Discharge Plan Discharge Clinical Impression: Influenza, Yeast dermatitis of penis Patient Disposition: Home, Self-Care Instructions: Influenza (DC), Yeast Infection (ED) Additional Instructions: Your work up today was positive for influenza and it appears as though you have yeast on your penis. Your urine did not show any evidence of infection. IF you are prescribed home medications and/or you are taking over the counter medications at home - it is very important you continue to do so as prescribed / directed unless told otherwise by a healthcare provider. Follow up with your primary care provider. Do your best to stay well hydrated and rest. Return to the emergency department immediately if your symptoms worsen or if you develop any numbness, tingling, dizziness, shortness of breath, difficulty breathing, chest pain, blurry vision, loss of vision, nausea, vomiting, abdominal pain, fever, chills, back pain, or any other complaints. Please see the information below about our Patient Portal. If you are not yet enrolled in the [facility] Patient Portal, you will receive an enrollment email invitation following your visit to any [facility] setting. You may also self-enroll in the Patient Portal by visiting our website: [email or web address] The following information is required to access the Patient Portal: - Your [facility] Medical Record Number - Your personal home email address (must match what is in your electronic medical record, Registration staff can assist with this) - Name - Date of Capabilities of the Patient Portal: - Message some providers - View upcoming appointments - Access your health summary, medical history, and visit history - View current conditions and allergies - View procedure and lab results - View your medications, including guidelines, side effects, and precautions - Complete pre-appointment questionnaires requested by your provider - Ready summary reports of your office visits and procedures To access the Patient Portal Mobile [employer], follow these directions: - Search [employer] in the Consuelo Store or Google Play Store - Download the Consuelo - Search for [facility] - Enter your login/password Prescriptions: New clotrimazole 1 % cream 1 appl topical BID 14 Days Qty: 30 0RF No Action (DME) insulin syringe-needle U-100 [BD Insulin Syringe Ultra-Fine] 0.5 mL 31 gauge x 5/16 syringe See Rx Instructions .ROUTE .MEDSUPPLY Qty: 100 5RF Rx Instructions: twice a day (DME) pen needle, diabetic [BD Araceli 2nd Gen Pen Needle] 32 gauge x 5/32 needle See Rx Instructions .ROUTE .MEDSUPPLY Qty: 100 4RF Rx Instructions: twice a day amlodipine 10 mg tablet 10 mg PO DAILY 90 Days Qty: 90 1RF metformin 1,000 mg tablet 1,000 mg PO BID Qty: 180 1RF nitroglycerin 0.4 mg tablet, sublingual 0.4 mg sublingual Q5M PRN (Reason: chest pain) Qty: 60 4RF Rx Instructions: do not exceed 3 doses per episode aspirin 81 mg tablet,delayed release (DR/EC) 81 mg PO DAILY clopidogrel 75 mg tablet 75 mg PO DAILY losartan 25 mg tablet 50 mg PO DAILY atorvastatin 20 mg tablet 20 mg PO DAILY (DME) lancets [FreeStyle Lancets] 28 gauge misc See Rx Instructions .ROUTE .MEDSUPPLY Qty: 100 3RF Rx Instructions: As directed Check blood sugar t.i.d. (DME) FreeStyle Lite Strips Strip See Rx Instructions .ROUTE .MEDSUPPLY Qty: 100 3RF Rx Instructions: As directed Check blood sugar t.i.d. (DME) blood-glucose meter [FreeStyle Lite Meter] Kit See Rx Instructions .Route Qty: 1 0RF Rx Instructions: As directed Check blood sugar t.i.d. Humulin 70/30 U-100 Insulin 100 unit/mL (70-30) suspension See Rx Instructions subcut BID 30 Days Qty: 15 2RF Rx Instructions: 20 units with breakfast and 15 units with dinner subcutaneously 2 times a day. hydrochlorothiazide 25 mg tablet 25 mg PO DAILY Qty: 90 2RF dapagliflozin propanediol [Farxiga] 10 mg tablet 10 mg PO QAM 30 Days Qty: 30 6RF carvedilol 6.25 mg tablet 6.25 mg PO BID Referrals: Donna Aparicio MD [Primary Care Provider, Internal Medicine] Interventions: ED Discharge Assessment Last Done: 08/22/25 14:20 Discharge Date/Time: 08/22/25 14:20 Print Language: Ecuadorean
[2025-08-22 14:03] LABS: Appearance Urine Clear; Glucose Urine UA 500 mg/dL (Negative); PH 5.5 (5.0-9.0); Specific Gravity - Urine >= 1.030 (1.005-1.025); UMIC TRIGGER UACC YES
--- OUTSIDE RECORDS SUMMARY | 2025-08-22 14:17 | XMS_ITS | Patient Health Record ---
Author Organization [facility] Address [address] [place] [address] Care Team Providers Care Towel Cabinet Repairer Name Role Phone Chace Berg MD Primary Care Provider Jean Smiley Unavailable [phone] Reason For Referral No Information Medications Medication [...] Problem Screening for malignant neoplasm of colon (367389169) Encounter for screening for malignant neoplasm of colon (Z12.11) Active confirmed Problem Screening for malignant neoplasm of rectum (762275233) Encounter for screening for malignant neoplasm of rectum (Z12.12) Active confirmed Problem Preprocedural examination (190070350053759) Preprocedural examination (Z01.818) Active confirmed Problem Long-term current use of antiplatelet drug (708103294279531) Long-term use of aspirin therapy (Z79.82) Active confirmed Plan Of Treatment Future Test Test Name Order Date COLONOSCOPY 08/11/2015 Insurance Providers Payer Name Payer Address Payer Phone Subscriber Number Group Number Insured Name Patient Relationship to Insured Coverage Start Date Coverage End Date [facility] [address] [place] [phone] [id number] JORGE CABELLO Self - patient is the insured Medical (General) History Medical History History ICD Code IDDM [place] in approx 1989 in [facility]--OK since t he CABG Hypertension Hyperlipidemia Denies CVA,Lung disease,renal disease Peripheral vascular disease with surgeri es as below His describes sleep apnea and snori ng, but not officially diagnosed Surgical History Surgery Date(Month/Year) Vascular disease--Right carotid, left ca rotid x 2, bilateral LE's CABG 2008 Multiple surgeries for peria nal and perirectal disease--in the [facility] and with Dr. [place]--last time approx. 2005 Appy
--- OUTSIDE RECORDS SUMMARY | 2025-08-22 14:17 | XMS_ITS | Clinical Summary ---
Author Organization [facility] Address [address] [place] [address] Care Team Providers Care Tourist Escort Name Role Phone Unavailable Primary Care Provider [...]
--- OUTSIDE RECORDS SUMMARY | 2025-08-22 14:17 | XMS_ITS | Patient Health Record ---
[facility] Address [address] [place] [address] Care Team Providers Care Organ Tuner Name Role Phone Chace Berg MD Primary Care Provider Jv Ventura Unavailable [phone] Allergies No Known Allergies Results Component Value [...] Problem Acquired hammer toe of right foot (256464426711843 5) Other hammer toe(s) (acquired), right foot (M20.41) Active confirmed Problem Acquired hammer toe of left foot (404879320100477 3) Other hammer toe(s) (acquired), left foot (M20.42) Active confirmed Problem Peripheral circulatory disorder associated with type 1 diabetes mellitus (171883579) Type 1 diabetes mellitus with diabetic peripheral angiopathy without gangrene (E10.51) Active confirmed Vital Signs Blood pressure diastolic 70 mm Hg 10/09/2024 Height 5ft 7in in 12/14/2024 Blood pressure systolic 130 mm Hg 10/09/2024 Weight 216 lbs 12/14/2024 BMI 33.83 kg/m2 12/14/2024 Procedures Procedure Date Ordered Date Performed Result Body Sit e 57685-Bnjvdcjw Plate 10/09/2024 N/A 65021-BWUPSYD NAIL, 6 OR MORE 12/14/2024 N/A 07952-TWDR SKIN LESIONS, OVER 4 12/14/2024 N/A Encounters Encounter Location Date Provider Diagnosis [facility] [place] [address] [place] [address] 10/09/2024 Jv Garrett Ingrown nail L60.0 ; Cellulitis of toe of left foot L03.032 and Type 1 diabetes mellitus with diabetic peripheral angiopathy without gangrene E10.51 [facility] [address] [facility] [address] [place] [address] 12/14/2024 Jv Chingunier Type 1 diabetes mellitus with diabetic peripheral angiopathy without gangrene E10.51 ; Tinea unguium B35.1 ; Pain in right toe(s) M79.674 ; Pain in left toe(s) M79.675 ; Other hammer toe(s) (acquired), left foot M20.42 and Other hammer toe(s) (acquired), right foot M20.41 [facility] [address] [place] [address] 11/24/2024 Jv Garrett Assessments Encounter Date Diagnosis [...] Treatment Pending Test Test Name Order Date 94840-RALFOFS NAIL, 6 OR MORE 02/24/2016 63000-BFZGRUZ NAIL, 6 OR MORE 07/09/2016 96761-YKUEALD NAIL, 6 OR MORE 10/11/2016 43305-YYDIZYT NAIL, 6 OR MORE 10/03/2017 90202-OZXWENT NAIL, 6 OR MORE 10/09/2018 69208-VWXWAHX NAIL, 6 OR MORE 05/12/2020 54339-SPKYEPL NAIL, 6 OR MORE 06/22/2021 71500-WPHPRTU NAIL, 6 OR MORE 06/27/2022 70722-GHGAZSS NAIL, 6 OR MORE 11/28/2022 89162-VNMFCNX NAIL, 6 OR MORE 11/27/2023 97944-BFNSIVK NAIL, 6 OR MORE 12/14/2024 93668-Oonsxmbj Plate 10/09/2024 24898-KIVI SKIN LESIONS, OVER 4 12/15/19 25 36983-CTGD SKIN LESIONS, OVER 4 11/27/19 24 56077-UKKR SKIN LESIONS, OVER 4 11/29/19 23 74124-AIPG SKIN LESIONS, OVER 4 06/27/20 22 20312-CIUQ SKIN LESIONS, OVER 4 06/22/20 21 94683-MDMG SKIN LESIONS, OVER 4 05/12/20 20 07888-WEHV SKIN LESIONS, OVER 4 10/09/19 19 47029-OCOC SKIN LESIONS, 2 TO 4 10/11/19 17 92842-SMWR SKIN LESIONS, 2 TO 4 10/03/19 18 70332-ZQTR SKIN LESIONS, 2 TO 4 07/09/20 16 88676-NJFK SKIN LESIONS, 2 TO 4 02/24/20 16 Next Appt Details Provider Name:Jv Garrett , 12/13/2025 09:00:00 AM, [address] [facility], [address], [place], [address], Insurance Providers Payer Name Payer Address Payer Phone Subscriber Number Group Number Insured Name Patient Relationship to Insured Coverage Start Date Coverage End Date [employer] [address] [place] [address] [id number] Kaleb Sr Self - patient is the [...]
[2025-08-22 14:20] VITALS: BP 152/67; PULSE 57; RESP 16; TEMP 37.5; O2SAT 94
== END 2025-08-22 14:20 | disposition home or self-care (01) ==
PROVIDERS: Emergency Provider Emergency Medicine; PCP Internal Medicine
DX: J10.1 Influenza due to other identified influenza virus with other respiratory manifestations (principal); B37.49 Other urogenital candidiasis; R05.9 Cough, unspecified; E11.9 Type 2 diabetes mellitus without complications; I10 Essential (primary) hypertension; I25.10 Atherosclerotic heart disease of native coronary artery without angina pectoris; Z79.899 Other long term (current) drug therapy
CPT/HCPCS: 71046; 80053; 81001; 81003; 85025; 87637; 99282; 99283

== ENCOUNTER → 2025-08-22 11:09 | Outpatient (BNV) | payer MEDICARE, SELFPAY | PROVIDERS: PCP Internal Medicine; Visit Provider Radiology Diagnostic Radiology | DX: J98.09 Other diseases of bronchus, not elsewhere classified (principal) | CPT/HCPCS: 71046 ==